=== PATIENT | female | born 1980 | race Caucasian/White ===

== ENCOUNTER → 2017-06-20 12:53 | Outpatient (CLI) | payer MEDICAID, SELFPAY ==
--- NOTE | 2017-06-20 12:59 | BI_ITS ---
MAMMOGRAPHY - BILATERAL DIAGNOSTIC REASON FOR EXAM: Female, 37 years old. Right breast lump. PERTINENT HISTORY: Non-contributory. TECHNIQUE: Digital bilateral breast prema (3D mammographic acquisition) in the CC and MLO projections. 2-D mediolateral oblique (MLO) and craniocaudad (CC) views of both breasts were obtained. CAD: Full Field Digital Mammography with Computer Added Detection was performed. COMPARISON: None. Baseline examination. FINDINGS: Breast Composition: The breasts are heterogeneously dense, which may obscure small masses. There is a 0.9 cm x 1.2 cm well-defined nodule in the upper lateral anterior portion of the left breast. No cluster microcalcification is seen. Benign appearing bilateral axillary lymph nodes. No other significant abnormalities are identified. BI/DIAG MAMM W/CAD, BILAT IMPRESSION: Well-defined nodular density in the left breast as described. Correlation with ultrasound is recommended. Correlation with ultrasound of the right breast at the palpable site is recommended as well. ASSESSMENT CATEGORY: BIRADS Category 0: Incomplete. Need additional imaging evaluation. A letter regarding these results will be sent to the patient by the facility within 30 days. Approximately 10% of breast cancers are not detected by mammography. A normal mammogram should not delay biopsy of a clinically suspicious abnormality. Electronically Signed: Brice Sifuentes MD at 15:15 EDT Tel [phone], Service support ,
--- NOTE | 2017-06-20 13:50 | US_ITS ---
STUDY: ULTRASOUND BREAST - RIGHT REASON FOR EXAM: Female, 37 years old. Palpable lump in the right breast. TECHNIQUE: Axial and longitudinal images of the RIGHT breast were performed with a high resolution ultrasound transducer. COMPARISON: Comparison is made with prior mammogram done earlier in the day. FINDINGS: RIGHT Breast: There is a 0.5 cm x 1.4 cm x 0.4 cm cyst at the 4:00 position in the breast at 3 cm from the nipple. There is also evidence of a 0.9 cm x 0.8 cm x 0.4 cm cyst at the 4:00 position in the breast at 5 cm from the nipple. IMPRESSION: 2 small cysts are seen in the mid medial portion of the right breast. ASSESSMENT CATEGORY: BIRADS Category 2: Benign. A letter regarding these results will be sent to the patient by the facility within 30 days. Electronically Signed: Brice Sifuentes MD at 15:11 EDT Tel [phone], Service support , STUDY: ULTRASOUND BREAST - LEFT REASON FOR EXAM: Female, 37 years old. Abnormal mammogram. TECHNIQUE: Axial and longitudinal images of the LEFT breast were performed with a high resolution ultrasound transducer. COMPARISON: Comparison is made with prior mammogram done earlier in the day. FINDINGS: LEFT Breast: There is a 1.8 cm x 0.7 cm x 0.8 cm well-defined hypoechoic nodule at the 2:00 position of the breast at 5 cm from the nipple. Low-level echoes are seen within it. This is not a typical cyst. A biopsy is recommended for further evaluation. US/Breast Limited Unilateral IMPRESSION: Well-defined 1.8 cm x 0.7 cm x 0.8 cm hypoechoic nodule at the 2:00 position in the breast of 5 cm from nipple. This is not a typical cyst. A biopsy is recommended for further evaluation. ASSESSMENT CATEGORY: BIRADS Category 4: Suspicious - Biopsy Should Be Considered. A letter regarding these results will be sent to the patient by the facility within 30 days. Electronically Signed: Brice Sifuentes MD at 15:13 EDT Tel [phone], Service support ,
== END ==
PROVIDERS: Family Provider Family Medicine; PCP Family Medicine; Visit Provider Obstetrics & Gynecology
DX: N63.13 Unspecified lump in the right breast, lower outer quadrant (principal)
CPT/HCPCS: 76642; 77062; 77066; G0279

== ENCOUNTER → 2017-07-04 07:10 | Outpatient (CLI) | payer MEDICAID, SELFPAY ==
--- NOTE | 2017-07-04 07:12 | MRI_ITS ---
STUDY: BILATERAL BREAST MR WITHOUT AND WITH CONTRAST REASON FOR EXAM: Female, 37 years old. Bilateral breast masses. Palpable abnormality right breast. TECHNIQUE: Multi-sequence multi-echo imaging of both breasts was performed with a dedicated breast coil. T1-weighted and T2-weighted images were performed before the administration of contrast. T1-weighted images were also performed after the administration of 10 mL of Gadavist contrast intravenously without complications. COMPARISON: Mammogram dated 06/20/2017 and breast ultrasound dated 06/20/2017 FINDINGS: RIGHT BREAST: The breast tissue is scattered fibroglandular densities with no background enhancement. There are no abnormal enhancing masses or areas of non-mass enhancement in the right breast. There are 2 benign appearing cystic masses in the lower inner aspect of the right breast measuring approximately 1 cm correlating to palpable areas. One of the masses appears to be somewhat tubular and appears to represent a cyst connected to a possible duct. LEFT BREAST: The breast tissue is scattered fibroglandular densities with no background enhancement. There is a complex heterogeneous mass identified in the upper outer quadrant of the left breast approximately 6 cm from the nipple. This mass does not demonstrate abnormal kinetics based upon MRI criteria, to be highly suggestive of malignancy, however malignancy cannot be entirely excluded. Biopsy is therefore warranted. This mass measures approximately 16 mm. It does correlate to the mass seen on the mammogram and ultrasound examinations. No other abnormal enhancing or abnormal morphologically appearing masses are seen in the left breast. There are no enlarged or abnormal lymph nodes. There is no abnormality in the visualized regions of the chest or liver. MRI/Breast w/o and/or W Cont Bilat IMPRESSION: The left breast mass should be biopsied in order to completely exclude a malignancy. CATEGORY: BIRADS Category 4: Suspicious - Biopsy Should Be Considered. A letter regarding these results will be sent to the patient by the facility within 30 days. Electronically Signed: Freda Zamudio DO at 8:14 EDT Tel , Service support ,
== END ==
PROVIDERS: Family Provider Family Medicine; PCP Family Medicine; Visit Provider Surgery
DX: R92.8 Other abnormal and inconclusive findings on diagnostic imaging of breast (principal)
CPT/HCPCS: 77059; A9585; A4216; C8908

== ENCOUNTER → 2017-07-05 15:22 | Outpatient (CLI) | payer MEDICAID, SELFPAY ==
--- NOTE | 2017-07-05 14:00 | BRBX_PTH ---
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 Joby Felix MD : 1980 BED: DIS: SPEC #: [id number] RECD: 07/05/17 15:19 STATUS: JALEN JOURDAN #: [id number] MIKEY: 07/05/17 14:[address]: Joby Felix DEPT: SURGICAL PATHOLOGY RECD BY: Larry Meza ENTERED: 07/06/17 07:47 SP TYPE: BREAST BX OTHR DR: Dr. Pretty Witt MD Tissues: Left breast, NOS Procedures: Surgery Specimen Level IV HEADER OPERATION: Ultrasound-guided needle core biopsy left breast PRE-OP DIAGNOSIS: Abnormal mammogram TISSUE SUBMITTED: Left breast biopsy ISCHEMIC TIME: 1 minute FIXATION TIME: 29.5 hours MICROSCOPIC DIAGNOSIS Left breast, ultrasound-guided needle core biopsy: Hyalinized fibroadenoma. Negative for atypia or malignancy. SHANIQUE:za 07/07/17 COMMENT Correlation with clinical, radiologic findings and appropriate follow up are necessary. MICROSCOPIC DESCRIPTION Slides are reviewed. GROSS DESCRIPTION Received in fixative is one container labeled with the patient's name and designated left breast. The specimen consists of multiple elongated fragments of damian-yellow fibroadipose tissue that in aggregate measure 2 x 1 x 0.1 cm. The entire specimen is submitted in one cassette. / SHANIQUE:za 07/06/17 TC:1 CPT: 29590
== END ==
PROVIDERS: Family Provider Family Medicine; PCP Family Medicine; Visit Provider Surgery
DX: R92.8 Other abnormal and inconclusive findings on diagnostic imaging of breast (principal)
CPT/HCPCS: 88305

== ENCOUNTER → 2017-11-27 13:43 | Outpatient (CLI) | payer MEDICAID, SELFPAY ==
--- NOTE | 2017-11-27 13:46 | RAD_ITS ---
STUDY: X-RAY - LUMBAR SPINE REASON FOR EXAM: Female, 37 years old. Low back pain TECHNIQUE: 5 view(s) of the lumbar spine were obtained. COMPARISON: 07/02/2013 FINDINGS: Normal lumbar lordosis. There is no substantial scoliosis. There is a normal alignment of the vertebrae. Normal vertebral bodies and endplates. Severe degenerative disc disease at L5-S1. Significantly progressed since 2013. The soft tissue structures are unremarkable. RAD/L/S Spine Min 4 Views IMPRESSION: Severe degenerative disc disease at L5-S1 which has progressed since 2013. Recommend nonemergent MRI lumbar spine to further evaluate Electronically Signed: Ayo Brower DO at 10:33 EDT Tel , Service support ,
== END ==
PROVIDERS: Family Provider Family Medicine; PCP Family Medicine; Visit Provider Family Medicine
DX: S39.012A Strain of muscle, fascia and tendon of lower back, initial encounter (principal)
CPT/HCPCS: 72110

== ENCOUNTER → 2020-01-02 16:43 | Outpatient (CLI) | payer BC, SELFPAY ==
[2019-05-05 11:29] VITALS: BMI 32.2
== END ==
PROVIDERS: PCP Family Medicine; Referring Provider Family Medicine; Visit Provider Family Medicine
DX: Z20.828 Contact with and (suspected) exposure to other viral communicable diseases (principal)
CPT/HCPCS: 87635; U0003

== ENCOUNTER → 2020-05-22 14:24 | Outpatient (CLI) | payer BC, SELFPAY ==
[2019-05-05 11:29] VITALS: BMI 32.2
[2020-05-22 17:34] LABS: Absolute Lymphocyte Count 2.26 X10^3/uL (0.83-4.51); Absolute Neutrophil Count 3.4 X10^3/uL (2.0-7.7); Basophil# 0.04 X10^3/uL; Basophil% 0.6 % (0-1); Eosinophils% 3.2 % (0-5); Hematocrit 44.3 % (37-47); Hemoglobin 14.5 g/dL (12.0-15.0); Lymphocyte # 2.26 X10^3/ul (4.0); Lymphocyte % 36.2 % (19-41); Mean Corp Hgb Conc 32.7 g/dL (32-36); Mean Corpuscular Hgb 30.5 pg (27.0-32.0); Mean Corpuscular Volume 93.3 fL (81-99); Mean Platelet Vol. 10.7 fl (6.2-12.0); Monocyte# 0.33 X10^3/uL; Monocyte% 5.3 % (0-10); NRBC Flagged by Analyzer 0 % (0-5); Neutrophil % 54.4 % (47-70); Platelet Count 269 K/mm3 (150-450); RBC Distribution Width CV 11.9 % (11.6-14.6); RBC Distribution Width SD 41.1 fl (35.1-43.9); Red Blood Count 4.75 M/mm3 (4.2-5.4); White Blood Count 6.3 K/mm3 (4.4-11.0)
== END ==
PROVIDERS: PCP Family Medicine; Referring Provider Family Medicine; Visit Provider Family Medicine
DX: K62.5 Hemorrhage of anus and rectum (principal)
CPT/HCPCS: 36415; 85025

== ENCOUNTER → 2020-11-18 15:44 | Outpatient (CLI) | payer BC, SELFPAY | PROVIDERS: PCP Family Medicine; Visit Provider Physician Assistant | DX: Z11.52 Encounter for screening for COVID-19 (principal) | CPT/HCPCS: 87635; U0005; U0003 ==

== ENCOUNTER → 2022-09-12 | Outpatient (CLI) | payer MEDICAID, SELFPAY ==
[2022-09-12 13:31] LABS: Absolute Lymphocyte Count 2.24 X10^3/uL (0.83-4.51); Basophil# 0.04 X10^3/uL; Basophil% 0.4 % (0-1); Eosinophils% 4.3 % (0-5); Hematocrit 40.1 % (37-47); Hemoglobin 13.2 g/dL (12.0-15.0); Lymphocyte # 2.24 X10^3/ul (0.83-4.51); Lymphocyte % 24.2 % (19-41); Mean Corp Hgb Conc 32.9 g/dL (32-36); Mean Corpuscular Hgb 30.1 pg (27.0-32.0); Mean Corpuscular Volume 91.6 fL (81-99); Mean Platelet Vol. 10.4 fl (6.2-12.0); Monocyte# 0.55 X10^3/uL; Monocyte% 5.9 % (0-10); NRBC Flagged by Analyzer 0 % (0-5); Neutrophil # 5.97 X10^3/uL (2.7-7.7); Neutrophil % 64.6 % (47-70); Platelet Count 292 K/mm3 (150-450); RBC Distribution Width SD 42.9 fl (35.1-43.9); Red Blood Count 4.38 M/mm3 (4.2-5.4); White Blood Count 9.3 K/mm3 (4.4-11.0)
[2022-09-12 14:21] LABS: HIV - WCH Non-Reactive (Nonreactive); Hepatitis B Surface Antigen Non-Reactive (Nonreactive); Hepatitis C Antibody Non-Reactive (Nonreactive); Rubella IgG Reactive (Nonreactive); Syphilis Antibodies Non-reactive
[2022-09-14 08:12] LABS: V-Zoster IgG (Immunity) 2527 index (Immune >165)
[2022-09-16 12:09] LABS: HPV APTIMA, High Risk Negative (Negative)
== END | disposition home or self-care (01) ==
LOC: WOBLAB 12:17
PROVIDERS: PCP Family Medicine; Visit Provider Nurse Practitioner Women's Health
DX: O30.001 Twin pregnancy, unspecified number of placenta and unspecified number of amniotic sacs, first trimester (principal); Z3A.00 Weeks of gestation of pregnancy not specified
CPT/HCPCS: 36415; 85025; 86703; 86762; 86780; 86787; 86803; 87086; 87340; 87624; 88175; G0145

== ENCOUNTER → 2022-09-20 | Outpatient (CLI) | payer MEDICAID, SELFPAY ==
[2022-09-20 14:05] LABS: Glucose Challenge Gest 1H 50g 172 mg/dL (70-140)
== END | disposition home or self-care (01) ==
LOC: WOBLAB 13:27
PROVIDERS: PCP Family Medicine; Visit Provider Nurse Practitioner Women's Health
DX: N91.2 Amenorrhea, unspecified (principal)
CPT/HCPCS: 36415; 82950

== ENCOUNTER → 2022-09-22 | Outpatient (CLI) | payer MEDICAID, SELFPAY ==
[2022-09-22 09:22] LABS: Glucose GTT-Gestation. Fasting 109 mg/dL (<105)
[2022-09-22 10:34] LABS: Glucose GTT-Gestational 1 Hr 183 mg/dL (<190)
[2022-09-22 11:23] LABS: Glucose GTT-Gestational 2 Hr 165 mg/dL (<165)
[2022-09-22 13:09] LABS: Glucose GTT-Gestational 3 Hr 86 L (<145)
== END | disposition home or self-care (01) ==
LOC: WOBLAB 08:36
PROVIDERS: PCP Family Medicine; Visit Provider Obstetrics & Gynecology
DX: Z34.81 Encounter for supervision of other normal pregnancy, first trimester (principal)
CPT/HCPCS: 36415; 82951; 82952

== ENCOUNTER 2023-03-23 08:14 | Inpatient (IN) | payer MEDICAID, SELFPAY ==
[2023-03-23] VITALS (29 sets, daily range): BP systolic 109–146; BP diastolic 61–93; PULSE 79–128; TEMP 35.8–36.8; O2SAT 93–98; BMI 39.7
--- OUTSIDE RECORDS SUMMARY | 2023-03-23 07:19 | XMS RPT_ITS | CCD ---
Author Name Unknown Address [address] [place] [address] Organization [facility] Care Team Providers Care Mail Deliverer Name Role Phone Unavailable Primary Care Provider UnavailBRUNO Pepe Attending Unavailable BANDAR ALVARES Referring Unavailable NO PRIMARY CAREMD Primary Care Unavailable MYRON COYLE Referring Unavailable BRUNO MILLIGAN Attending Unavailable NO PRIMARY CAREMD Primary Care Unavailable MYRON COYLE Referring Unavailable BRUNO MILLIGAN Attending Unavailable NO PRIMARY CAREMD Primary Care Unavailable SERGE AREVALO Attending Unavailable MYRON COYLE Referring Unavailable NO PRIMARY CAREMD Primary Care Unavailable MYRON COYLE Referring Unavailable TERRENCE JACKSON Attending Unavailable NO PRIMARY CAREMD Primary Care Unavailable DEEPIKA LOMAX Attending Unavailable BANDAR ALVARES Referring Unavailable ERIN RODRIGUES Attending Unavail able DANIEL SANCHES Attending Unavailable MARIE HAYS Attending Unavailable BANDAR ALVARES Attending Unavailable TERESA JACOME Attending Unavailable MARIE HAYS Referring Unavailable TERESA JACOME Attending Unavailable DEEPIKA LOMAX Attending Unavailable MARIE HAYS Attending Unavailable DANIEL SANCHES Attending Unavailable ERIN RODRIGUES Attending Unavail able ERIN RODRIGUES Referring Unavail able MARQUIS AQUINO Attending Unavailable DANIEL SANCHES Attending Unavailable ERIN ORDRIGUES Referring Unavail able ERIN RODRIGUES Attending Unavail able DEEPIKA LOMAX Attending Unavailable ERIN RODRIGUES Referring Unavail able BANDAR ALVARES Attending Unavailable MARIE HAYS Referring Unavailable ERIN RODRIGUES Attending Unavail able Allergies Allergy Classification Reported Allergen(s) Allergy Type Date of Onset Reaction(s) Facility (20 sources) Sulfonamides (Antibiotic); Translations: [SULFA (SULFONAMIDE ANTIBIOTICS)] Propensity to adverse reactions 6 Swelling [facility] Work Phone: (20 sources) buPROPion; Translations: [BUPROPION] Drug Allergy 3 Rash [facility] (20 sources) HYDROcodone; Translations: [HYDROCODONE] Drug Allergy 3 Other: See Comments [facility] (20 sources) Promethazine; Translations: [PROMETHAZINE] Drug Allergy 0 Other: See Comments [facility] (1 source) Sulfonamides (Antibiotic); Translations: [SULFA ANTIBIOTICS] Propensity to adverse reactions to drug (disorder) 0 [facility] Repository Medications Current Medications Medication Drug Class(es) Dates Sig (Normalized) Sig (Original) nitrofurantoin, macrocrystals 25 mg / nitrofurantoin, monohydrate 75 mg oral capsule (3 sources) Nitrofuran Antibacterial Start: 12-22-2022 End: 12-29-2022 take 1 capsule by mouth twice daily nitrofurantoin monohydrate and macrocrystal (MACROBID) 100 mg capsule Take 1 capsule by mouth two times a day for 7 days. 14 capsule 0 12/22/2022 12/29/2022 Active Completed/Discontinued Medications Medication Drug Class(es) Dates Sig (Normalized) Sig (Original) amphetamine aspartate 5 mg / amphetamine sulfate 5 mg / dextroamphetamine saccharate 5 mg / dextroamphetamine sulfate 5 mg oral tablet (20 sources) Central Nervous System Stimulant Start: 10-28-2022 take 1 tablet by mouth every twelve hours dextroamphetamin e-amphetamine (ADDERALL) 20 mg tablet Take 1 tablet by mouth every 12 (twelve) hours. 0 10/28/2022 Active Problems Active Problems Problem Classification Problem Date Documented Date Episodic/Chronic Benign neoplasm of uterus (2 sources) Uterine leiomyoma; Translations: [Leiomyoma of uterus, unspecified] Onset: 02-08-2023 02-08-2023 Episodic Diabetes or abnormal glucose tolerance complicating ; childbirth; or the puerperium (20 sources) Gestational diabetes mellitus; Translations: [Gestational diabetes mellitus in , insulin controlled] Onset: 11-24-2022 11-24-2022 Episodic Immunizations and screening for infectious disease (4 sources) Needs influenza immunization; Translations: [Encounter for immunization] Onset: 01-24-2023 12-20-2022 Episodic Other complications of (20 sources) Obesity; Translations: [Obesity complicating , unspecified trimester] Onset: 11-24-2022 11-24-2022 Chronic Other complications of (1 source) Obesity complicating , unspecified trimester; Translations: [Obesity in ] Onset: 11-24-2022 Chronic Other complications of (20 sources) Multigravida of advanced maternal age; Translations: [Supervision of elderly multigravida, unspecified trimester] Onset: 11-24-2022 11-24-2022 Episodic Other complications of (4 sources) High risk ; Translations: [Supervision of high risk , unspecified, second trimester] 12-20-2022 Episodic Other complications of (1 source) Supervision of elderly multigravida, third trimester; Translations: [AMA (advanced maternal age) multigravida 35+, third trimester] Onset: 02-24-2023 Episodic Other complications of (1 source) Supervision of elderly multigravida, second trimester; Translations: [AMA (advanced maternal age) multigravida 35+, second trimester] Onset: 02-15-2023 Episodic Other complications of (1 source) Supervision of high risk , unspecified, second trimester; Translations: [Supervision of high risk in second trimester] Onset: 02-07-2023 Episodic Other complications of (1 source) Supervision of high risk , unspecified, third trimester; Translations: [Supervision of high risk in third trimester] Onset: 01-24-2023 Episodic Other connective tissue disease (20 sources) H/O: rheumatoid arthritis; Translations: [Personal history of other diseases of the musculoskeletal system and connective tissue] Onset: 11-24-2022 11-24-2022 Episodic Other lower respiratory disease (20 sources) H/O: asthma; Translations: [Personal history of other diseases of the respiratory system] Onset: 11-24-2022 11-24-2022 Episodic Other screening for suspected conditions (not mental disorders or infectious disease) (1 source) Patient encounter status; Translations: [Encounter for other specified screening] 02-07-2023 Episodic Residual codes; unclassified (1 source) Gestation period, 22 weeks; Translations: [22 weeks gestation of ] 12-14-2022 Episodic Residual codes; unclassified (1 source) Gestation period, 23 weeks; Translations: [23 weeks gestation of ] 12-20-2022 Episodic Residual codes; unclassified (1 source) Gestation period, 26 weeks; Translations: [26 weeks gestation of ] 01-10-2023 Episodic Residual codes; unclassified (1 source) Gestation period, 28 weeks; Translations: [28 weeks gestation of ] 01-24-2023 Episodic Residual codes; unclassified (2 sources) Gestation period, 30 weeks; Translations: [30 weeks gestation of ] 02-07-2023 Episodic Residual codes; unclassified (1 source) 33 weeks gestation of ; Translations: [33 weeks gestation of ] Onset: 02-24-2023 Episodic Residual codes; unclassified (1 source) 32 weeks gestation of ; Translations: [32 weeks gestation of ] Onset: 2023 Episodic Residual codes; unclassified (1 source) 30 weeks gestation of ; Translations: [30 weeks gestation of ] Onset: 02-15-2023 Episodic Residual codes; unclassified (1 source) 28 weeks gestation of ; Translations: [28 weeks gestation of ] Onset: 01-24-2023 Episodic Past or Other Problems Problem Classification Problem Date Documented Date Episodic/Chronic Other complications of (20 sources) Continuing after intrauterine of one fetus or more, unspecified trimester, not applicable or unspecified; Translations: [Twin with loss and retention of one fetus, antepartum condition or complication] Onset: 11-24-2022 11-24-2022 Episodic Other complications of (1 source) Supervision of elderly multigravida, unspecified trimester; Translations: [Antepartum multigravida of advanced maternal age] Onset: 11-24-2022 Episodic Other connective tissue disease (1 source) Personal history of other diseases of the musculoskeletal system and connective tissue; Translations: [History of rheumatoid arthritis] Onset: 11-24-2022 Episodic Other lower respiratory disease (1 source) Personal history of other diseases of the respiratory system; Translations: [History of asthma] Onset: 11-24-2022 Episodic Other and delivery including normal (20 sources) Second trimester ; Translations: [Encounter for supervision of normal , unspecified, second trimester] Onset: 11-24-2022 11-24-2022 Episodic Screening and history of mental health and substance abuse codes (20 sources) H/O: depression; Translations: [Personal history of other mental and behavioral disorders] Onset: 11-24-2022 11-24-2022 Episodic Results Test Name Value Interpretation Reference Range Facil ity Vital Signs Date Time Vital Sign Value Performing Clinician Sherleyi litthomas 02-07-2023 14:08-0500 Body weight 109.23 kg Deepika Lomax MD Work Phone: [facility] 02-07-2023 14:08-0500 Diastolic blood pressure 70 mm[Hg] Deepika Lomax MD Work Phone: [facility] 02-07-2023 14:08-0500 Systolic blood pressure 98 mm[Hg] Deepika Lomax MD Work Phone: [facility] 01-24-2023 15:50-0500 Body weight 107.05 kg Erin Hauser MD Work Phone: [facility] 01-24-2023 15:50-0500 Diastolic blood pressure 84 mm[Hg] Erin Hauser MD Work Phone: [facility] 01-24-2023 15:50-0500 Systolic blood pressure 132 mm[Hg] Erin Hauser MD Work Phone: [facility] 12-20-2022 15:05-0400 Body weight 107.05 kg Erin Hauser MD Work Phone: [facility] 12-20-2022 15:05-0400 Diastolic blood pressure 70 mm[Hg] Erin Hauser MD Work Phone: [facility] 12-20-2022 15:05-0400 Systolic blood pressure 120 mm[Hg] Erin Hauser MD Work Phone: [facility] 12-13-2022 14:52-0400 Body weight 105.51 kg Deepika Lomax MD Work Phone: [facility] 12-13-2022 14:52-0400 Diastolic blood pressure 72 mm[Hg] Deepika Lomax MD Work Phone: [facility] 12-13-2022 14:52-0400 Systolic blood pressure 110 mm[Hg] Deepika Loamx MD Work Phone: [facility] Encounters Encounter Date Encounter Type Care Provider Facility Start: 03-21-2023 End: 03-21-2023 ambulatory ERIN HAUSER Facility:[facility] Start: 03-17-2023 End: 03-17-2023 ambulatory DEEPIKA LOMAX Facility:[facility] Start: 03-14-2023 End: 03-14-2023 ambulatory DANIEL SANCHES Facility:[facility] Start: 03-10-2023 End: 03-10-2023 ambulatory TERESA JACOME Facility:[facility] Start: 03-07-2023 End: 03-07-2023 ambulatory DANIEL SANCHES Facility:[facility] Start: 03-03-2023 End: 03-03-2023 ambulatory MARIE HAYS Facility:[facility] Start: 02-28-2023 End: 03-01-2023 ambulatory MARIE HAYS Facility:[facility] Start: 02-24-2023 End: 02-25-2023 ambulatory BANDAR ALVARES Facility:[facility] Start: 2023 End: 02-21-2023 ambulatory ERIN HAUSER Facility:[facility] Start: 02-17-2023 End: 02-17-2023 [facility] Start: 02-17-2023 Telephone encounter Quarter Backer RN Maternal Medicine Procedures Date Procedure Procedure Detail Performing Clinician Start: 02-07-2023 Us preg uterus after 1st trimest 1/ gestation Erin Hauser MD Work Phone: Start: 01-24-2023 URINE OB DIP B/O Erin Hauser MD Work Phone: Start: 01-10-2023 URINE OB DIP B/O Erintony Hauser MD Work Phone: Start: 12-20-2022 INFLUENZA VACCINE, A GE 6 MO - 64 YR, QUADRIVALENT (AFLURIA, FLULAVAL, FLUZONE) Erin Hauser MD Work Phone: Start: 12-20-2022 Urnls dip stick/tabl et rgnt auto w/o microscopy Erin Hauser MD Work Phone: Start: 09-12-2022 Antibody screen Nurse W str Work Phone: Start: 09-12-2022 CBC panel - Blood by Automated count [facility] Provider Start: 09-12-2022 CHLAMYDIA/N GONO BY PCR [facility] Provider Start: 09-12-2022 GEST GLUC SCREEN, 1- HR, 50 GM, NON-FASTING [facility] Provider Start: 09-12-2022 HEP B SURF AG SCRN [facility] Start: 09-12-2022 HEPATITIS C ANTIBODY IA WITH CONFIRMATION [facility] Start: 09-12-2022 HIV 1 2 COMBO(AG/AB) ,WITH REFLEX TO DIFFERENTIATION [facility] Start: 09-12-2022 RUBELLA IGG AB [facility] Prov ider Start: 09-12-2022 SYPHILIS TOTAL W/REFLEX [facility] Start: 09-12-2022 TYPE + SCREEN (EXTERNAL LAB) [facility] Provider Plan of Treatment Date Care Activity Detail Author Start: 01-24-2033 Urine microalbumin profile DTaP,Tdap,Td Vaccine (2 - Td or Tdap) [facility] Start: 09-13-2027 HPV Testing HPV Testing [facility] Start: 09-13-2027 Pap Testing Pap Testing [facility] Start: 09-13-2027 Screening for malignant neoplasm of cervix [facility] Start: 02-16-2023 RSV Vaccine (1 - Risk 1-dose series) RSV Vaccine (1 - Risk 1-dose series) [facility] Start: 01-10-2023 End: 04-11-2023 CBC W Auto Differential panel - Blood CBC + DIFF Lab Routine 26 weeks gestation of AMA (advanced maternal age) multigravida 35+, second trimester Insulin controlled gestational diabetes mellitus (GDM) in second trimester Supervision of high risk in second trimester Expected: 01/10/2023, Expires: 04/11/2023 [facility] Work Phone: Immunizations Immunization Date Immunization Notes Care Provider Fa tae 01-24-2023 tetanus toxoid, redu nona diphtheria toxoid, and acellular pertussis vaccine, adsorbed Erin Hauser MD Work Phone: [facility] 12-20-2022 influenza, injectabl e, quadrivalent, contains preservative Erin Hauser MD Work Phone: [facility] Payers Date Payer Category Payer [facility] [id number] 2022-Present [phone] [address] [place] [address] Medicaid [id number] 2022 Unknown [id number] 1980 Unknown [id number] 1981 Unknown [id number] 1981 Unknown [id number] 1981 Unknown [id number] 1980 Unknown [id number] Social History Date Type Detail Facility Start: 11-24-2022 [facility] Work Phone: End: 09-02-2021 History of tobacco use Current smoker [facility] Work Phone: End: 09-02-2021 History of tobacco use Cigarette Smoker [facility] Work Phone: Start: 11-15-2022 Alcohol intake Current drinke r of alcohol (finding) [facility] Start: 11-15-2022 End: 02-07-2023 History of Social function [facility] Start: 11-15-2022 End: 02-07-2023 Tobacco use panel [facility] Start: 1980 Sex Assigned At Not on file [facility] Start: 11-24-2022 Tobacco use and exposure Smokeless tobacco non-user [facility] Work Phone: Start: 11-24-2022 End: 02-17-2023 Alcohol intake Ex-drinker (finding) [facility] Start: 11-24-2022 Education 21 [facility] Start: 11-24-2022 [facility] Start: 07-21-2022 [facility] National Score (1-10 0), lower number is lower risk 64 [facility] Medical Equipment Procedure Code Equipment Code Equipment Origin al Text Equipment Identifier Dates Start: 09-23-2022 End: 12-15-2022 Goals Date Patient Goal Desired Activity /State Personal health goal Personal health goal Clinical Notes 11-15-2022 to 03-21-2023 Telephone Encounter - Joan Ibarra RN - 02/17/2023 1:59 PM ESTTelephone Encounter - Aga Rodriguez LPN - 02/07/2023 4:48 PM ESTPatient Deepika Huang MD - 02/07/2023 2:51 PM EST Note Date & Type Note Facility 03-21-2023 Note HNO ID: [id number] Author: ERIN RODRIGUES MD Service: ? Author Type: Physician Type: Progress Notes Filed: 03/21/2023 12:49 Note Text: NST SUMMARY PROVIDER ASSESSMENT AND INTERPRETATION Jeri Gordon is a 43 year old female, , who is at 36w5d with an MARYANA of 04/13/2023, by Last Menstrual Period dating method. Indications for NST: AMA, Diabetes - Insulin Controlled, and Obesity Baseline: 150 Variability: Moderate Accelerations: Present 15 X 15 Decelerations: Variable - one possible variable but category 1 for >20min prior to discharge Contractions: TOCO: None Interpretation: Category I and Reactive SIGNATURE: Erin Marinelli MD [facility] 03-14-2023 Note HNO ID: [id number] Author: DANIEL SANCHES MD Service: ? Author Type: Physician Type: Progress Notes Filed: 03/14/2023 12:50 Note Text: NST SUMMARY PROVIDER ASSESSMENT AND INTERPRETATION Jeri Gordon is a 43 year old female, , who is at 35w5d with an MARYANA of 04/13/2023, by Last Menstrual Period dating method. Indications for NST: AMA and Gestational Diabetes - Insulin Controlled Baseline: 140 Variability: Moderate Accelerations: Present 15 X 15 Decelerations: Variable Contractions: TOCO: None Interpretation: Reactive SIGNATURE: Daniel Sanches MD [facility] 03-10-2023 Note HNO ID: [id number] Author: TERESA JACOME APRN.CNM Service: ? Author Type: Book Retailer Type: Progress Notes Filed: 03/10/2023 16:57 Note Text: NST SUMMARY PROVIDER ASSESSMENT AND INTERPRETATION Jeri Gordon is a 43 year old female, , who is at 35w1d with an MARYANA of 04/13/2023, by Last Menstrual Period dating method. Indications for NST: Diabetes - Insulin Controlled Baseline: 150 Variability: Moderate Accelerations: Present 15 X 15 Decelerations: None Contractions: TOCO: Irregular Interpretation: Reactive SIGNATURE: Teresa Jacome APRN.CNM [facility] 03-07-2023 Note HNO ID: [id number] Author: Deepika Lomax MD Service: ? Author Type: Physician Type: Progress Notes Filed: 03/07/2023 3:14 PM Note Text: MFM Progress Note Jeri is 42yo @ 34w5d here for growth and follow up visit due to GDM on insulin. Having occasional contractions BP 116/84 Wt 246 lb 3.2 oz (111.7 kg) LMP 07/07/2022 BMI 38.56 kg/m? AANDO, NAD Abdomen soft, nontender during US exam US shows: Accelerated interval growth EFW 79%ile, AC 97%ile Normal fluid Forgot glucose log today therefore will not adjust insulin dose, will send via Mychart Reports fasting between 89-97 Currently 65 units Levemir nightly, Humalog 08/12/11 Discussed early term delivery and risks/benefits including possible need for NICU admission balancing with risk of antepartum complications including loss. Patient comfortable with proceeding with early term delivery. Problem List Items Addressed This Visit Endocrinology Insulin controlled gestational diabetes mellitus (GDM) in second trimester Overview Insulin regimen as of 03/07/22: Levemir: 65 units qHS Lispro: 08/12/11 units with meals /2: does not have BG log reports fasting mostly 90s, postprandial normal range -Serial growth ultrasounds -Twice weekly NST at 32 weeks -Given frequent insulin adjustments, LGA, other risks including AMA, suggest delivery 37-39 weeks unless indicated earlier Other Visit Diagnoses AMA (advanced maternal age) multigravida 35+, second trimester Medical Decision Making: Problems: Moderate: 2+ stable chronic illnesses Risk: Moderate: Moderate risk from testing/treatment Medical Decision Making Level: 4 - Moderate Deepika Lomax MD February 07, 2023 2:55 PM [facility] 03-03-2023 Note HNO ID: [id number] Author: Marie Hays APRN.CNM Service: ? Author Type: Book Retailer Type: Progress Notes Filed: 03/03/2023 4:17 PM Note Text: NST SUMMARY PROVIDER ASSESSMENT AND INTERPRETATION Jeri Gordon is a 43 year old female, , who is at 34w1d with an MARYANA of 04/13/2023, by Last Menstrual Period dating method. Indications for NST: Gestational Diabetes - Insulin Controlled Baseline: 145 Variability: Moderate Accelerations: Present 15 X 15 Decelerations: Variable Contractions: TOCO: None Interpretation: Reactive SIGNATURE: Marie Hays APRN.CNM [facility] 02-24-2023 Note HNO ID: [id number] Author: Bandar Alvares MD Service: ? Author Type: Physician Type: Progress Notes Filed: 02/24/2023 4:33 PM Note Text: NST SUMMARY PROVIDER ASSESSMENT AND INTERPRETATION Jeri Gordon is a 43 year old female, , who is at 33w1d with an MARYANA of 04/13/2023, by Last Menstrual Period dating method. Indications for NST: AMA and Gestational Diabetes - Insulin Controlled Baseline: 135 Variability: Moderate Accelerations: Present 15 X 15 Decelerations: None Contractions: TOCO: None Interpretation: Category I and Reactive SIGNATURE: Bandar Alvares MD [facility] 2023 Note HNO ID: [id number] Author: Erin Rodrigues MD Service: ? Author Type: Physician Type: Progress Notes Filed: 2023 5:11 PM Note Text: NST SUMMARY PROVIDER ASSESSMENT AND INTERPRETATION Jeri Gordon is a 43 year old female, , who is at 32w4d with an MARYANA of 04/13/2023, by Last Menstrual Period dating method. Indications for NST: AMA and Diabetes - Insulin Controlled Baseline: 120 Variability: Moderate Accelerations: Present 15 X 15 Decelerations: None Contractions: TOCO: Irregular Interpretation: Category I and Reactive SIGNATURE: Erin Marinelli MD [facility] 02-17-2023 Note HNO ID: [id number] Author: Teresa Jacome APRN.CN Service: ? Author Type: Book Retailer Type: Progress Notes Filed: 02/17/2023 4:21 PM Note Text: NST SUMMARY PROVIDER ASSESSMENT AND INTERPRETATION Jeri Gordon is a 42 year old female, , who is at 32w1d with an MARYANA of 04/13/2023, by Last Menstrual Period dating method. Indications for NST: AMA, Gestational Diabetes - Insulin Controlled, and Obesity Baseline: 160 Variability: Moderate Accelerations: Present 15 X 15 Decelerations: None Contractions: TOCO: None Interpretation: Reactive SIGNATURE: Teresa Jacome APRN.CNM [facility] 02-17-2023 Miscellaneous Notes 3rd risk assessment form submitted 02/17/2023. Joan Ibarra RN documented in this encounter [facility] 02-07-2023 Note HNO ID: [id number] Author: Deepika Lomax MD Service: ? Author Type: Physician Type: Progress Notes Filed: 02/07/2023 2:56 PM Note Text: [facility] Progress Note Jeri is 42yo @ 30w5d here for growth and follow up visit due to GDM on insulin. Doing well, having [place] contractions. Has OB visit today. BP 98/70 Wt 240 lb 12.8 oz (109.2 kg) LMP 07/07/2022 BMI 37.71 kg/m? AANDO, NAD Abdomen soft, nontender during US exam US shows: Adequate interval growth EFW 79%ile, AC 97%ile Normal fluid Reviewed glucose log: Fasting all elevated 100-110 1 hour postprandial almost all within goal range Reviewed increase of nightly Levemir to 60 units (patient did not get My chart or phone message but signature adjusted today and discussed dose adjustment). If glucoses remain sub optimal can consider delivery 37-39 weeks given risk factors. Plan for twice weekly NST at 32 weeks and continue serial assessment of growth. Continue glucose monitoring through My Chart however will bring glucose log to visits as well if any communication gap with My Chart. Problem List Items Addressed This Visit Endocrinology Insulin controlled gestational diabetes mellitus (GDM) in second trimester Overview Insulin regimen as of 02/07/23: Levemir: 60 units qHS Lispro: 08/12/11 units with meals -Serial growth ultrasounds -Twice weekly NST at 32 weeks -Delivery 37-39 weeks unless indicated earlier 11/24/2022 Patient states she was newly diagnosed as a gestational diabetic. She states she has seen a dietitian and had diabetic education. She is now on insulin. She is aware of the importance of taking her blood sugars every day. She states since November 15 she has not reported of her blood sugars to [place] or [facility] since November 15. See phone note dated November 24.TKRN Relevant Medications LEVEMIR FLEXPEN 100 unit/mL (3 mL) injection pen Other History of depression Overview 3Pt has a history of anxiety/depression diagnosed in 2003. She is currently taking Effexor and Abilify prescribed by Dr. Almazan. She believes she is doing well on medication. She denies ever having any depression.Discussed increased risks of depression during and and importance of reporting the development or worsening of symptoms should they occur. Pt denies ever having any suicidal thoughts or tendencies or thoughts of hurting others. TKRN History of rheumatoid arthritis - Primary Overview 11/24/2022 Patient has a history of rheumatoid arthritis diagnosed at age 26. She states I have been in remission since age 31 with very few flareups . States she was last seen by viscosity inspector 15 years ago.TKRN Other Visit Diagnoses AMA (advanced maternal age) multigravida 35+, second trimester Supervision of high risk in second trimester Medical Decision Making: Problems: Moderate: 2+ stable chronic illnesses Risk: Moderate: Drug management and Moderate risk from testing/treatment Medical Decision Making Level: 4 - Moderate Deepika Lomax MD February 07, 2023 2:55 PM [facility] 02-07-2023 Miscellaneous Notes Voicemail and [employer] message sent to pt. Aga Rodriguez LPN Can you please call patient and clarify to increase insulin dose Levemir to 60 units not 55units. Confirmed with and this is the correct dose. Sorry for confusion. Thank you, Marie Hays APRN.CNM documented in this encounter [facility] 02-07-2023 Instructions Eliseo Vincent Cma - 02/07/2023 3:01 PM EST SEQUENTIAL SCREENINGS [facility] offers sequential screenings for women who are interested in screenings for chromosomal abnormalities and certain defects during a . The sequential screen combines ultrasound and blood tests to determine the risk of chromosomal abnormalities, including Down's Syndrome (Trisomy 21) and Trisomy 18, as well as open neural tube defects including spina bifida. Ultrasound examination is performed between 11 weeks and 13 weeks gestational age. Blood tests are drawn after the ultrasound and again later in the between 15 and 21 weeks gestational age. Please let your physician know if you are interested in this testing. It will require an appointment with our telecasting technician. This is not an ultrasound performed by a physician in our office during a routine visit. SIGNS AND SYMPTOMS OF LABOR 1. Contractions every 10 minutes or more often 2. Clear, pink, or brownish fluid (water) leaking from vagina 3. Feeling that baby is pushing down, pressure 4. Low, dull backache 5. Cramps that feel like a period 6. Cramps with or without diarrhea If you notice any of the above symptoms, contact our office at [phone] and ask to speak with a nurse. After hours, you can call doctors registry at [phone] OR call [facility] at [phone] and ask to have the doctor carbonating stone cleaner paged. If you consider this an emergency, dial 9-5 or go to your nearest emergency department. NEED HELP? Are you dealing with a violent or abusive relationship? Are you a victim of rape or sexual assult? Call [facility] ([place]) 24 hour Crisis Hotline: 243.796.1474 or 431-606-8169. MANUAL Your Guide to a Healthy manual is now on-line. Visit [email or web address] to download your free copy documented in this encounter [facility] 02-07-2023 Miscellaneous Notes JORGE-S: Jeri Gordon is a 42 year old female who presents at 30w5d with MARYANA:04/13/2023, by Last Menstrual Period for a routine visit. Good FM.Denies headache, visual changes, chest pain, shortness of breath, vaginal bleeding, leakage of fluid, or dysuria. Feeling well, no complaints. O: See flow sheet Gen: No apparent distress Abd: Gravid, nontender US shows: Adequate interval growth EFW 79%ile, AC 97%ile Normal fluid Patient reviewed glucose log with Fasting all elevated 100-110 1 hour postprandial almost all within goal range A: ASSESSMENT/PLAN: 1. 30 weeks gestation of 2. Insulin controlled gestational diabetes mellitus (GDM) in second trimester 3. AMA (advanced maternal age) multigravida 35+, second trimester 4. Obesity in P: 1) PTL precautions reviewed and when to call 2) RTO in one week 3) Twice weekly surveillance starting at 32 weeks alternating BPP and NST 4) Growth US at 34 wk 5) If glucoses remain sub optimal can consider delivery 37-39 weeks given risk factors. 6) MFM today for consult 7) Reviewed increase of nightly Levemir to 60 units at HS Continue glucose monitoring through My Chart however will bring glucose log to visits as well if any communication gap with My Chart. 8) Discussed with patient physician only for visits due to high risk Marie Hays APRN.CNM documented in this encounter [facility] 02-07-2023 History of Presen t illness Narrative MFM Progress Note Jeri is 42yo @ 30w5d here for growth and follow up visit due to GDM on insulin. Doing well, having [place] contractions. Has OB visit today. BP 98/70 Wt 240 lb 12.8 oz (109.2 kg) LMP 07/07/2022 BMI 37.71 kg/m A&O, NAD Abdomen soft, nontender during US exam US shows: Adequate interval growth EFW 79%ile, AC 97%ile Normal fluid Reviewed glucose log: Fasting all elevated 100-110 1 hour postprandial almost all within goal range Reviewed increase of nightly Levemir to 60 units (patient did not get My chart or phone message but signature adjusted today and discussed dose adjustment). If glucoses remain sub optimal can consider delivery 37-39 weeks given risk factors. Plan for twice weekly NST at 32 weeks and continue serial assessment of growth. Continue glucose monitoring through My Chart however will bring glucose log to visits as well if any communication gap with My Chart. Problem List Items Addressed This Visit Endocrinology Insulin controlled gestational diabetes mellitus (GDM) in second trimester Overview Insulin regimen as of 02/07/23: Levemir: 60 units qHS Lispro: 08/12/11 units with meals -Serial growth ultrasounds -Twice weekly NST at 32 weeks -Delivery 37-39 weeks unless indicated earlier 11/24/2022 Patient states she was newly diagnosed as a gestational diabetic. She states she has seen a dietitian and had diabetic education. She is now on insulin. She is aware of the importance of taking her blood sugars every day. She states since November 15 she has not reported of her blood sugars to [place] or [facility] since November 15. See phone note dated November 24.TKRN Relevant Medications LEVEMIR FLEXPEN 100 unit/mL (3 mL) injection pen Other History of depression Overview 3Pt has a history of anxiety/depression diagnosed in 2003. She is currently taking Effexor and Abilify prescribed by Dr. Almazan. She believes she is doing well on medication. She denies ever having any depression.Discussed increased risks of depression during and and importance of reporting the development or worsening of symptoms should they occur. Pt denies ever having any suicidal thoughts or tendencies or thoughts of hurting others. TKRN History of rheumatoid arthritis - Primary Overview 11/24/2022 Patient has a history of rheumatoid arthritis diagnosed at age 26. She states I have been in remission since age 31 with very few flareups . States she was last seen by viscosity inspector 15 years ago.TKRN Other Visit Diagnoses AMA (advanced maternal age) multigravida 35+, second trimester Supervision of high risk in second trimester Medical Decision Making: Problems: Moderate: 2+ stable chronic illnesses Risk: Moderate: Drug management and Moderate risk from testing/treatment Medical Decision Making Level: 4 - Moderate Deepika Lomax MD February 07, 2023 2:55 PM documented in this encounter [facility] 02-01-2023 Note HNO ID: [id number] Author: Teresa Ruiz APRN.MICHAEL Service: ? Author Type: Nurse Practitioner Type: Progress Notes Filed: 02/01/2023 12:51 PM Note Text: Called patient and lvm with recommendations Current Management: Medication controlled Lispro 10 units at meals Levemir 60 units at bedtime Teresa Ruiz APRN.CNP [facility] 02-01-2023 Note HNO ID: [id number] Author: Teresa Ruiz APRN.MICHAEL Service: ? Author Type: Nurse Practitioner Type: Progress Notes Filed: 02/01/2023 12:50 PM Note Text: Called patient and lvm with recommendations Current Management: Medication controlled Lispro 10 units at meals Levemir 60 units at bedtime Teresa Ruiz APRN.CNP [facility] 01-30-2023 Note HNO ID: [id number] Author: Teresa Ruiz APRN.CNP Service: ? Author Type: Nurse Practitioner Type: Progress Notes Filed: 01/30/2023 10:39 AM Note Text: Diabetes in Monitoring [facility] Recommendations Jeri Gordon is a 42 year old, , [place] 29w4d with Gestational Diabetes. Last growth scan: NOEMI 19.3 AC 83% EFW 55% Management: Medication controlled Humalog (Lispro) 6 units with breakfast Humalog (Lispro) 6 units with lunch Humalog (Lispro) 10 units with dinner Levemir (Detemir) 42 units at bedtime (HS) Diabetes in Monitoring Ammonium Nitrate Neutralizer 01/22/2023 01/21/2023 01/20/2023 01/19/2023 01/18/2023 01/17/2023 01/16/2023 Fasting 118 115 110 111 120 118 122 Dose 6 6 6 6 6 6 6 After BF 136 133 143 115 135 132 130 Lunch - 141 143 139 - - - Dose 6 6 6 6 6 6 6 After Lenore 154 - - - 150 162 153 Dose 10 10 10 10 10 10 10 After Din 155 152 148 145 153 147 152 Comment - - - - - - - Dose 42 42 42 42 42 42 42 Update Day - - - - - - - Dr Lomax to review for management recommendations. Teresa Ruiz APRN.CNP January 30, 2023 10:37 AM [facility] 01-24-2023 Note HNO ID: [id number] Author: Caridad Cummins Ma Service: ? Author Type: ? Type: Progress Notes Filed: 01/24/2023 5:12 PM Note Text: Patient identified by name and date of . Jeri Gordon presents today for a vaccination of Tdap. Patient denies an allergy to latex: yes Patient denies a severe (life-threatening) allergy to a previous dose of Tdap, DTP, DTaP, DT or Td vaccine. Yes Patient denies history of epilepsy or neurological problems: Yes Patient is afebrile and denies being moderately or severely ill: Yes Patient denies history of Guillain-B[place] Syndrome (a severe paralytic illness): Yes Tdap Adacel injection was given without incident. See immunizations for details of immunizations administered today. VIS sheet provided: Yes Provider Salma was present in office at time of injection. Caridad Cummins Ma [facility] 01-24-2023 Miscellaneous Notes DM-Pt doing well. Denies vaginal Bleeding, Leaking fluid, or regular Contractions. Pt reports good movement Physical Exam: Gen: female in no apparent distress Abd: soft, Gravid. Non tender to palpation. See flow sheet A/P: @ 28.5 weeks 1) declines LARC- title 19 signed previously 2) BS log reviewed- Fastings 110s-140s, 1hr breakfast 130s-140s, lunch- 130-162, D- 140s-160s . Increase Evening Insulin to 45 (was at 42) , breakfast keep at 6, Lunch change to 8 and dinner increase to 12. (Med list updated) 3) reviewed eating protein with CHO , eliminating simple CHO. 4) CBC and syphilis 5) growth us scheduled 6) kick counts 7) RTO 2 wks 8) Tdap today Erin Marinelli MD documented in this encounter [facility] 01-24-2023 History of Presen t illness Narrative Patient identified by name and date of . Jeri Gordon presents today for a vaccination of Tdap. Patient denies an allergy to latex: yes Patient denies a severe (life-threatening) allergy to a previous dose of Tdap, DTP, DTaP, DT or Td vaccine. Yes Patient denies history of epilepsy or neurological problems: Yes Patient is afebrile and denies being moderately or severely ill: Yes Patient denies history of Guillain-B[place] Syndrome (a severe paralytic illness): Yes Tdap Adacel injection was given without incident. See immunizations for details of immunizations administered today. VIS sheet provided: Yes Provider Salma was present in office at time of injection. Caridad Cummins Ma documented in this encounter [facility] 01-24-2023 Instructions Caridad Cummins Ma - 01/24/2023 3:47 PM EST SEQUENTIAL SCREENINGS [facility] offers sequential screenings for women who are interested in screenings for chromosomal abnormalities and certain defects during a . The sequential screen combines ultrasound and blood tests to determine the risk of chromosomal abnormalities, including Down's Syndrome (Trisomy 21) and Trisomy 18, as well as open neural tube defects including spina bifida. Ultrasound examination is performed between 11 weeks and 13 weeks gestational age. Blood tests are drawn after the ultrasound and again later in the between 15 and 21 weeks gestational age. Please let your physician know if you are interested in this testing. It will require an appointment with our telecasting technician. This is not an ultrasound performed by a physician in our office during a routine visit. SIGNS AND SYMPTOMS OF LABOR 1. Contractions every 10 minutes or more often 2. Clear, pink, or brownish fluid (water) leaking from vagina 3. Feeling that baby is pushing down, pressure 4. Low, dull backache 5. Cramps that feel like a period 6. Cramps with or without diarrhea If you notice any of the above symptoms, contact our office at [phone] and ask to speak with a nurse. After hours, you can call doctors registry at [phone] OR call [facility] at [phone] and ask to have the doctor carbonating stone cleaner paged. If you consider this an emergency, dial 9-6-3 or go to your nearest emergency department. NEED HELP? Are you dealing with a violent or abusive relationship? Are you a victim of rape or sexual assult? Call [facility] ([place]) 24 hour Crisis Hotline: 473.491.6429 or 690-208-3928. MANUAL Your Guide to a Healthy manual is now on-line. Visit [email or web address] Cinda to download your free copy documented in this encounter [facility] 01-23-2023 Note HNO ID: [id number] Author: Kati Barbosa RN Service: ? Author Type: ? Type: Progress Notes Filed: 01/23/2023 10:19 AM Note Text: Patient self reports Sent to provider for review. Kati Barbosa RN [facility] 01-23-2023 History of Presen t illness Narrative Patient self reports Sent to provider for review. Kati Barbosa RN documented in this encounter [facility] 01-18-2023 Note HNO ID: [id number] Author: Teresa Ruiz APRN.MICHAEL Service: ? Author Type: Nurse Practitioner Type: Progress Notes Filed: 01/18/2023 3:40 PM Note Text: Spoke with patient via phone. Name and verified. Patient plans to upload blood sugars today. Current regimen Lispro 6 units at breakfast, lunch Lispro 10 unit at dinner Levemir 42 units at bedtime Reports she has all testing supplies and insulin. Follow up in 1-2 days after blood sugars are submitted for review. Teresa Ruiz APRN.SILO OPERATOR [facility] 01-16-2023 Note HNO ID: [id number] Author: Meg Lujan RN Service: ? Author Type: Registered Nurse Type: Progress Notes Filed: 01/16/2023 11:15 AM Note Text: Pt self reports, last readings on 01/09. Please review. Meg Lujan RN [facility] 01-16-2023 History of Presen t illness Narrative Pt self reports, last readings on 01/09. Please review. Meg Lujan RN documented in this encounter [facility] 01-12-2023 Miscellaneous Notes Called pt, LVMM that medication was renewed yesterday by Dr John Hauser MD and a MC message was sent to pt advising her of this. Office phone number provided for call back. Meg Lujan RN left a vm that she needs a refill on her lispro. documented in this encounter [facility] 01-11-2023 Note HNO ID: [id number] Author: Teresa Ruiz APRN.SILO OPERATOR Service: ? Author Type: Nurse Practitioner Type: Progress Notes Filed: 01/11/2023 1:46 PM Note Text: Lispro 6 units at breakfast, lunch Lispro 10 unit at dinner Levemir 42 units at bedtime [facility] 01-11-2023 Note HNO ID: [id number] Author: Teresa Ruiz APRN.SILO OPERATOR Service: ? Author Type: Nurse Practitioner Type: Progress Notes Filed: 01/11/2023 1:41 PM Note Text: Called patient and notified of Dr. Mancuso recommendations. Unable to leave vm. Will send [employer] message. Current Management: Medication controlled Lispro 6 units at breakfast, lunch Lispro 10 unit at dinner Levemir 42 units at bedtime Teresa Ruiz APRN.SILO OPERATOR [facility] 01-11-2023 Miscellaneous Notes Called patient and got vm. LM that OB provider ordered insulin yesterday and both were sent to [facility] in [place]. Number provided to call back with any questions. Kati Barbosa RN documented in this encounter [facility] 01-11-2023 Miscellaneous Notes 2nd risk assessment form submitted 01/11/2023. Joan Ibarra, DARNELL documented in this encounter [facility] 01-10-2023 Miscellaneous Notes DM-Pt doing well. Denies vaginal Bleeding, Leaking fluid, or regular Contractions. Does have ctx but only 4 per hour and dissipate. Pt reports good movement. Saw MFM today and increased her insulin. Physical Exam: Gen: female in no apparent distress A/P: @ 3013 @ 26.5 weeks 1) Levemir increased to 45 units at night 2) Lispro increased to 08/11/09 with meals 3) growth in 4 weeks 4) Title 19 signed today- lap salpingectomy reviewed if not done at time of delivery. 5) 32 weeks needs 2 x weekly testing 6) 28 week labs ordered 7) tdap next visit 8) larc form signed and declined Erin Marinelli MD documented in this encounter [facility] 01-10-2023 Instructions Paris Martínez MA - 01/10/2023 9:02 AM EST SEQUENTIAL SCREENINGS [facility] offers sequential screenings for women who are interested in screenings for chromosomal abnormalities and certain defects during a . The sequential screen combines ultrasound and blood tests to determine the risk of chromosomal abnormalities, including Down's Syndrome (Trisomy 21) and Trisomy 18, as well as open neural tube defects including spina bifida. Ultrasound examination is performed between 11 weeks and 13 weeks gestational age. Blood tests are drawn after the ultrasound and again later in the between 15 and 21 weeks gestational age. Please let your physician know if you are interested in this testing. It will require an appointment with our telecasting technician. This is not an ultrasound performed by a physician in our office during a routine visit. SIGNS AND SYMPTOMS OF LABOR 1. Contractions every 10 minutes or more often 2. Clear, pink, or brownish fluid (water) leaking from vagina 3. Feeling that baby is pushing down, pressure 4. Low, dull backache 5. Cramps that feel like a period 6. Cramps with or without diarrhea If you notice any of the above symptoms, contact our office at [phone] and ask to speak with a nurse. After hours, you can call doctors registry at [phone] OR call [facility] at [phone] and ask to have the doctor carbonating stone cleaner paged. If you consider this an emergency, dial 9--1 or go to your nearest emergency department. NEED HELP? Are you dealing with a violent or abusive relationship? Are you a victim of rape or sexual assult? Call [facility] ([place]) 24 hour Crisis Hotline: 633.137.6698 or 757-528-2272. MANUAL Your Guide to a Healthy manual is now on-line. Visit [email or web address] [email or web address] to download your free copy documented in this encounter [facility] 01-09-2023 Note HNO ID: [id number] Author: Meg Lujan RN Service: ? Author Type: Registered Nurse Type: Progress Notes Filed: 01/09/2023 8:48 AM Note Text: Pt reports blood sugars to Dr Lomax. Meg Lujan RN [facility] 01-09-2023 History of Presen t illness Narrative Pt reports blood sugars to Dr Lomax. Meg Lujan RN documented in this encounter [facility] 01-06-2023 Miscellaneous Notes If seeing them doesn't need to see us that day. Thanks. Bandar Alvares MD Patient has appointment with MFM on Monday .She was last seen by OB 12/20 and told to come back in 2 weeks. No openings on Monday for ob visit. GDM on Insulin. please advise documented in this encounter [facility] 01-06-2023 Miscellaneous Notes ordered See refill request documented in this encounter [facility] 01-06-2023 Miscellaneous Notes 26w1d Patient sent a [employer] message also requesting refill. Requested Prescriptions Pending Prescriptions Disp Refills LEVEMIR FLEXPEN 100 unit/mL (3 mL) injection pen Si Units daily at bedtime. Joan Garcia RN documented in this encounter [facility] 01-05-2023 Note HNO ID: [id number] Author: Teresa Ruiz APRN.SILO OPERATOR Service: ? Author Type: Nurse Practitioner Type: Progress Notes Filed: 01/05/2023 3:26 PM Note Text: Diabetes in Monitoring MFM Recommendations Jeri Gordon is a 42 year old, , [place] 26w0d with Gestational Diabetes. Management: Medication controlled Lispro 6 units at breakfast, lunch, dinner Levemir 35 units at bedtime Type Low High % of the last 7 days that were over goal !Fasting 113 123 100% !After BF 108 117 0% !2H After BF % !Before Lunch % !After Lunch 108 138 0% !2H After Lunch % !Before Dinner % !After Dinner 143 155 100% !2H After Dinner % !Bedtime % *Values are calculated from the past 7 days starting yesterday. ! Indicates data missing from at least one of the days. Diabetes in Monitoring Ammonium Nitrate Neutralizer 01/02/2023 01/01/2023 12/31/2022 12/30/2022 12/29/2022 12/28/2022 12/27/2022 Fasting 123 115 113 123 119 118 115 Dose 6 - - - - - - After BF 108 110 112 117 117 109 110 Dose 6 6 6 3 3 3 3 After Lenore 132 132 138 117 108 157 163 Dose 6 6 6 3 3 3 3 After Din 149 147 143 153 155 163 168 Dose 35 35 35 35 35 35 35 Update Day - - - - - - - Dr Lomax to review for management recommendations. Teresa Ruiz APRN.SILO OPERATOR January 05, 2023 2:55 PM [facility] 12-26-2022 Note HNO ID: [id number] Author: Meg Lujan RN Service: ? Author Type: Registered Nurse Type: Progress Notes Filed: 12/26/2022 9:03 AM Note Text: Blood sugars being managed by Dr Annie Lujan RN [facility] 12-26-2022 Note HNO ID: [id number] Author: Meg Lujan RN Service: ? Author Type: Registered Nurse Type: Progress Notes Filed: 12/26/2022 9:03 AM Note Text: LM on VM for pt to submit weekly FSBS readings, if they are one or two hour readings, and insulin regimen if applicable. Office phone number and fax given, or to email to the address on recording sheet or welcome letter. MC message sent Meg Lujan RN [facility] 12-26-2022 History of Presen t illness Narrative Blood sugars being managed by Dr Annie Lujan RN LM on VM for pt to submit weekly FSBS readings, if they are one or two hour readings, and insulin regimen if applicable. Office phone number and fax given, or to email to the address on recording sheet or welcome letter. MC message sent Meg Lujan RN documented in this encounter [facility] 12-22-2022 Miscellaneous Notes See 12/22/22 phone note. Rosalba Sebastian RN Patient 24w0d called and and states she saw her urine culture results and is asking if medication can be sent to the pharmacy for her as she is miserable. Patient having constant dysuria, urgency and frequency. Pharmacy is up to date. Rose Kim RN documented in this encounter [facility] 12-22-2022 Miscellaneous Notes Patient notified. The following approved medication requests have been transmitted electronically. Requested Prescriptions Signed Prescriptions Disp Refills nitrofurantoin monohydrate and macrocrystal (MACROBID) 100 mg capsule 14 capsule 0 Sig: Take 1 capsule by mouth two times a day for 7 days. Authorizing Provider: ERIN RODRIGUES Pharmacy Information Pharmacy Address Telephone [facility]/pharmacy #[id number] [facility] [place] [place] [address] Uti in - macrobid ordered. documented in this encounter [facility] 12-20-2022 Miscellaneous Notes DM-Pt doing well. Denies vaginal Bleeding, Leaking fluid, or regular Contractions. Pt reports good movement. Pt reports she uploaded BS log- Unable to see on [employer]. She reports fastings are all elevated 110s-120s and 1hr PP are 130s and higher but has not started the short acting as it was on back order but states she is going to pick it up today. Reports is trying to follow diet. Physical Exam: Gen: female in no apparent distress Abd: soft, Gravid. Non tender to palpation. See flow sheet A/P: @ 23.5 weeks- GMDA2 1) increase Evening Levemir to 35units 2) echo and growth us from [facility] reviewed. Pt will start getting growth at [facility]. Reviewed will need testing regularly at 32 weeks twice weekly possibly sooner if indicated 3) RTO 2 wks but will send in BS in one week. Diet reinforced. Advised evening higher protein snack to help with Fasting BS 4) flu vaccine today Erin Marinelli MD documented in this encounter [facility] 12-20-2022 Instructions Caridad Cummins Ma 12/20/2022 3:04 PM EDT SEQUENTIAL SCREENINGS The [facility] offers sequential screenings for women who are interested in screenings for chromosomal abnormalities and certain defects during a . The sequential screen combines ultrasound and blood tests to determine the risk of chromosomal abnormalities, including Down's Syndrome (Trisomy 21) and Trisomy 18, as well as open neural tube defects including spina bifida. Ultrasound examination is performed between 11 weeks and 13 weeks gestational age. Blood tests are drawn after the ultrasound and again later in the between 15 and 21 weeks gestational age. Please let your physician know if you are interested in this testing. It will require an appointment with our telecasting technician. This is not an ultrasound performed by a physician in our office during a routine visit. SIGNS AND SYMPTOMS OF LABOR 1. Contractions every 10 minutes or more often 2. Clear, pink, or brownish fluid (water) leaking from vagina 3. Feeling that baby is pushing down, pressure 4. Low, dull backache 5. Cramps that feel like a period 6. Cramps with or without diarrhea If you notice any of the above symptoms, contact our office at [phone] and ask to speak with a nurse. After hours, you can call doctors registry at [phone] OR call [facility] at [phone] and ask to have the doctor carbonating stone cleaner paged. If you consider this an emergency, dial 3-2-1 or go to your nearest emergency department. NEED HELP? Are you dealing with a violent or abusive relationship? Are you a victim of rape or sexual assult? Call [facility] 24 hour Crisis Hotline: 836.581.1002 or 305-300-0592. MANUAL Your Guide to a Healthy manual is now on-line. Visit [email or web address] to download your free copy documented in this encounter [facility] 12-19-2022 Note HNO ID: [id number] Author: Meg Lujan RN Service: ? Author Type: Registered Nurse Type: Progress Notes Filed: 12/19/2022 8:57 AM Note Text: See note from Dr Lomax on 12/05, managing this pt's insulin. Pt sending BS logs to Dr Lomax. Meg Lujan RN [facility] 12-13-2022 Note HNO ID: [id number] Author: Deepika Lomax MD Service: ? Author Type: Physician Type: Progress Notes Filed: 12/14/2022 6:19 AM Note Text: OBSTETRICS MATERNAL MEDICINE CONSULT SERVICE DATE: December 13, 2022 SERVICE TIME: 1:00pm REQUESTING PROVIDER: Dr Alvares Subjective HISTORY OF THE PRESENT ILLNESS: Jeri is a 42 year old female, , who is at 22w5d with an MARYANA of 04/13/2023, by Last Menstrual Period dating method. She presents today for consultation due to history of gestational diabetes on insulin. is also complicated by advanced maternal age, previous monochorionic/diamniotic twin w/loss one twin around 12w, history depression/anxiety, and more remote histories of asthma and RA (although these are not current issues) She is doing well today although elevated fasting glucoses (all 100-110). Taking pre-prandial and 2 hour post-prandial with some elevated. Elevated postprandial mostly dinner after eating carbs, 140-150s. She is currently taking 20 units Levemir nightly. She did not have diabetes in prior pregnancies, reports had 3 prior normal vaginal deliveries. Was diagnosed with RA in past but not active issue and no medication, had history of exercise induced asthma but hasn't required inhaler in many years, not active issue. No history of hypertension or pre-eclampsia. History anxiety/depression currently well managed on her medication. HISTORY REVIEW PAST MEDICAL HISTORY Diagnosis Date Abnormal mammogram of left breast 2017 Anemia Asthma No inhaler use sicne 2012 Depression/anxiety Fibroid, uterine Gestational diabetes Rheumatoid arthritis (HCC) PAST SURGICAL HISTORY Procedure Laterality Date BX OF BREAST; INCISIONAL Left 07/05/2017 R Cebul PAST SURGICAL HISTORY OF foot surgery FAMILY HISTORY Problem Relation Age of Onset Hyperlipidemia Mother Asthma Mother Diabetes Father No Known Problems Brother Uterine Cancer Maternal Grandmother Heart disease Maternal Grandfather Leukemia Maternal Grandfather Diabetes Paternal Grandmother Heart disease Paternal Grandfather Autism Daughter No Known Problems Daughter No Known Problems Daughter Cancer Other BONE other (Other [Other]) Other HEPATITIS C other (Other [Other]) Other DIABETES Social History Tobacco Use Smoking status: Former Years: 20 Types: Cigarettes Quit date: 09/02/2021 Years since quittin.2 Smokeless tobacco: Never Vaping Use Vaping Use: Never used Substance Use Topics Alcohol use: Not Currently Comment: rarely Drug use: Never Obstetric History T3 L3 SAB1 IAB0 Ectopic0 Multiple0 Live Births3 Name of Baby 1: Codey aguirre Date: 05/28/03 GA: 40w1d Delivery: Vaginal, Spontaneous Apgar1: Not recorded Apgar5: Not recorded Living: Living Name of Baby 2: Vivi Date: 07/23/14 GA: 39w3d Delivery: Vaginal, Spontaneous Apgar1: Not recorded Apgar5: Not recorded Living: Living Name of Baby 3: Not recorded Date: 2015 GA: 6w0d Delivery: SPONTANEOUS Apgar1: Not recorded Apgar5: Not recorded Living: Not recorded Name of Baby 4: Joleen Date: 05/12/16 GA: 39w5d Delivery: Vaginal, Spontaneous Apgar1: Not recorded Apgar5: Not recorded Living: Living Name of Baby 5: Not recorded Date: Not recorded GA: Not recorded Delivery: Not recorded Apgar1: Not recorded Apgar5: Not recorded Living: Not recorded ALLERGIES Allergen Reactions Bupropion Rash Hydrocodone Other: See Comments Heart racing Promethazine Other: See Comments Sulfa (Sulfonamide * Swelling PRIOR TO ADMISSION MEDICATIONS: Current Outpatient Medications Medication Instructions ALCOHOL PREP PADS No dose, route, or frequency recorded. ARIPiprazole (ABILIFY) 5 mg, ORAL aspirin 81 mg chewable tablet ORAL, DIRECTED blood-glucose meter (BLOOD GLUCOSE MONITOR KIT [facility]) USE TO TEST BLOOD SUGAR FASTING AND 2 HOURS AFTER EACH MEAL dextroamphetamine-amphetamine (ADDERALL) 20 mg tablet 1 tablet, ORAL, Every 12 hours dextroamphetamine-amphetamine (ADDERALL) 20 mg tablet 20 mg, ORAL Insulin [place], Disposable, (PEN NEEDLE) 29 gauge x 1/2 1 Each, Miscell. (Med.Supl.;Non-Drugs), DAILY Lancets lancets No dose, route, or frequency recorded. LEVEMIR FLEXPEN 20 Units, AT BEDTIME PNV [id number] 3.33 mg iron- 0.33 mg chew ORAL, DIRECTED TRUE METRIX GLUCOSE TEST STRIP test strip TEST BLOOD SUGAR FASTING AND 2 HRS AFTER BREAKFAST LUNCH AND DINNER venlafaxine ER (EFFEXOR XR) 150 mg 24 hr capsule 1 capsule, ORAL, DAILY REVIEW OF SYSTEMS: The remainder of the review of systems is negative. Objective LAST VITALS: BP 110/72 Wt 232 lb 9.6 oz (105.5 kg) LMP 07/07/2022 BMI 36.43 kg/m? PHYSICAL EXAM: General: WD, WN HEENT: NC/AT, sclera white, pupils equal Lungs: normal respiratory effort LABS Diagnostic tests relevant for today's visit: Glucose log reviewed as per [facility] US show (more content not included)... [facility] 12-13-2022 History of Presen t illness Narrative OBSTETRICS MATERNAL MEDICINE CONSULT SERVICE DATE: December 13, 2022 SERVICE TIME: 1:00pm REQUESTING PROVIDER: Dr Alvares Subjective HISTORY OF THE PRESENT ILLNESS: Jeri is a 42 year old female, , who is at 22w5d with an MARYANA of 04/13/2023, by Last Menstrual Period dating method. She presents today for consultation due to history of gestational diabetes on insulin. is also complicated by advanced maternal age, previous monochorionic/diamniotic twin w/loss one twin around 12w, history depression/anxiety, and more remote histories of asthma and RA (although these are not current issues) She is doing well today although elevated fasting glucoses (all 100-110). Taking pre-prandial and 2 hour post-prandial with some elevated. Elevated postprandial mostly dinner after eating carbs, 140-150s. She is currently taking 20 units Levemir nightly. She did not have diabetes in prior pregnancies, reports had 3 prior normal vaginal deliveries. Was diagnosed with RA in past but not active issue and no medication, had history of exercise induced asthma but hasn't required inhaler in many years, not active issue. No history of hypertension or pre-eclampsia. History anxiety/depression currently well managed on her medication. HISTORY REVIEW PAST MEDICAL HISTORY Diagnosis Date Abnormal mammogram of left breast 2017 Anemia Asthma No inhaler use sicne 2012 Depression/anxiety Fibroid, uterine Gestational diabetes Rheumatoid arthritis (HCC) PAST SURGICAL HISTORY Procedure Laterality Date BX OF BREAST; INCISIONAL Left 07/05/2017 Cynthia Felix PAST SURGICAL HISTORY OF foot surgery FAMILY HISTORY Problem Relation Age of Onset Hyperlipidemia Mother Asthma Mother Diabetes Father No Known Problems Brother Uterine Cancer Maternal Grandmother Heart disease Maternal Grandfather Leukemia Maternal Grandfather Diabetes Paternal Grandmother Heart disease Paternal Grandfather Autism Daughter No Known Problems Daughter No Known Problems Daughter Cancer Other BONE other (Other [Other]) Other HEPATITIS C other (Other [Other]) Other DIABETES Social History Tobacco Use Smoking status: Former Years: 20 Types: Cigarettes Quit date: 09/02/2021 Years since quittin.2 Smokeless tobacco: Never Vaping Use Vaping Use: Never used Substance Use Topics Alcohol use: Not Currently Comment: rarely Drug use: Never Obstetric History T3 L3 SAB1 IAB0 Ectopic0 Multiple0 Live Births3 Name of Baby 1: Codey aguirre Date: 05/28/03 GA: 40w1d Delivery: Vaginal, Spontaneous Apgar1: Not recorded Apgar5: Not recorded Living: Living Name of Baby 2: Vivi Date: 07/23/14 GA: 39w3d Delivery: Vaginal, Spontaneous Apgar1: Not recorded Apgar5: Not recorded Living: Living Name of Baby 3: Not recorded Date: 2015 GA: 6w0d Delivery: SPONTANEOUS Apgar1: Not recorded Apgar5: Not recorded Living: Not recorded Name of Baby 4: Joleen Date: 05/12/16 GA: 39w5d Delivery: Vaginal, Spontaneous Apgar1: Not recorded Apgar5: Not recorded Living: Living Name of Baby 5: Not recorded Date: Not recorded GA: Not recorded Delivery: Not recorded Apgar1: Not recorded Apgar5: Not recorded Living: Not recorded ALLERGIES Allergen Reactions Bupropion Rash Hydrocodone Other: See Comments Heart racing Promethazine Other: See Comments Sulfa (Sulfonamide * Swelling PRIOR TO ADMISSION MEDICATIONS: Current Outpatient Medications Medication Instructions ALCOHOL PREP PADS No dose, route, or frequency recorded. ARIPiprazole (ABILIFY) 5 mg, ORAL aspirin 81 mg chewable tablet ORAL, DIRECTED blood-glucose meter (BLOOD GLUCOSE MONITOR KIT [facility]) USE TO TEST BLOOD SUGAR FASTING AND 2 HOURS AFTER EACH MEAL dextroamphetamine-amphetamine (ADDERALL) 20 mg tablet 1 tablet, ORAL, Every 12 hours dextroamphetamine-amphetamine (ADDERALL) 20 mg tablet 20 mg, ORAL Insulin [place], Disposable, (PEN NEEDLE) 29 gauge x 1/2 1 Each, Miscell. (Med.Supl.;Non-Drugs), DAILY Lancets lancets No dose, route, or frequency recorded. LEVEMIR FLEXPEN 20 Units, AT BEDTIME PNV [id number] 3.33 mg iron- 0.33 mg chew ORAL, DIRECTED TRUE METRIX GLUCOSE TEST STRIP test strip TEST BLOOD SUGAR FASTING AND 2 HRS AFTER BREAKFAST LUNCH AND DINNER venlafaxine ER (EFFEXOR XR) 150 mg 24 hr capsule 1 capsule, ORAL, DAILY REVIEW OF SYSTEMS: The remainder of the review of systems is negative. Objective LAST VITALS: BP 110/72 Wt 232 lb 9.6 oz (105.5 kg) LMP 07/07/2022 BMI 36.43 kg/m PHYSICAL EXAM: General: WD, WN HEENT: NC/AT, sclera white, pupils equal Lungs: normal respiratory effort LABS Diagnostic tests relevant for today's visit: Glucose log reviewed as per HPI US shows single live intrauterine with no gross anomalies Impression/Recommendations 42 year old EGA:22w5d with GDM on insulin, sub-optimal control. also complicated by previous mono/di twins with early loss one twin, history of asthma and RA in the past, advanced maternal age. We discussed that diabetes in has both and maternal sequelae, which are directly related to maternal glucose control. Women with GDM have higher risk of growth abnormalities, need for delivery, defects, , complications including stillbirth, and risk for diabetes and cardiovascular disease later in life in both mother and offspring. These risks are decreased with optimal glucose control. Will increase insulin today and monitor through My Chart. There is increased risk for hypertensive disorders of . She is taking baby aspirin daily for risk reduction. GDM increases the risk of hypertensive disorders of and of developing Type 2 diabetes later in life. Her anatomy ultrasound is grossly normal today however ultrasound is limited to detect all anomalies. She has echocardiogram planned at [facility]. Given current BMI of Body mass index is 36.43 kg/m ., the [place] of [employer] recommends no more than an 11-20 pound weight gain during . We discussed sending in blood sugar logs weekly. We also discussed serial growth ultrasounds in the third trimester, as well as twice weekly testing starting at 32 weeks. If her glucoses can be well controlled and no complications develop, I would anticipate delivery around 39 weeks, although may require 37-39 weeks depending on clinical course. Currently her mental health is well managed with medications, and believe any hypothetical risk is outweighed by benefit of controlled anxiety/depression. Will plan serial assessment of growth during the , she will continue on medications that she has been taking during the and follow up with her mental health provider. PLAN: --Increase to 30 units Levemir --Lispro 3 units as needed with higher carb meals --Check glucose log in one week (OB or MFM) --Serial growth ultrasounds in third trimester --Twice weekly testing 32 weeks --Anticipate delivery 39 weeks if well controlled --T2DM screening 6 weeks with care elsewhere in second trimester Transfer of care from [place] [employer] Plans delivery [facility] unless complications arise Insulin controlled gestational diabetes mellitus (GDM) in second trimester Levemir 20u nightly -Serial growth ultrasound at 28w -NSTs at 32w -Delivery anticipated 39w unless indicated earlier Antepartum multigravida of advanced maternal age Declined serum aneuploidy screening History of depression history of anxiety/depression diagnosed in 2003. She is currently taking Effexor and Abilify prescribed by Dr. Almazan. History of asthma Not active issue currently, previously used PRN inhaler with exercise (last in 2012) Twin with single intrauterine [place]-di twin loss of one twin diagnosed at 12 weeks Consultation requested by Dr. Alvares for an opinion regarding GDM, AMA, other complications. My final recommendations will be communicated back to the requesting physician by way of shared Medical record or letter to requesting physician via US mail. I spent 55 minutes in the visit, with more than 50% of the total [id number] time of the visit in counseling / coordination of care. SIGNATURE: Deepika Lomax MD PATIENT NAME: Jeri Gordon DATE: December 13, 2022 TIME: 1:12 PM documented in this encounter [facility] 12-05-2022 Note HNO ID: [id number] Author: Bandar Alvares MD Service: ? Author Type: Physician Type: Progress Notes Filed: 12/05/2022 6:48 PM Note Text: INITIAL OB ASSESSMENT OB Provider: Bandar Alvares MD HPI: Jeri is a 42 year old White here to establish Obstetrical Care. Patient's last menstrual period was 07/07/2022. from OB Dating Form. Cycles irregular was unplanned but accepted Complaints: None OB History T3 L3 SAB1 IAB0 Ectopic0 Multiple0 Live Births3 # 1 - Date: [birth year], Sex: Female, Weight: 8 lb 1 oz (3.657 kg), GA: 40w1d, Delivery: Vaginal, Spontaneous, Apgar1: None, Apgar5: None, Living: Living, Comments: Induced due to post dates, AROM, 1st degree lac # 2 - Date: 07/23/14, Sex: Female, Weight: 7 lb 9 oz (3.43 kg), GA: 39w3d, Delivery: Vaginal, Spontaneous, Apgar1: None, Apgar5: None, Living: Living, Comments: AROM, lightly stained meconium, progressed to FD then pushed for 3 contractions to deliver, CAN x2 loose,300cc, ML vag ext/lac, 1st degree # 3 - Date: 2015, Sex: None, Weight: None, GA: 6w0d, Delivery: SPONTANEOUS , Apgar1: None, Apgar5: None, Living: None, Comments: None # 4 - Date: 05/12/16, Sex: Female, Weight: 6 lb 11 oz (3.033 kg), GA: 39w5d, Delivery: Vaginal, Spontaneous, Apgar1: None, Apgar5: None, Living: Living, Comments: AROM,Lightly stained meconium,Progressed over 5 hours to FD, pushed for 1 contraction to deliver, 200cc # 5 - Date: None, Sex: None, Weight: None, GA: None, Delivery: None, Apgar1: None, Apgar5: None, Living: None, Comments: None Previous history: Prior : never History of 4th degree laceration: No History of shoulder dystocia: No History of Hypertensive disorders including pre-eclampsia, chronic hypertension or gestational hypertension: No History of gestational diabetes: Yes recently diagnosed with this Patient's Risk Screening for delivery: Have you had a prior beltrán between 20w and 36w6d?: No MEDICAL/PSYCHOSOCIAL HISTORY: History of hemorrhage or bleeding concerns: No Thyroid Disease: No History of chronic hypertension: No History of pre-existing diabetes: No No results found for: ABORHD No weight on file for this encounter. History of abnormal pap: No Prior treatment for cervical dysplasia: none. 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 I don't have enough money to pay my bills: Never Within the past 12 months, have you worried that your food would run out before you had money to buy more: Never In the past 12 months, has lack of reliable transportation kept you from going to medical appointments or work, or from keeping things needed for daily living: Never In the past 12 months, have you had any concerns about having a place to live, or about the condition or quality of your housing: Never Are there any cultural or spiritual needs we should be aware of: No Depression/Anxiety Screening: denies symptoms of depression. OB Depression and Anxiety Screening- This Encounter (since 11/23/2022) Over the past 2 weeks have you felt down, depressed, or hopeless? Negative Over the past two weeks, have you felt little interest or pleasure in doing things?? Negative Feeling nervous, anxious or on edge 0-Not at all Not being able to stop or control worrying 0-Not al all Anxiety Pre-Screening Total (If >/= 3 additional questions will be reviewed) 0 Genetic Screening: Partner present: No Patient verbalized knowledge of partner family health history: No Do you or your partner have any personal or family history of defects not previously discussed: No Do you have history of a complicated by anomaly, genetic condition, or demise: No ACOG Recommended Screening Screening for early gestational diabetes testing: Criteria for early testing requires elevated BMI plus one other risk factor: No weight on file for this encounter. (risk factor if > than 25 or 23 in Americans) Additional risk factors: First-degree relative with diabetes and pt recently diagnosed Screening for low dose aspirin use for the prevention of pre-eclampsia: Low dose aspirin should be considered if the patient has one high or two moderate risk factors: High risk factors: None Moderate risk ractors: Obesity (body mass index (more content not included)... [facility] 11-25-2022 Miscellaneous Notes Patient returned office call. Relayed message, patient voiced understanding. Images from the original note were not included. Left message for patient to call office. I did schedule her NOB on 12/05 with RR. Please verify that appointment works for her. Bandar Montoya RN, MD Koch, Teresa RN 20 hours ago (2:43 PM) I saved Dec.05 afternoon for our office use only since I am not going to cycl[place] that day. Bandar Alvares MD Dr Alvares, she stated at the PNOB visit she will answer the phone if we call her now. She states that she is willing to come in any time for New OB. We had been trying to call her prior to New OB to get her scheduled for New OB-since ham passer did not do that at initial PNOB scheduling. Sorry for the confusion. I don't know where to get her into the schedule sooner -no openings. Would prefer to get her in sooner. Maybe [facility] can have her contact us to schedule. If she won't contact us not much else we can do to assist her and we will schedule when we can. Or she can go to another site that can see her sooner until we can get her in. Send her letter saying we are trying to get a hold of her to get her scheduled. Patient seen today for telephone Pre new OB visit. She is transferring care from [place]. She was last seen there November 15 for an ultrasound with MFM and an appointment with Dr. Coyle. She was newly diagnosed as a gestational diabetic. She is insulin controlled. Has seen dietitian. Has not reported her blood sugars since November 15. Next appointment scheduled is December 19 with MFM for echo. Also has another appointment January 19 with [facility] MFM. This was previous mono Di twin confirmed by MFM with a loss of 1 twin noted at 12 weeks. First available new OB appointment was December 30. We had multiple attempts to reach patient to schedule an appointment sooner but was unable to get a hold of her. Please advise if we need to see patient sooner where to work her into the schedule documented in this encounter [facility] 11-24-2022 Note HNO ID: [id number] Author: Polly Thakur RN Service: ? Author Type: ? Type: Progress Notes Filed: 11/24/2022 4:31 PM Note Text: INITIAL OB ASSESSMENT OB Provider: Polly Thakur RN HPI: Jeri is a 42 year old White here to establish Obstetrical Care. Patient's last menstrual period was 07/07/2022. from OB Dating Form. Cycles irregular was unplanned but accepted Complaints: None OB History T3 L3 SAB1 IAB0 Ectopic0 Multiple0 Live Births3 # 1 - Date: [birth year], Sex: Female, Weight: 8 lb 1 oz (3.657 kg), GA: 40w1d, Delivery: Vaginal, Spontaneous, Apgar1: None, Apgar5: None, Living: Living, Comments: Induced due to post dates, AROM, 1st degree lac # 2 - Date: 07/23/14, Sex: Female, Weight: 7 lb 9 oz (3.43 kg), GA: 39w3d, Delivery: Vaginal, Spontaneous, Apgar1: None, Apgar5: None, Living: Living, Comments: AROM, lightly stained meconium, progressed to FD then pushed for 3 contractions to deliver, CAN x2 loose,300cc, ML vag ext/lac, 1st degree # 3 - Date: 2015, Sex: None, Weight: None, GA: 6w0d, Delivery: SPONTANEOUS , Apgar1: None, Apgar5: None, Living: None, Comments: None # 4 - Date: 05/12/16, Sex: Female, Weight: 6 lb 11 oz (3.033 kg), GA: 39w5d, Delivery: Vaginal, Spontaneous, Apgar1: None, Apgar5: None, Living: Living, Comments: AROM,Lightly stained meconium,Progressed over 5 hours to FD, pushed for 1 contraction to deliver, 200cc # 5 - Date: None, Sex: None, Weight: None, GA: None, Delivery: None, Apgar1: None, Apgar5: None, Living: None, Comments: None Previous history: Prior : never History of 4th degree laceration: No History of shoulder dystocia: No History of Hypertensive disorders including pre-eclampsia, chronic hypertension or gestational hypertension: No History of gestational diabetes: Yes recently diagnosed with this Patient's Risk Screening for delivery: Have you had a prior beltrán between 20w and 36w6d?: No MEDICAL/PSYCHOSOCIAL HISTORY: History of hemorrhage or bleeding concerns: No Thyroid Disease: No History of chronic hypertension: No History of pre-existing diabetes: No No results found for: ABORHD No weight on file for this encounter. History of abnormal pap: No Prior treatment for cervical dysplasia: none. 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 I don't have enough money to pay my bills: Never Within the past 12 months, have you worried that your food would run out before you had money to buy more: Never In the past 12 months, has lack of reliable transportation kept you from going to medical appointments or work, or from keeping things needed for daily living: Never In the past 12 months, have you had any concerns about having a place to live, or about the condition or quality of your housing: Never Are there any cultural or spiritual needs we should be aware of: No Depression/Anxiety Screening: denies symptoms of depression. OB Depression and Anxiety Screening- This Encounter (since 11/23/2022) Over the past 2 weeks have you felt down, depressed, or hopeless? Negative Over the past two weeks, have you felt little interest or pleasure in doing things?? Negative Feeling nervous, anxious or on edge 0-Not at all Not being able to stop or control worrying 0-Not al all Anxiety Pre-Screening Total (If >/= 3 additional questions will be reviewed) 0 Genetic Screening: Partner present: No Patient verbalized knowledge of partner family health history: No Do you or your partner have any personal or family history of defects not previously discussed: No Do you have history of a complicated by anomaly, genetic condition, or demise: No ACOG Recommended Screening Screening for early gestational diabetes testing: Criteria for early testing requires elevated BMI plus one other risk factor: No weight on file for this encounter. (risk factor if > than 25 or 23 in Americans) Additional risk factors: First-degree relative with diabetes and pt recently diagnosed Screening for low dose aspirin use for the prevention of pre-eclampsia: Low dose aspirin should be considered if the patient has one high or two moderate risk factors: High risk factors: None Moderate risk ractors: Obesity (body mass index greater than 30), Age (more content not included)... [facility] 11-24-2022 Miscellaneous Notes DISTANCE HEALTH VISIT This Team Access Model visit is a phone encounter. It required patient-provider interaction for the medical decision making as documented below. I have communicated my name and active licensure. The patient's identity and physical location were verified at the time of this visit. Patient is transferring care from [place]. She was last seen in their office November 15 for an ultrasound with maternal- medicine and then an appointment with Dr. Coyle. She has a echo scheduled for December 19. This started out as a twin -[place] twins that were confirmed by maternal- medicine. Loss of 1 twin noted at 12 weeks. Patient is 42 years old. Father the baby is involved. Patient states she was newly diagnosed as a gestational diabetic. She states she has seen a dietitian and had diabetic education. She is now on insulin. She is aware of the importance of taking her blood sugars every day. She states since November 15 she has not reported of her blood sugars to [place] or [facility] since November 15. See phone note dated November 24.Pt has a history of anxiety/depression diagnosed in 2003. She is currently taking Effexor and Abilify prescribed by Dr. Almazan. She believes she is doing well on medication. She denies ever having any depression discussed increased risks of depression during and and importance of reporting the development or worsening of symptoms should they occur. Pt denies ever having any suicidal thoughts or tendencies or thoughts of hurting others. Patient is obese. Patient has a history of rheumatoid arthritis diagnosed at age 26. She states I have been in remission since age 31 with very few flareups . States she was last seen by viscosity inspector 15 years ago. Patient states she has a history of asthma with no inhaler use since 2012.Polly Thakur RN documented in this encounter [facility] 11-24-2022 History of Presen t illness Narrative INITIAL OB ASSESSMENT OB Provider: Polly Thakur RN HPI: Jeri is a 42 year old White here to establish Obstetrical Care. Patient's last menstrual period was 07/07/2022. from OB Dating Form. Cycles irregular was unplanned but accepted Complaints: None OB History T3 L3 SAB1 IAB0 Ectopic0 Multiple0 Live Births3 # 1 - Date: 05/28/03, Sex: Female, Weight: 8 lb 1 oz (3.657 kg), GA: 40w1d, Delivery: Vaginal, Spontaneous, Apgar1: None, Apgar5: None, Living: Living, Comments: Induced due to post dates, AROM, 1st degree lac # 2 - Date: 07/23/14, Sex: Female, Weight: 7 lb 9 oz (3.43 kg), GA: 39w3d, Delivery: Vaginal, Spontaneous, Apgar1: None, Apgar5: None, Living: Living, Comments: AROM, lightly stained meconium, progressed to FD then pushed for 3 contractions to deliver, CAN x2 loose,300cc, ML vag ext/lac, 1st degree # 3 - Date: 2015, Sex: None, Weight: None, GA: 6w0d, Delivery: SPONTANEOUS , Apgar1: None, Apgar5: None, Living: None, Comments: None # 4 - Date: 05/12/16, Sex: Female, Weight: 6 lb 11 oz (3.033 kg), GA: 39w5d, Delivery: Vaginal, Spontaneous, Apgar1: None, Apgar5: None, Living: Living, Comments: AROM,Lightly stained meconium,Progressed over 5 hours to FD, pushed for 1 contraction to deliver, 200cc # 5 - Date: None, Sex: None, Weight: None, GA: None, Delivery: None, Apgar1: None, Apgar5: None, Living: None, Comments: None Previous history: Prior : never History of 4th degree laceration: No History of shoulder dystocia: No History of Hypertensive disorders including pre-eclampsia, chronic hypertension or gestational hypertension: No History of gestational diabetes: Yes recently diagnosed with this Patient's Risk Screening for delivery: Have you had a prior beltrán between 20w and 36w6d?: No MEDICAL/PSYCHOSOCIAL HISTORY: History of hemorrhage or bleeding concerns: No Thyroid Disease: No History of chronic hypertension: No History of pre-existing diabetes: No No results found for: ABORHD No weight on file for this encounter. History of abnormal pap: No Prior treatment for cervical dysplasia: none. 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 I don't have enough money to pay my bills: Never Within the past 12 months, have you worried that your food would run out before you had money to buy more: Never In the past 12 months, has lack of reliable transportation kept you from going to medical appointments or work, or from keeping things needed for daily living: Never In the past 12 months, have you had any concerns about having a place to live, or about the condition or quality of your housing: Never Are there any cultural or spiritual needs we should be aware of: No Depression/Anxiety Screening: denies symptoms of depression. OB Depression and Anxiety Screening- This Encounter (since 11/23/2022) Over the past 2 weeks have you felt down, depressed, or hopeless? Negative Over the past two weeks, have you felt little interest or pleasure in doing things? Negative Feeling nervous, anxious or on edge 0-Not at all Not being able to stop or control worrying 0-Not al all Anxiety Pre-Screening Total (If >/= 3 additional questions will be reviewed) 0 Genetic Screening: Partner present: No Patient verbalized knowledge of partner family health history: No Do you or your partner have any personal or family history of defects not previously discussed: No Do you have history of a complicated by anomaly, genetic condition, or demise: No ACOG Recommended Screening Screening for early gestational diabetes testing: Criteria for early testing requires elevated BMI plus one other risk factor: No weight on file for this encounter. (risk factor if > than 25 or 23 in Americans) Additional risk factors: First-degree relative with diabetes and pt recently diagnosed Screening for low dose aspirin use for the prevention of pre-eclampsia: Low dose aspirin should be considered if the patient has one high or two moderate risk factors: High risk factors: None Moderate risk ractors: Obesity (body mass index greater than 30), Age 35 years or older, and recently diagnosed with gestational diabetess She is currently taking low dose ASA Marital Status:Single Partner: Name: Juan Manuel Davis Age: 54 Occupation: [employer] worker Gender: Male History of STDs: None PAST MEDICAL HISTORY Diagnosis Date Abnormal mammogram of left breast 2017 Anemia Asthma No inhaler use sicne 2013 Depression/anxiety Fibroid, uterine Gestational diabetes Rheumatoid arthritis (HCC) PAST SURGICAL HISTORY Procedure Laterality Date BX OF BREAST; INCISIONAL Left 07/05/2017 R Cebul PAST SURGICAL HISTORY OF foot surgery Current Outpatient Medications Medication Sig Dispense Refill blood-glucose meter (BLOOD GLUCOSE MONITOR [facility]IT [facility]) USE TO TEST BLOOD SUGAR FASTING AND 2 HOURS AFTER EACH MEAL PNV [id number] 3.33 mg iron- 0.33 mg chew Take by mouth as directed. Lancets lancets ALCOHOL PREP PADS ARIPiprazole (ABILIFY) 5 mg tablet Take 1 tablet by mouth every afternoon. aspirin 81 mg chewable tablet Take by mouth as directed. dextroamphetamine-amphetamine (ADDERALL) 20 mg tablet Take 1 tablet by mouth every 12 (twelve) hours. LEVEMIR FLEXPEN 100 unit/mL (3 mL) injection pen 30 Units. venlafaxine ER (EFFEXOR XR) 150 mg 24 hr capsule Take 1 capsule by mouth once daily. No current facility-administered medications for this visit. Allergies As of Date: 11/24/2022 Allergen Noted Reaction SULFA (SULFONAMIDE ANTIBIOTICS) 03/18/2005 Swelling Fully Assessed 11/24/2022 Does patient have penicillin allergy: No documented in this encounter [facility] 11-15-2022 Miscellaneous Notes Leave open for patient to call back to have her get records to office prior to PNOB visit. Rosalba Sebastian RN Ok to accept. what I have was reviewed, appropriate for care/delivery in [place]. Thanks. RLR I left message for patient to return phone call. Patient is scheduled for PNOB appointment on 11/24. This appointment was scheduled 11/10. Appointment notes state PNOB high risk currently has MFM at [facility] 18wk on 11/11 Due date 04/13/2023 MFM ECHO scheduled at [facility] 1016, anatomy scan 11/15 at [facility], started with twins due to single placenta lost one at 13 wks. I do not have records to review-will need to. Please triage and get records to send to [facility] to see if we can accept transfer of care. If OK'd , she will need NOB appointment documented in this encounter [facility] Diagnosis with care elsewhere in second trimester- Primary Insulin controlled gestational diabetes mellitus (GDM) in second trimester Antepartum multigravida of advanced maternal age History of rheumatoid arthritis Personal history of arthritis History of depression Personal history of other mental disorder History of asthma Personal history of other diseases of respiratory system Twin with single intrauterine , antepartum, single or unspecified fetus Obesity in Obesity complicating , childbirth, or the puerperium, unspecified as to episode of care or not applicable 22 weeks gestation of state, incidental documented [facility]* Diagnosis Insulin controlled gestational diabetes mellitus (GDM) in second trimester- Primary documented in this encounter [facility] note* Diagnosis Insulin controlled gestational diabetes mellitus (GDM) in second trimester- Primary AMA (advanced maternal age) multigravida 35+, second trimester Need for influenza vaccination Need for prophylactic vaccination and inoculation against influenza Supervision of high risk in second trimester Unspecified high-risk 23 weeks gestation of state, incidental documented in this encounter [facility] note* Diagnosis Insulin controlled gestational diabetes mellitus (GDM) in second trimester- Primary AMA (advanced maternal age) multigravida 35+, second trimester Supervision of high risk in second trimester Unspecified high-risk 26 weeks gestation of state, incidental [facility]* Diagnosis Insulin controlled gestational diabetes mellitus (GDM) in second trimester- Primary AMA (advanced maternal age) multigravida 35+, second trimester Supervision of high risk in third trimester Unspecified high-risk 28 weeks gestation of state, incidental Need for vaccination Need for prophylactic vaccination and inoculation against unspecified single disease documented in this encounter [facility] note* Diagnosis Insulin controlled gestational diabetes mellitus (GDM) in second trimester- Primary AMA (advanced maternal age) multigravida 35+, second trimester Supervision of high risk in second trimester Unspecified high-risk History of rheumatoid arthritis Personal history of arthritis History of depression Personal history of other mental disorder Encounter for ultrasound to check growth Encounter for routine screening for malformation using ultrasonics 30 weeks gestation of state, incidental [facility] Diagnosis 30 weeks gestation of - Primary state, incidental Insulin controlled gestational diabetes mellitus (GDM) in second trimester AMA (advanced maternal age) multigravida 35+, second trimester Obesity in Obesity complicating , childbirth, or the puerperium, unspecified as to episode of care or not applicable documented in this encounter [facility] for referral (narrative)* Diagnostic Procedure Only (Routine) - Authorized Specialty Diagnoses / Procedures Referred By Tito joseph Referred To Contact [facility] Diagnoses Insulin controlled gestational diabetes mellitus (GDM) in second trimester AMA (advanced maternal age) multigravida 35+, second trimester Procedures OBSTETRIC ULTRASOUND WHI US PREG UTERUS AFTER 1ST TRIMEST GESTATION Erin Rodrigues MD [address] [place] [address] [facility] [place] [place] [address] Referral ID Status Reason Start Date Expiration Date Visits Requested Visits Authorized [id number] Authorized Auto-Generat ed Referral 3 12/20/2023 1 1 [facility] for referral (narrative)* Diagnostic Procedure Only (Routine) - Authorized Specialty Diagnoses / Procedures Referred By Tito joseph Referred To Contact [facility] Diagnoses AMA (advanced maternal age) multigravida 35+, second trimester Insulin controlled gestational diabetes mellitus (GDM) in second trimester Supervision of high risk in second trimester Procedures OBSTETRIC ULTRASOUND WHI US PREG UTERUS AFTER 1ST TRIMEST GESTATION Erin Rodrigues MD [address] [place] [address] [facility] [place] [address] Referral ID Status Reason Start Date Expiration Date Visits Requested Visits Authorized [id number] Authorized Auto-Generat ed Referral 01/10/2023 01/10/2024 1 1 [facility] for referral (narrative)* Outpatient Procedure (Routine) - Pending Review Specialty Diagnoses / Procedures Referred By Contac t Referred To Contact [facility] Diagnoses 30 weeks gestation of Insulin controlled gestational diabetes mellitus (GDM) in second trimester AMA (advanced maternal age) multigravida 35+, second trimester Procedures NON-STRESS TEST NON-STRESS TEST Marie Hays APRN.CNM [address] [place] [address] [address] Referral ID Status Reason Start Date Expiration Date Visits Requested Visits Authorized [id number] Pending Review Auto-Generat ed Referral 02/07/2023 02/07/2024 10 1 * Diagnostic Procedure Only (Routine) - Pending Review Specialty Diagnoses / Procedures Referred By Tito joseph Referred To [facility] Diagnoses 30 weeks gestation of Insulin controlled gestational diabetes mellitus (GDM) in second trimester AMA (advanced maternal age) multigravida 35+, second trimester Procedures BIOPHYSICAL PROFILE US WHI BIOPHYSICAL PROFILE NON-STRESS TESTING Marie Hays APRN.CNM [address] [place] [address] [id number] [place] [address] Referral ID Status Reason Start Date Expiration Date Visits Requested Visits Authorized [id number] Pending Review Auto-Generat ed Referral 02/07/2023 02/07/2024 10 1 [facility] for visit Narrative* Diagnostic Procedure Only (Routine) - Closed Specialty Diagnoses / Procedures Referred By Contac t Referred To Contact [facility] Diagnoses AMA (advanced maternal age) multigravida 35+, second trimester Insulin controlled gestational diabetes mellitus (GDM) in second trimester Supervision of high risk in second trimester Procedures OBSTETRIC ULTRASOUND WHI US PREG UTERUS AFTER 1ST TRIMEST GESTATION Erin Rodrigues MD [address] [place] [address] [facility] [address] [place] [address] Referral ID Status Reason Start Date Expiration Date V isits Requested Visits Authorized [id number] Closed Auto-Generate d Referral 01/10/2023 01/10/2024 1 1 [facility] Reason for Referral Specialty Diagnoses / Procedures Referred By Tito joseph Referred To Contact Diagnoses Insulin controlled gestational diabetes mellitus (GDM) in second trimester Procedures CONSULT TO GESTATIONAL/ ROAD BUILDER OFFICE/OUTPATIENT NEW HIGH MDM 60-[place] [address] [place] [address] Referral ID Status Reason Start Date Expiration Date Visits Requested Visits Authorized [id number] Authorized PCP Requested Referral Auto-Generate d Referral 12/13/2023 1 1 [facility] Concerns Problem Noted Date Diagnosed Date [facility] Education - COMMON 12/05/2022 Education - [place] 12/05/2022 Gestational Diabetes Home Monitoring 12/13/2022 Problem Noted Date Diagnosed Date [facility] Education - COMMON 12/05/2022 Education - [place] 12/05/2022 Gestational Diabetes Home Monitoring 12/13/2022 Problem Noted Date Diagnosed Date [facility] Education - COMMON 12/05/2022 Education - [place] 12/05/2022 Gestational Diabetes Home Monitoring 12/13/2022 Problem Noted Date Diagnosed Date [facility] Education - COMMON 12/05/2022 Education - [place] 12/05/2022 Gestational Diabetes Home Monitoring 12/13/2022 Problem Noted Date Diagnosed Date [facility] Education - COMMON 12/05/2022 Education - [place] 12/05/2022 Gestational Diabetes Home Monitoring 12/13/2022 Problem Noted Date Diagnosed Date [facility] Education - COMMON 12/05/2022 Education - [place] 12/05/2022 Gestational Diabetes Home Monitoring 12/13/2022 Problem Noted Date Diagnosed Date [facility] Education - [place]ON 12/05/2022 Education - [place] 12/05/2022 Gestational Diabetes Home Monitoring 12/13/2022 Problem Noted Date Diagnosed Date [facility] Education - [place]ON 12/05/2022 Education - [place] 12/05/2022 Gestational Diabetes Home Monitoring 12/13/2022 Problem Noted Date Diagnosed Date [facility] Education - [place]ON 12/05/2022 Education - [place] 12/05/2022 Gestational Diabetes Home Monitoring 12/13/2022 Problem Noted Date Diagnosed Date [facility] Education - COMMON 12/05/2022 Education - [place] 12/05/2022 Gestational Diabetes Home Monitoring 12/13/2022 Summary Purpose Family History No Family History Records FoundNo Family History Records Found Advance Directives No Advanced Directives Records FoundNo Advanced Directives Records Found Additional Source Comments Source Comments (unrecognize d section and content) In the event this informatio n is protected by the Federal Confidentiality of Alcohol and Drug Abuse Patient Records regulations: The Federal rules restrict any use of the information to criminally investigate or prosecute any alcohol or drug abuse patient.[facility] event this information is protected by the Federal Confidentiality of Alcohol and Drug Abuse Patient Records regulations: The Federal rules restrict any use of the information to criminally investigate or prosecute any alcohol or drug abuse patient.[facility] the event this information is protected by the Federal Confidentiality of Alcohol and Drug Abuse Patient Records regulations: The Federal rules restrict any use of the information to criminally investigate or prosecute any alcohol or drug abuse patient.[facility] the event this information is protected by the Federal Confidentiality of Alcohol and Drug Abuse Patient Records regulations: The Federal rules restrict any use of the information to criminally investigate or prosecute any alcohol or drug abuse patient.[facility] the event this information is protected by the Federal Confidentiality of Alcohol and Drug Abuse Patient Records regulations: The Federal rules restrict any use of the information to criminally investigate or prosecute any alcohol or drug abuse patient.[facility] the event this information is protected by the Federal Confidentiality of Alcohol and Drug Abuse Patient Records regulations: The Federal rules restrict any use of the information to criminally investigate or prosecute any alcohol or drug abuse patient.[facility] the event this information is protected by the Federal Confidentiality of Alcohol and Drug Abuse Patient Records regulations: The Federal rules restrict any use of the information to criminally investigate or prosecute any alcohol or drug abuse patient.[facility] the event this information is protected by the Federal Confidentiality of Alcohol and Drug Abuse Patient Records regulations: The Federal rules restrict any use of the information to criminally investigate or prosecute any alcohol or drug abuse patient.[facility] the event this information is protected by the Federal Confidentiality of Alcohol and Drug Abuse Patient Records regulations: The Federal rules restrict any use of the information to criminally investigate or prosecute any alcohol or drug abuse patient.[facility] the event this information is protected by the Federal Confidentiality of Alcohol and Drug Abuse Patient Records regulations: The Federal rules restrict any use of the information to criminally investigate or prosecute any alcohol or drug abuse patient.[facility] the event this information is protected by the Federal Confidentiality of Alcohol and Drug Abuse Patient Records regulations: The Federal rules restrict any use of the information to criminally investigate or prosecute any alcohol or drug abuse patient.[facility] the event this information is protected by the Federal Confidentiality of Alcohol and Drug Abuse Patient Records regulations: The Federal rules restrict any use of the information to criminally investigate or prosecute any alcohol or drug abuse patient.[facility] the event this information is protected by the Federal Confidentiality of Alcohol and Drug Abuse Patient Records regulations: The Federal rules restrict any use of the information to criminally investigate or prosecute any alcohol or drug abuse patient.[facility] the event this information is protected by the Federal Confidentiality of Alcohol and Drug Abuse Patient Records regulations: The Federal rules restrict any use of the information to criminally investigate or prosecute any alcohol or drug abuse patient.[facility] the event this information is protected by the Federal Confidentiality of Alcohol and Drug Abuse Patient Records regulations: The Federal rules restrict any use of the information to criminally investigate or prosecute any alcohol or drug abuse patient.[facility] Hospital[facility] the event this information is protected by the Federal Confidentiality of Alcohol and Drug Abuse Patient Records regulations: The Federal rules restrict any use of the information to criminally investigate or prosecute any alcohol or drug abuse patient.[facility] Hospital[facility] the event this information is protected by the Federal Confidentiality of Alcohol and Drug Abuse Patient Records regulations: The Federal rules restrict any use of the information to criminally investigate or prosecute any alcohol or drug abuse patient.[facility] HospitalIn the event this information is protected by the Federal Confidentiality of Alcohol and Drug Abuse Patient Records regulations: The Federal rules restrict any use of the information to criminally investigate or prosecute any alcohol or drug abuse patient.[facility] HospitalIn the event this information is protected by the Federal Confidentiality of Alcohol and Drug Abuse Patient Records regulations: The Federal rules restrict any use of the information to criminally investigate or prosecute any alcohol or drug abuse patient.[facility] Hospital[facility] the event this information is protected by the Federal Confidentiality of Alcohol and Drug Abuse Patient Records regulations: The Federal rules restrict any use of the information to criminally investigate or prosecute any alcohol or drug abuse patient.[facility] HospitalIn the event this information is protected by the Federal Confidentiality of Alcohol and Drug Abuse Patient Records regulations: The Federal rules restrict any use of the information to criminally investigate or prosecute any alcohol or drug abuse patient.[facility] HospitalIn the event this information is protected by the Federal Confidentiality of Alcohol and Drug Abuse Patient Records regulations: The Federal rules restrict any use of the information to criminally investigate or prosecute any alcohol or drug abuse patient.[facility] HospitalIn the event this information is protected by the Federal Confidentiality of Alcohol and Drug Abuse Patient Records regulations: The Federal rules restrict any use of the information to criminally investigate or prosecute any alcohol or drug abuse patient.[facility] HospitalIn the event this information is protected by the Federal Confidentiality of Alcohol and Drug Abuse Patient Records regulations: The Federal rules restrict any use of the information to criminally investigate or prosecute any alcohol or drug abuse patient.[facility] Reason for Visit (unrecogniz ed section and content) Reason Comments Care Reason Comments transfer care Reason Comments US Consult ordered by Dr Liborio burton Specialty Diagnoses / Procedures Referred By Tito t Referred To Contact Diagnoses Antepartum multigravida of advanced maternal age Insulin controlled gestational diabetes mellitus (GDM) in second trimester Obesity in Procedures CONSULT TO MATERNAL MEDI OFFICE/OUTPATIENT NEW HIGH MDM 60-74 MINUTES Bandar Alvares MD [facility] [place] [address] Referral ID Status Reason Start Date Expiration Date V isits Requested Visits Authorized [id number] Closed PCP Requested Referral Auto-Generated Referral 12/05/2022 12/05/2023 1 1 Reason Onset Date Comments Care 12/20/2022 Immunizations 12/20/2022 Flu vaccination Reason Comments Results Reason Onset Date Comments Refill Request 01/06/2023 Reason Onset Date Comments Care 01/10/2023 Reason Comments Refill Request Reason Onset Date Comments Care 01/24/2023 Reason Onset Date Comments Care 02/07/2023 Reason Comments [facility] [employer]er - Other [facility] INFORMATION SOURCE (unrecogn ized section and content) DATE CREATED AUTHOR AUTHOR'S ORGANIZ ATION 03/22/2023 [facility] FOR RECORDS PERTAINING TO PATIENTS WHO ARE OR HAVE BEEN ENROLLED IN A CHEMICAL DEPENDENCY/SUBSTANCEABUSE PROGRAM, SOME INFORMATION MAY BE OMITTED. This clinical summary was aggregated from multiple sources. Caution should be exercised in using it in the provision of clinical care. This summary normalizes information from multiple sources, and as a consequence, information in this document may materially change the coding, format and clinical context of patient data. In addition, data may be omitted in some cases. CLINICAL DECISIONS SHOULD BE BASED ON THE PRIMARY CLINICAL RECORDS. [facility] [employer] provides no warranty or guarantee of the accuracy or completeness of information in this document.
[2023-03-23] MEDS: Lactated Ringers 1,000 ML 125 ML IV (07:40)
--- NOTE | 2023-03-23 08:03 | PCM.HP.OB ---
HPI - General General Date of Admission: 03/23/23 Date of Service: 03/23/23 HPI Rosa Elena MAYERS, is a 43 F who presents for ECV then IOL for Uncontrolled GDMA2, AMA, unstable position. Upon presentation today- ultrasound demonstrates vertex position. [facility] Medical History (Updated 03/23/23 @ 08:[address] Althea Marinelli MD) Abnormal mammogram Abnormal ultrasound of breast Abnormal ultrasound of breast Back problem Depression with anxiety Distortion of contour of breast Rheumatoid arthritis Unstable lie Home Medications venlafaxine 150 mg capsule,extended release 24 hr 150 mg PO DAILY #30 caps 05/13/16 [Rx Last Taken 03/23/23 06:00] dextroamphetamine-amphetamine 20 mg tablet (Adderall) 20 mg PO QDAY 06/29/17 [History Last Taken 03/23/23 06:00] PNV#14-iron [id number] 27 mg iron-1 mg-300 mg-50 mg capsule 1 cap PO DAILY 03/23/23 [History Last Taken 03/23/23 06:00] aspirin 81 mg tablet,delayed release 81 mg PO DAILY 03/23/23 [History Last Taken 03/23/23 06:00] insulin detemir U-100 100 unit/mL subcutaneous solution (Levemir U-100 Insulin) 65 unit subcut QHS 03/23/23 [History Last Taken 03/22/23 20:00] insulin lispro 100 unit/mL subcutaneous pen (Humalog KwikPen (U-100) Insulin) 6 unit subcut BREAKFAST 03/23/23 [History Last Taken 03/22/23 08:00] insulin lispro 100 unit/mL subcutaneous pen (Humalog KwikPen (U-100) Insulin) 8 unit subcut LUNCH 03/23/23 [History Last Taken 03/22/23 12:00] insulin lispro 100 unit/mL subcutaneous pen (Humalog KwikPen (U-100) Insulin) 12 unit subcut DINNER 03/23/23 [History Last Taken 03/22/23 20:00] omeprazole 40 mg capsule,delayed release 40 mg PO QHS heartburn 03/23/23 [History Last Taken 03/22/23 20:00] Allergy/AdvReac Type Severity Reaction Status Date / Time bupropion [From Wellbutrin] Allergy Mild Hives Verified 03/23/23 07:47 hydrocodone Allergy Mild Other Verified 03/23/23 07:47 Sulfa (Sulfonamide Allergy Other Verified 03/23/23 07:47 Antibiotics) Family History Grandfather Arthritis Diabetes Hypertension Skin cancer Grandmother Arthritis Aunt Colon cancer Surgical History (Updated 09/24/21 @ 17:43 by Rose Diaz) history ORIF right fifth metatarsal Social History Smoking Status: Former smoker alcohol intake: current alcohol intake frequency: a few times a month substance use type: does not use History Elective abortions Hx Para 2 Spontaneous abortions Hx # Term Pregnancies Ectopic pregnancies Hx # Pregnancies Multiple births # of living children Vital Signs Vital Signs Vital Signs: 03/23/23 07:34 03/23/23 07:34 Pulse Rate 114 H Blood Pressure 126/82 H BP Systolic 126 BP Diastolic 82 Weight Weight: 115.212 kg Body Mass Index (BMI) 39.7 Physical Exam Narrative Ultrasound- Vertex Cervix: 2/50/-3 Const alert and oriented x3 General Appearance: cooperative HEENT normocephalic GI GI Narrative: Gravid, non tender to palpation. OB / External & Speculum: external exam normal Extremity normal to inspection Skin no rashes or lesions noted Neuro oriented x3 and CN's II-XII intact bilaterally Psych Appearance: grossly normal Labs Labs Labs: Blood Type B POSITIVE Antibody Screen NEGATIVE Hct 40.1 % (37-47) Hgb 13.2 g/dL (12.0-15.0) Syphilis Total Ab Non-reactive VZV IgG Antibody 2527 index (Immune >165) Rubella IgG Antibody Reactive (Nonreactive) Hep Bs Antigen Non-Reactive (Nonreactive) Hepatitis C Antibody Non-Reactive (Nonreactive) HIV 1&2 Antibody Non-Reactive (Nonreactive) Glucose 1 Hr 50 gm 172 mg/dL (70-140) H Gest Glucose Tolerance MG/DL Group B Strep DNA Negative (Negative) Rhogam given: No Assessment & Plan (1) Gestational diabetes mellitus (GDM): (2) AMA (advanced maternal age) multigravida 35+: (3) Positive GBS test: (4) Unstable lie: PLAN: Plan Admit to L&D Mont[facility] FHR/TOCO Epidural if requested for pain Monitor VS Anticipate pitocin and arom GBS positive- PCN
--- OUTSIDE RECORDS SUMMARY | 2023-03-23 08:19 | XMS RPT_ITS | CCD ---
Author Name Unknown Address [address] [place] [address] Organization [facility] Care Team Providers Care Supervisor Rein[employer] Name Role Phone Unavailable Primary Care Provider [...] Unavailable DANIEL SANCHES Attending Unavailable ERIN RODRIGUES Referring Unavail able ERIN RODRIGUES Attending Unavail able DEEPIKA LOMAX Attending Unavailable ERIN RODRIGUES Referring Unavail able BANDAR ALVARES Attending Unavailable MARIE HAYS Referring Unavailable ERIN RODRIGUES Attending Unavail able Allergies Allergy Classification Reported Allergen(s) Allergy Type Date of Onset Reaction(s) Facility (20 sources) Sulfonamides (Antibiotic); Translations: [SULFA (SULFONAMIDE ANTIBIOTICS)] Propensity to adverse reactions 6 Swelling [facility] Work Phone: (20 sources) buPROPion; Translations: [BUPROPION] Drug Allergy 3 Rash [facility] (20 sources) HYDROcodone; Translations: [HYDROCODONE] Drug Allergy 3 Other: See Comments [facility] (20 sources) Promethazine; Translations: [PROMETHAZINE] Drug Allergy 0 Other: See Comments [facility] (1 source) Sulfonamides (Antibiotic); Translations: [SULFA ANTIBIOTICS] Propensity to adverse reactions to drug (disorder) 0 [facility] Repository Medications Current Medications Medication Drug [...] 109.23 kg Deepika Lomax MD Work Phone: [facility] 02-07-2023 14:08-0500 Diastolic blood pressure 70 mm[Hg] Deepika Lomax MD Work Phone: [facility] 02-07-2023 14:08-0500 Systolic blood pressure 98 mm[Hg] Deepika Lomax MD Work Phone: [facility] 01-24-2023 15:50-0500 Body weight 107.05 kg Erin Hauser MD Work Phone: [facility] 01-24-2023 15:50-0500 Diastolic blood pressure 84 mm[Hg] Erin Hauser MD Work Phone: [facility] 01-24-2023 15:50-0500 Systolic blood pressure 132 mm[Hg] Erin Hauser MD Work Phone: [facility] 12-20-2022 15:05-0400 Body weight 107.05 kg Erin Hauser MD Work Phone: [facility] 12-20-2022 15:05-0400 Diastolic blood pressure 70 mm[Hg] Erin Hauser MD Work Phone: [facility] 12-20-2022 15:05-0400 Systolic blood pressure 120 mm[Hg] Erin Hauser MD Work Phone: [facility] 12-13-2022 14:52-0400 Body weight 105.51 kg Deepika Lomax MD Work Phone: [facility] 12-13-2022 14:52-0400 Diastolic blood pressure 72 mm[Hg] Deepika Lomax MD Work Phone: [facility] 12-13-2022 14:52-0400 Systolic blood pressure 110 mm[Hg] Deepika Lomax MD Work Phone: [facility] Encounters Encounter Date Encounter Type Care Provider Facility Start: 03-21-2023 End: 03-21-2023 ambulatory ERIN HAUSER Facility:[facility] Start: 03-17-2023 End: 03-17-2023 ambulatory DEEPIKA LOMAX Facility:[facility] Start: 03-14-2023 End: 03-14-2023 ambulatory DANIEL SANCHES Facility:[facility] Start: 03-10-2023 End: 03-10-2023 ambulatory TERESA JACOME Facility:[facility] Start: 03-07-2023 End: 03-07-2023 ambulatory DANIEL SANCHES Facility:[facility] Start: 03-03-2023 End: 03-03-2023 ambulatory MARIE HAYS Facility:[facility] Start: 02-28-2023 End: 03-01-2023 ambulatory MARIE HAYS Facility:[facility] Start: 02-24-2023 End: 02-25-2023 ambulatory BANDAR ALVARES Facility:[facility] Start: 2023 End: 02-21-2023 ambulatory ERIN HAUSER Facility:[facility] Start: 02-17-2023 End: 02-17-2023 [facility] Start: 02-17-2023 Telephone encounter [place] Attacher RN Maternal Medicine Procedures Date Procedure Procedure [...] DTaP,Tdap,Td Vaccine (2 - Td or Tdap) [facility] Start: 09-13-2027 HPV Testing HPV Testing [facility] Start: 09-13-2027 Pap Testing Pap Testing [facility] Start: 09-13-2027 Screening for malignant neoplasm of cervix [facility] Start: 02-16-2023 RSV Vaccine (1 - Risk 1-dose series) RSV Vaccine (1 - Risk 1-dose series) [facility] Start: 01-10-2023 End: 04-11-2023 CBC W Auto Differential panel - Blood CBC + DIFF Lab Routine 26 weeks gestation of AMA (advanced maternal age) multigravida 35+, second trimester Insulin controlled gestational diabetes mellitus (GDM) in second trimester Supervision of high risk in second trimester Expected: 01/10/2023, Expires: 04/11/2023 [facility] Work Phone: Immunizations Immunization Date Immunization Notes Care Provider Fa tae 01-24-2023 tetanus toxoid, redu nona diphtheria toxoid, and acellular pertussis vaccine, adsorbed Erin Hauser MD Work Phone: [facility] 12-20-2022 influenza, injectabl e, quadrivalent, contains preservative Erin Hauser MD Work Phone: [facility] Payers Date Payer Category Payer Medicaid [facility] [id number] 2022-Present [phone] [address] [place] [address] Medicaid [id number] 2022 Unknown [id number] 1980 Unknown [id number] 1980 Unknown [id number] 1981 Unknown [id number] 1981 Unknown [id number] 1980 Unknown [id number] Social History Date Type Detail Facility Start: [facility]-24-2022 [facility] Work Phone: End: 09-02-2021 History of tobacco use Current smoker [facility] Work Phone: End: 09-02-2021 History of tobacco use Cigarette Smoker [facility] Work Phone: Start: 11-15-2022 Alcohol intake Current drinke r of alcohol (finding) [facility] Start: 11-15-2022 End: 02-07-2023 History of Social function [facility] Start: 11-15-2022 End: 02-07-2023 Tobacco use panel [facility] Start: 1980 Sex Assigned At Not on file [facility] Start: 11-24-2022 Tobacco use and exposure Smokeless tobacco non-user [facility] Work Phone: Start: 11-24-2022 End: 02-17-2023 Alcohol intake Ex-drinker (finding) [facility] Start: 11-24-2022 Education 21 [facility] Start: 11-24-2022 Alcohol Comment [facility] Start: 07-21-2022 [facility] National Score (1-10 0), lower number is lower risk 64 [facility] Medical Equipment Procedure Code Equipment Code [...] Type Note Facility 03-21-2023 Note HNO ID: [id number] Author: ERIN RODRIGUES MD Service: ? Author [...] I and Reactive SIGNATURE: Erin Marinelli MD [facility] 03-14-2023 Note HNO ID: [id number] Author: DANIEL SANCHES MD Service: ? Author [...] None Interpretation: Reactive SIGNATURE: Daniel Sanches MD [facility] 03-10-2023 Note HNO ID: [id number] Author: TERESA JACOME APRN.CNM Service: ? Author Type: Garment Fitter Type: Progress Notes Filed: 03/10/2023 16:57 Note [...] Irregular Interpretation: Reactive SIGNATURE: Teresa Jacome APRN.CNM [facility] 03-07-2023 Note HNO ID: [id number] Author: Deepika Lomax MD Service: ? Author [...] Medical Decision Making Level: 4 - Moderate eDepika Lomax MD February 07, 2023 2:55 PM [facility] 03-03-2023 Note HNO ID: [id number] Author: Marie Hays APRN.CNM Service: ? Author Type: Garment Fitter Type: Progress Notes Filed: 03/03/2023 4:17 PM [...] None Interpretation: Reactive SIGNATURE: Marie Hays APRN.CNM [facility] 02-24-2023 Note HNO ID: [id number] Author: Bandar Alvares MD Service: ? Author [...] I and Reactive SIGNATURE: Bandar Alvares MD [facility] 2023 Note HNO ID: [id number] Author: Erin Rodrigues MD Service: ? Author [...] I and Reactive SIGNATURE: Erin Marinelli MD [facility] 02-17-2023 Note HNO ID: [id number] Author: Teresa Jacome APRN.CN Service: ? Author Type: Garment Fitter Type: Progress Notes Filed: 02/17/2023 4:21 PM [...] None Interpretation: Reactive SIGNATURE: Teresa Jacome APRN.CNM [facility] 02-17-2023 Miscellaneous Notes 3rd risk assessment form submitted 02/17/2023. Joan Ibarra RN documented in this encounter [facility] 02-07-2023 Note HNO ID: [id number] Author: Deepika Lomax MD Service: ? Author Type: Physician Type: Progress Notes Filed: 02/07/2023 2:56 PM Note Text: [facility] Progress Note Jeri is 42yo @ 30w5d here for growth and follow up visit due to GDM on insulin. Doing well, having [place] contractions. Has OB visit today. BP 98/70 [...] not reported of her blood sugars to [facility] or [facility] since November 15. See phone note [...] . States she was last seen by metal caster 15 years ago.TKRN Other Visit Diagnoses AMA (advanced maternal age) multigravida 35+, second trimester Supervision of high risk in second trimester Medical Decision Making: Problems: Moderate: 2+ stable chronic illnesses Risk: Moderate: Drug management and Moderate risk from testing/treatment Medical Decision Making Level: 4 - Moderate Deepika Lomax MD February 07, 2023 2:55 PM [facility] 02-07-2023 Miscellaneous Notes Voicemail and [employer] message sent to pt. Aga Rodriguez LPN Can you please call patient and clarify to increase insulin dose Levemir to 60 units not 55units. Confirmed with and this is the correct dose. Sorry for confusion. Thank you, Marie Hays APRN.CNM documented in this encounter [facility] 02-07-2023 Instructions Eliseo Vincent Cma - 02/07/2023 3:01 PM EST SEQUENTIAL SCREENINGS The [facility] offers sequential screenings for women who [...] It will require an appointment with our imaging technician. This is not an ultrasound performed [...] the above symptoms, contact our office at [phone] and ask to speak with a nurse. After hours, you can call doctors registry at [phone] OR call [facility] at [phone] and ask to have the doctor marine transport professionals paged. If you consider this an emergency, dial 9-3 or go to your nearest emergency department. NEED HELP? Are you dealing with a violent or abusive relationship? Are you a victim of rape or sexual assult? Call [facility] ([place]) 24 hour Crisis Hotline: 185.787.3932 or 382-684-1272. MANUAL Your Guide to a Healthy manual is now on-line. Visit [email or web address] to download your free copy documented in this encounter [facility] 02-07-2023 Miscellaneous Notes JORGE-S: Jeri Gordon [...] Marie Hays APRN.CNM documented in this encounter [facility] 02-07-2023 History of Presen t illness Narrative MFM Progress Note Jeri is 42yo @ 30w5d here for growth and follow up visit due to GDM on insulin. Doing well, having [place] contractions. Has OB visit today. BP 98/70 [...] not reported of her blood sugars to [facility] or [facility] since November 15. See phone note [...] . States she was last seen by metal caster 15 years ago.TKRN Other Visit Diagnoses AMA (advanced maternal age) multigravida 35+, second trimester Supervision of high risk in second trimester Medical Decision Making: Problems: Moderate: 2+ stable chronic illnesses Risk: Moderate: Drug management and Moderate risk from testing/treatment Medical Decision Making Level: 4 - Moderate Deepika Lomax MD February 07, 2023 2:55 PM documented in this encounter [facility] 02-01-2023 Note HNO ID: [id number] Author: Teresa Ruiz APRN.MICHAEL Service: ? Author Type: Nurse Practitioner Type: Progress Notes Filed: 02/01/2023 12:51 PM Note Text: Called patient and lvm with recommendations Current Management: Medication controlled Lispro 10 units at meals Levemir 60 units at bedtime Teresa Ruiz APRN.CNP [facility] 02-01-2023 Note HNO ID: [id number] Author: Teresa Ruiz APRN.MICHAEL Service: ? Author Type: Nurse Practitioner Type: Progress Notes Filed: 02/01/2023 12:50 PM Note Text: Called patient and lvm with recommendations Current Management: Medication controlled Lispro 10 units at meals Levemir 60 units at bedtime Teresa Ruiz APRN.CNP [facility] 01-30-2023 Note HNO ID: [id number] Author: Teresa Ruiz APRN.CNP Service: ? Author Type: Nurse Practitioner Type: Progress Notes Filed: 01/30/2023 10:39 AM Note Text: Diabetes in Monitoring [facility] Recommendations Jeri Gordon is a 42 year old, , [place] 29w4d with Gestational Diabetes. Last growth scan: NOEMI 19.3 AC 83% EFW 55% Management: Medication controlled Humalog (Lispro) 6 units with breakfast Humalog (Lispro) 6 units with lunch Humalog (Lispro) 10 units with dinner Levemir (Detemir) 42 units at bedtime (HS) Diabetes in Monitoring [facility] Att[facility] 01/22/2023 01/21/2023 01/20/2023 01/19/2023 01/18/2023 01/17/2023 01/16/2023 [...] Ruiz APRN.CNP January 30, 2023 10:37 AM [facility] 01-24-2023 Note HNO ID: [id number] Author: Caridad Cummins Ma Service: ? Author [...] severely ill: Yes Patient denies history of Guillain-[place] Syndrome (a severe paralytic illness): Yes Tdap Adacel injection was given without incident. See immunizations for details of immunizations administered today. VIS sheet provided: Yes Provider Salma was present in office at time of injection. Caridad Cummins Ma [facility] 01-24-2023 Miscellaneous Notes DM-Pt doing well. [...] Erin Marinelli MD documented in this encounter [facility] 01-24-2023 History of Presen t illness [...] severely ill: Yes Patient denies history of Guillain-[place] Syndrome (a severe paralytic illness): Yes Tdap Adacel injection was given without incident. See immunizations for details of immunizations administered today. VIS sheet provided: Yes Provider Salma was present in office at time of injection. Caridad Cummins Ma documented in this encounter [facility] 01-24-2023 Instructions Caridad Cummins Ma - 01/24/2023 3:47 PM EST SEQUENTIAL SCREENINGS The [facility] offers sequential screenings for women who [...] It will require an appointment with our imaging technician. This is not an ultrasound performed [...] the above symptoms, contact our office at [phone] and ask to speak with a nurse. After hours, you can call doctors registry at [phone] OR call [facility] at [phone] and ask to have the doctor marine transport professionals paged. If you consider this an emergency, dial 9-6-7 or go to your nearest emergency department. NEED HELP? Are you dealing with a violent or abusive relationship? Are you a victim of rape or sexual assult? Call [facility] ([place]) 24 hour Crisis Hotline: 614.429.7336 or 358-021-2296. MANUAL Your Guide to a Healthy manual is now on-line. Visit [email or web address] Cinda to download your free copy documented in this encounter [facility] 01-23-2023 Note HNO ID: [id number] Author: Kati Barbosa RN Service: ? Author Type: ? Type: Progress Notes Filed: 01/23/2023 10:19 AM Note Text: Patient self reports Sent to provider for review. Kati Barbosa RN [facility] 01-23-2023 History of Presen t illness Narrative Patient self reports Sent to provider for review. Kati Barbosa RN documented in this encounter [facility] 01-18-2023 Note HNO ID: [id number] Author: Teresa Ruiz APRN.MICHAEL Service: ? Author [...] sugars are submitted for review. Teresa Ruiz APRN.ORACLE ERP ARCHITECT [facility] 01-16-2023 Note HNO ID: [id number] Author: Meg Lujan RN Service: ? Author Type: Registered Nurse Type: Progress Notes Filed: 01/16/2023 11:15 AM Note Text: Pt self reports, last readings on 01/09. Please review. Meg Lujan RN [facility] 01-16-2023 History of Presen t illness Narrative Pt self reports, last readings on 01/09. Please review. Meg Lujan RN documented in this encounter [facility] 01-12-2023 Miscellaneous Notes Called pt, LVMM that medication was renewed yesterday by Dr John Hauser MD and a [facility] message was sent to pt advising her of this. Office phone number provided for call back. Meg Lujan RN left a vm that she needs a refill on her lispro. documented in this encounter [facility] 01-11-2023 Note HNO ID: [id number] Author: Teresa Ruiz APRN.ORACLE ERP ARCHITECT Service: ? Author Type: Nurse Practitioner Type: Progress Notes Filed: 01/11/2023 1:46 PM Note Text: Lispro 6 units at breakfast, lunch Lispro 10 unit at dinner Levemir 42 units at bedtime [facility] 01-11-2023 Note HNO ID: [id number] Author: Teresa Ruiz APRN.ORACLE ERP ARCHITECT Service: ? Author Type: Nurse Practitioner Type: Progress Notes Filed: 01/11/2023 1:41 PM Note Text: Called patient and notified of Dr. Mancuso recommendations. Unable to leave vm. Will send [employer] message. Current Management: Medication controlled Lispro 6 units at breakfast, lunch Lispro 10 unit at dinner Levemir 42 units at bedtime Teresa Ruiz APRN.ORACLE ERP ARCHITECT [facility] 01-11-2023 Miscellaneous Notes Called patient and got vm. LM that OB provider ordered insulin yesterday and both were sent to [facility] in [place]. Number provided to call back with any questions. Kati Barbosa RN documented in this encounter [facility] 01-11-2023 Miscellaneous Notes 2nd risk assessment form submitted 01/11/2023. Joan Ibarra, DARNELL documented in this encounter [facility] 01-10-2023 Miscellaneous Notes DM-Pt doing well. [...] Erin Marinelli MD documented in this encounter [facility] 01-10-2023 Instructions Paris Martínez MA - 01/10/2023 9:02 AM EST SEQUENTIAL SCREENINGS The [facility] offers sequential screenings for women who [...] It will require an appointment with our imaging technician. This is not an ultrasound performed [...] the above symptoms, contact our office at [phone] and ask to speak with a nurse. After hours, you can call doctors registry at [phone] OR call [facility] at [phone] and ask to have the doctor marine transport professionals paged. If you consider this an emergency, dial 9--1 or go to your nearest emergency department. NEED HELP? Are you dealing with a violent or abusive relationship? Are you a victim of rape or sexual assult? Call [facility] ([place]) 24 hour Crisis Hotline: 699.390.8246 or 281-963-1915. MANUAL Your Guide to a Healthy manual is now on-line. Visit [email or web address] [email or web address] to download your free copy documented in this encounter [facility] 01-09-2023 Note HNO ID: [id number] Author: Meg Lujan RN Service: ? Author Type: Registered Nurse Type: Progress Notes Filed: 01/09/2023 8:48 AM Note Text: Pt reports blood sugars to Dr Lomax. Meg Lujan RN [facility] 01-09-2023 History of Presen t illness Narrative Pt reports blood sugars to Dr Lomax. Meg Lujan RN documented in this encounter [facility] 01-06-2023 Miscellaneous Notes If seeing them doesn't need to see us that day. Thanks. Bandar Alvares MD Patient has appointment with MFM on Monday .She was last seen by OB 12/20 and told to come back in 2 weeks. No openings on Monday for ob visit. GDM on Insulin. please advise documented in this encounter [facility] 01-06-2023 Miscellaneous Notes ordered See refill request documented in this encounter [facility] 01-06-2023 Miscellaneous Notes 26w1d Patient sent a [employer] message also requesting refill. Requested Prescriptions Pending Prescriptions Disp Refills LEVEMIR FLEXPEN 100 unit/mL (3 mL) injection pen Si Units daily at bedtime. Joan Garcia RN documented in this encounter [facility] 01-05-2023 Note HNO ID: [id number] Author: Teresa Ruiz APRN.ORACLE ERP ARCHITECT Service: ? Author Type: Nurse Practitioner Type: [...] one of the days. Diabetes in Monitoring [facility] Room Attendant 01/02/2023 01/01/2023 12/31/2022 12/30/2022 12/29/2022 12/28/2022 12/27/2022 [...] to review for management recommendations. Teresa Ruiz APRN.ORACLE ERP ARCHITECT January 05, 2023 2:55 PM [facility] 12-26-2022 Note HNO ID: [id number] Author: Meg Lujan RN Service: ? Author Type: Registered Nurse Type: Progress Notes Filed: 12/26/2022 9:03 AM Note Text: Blood sugars being managed by Dr Annie Lujan RN [facility] 12-26-2022 Note HNO ID: [id number] Author: Meg Lujan RN Service: ? Author [...] letter. MC message sent Meg Lujan RN [facility] 12-26-2022 History of Presen t illness [...] Meg Lujan RN documented in this encounter [facility] 12-22-2022 Miscellaneous Notes See 12/22/22 phone note. Rosalba Sebastian RN Patient 24w0d called and and states she saw her urine culture results and is asking if medication can be sent to the pharmacy for her as she is miserable. Patient having constant dysuria, urgency and frequency. Pharmacy is up to date. Rose Kim RN documented in this encounter [facility] 12-22-2022 Miscellaneous Notes Patient notified. The following approved medication requests have been transmitted electronically. Requested Prescriptions Signed Prescriptions Disp Refills nitrofurantoin monohydrate and macrocrystal (MACROBID) 100 mg capsule 14 capsule 0 Sig: Take 1 capsule by mouth two times a day for 7 days. Authorizing Provider: ERIN RODRIGUES Pharmacy Information Pharmacy Address Telephone [facility] #[id number] [place] [address] Uti in - macrobid ordered. documented in this encounter [facility] 12-20-2022 Miscellaneous Notes DM-Pt doing well. Denies vaginal Bleeding, Leaking fluid, or regular Contractions. Pt reports good movement. Pt reports she uploaded BS log- Unable to see on [employer]. She reports fastings are all elevated 110s-120s [...] 35units 2) echo and growth us from [facility] reviewed. Pt will start getting growth at [facility]. Reviewed will need testing regularly at 32 weeks twice weekly possibly sooner if indicated 3) RTO 2 wks but will send in BS in one week. Diet reinforced. Advised evening higher protein snack to help with Fasting BS 4) flu vaccine today Erin Marinelli MD documented in this encounter [facility] 12-20-2022 Instructions Caridad Cummins Ma 12/20/2022 3:04 PM EDT SEQUENTIAL SCREENINGS [facility] offers sequential screenings for women who [...] It will require an appointment with our imaging technician. This is not an ultrasound performed [...] the above symptoms, contact our office at [phone] and ask to speak with a nurse. After hours, you can call doctors registry at [phone] OR call [facility] at [phone] and ask to have the doctor marine transport professionals paged. If you consider this an emergency, dial 9-5-9 or go to your nearest emergency department. NEED HELP? Are you dealing with a violent or abusive relationship? Are you a victim of rape or sexual assult? Call [facility] [place] [facility] 24 hour Crisis Hotline: 916.249.3281 or 136-726-4328. MANUAL Your Guide to a Healthy manual is now on-line. Visit [email or web address] Cinda to download your free copy documented in this encounter [facility] 12-19-2022 Note HNO ID: [id number] Author: Meg Lujan RN Service: ? Author Type: Registered Nurse Type: Progress Notes Filed: 12/19/2022 8:57 AM Note Text: See note from Dr Lomax on 12/05, managing this pt's insulin. Pt sending BS logs to Dr Lomax. Meg Lujan RN [facility] 12-13-2022 Note HNO ID: [id number] Author: Deepika Lomax MD Service: ? Author [...] DIRECTED blood-glucose meter (BLOOD GLUCOSE MONITOR KIT [facility]) USE TO TEST BLOOD SUGAR FASTING AND 2 HOURS AFTER EACH MEAL dextroamphetamine-amphetamine (ADDERALL) 20 mg tablet 1 tablet, ORAL, Every 12 hours dextroamphetamine-amphetamine (ADDERALL) 20 mg tablet 20 mg, ORAL Insulin [place], Disposable, (PEN NEEDLE) 29 gauge x 1/2 1 Each, Miscell. (Med.Supl.;Non-Drugs), DAILY Lancets lancets No dose, route, or frequency recorded. LEVEMIR FLEXPEN 20 Units, AT BEDTIME PNV [id number] 3.33 mg iron- 0.33 mg chew ORAL, [...] today's visit: Glucose log reviewed as per [facility] US show (more content not included)... [facility] 12-13-2022 History of Presen t illness [...] DIRECTED blood-glucose meter (BLOOD GLUCOSE MONITOR [facility]IT [facility]) USE TO TEST BLOOD SUGAR FASTING AND 2 HOURS AFTER EACH MEAL dextroamphetamine-amphetamine (ADDERALL) 20 mg tablet 1 tablet, ORAL, Every 12 hours dextroamphetamine-amphetamine (ADDERALL) 20 mg tablet 20 mg, ORAL Insulin [place], Disposable, (PEN NEEDLE) 29 gauge x 1/2 1 Each, Miscell. (Med.Supl.;Non-Drugs), DAILY Lancets lancets No dose, route, or frequency recorded. LEVEMIR FLEXPEN 20 Units, AT BEDTIME PNV [id number] 3.33 mg iron- 0.33 mg chew ORAL, [...] all anomalies. She has echocardiogram planned at [facility]. 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 Alvares for an opinion regarding GDM, AMA, other complications. My final recommendations will be communicated back to the requesting physician by way of shared Medical record or letter to requesting physician via US mail. I spent 55 minutes in the visit, with more than 50% of the total ntft-gy-leax time of the visit in counseling / coordination of care. SIGNATURE: Deepika Lomax MD PATIENT NAME: Jeri Gordon DATE: December 13, 2022 TIME: 1:12 PM documented in this encounter [facility] 12-05-2022 Note HNO ID: [id number] Author: Bandar Alvares MD Service: ? Author [...] use: No Multivitamin with Folic acid: Yes Mormonism or heritage: No Would refuse blood transfusion [...] (body mass index (more content not included)... [facility] 11-25-2022 Miscellaneous Notes Patient returned office [...] only since I am not going to [place] that day. Bandar Alvares MD Dr Alvares, she stated at the PNOB visit she will answer the phone if we call her now. She states that she is willing to come in any time for New OB. We had been trying to call her prior to New OB to get her scheduled for New OB-since business performance specialist did not do that at initial PNOB scheduling. Sorry for the confusion. I don't know where to get her into the schedule sooner -no openings. Would prefer to get her in sooner. [facility] have her contact us to schedule. [...] OB visit. She is transferring care from [facility]. She was last seen there November 15 for an ultrasound with MFM and an appointment with Dr. Coyle. She was newly diagnosed as a gestational diabetic. She is insulin controlled. Has seen dietitian. Has not reported her blood sugars since November 15. Next appointment scheduled is December 19 with MFM for echo. Also has another appointment January 19 with [facility] MFM. This was previous mono Di twin [...] into the schedule documented in this encounter [facility] 11-24-2022 Note HNO ID: [id number] Author: Polly Thakur RN Service: ? Author [...] use: No Multivitamin with Folic acid: Yes Mormonism or heritage: No Would refuse blood transfusion [...] than 30), Age (more content not included)... [facility] 11-24-2022 Miscellaneous Notes DISTANCE HEALTH VISIT This Team Access Model visit is a phone encounter. It required patient-provider interaction for the medical decision making as documented below. I have communicated my name and active licensure. The patient's identity and physical location were verified at the time of this visit. Patient is transferring care from [facility]. She was last seen in their office November 15 for an ultrasound with maternal- medicine and then an appointment with Dr. Coyle. She has a echo scheduled for December 19. This started out as a twin -Russell Di twins that were confirmed by maternal- [...] not reported of her blood sugars to [facility] or [facility] since November 15. See phone note [...] . States she was last seen by metal caster 15 years ago. 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 Rosalba Sebastian RN Ok to accept. what I have was reviewed, appropriate for care/delivery in [place]. Thanks. RLR I left message for patient to return phone call. Patient is scheduled for PNOB appointment on 11/24. This appointment was scheduled 11/10. Appointment notes state PNOB high risk currently has MFM at [facility] 18wk on 11/11 Due date 04/13/2023 MFM ECHO scheduled at [facility] 1016, anatomy scan 11/15 at [facility], started with twins due to single placenta lost one at 13 wks. I do not have records to review-will need to. Please triage and get records to send to [facility] to see if we can accept transfer of care. If OK'd , she will need NOB appointment documented in this encounter [facility] Diagnosis with care elsewhere in second [...] of state, incidental [facility]* Diagnosis Insulin controlled gestational diabetes mellitus (GDM) in second trimester- Primary documented in this encounter [facility] note* Diagnosis Insulin controlled gestational diabetes mellitus (GDM) in second trimester- Primary AMA (advanced maternal age) multigravida 35+, second trimester Need for influenza vaccination Need for prophylactic vaccination and inoculation against influenza Supervision of high risk in second trimester Unspecified high-risk 23 weeks gestation of state, incidental documented in this encounter [facility] note* Diagnosis Insulin controlled gestational diabetes mellitus (GDM) in second trimester- Primary AMA (advanced maternal age) multigravida 35+, second trimester Supervision of high risk in second trimester Unspecified high-risk 26 weeks gestation of state, incidental [facility]* Diagnosis Insulin controlled gestational diabetes mellitus (GDM) in second trimester- Primary AMA (advanced maternal age) multigravida 35+, second trimester Supervision of high risk in third trimester Unspecified high-risk 28 weeks gestation of state, incidental Need for vaccination Need for prophylactic vaccination and inoculation against unspecified single disease documented in this encounter [facility] note* Diagnosis Insulin controlled gestational diabetes [...] of state, incidental [facility] Diagnosis 30 weeks gestation of - Primary state, incidental Insulin controlled gestational diabetes mellitus (GDM) in second trimester AMA (advanced maternal age) multigravida 35+, second trimester Obesity in Obesity complicating , childbirth, or the puerperium, unspecified as to episode of care or not applicable documented in this encounter [facility] for referral (narrative)* Diagnostic Procedure Only (Routine) - Authorized Specialty Diagnoses / Procedures Referred By Tito joseph Referred To Contact [facility] Diagnoses Insulin controlled gestational diabetes mellitus (GDM) in second trimester AMA (advanced maternal age) multigravida 35+, second trimester Procedures OBSTETRIC ULTRASOUND WHI US PREG UTERUS AFTER 1ST TRIMEST GESTATION Erin Rodrigues MD [address] [place] [address] [facility] [place] [place] [address] Referral ID Status Reason Start Date Expiration Date Visits Requested Visits Authorized [id number] Authorized Auto-Generat ed Referral 3 12/20/[address] [facility] for referral (narrative)* Diagnostic Procedure Only (Routine) - Authorized Specialty Diagnoses / Procedures Referred By Tito joseph Referred To Contact [facility] Diagnoses AMA (advanced maternal age) multigravida 35+, second trimester Insulin controlled gestational diabetes mellitus (GDM) in second trimester Supervision of high risk in second trimester Procedures OBSTETRIC ULTRASOUND WHI US PREG UTERUS AFTER 1ST TRIMEST GESTATION Erin Rodrigues MD [address] [place] [address] [facility] [place] [address] Referral ID Status Reason Start Date Expiration Date Visits Requested Visits Authorized [id number] Authorized Auto-Generat ed Referral 01/10/2023 01/10/[address] [facility] for referral (narrative)* Outpatient Procedure (Routine) - Pending Review Specialty Diagnoses / Procedures Referred By Contac t Referred To Contact [facility] Diagnoses 30 weeks gestation of Insulin controlled gestational diabetes mellitus (GDM) in second trimester AMA (advanced maternal age) multigravida 35+, second trimester Procedures NON-STRESS TEST NON-STRESS TEST Marie Hays APRN.CNM [address] [place] [address] [address] Referral ID Status Reason Start Date Expiration Date Visits Requested Visits Authorized [id number] Pending Review Auto-Generat ed Referral 02/07/2023 02/07/2024 10 1 * Diagnostic Procedure Only (Routine) - Pending Review Specialty Diagnoses / Procedures Referred By Tito joseph Referred To [facility] Diagnoses 30 weeks gestation of Insulin controlled gestational diabetes mellitus (GDM) in second trimester AMA (advanced maternal age) multigravida 35+, second trimester Procedures BIOPHYSICAL PROFILE US WHI BIOPHYSICAL PROFILE NON-STRESS TESTING Marie Hays APRN.CNM [address] [place] [address] [id number] [place] [address] Referral ID Status Reason Start Date Expiration Date Visits Requested Visits Authorized [id number] Pending Review Auto-Generat ed Referral 02/07/2023 02/07/[address] [facility] for visit Narrative* Diagnostic Procedure Only (Routine) - Closed Specialty Diagnoses / Procedures Referred By Contac t Referred To Contact [facility] Diagnoses AMA (advanced maternal age) multigravida 35+, second trimester Insulin controlled gestational diabetes mellitus (GDM) in second trimester Supervision of high risk in second trimester Procedures OBSTETRIC ULTRASOUND WHI US PREG UTERUS AFTER 1ST TRIMEST GESTATION Erin Rodrigues MD [address] [place] [address] [facility] [address] [place] [address] Referral ID Status Reason Start Date Expiration Date V isits Requested Visits Authorized [id number] Closed Auto-Generate d Referral 01/10/2023 01/10/2024 1 1 [facility] Reason for Referral Specialty Diagnoses / Procedures Referred By Tito joseph Referred To Contact Diagnoses Insulin controlled gestational diabetes mellitus (GDM) in second trimester Procedures CONSULT TO GESTATIONAL/ INSURANCE MANAGER OFFICE/OUTPATIENT NEW HIGH MDM 60-[place] [address] [place] [address] Referral ID Status Reason Start Date Expiration Date Visits Requested Visits Authorized [id number] Authorized PCP Requested Referral Auto-Generate d Referral 12/13/2023 1 1 Health Concerns Problem Noted Date Diagnosed Date [facility] Education - COMMON 12/05/2022 Education - [place] 12/05/2022 Gestational Diabetes Home Monitoring 12/13/2022 Problem Noted Date Diagnosed Date [facility] Education - COMMON 12/05/2022 Education - [place] 12/05/2022 Gestational Diabetes Home Monitoring 12/13/2022 Problem Noted Date Diagnosed Date [facility] CC Education - COMMON 12/05/2022 Education - [place] 12/05/2022 Gestational Diabetes Home Monitoring 12/13/2022 Problem Noted Date Diagnosed Date [facility] CC Education - COMMON 12/05/2022 Education - [place] 12/05/2022 Gestational Diabetes Home Monitoring 12/13/2022 Problem Noted Date Diagnosed Date [facility] CC Education - COMMON 12/05/2022 Education - [place] 12/05/2022 Gestational Diabetes Home Monitoring 12/13/2022 Problem Noted Date Diagnosed Date [facility] CC Education - COMMON 12/05/2022 Education - [place] 12/05/2022 Gestational Diabetes Home Monitoring 12/13/2022 Problem [...] or prosecute any alcohol or drug abuse patient.[facility] the event this information is protected by the Federal Confidentiality of Alcohol and Drug Abuse Patient Records regulations: The Federal rules restrict any use of the information to criminally investigate or prosecute any alcohol or drug abuse patient.[facility] the event this information is protected by the Federal Confidentiality of Alcohol and Drug Abuse Patient Records regulations: The Federal rules restrict any use of the information to criminally investigate or prosecute any alcohol or drug abuse patient.[facility] the event this information is protected by the Federal Confidentiality of Alcohol and Drug Abuse Patient Records regulations: The Federal rules restrict any use of the information to criminally investigate or prosecute any alcohol or drug abuse patient.[facility] the event this information is protected by the Federal Confidentiality of Alcohol and Drug Abuse Patient Records regulations: The Federal rules restrict any use of the information to criminally investigate or prosecute any alcohol or drug abuse patient.[facility] the event this information is protected by the Federal Confidentiality of Alcohol and Drug Abuse Patient Records regulations: The Federal rules restrict any use of the information to criminally investigate or prosecute any alcohol or drug abuse patient.[facility] Hospital[facility] the event this information is protected by the Federal Confidentiality of Alcohol and Drug Abuse Patient Records regulations: The Federal rules restrict any use of the information to criminally investigate or prosecute any alcohol or drug abuse patient.[facility] Hospital[facility] the event this information is protected by the Federal Confidentiality of Alcohol and Drug Abuse Patient Records regulations: The Federal rules restrict any use of the information to criminally investigate or prosecute any alcohol or drug abuse patient.[facility] Hospital[facility] the event this information is protected by the Federal Confidentiality of Alcohol and Drug Abuse Patient Records regulations: The Federal rules restrict any use of the information to criminally investigate or prosecute any alcohol or drug abuse patient.[facility] Hospital[facility] the event this information is protected by the Federal Confidentiality of Alcohol and Drug Abuse Patient Records regulations: The Federal rules restrict any use of the information to criminally investigate or prosecute any alcohol or drug abuse patient.[facility] Hospital[facility] the event this information is protected by the Federal Confidentiality of Alcohol and Drug Abuse Patient Records regulations: The Federal rules restrict any use of the information to criminally investigate or prosecute any alcohol or drug abuse patient.[facility] HospitalIn the event this information is protected by the Federal Confidentiality of Alcohol and Drug Abuse Patient Records regulations: The Federal rules restrict any use of the information to criminally investigate or prosecute any alcohol or drug abuse patient.[facility] HospitalIn the event this information is protected by the Federal Confidentiality of Alcohol and Drug Abuse Patient Records regulations: The Federal rules restrict any use of the information to criminally investigate or prosecute any alcohol or drug abuse patient.[facility] HospitalIn the event this information is protected by the Federal Confidentiality of Alcohol and Drug Abuse Patient Records regulations: The Federal rules restrict any use of the information to criminally investigate or prosecute any alcohol or drug abuse patient.[facility] HospitalIn the event this information is protected by the Federal Confidentiality of Alcohol and Drug Abuse Patient Records regulations: The Federal rules restrict any use of the information to criminally investigate or prosecute any alcohol or drug abuse patient.[facility] HospitalIn the event this information is protected by the Federal Confidentiality of Alcohol and Drug Abuse Patient Records regulations: The Federal rules restrict any use of the information to criminally investigate or prosecute any alcohol or drug abuse patient.[facility] HospitalIn the event this information is protected by the Federal Confidentiality of Alcohol and Drug Abuse Patient Records regulations: The Federal rules restrict any use of the information to criminally investigate or prosecute any alcohol or drug abuse patient.[facility] HospitalIn the event this information is protected by the Federal Confidentiality of Alcohol and Drug Abuse Patient Records regulations: The Federal rules restrict any use of the information to criminally investigate or prosecute any alcohol or drug abuse patient.[facility] HospitalIn the event this information is protected by the Federal Confidentiality of Alcohol and Drug Abuse Patient Records regulations: The Federal rules restrict any use of the information to criminally investigate or prosecute any alcohol or drug abuse patient.[facility] HospitalIn the event this information is protected by the Federal Confidentiality of Alcohol and Drug Abuse Patient Records regulations: The Federal rules restrict any use of the information to criminally investigate or prosecute any alcohol or drug abuse patient.[facility] HospitalIn the event this information is protected by the Federal Confidentiality of Alcohol and Drug Abuse Patient Records regulations: The Federal rules restrict any use of the information to criminally investigate or prosecute any alcohol or drug abuse patient.[facility] HospitalIn the event this information is protected by the Federal Confidentiality of Alcohol and Drug Abuse Patient Records regulations: The Federal rules restrict any use of the information to criminally investigate or prosecute any alcohol or drug abuse patient.[facility] HospitalIn the event this information is protected by the Federal Confidentiality of Alcohol and Drug Abuse Patient Records regulations: The Federal rules restrict any use of the information to criminally investigate or prosecute any alcohol or drug abuse patient.[facility] HospitalIn the event this information is protected by the Federal Confidentiality of Alcohol and Drug Abuse Patient Records regulations: The Federal rules restrict any use of the information to criminally investigate or prosecute any alcohol or drug abuse patient.[facility] Reason for Visit (unrecogniz ed section [...] HIGH MDM 60-74 MINUTES Bandar Alvares MD [facility] [place] [address] [place] [address] Referral ID Status Reason Start Date Expiration Date V isits Requested Visits Authorized [id number] Closed PCP Requested Referral Auto-Generated Referral 12/05/2022 12/05/2023 1 1 Reason Onset Date Comments Care 12/20/2022 Immunizations 12/20/2022 Flu vaccination Reason Comments Results Reason Onset Date Comments Refill Request 01/06/2023 Reason Onset Date Comments Care 01/10/2023 Reason Comments Refill Request Reason Onset Date Comments Care 01/24/2023 Reason Onset Date Comments Care 02/07/2023 Reason Comments [place] Att[facility] - Other PRAF INFORMATION SOURCE (unrecogn ized section and content) DATE CREATED AUTHOR AUTHOR'S ORGANIZ ATION 03/22/2023 [facility] FOR RECORDS PERTAINING TO PATIENTS WHO [...] BE BASED ON THE PRIMARY CLINICAL RECORDS. [facility] [employer] provides no warranty or guarantee of the accuracy or completeness of information in this document.
[2023-03-23] MEDS: Oxytocin 15 Units/NS 250ml 15 UNITS/250 ML IV.SOLN 2 UNITS IV (08:32)
[2023-03-23 08:42] LABS: Absolute Lymphocyte Count 1.68 X10^3/uL (0.83-4.51); Absolute Neutrophil Count 4.8 X10^3/uL (2.0-7.7); Basophil# 0.02 X10^3/uL; Basophil% 0.3 % (0-1); Eosinophils% 1.4 % (0-5); Hematocrit 38.2 % (37-47); Hemoglobin 12.8 g/dL (12.0-15.0); Lymphocyte # 1.68 X10^3/ul (0.83-4.51); Lymphocyte % 23.7 % (19-41); Mean Corp Hgb Conc 33.5 g/dL (32-36); Mean Corpuscular Hgb 30.5 pg (27.0-32.0); Mean Platelet Vol. 11.2 fl (6.2-12.0); Monocyte% 7.1 % (0-10); NRBC Flagged by Analyzer 0 % (0-5); Neutrophil # 4.76 X10^3/uL (2.7-7.7); Neutrophil % 67.1 % (47-70); Platelet Count 230 K/mm3 (150-450); RBC Distribution Width CV 14.1 % (11.6-14.6); RBC Distribution Width SD 46.7 fl (35.1-43.9); White Blood Count 7.1 K/mm3 (4.4-11.0)
[2023-03-23 09:05] LABS: Bedside Glucose 103 mg/dL (74-106)
[2023-03-23 09:23] LABS: Syphilis Antibodies Non-reactive
--- NOTE | 2023-03-23 09:51 | PCM.PN.BLA ---
Progress Note Pt seen at bedside, AROM performed- Large amount of clear fluid- Pressure given from top to keep head at cervix. exam after slow release of amniotic fluid /- IUPC placed.binder in place for now- pitocin started. FHR category 1. Capacity Legal Transportation Sales Consultant Reflex Medical hold order details:: IF a medical hold is selected below, a suggested order for a MEDICAL HOLD will reflex upon signing the document. Next of kin: [place] law dictates a PRIORITY LIST for identifying legal decision-maker/legal next of kin in the following order (LNOK): 1st: The patient?s legal guardian, if any 2nd: The patient's spouse (if status is questionable, consult Risk Management) 3rd: The patient?s adult child(andrey) (majority, if multiple children) 4th: The patient?s parents 5th: The patient?s adult siblings (majority, if multiple children siblings)
[2023-03-23 10:22] LABS: Bedside Glucose 96 mg/dL (74-106)
[2023-03-23] MEDS: Penicillin G Pot 5,000,000 UNITS in 0.9% Normal Saline (100mL MB+) 100 ML 150 UNITS IV (11:02)
[2023-03-23] MEDS: LACTATED RINGERS 500 ML 999 ML IV (12:15)
[2023-03-23 14:38] LABS: Bedside Glucose 86 mg/dL (74-106)
[2023-03-23] MEDS: Penicillin G 3,000,000 Units 50 ML 100 UNITS IV ×3 (15:18→23:33)
[2023-03-23 18:44] LABS: Bedside Glucose 84 mg/dL (74-106)
[2023-03-23] MEDS: Insulin Glargine-YFGN 100 UNIT/ML Pen 32 UNIT SC (23:32)
[2023-03-23] MEDS: Lactated Ringers 1,000 ML 50 ML IV (23:33)
[2023-03-23 23:54] LABS: Bedside Glucose 84 mg/dL (74-106)
[2023-03-23 23:54] LABS: Bedside Glucose 129 mg/dL (74-106)
[2023-03-24] VITALS (28 sets, daily range): BP systolic 87–144; BP diastolic 58–88; PULSE 66–109; RESP 16; TEMP 35.9–37; O2SAT 94–100
[2023-03-24 00:54] LABS: Bedside Glucose 116 mg/dL (74-106)
[2023-03-24] MEDS: Penicillin G 3,000,000 Units 50 ML 100 UNITS IV ×2 (03:14→08:03)
[2023-03-24] MEDS: Oxytocin 15 Units/NS 250ml 15 UNITS/250 ML IV.SOLN 18 UNITS IV (04:00)
[2023-03-24 04:24] LABS: Bedside Glucose 102 mg/dL (74-106)
[2023-03-24 09:21] LABS: Bedside Glucose 105 mg/dL (74-106)
[2023-03-24 13:12] LABS: Bedside Glucose 108 mg/dL (74-106)
--- NOTE | 2023-03-24 13:36 | OB.TRI.HP_ITS ---
HPI - General General Date of Admission: 03/23/23 HPI Rosa Elena MAYERS, is a 43 F who presents [facility] Medical History (Updated 03/23/23 @ 09:38 by Stephany Bishop) Abnormal mammogram Abnormal ultrasound of breast Abnormal ultrasound of breast Asthma Back problem Depression with anxiety Distortion of contour of breast Rheumatoid arthritis Unstable lie Home Medications venlafaxine 150 mg capsule,extended release 24 hr 150 mg PO DAILY #30 caps 05/13/16 [Rx Last Taken 03/23/23 06:00] dextroamphetamine-amphetamine 20 mg tablet (Adderall) 20 mg PO QDAY 06/29/17 [History Last Taken 03/23/23 06:00] PNV#14-iron fum-FA#5-[id number]-[id number] 27 mg iron-1 mg-300 mg-50 mg capsule 1 cap PO DAILY 03/23/23 [History Last Taken 03/23/23 06:00] aripiprazole 5 mg tablet 5 mg PO DAILY anxiety and depression 03/23/23 [History Last Taken 03/22/23 22:00] aspirin 81 mg tablet,delayed release 81 mg PO DAILY 03/23/23 [History Last Taken 03/23/23 06:00] insulin detemir U-100 100 unit/mL subcutaneous solution (Levemir U-100 Insulin) 65 unit subcut QHS 03/23/23 [History Last Taken 03/22/23 20:00] insulin lispro 100 unit/mL subcutaneous pen (Humalog KwikPen (U-100) Insulin) 6 unit subcut BREAKFAST 03/23/23 [History Last Taken 03/22/23 08:00] insulin lispro 100 unit/mL subcutaneous pen (Humalog KwikPen (U-100) Insulin) 8 unit subcut LUNCH 03/23/23 [History Last Taken 03/22/23 12:00] insulin lispro 100 unit/mL subcutaneous pen (Humalog KwikPen (U-100) Insulin) 12 unit subcut DINNER 03/23/23 [History Last Taken 03/22/23 20:00] omeprazole 40 mg capsule,delayed release 40 mg PO QHS heartburn 03/23/23 [History Last Taken 03/22/23 20:00] Allergy/AdvReac Type Severity Reaction Status Date / Time bupropion [From Wellbutrin] Allergy Mild Hives Verified 03/23/23 07:47 hydrocodone Allergy Mild Other Verified 03/23/23 07:47 promethazine [From Phenergan] Allergy Mild Other Verified 03/23/23 18:42 Sulfa (Sulfonamide Allergy Other Verified 03/23/23 07:47 Antibiotics) Family History Grandfather Arthritis Diabetes Hypertension Skin cancer Grandmother Arthritis Aunt Colon cancer Surgical History (Updated 09/24/21 @ 17:43 by oRse Diaz) history ORIF right fifth metatarsal Social History Smoking Status: Former smoker alcohol intake: current alcohol intake frequency: a few times a month substance use type: does not use History Elective abortions Hx Para 3 Spontaneous abortions Hx # Term Pregnancies Ectopic pregnancies Hx # Pregnancies Multiple births # of living children Assessment & Plan (1) AMA (advanced maternal age) multigravida 35+: PLAN: Blood pressures been stable. Blood sugars have been stable. However despite Pitocin washout and going up to 30 milliunits of pit twice, we have unable to get the patient in active labor. Head is not really engaged still -4 station. Discussed with the patient risk benefits and alternatives to primary section. Discussed this would be the recommendation for failed induction. Patient desires permanent sterilization. Discussed with the patient's permanent irreversible and she desires to proceed. Dr. Dorado updated who is managing the patient. Plan is for primary section and bilateral salpingectomy with Dr. Dorado. Patient's questions were answered and she is in agreement with this plan. (2) Gestational diabetes mellitus (GDM):
[2023-03-24] MEDS: LACTATED RINGERS 500 ML 999 ML IV (13:48)
--- NOTE | 2023-03-24 14:18 | EX.PCM.OBRPT ---
Maternal Data Information Final MARYANA: 04/13/23 Gestational age: 37&1 Details Operative Information Date of Procedure: 03/24/23 Pre-Operative Diagnosis: (1) Failed induction (2) Uncontrolled GDM (3) Sterilization request Post-Operative Diagnosis: Same Indications for : Desires elective sterilization and Failed Induction Indications Narrative: The patient was taken to the operating room where spinal anesthesia was placed & found to be adequate. She was prepped and draped in the dorsal supine position with a leftward tilt. A Pfannenstiel skin incision was made approximately 2 cm above the symphysis pubis and carried through to the underlying fascia with the scalpel. The fascia was incised incised in the midline and extended laterally with the Hawley scissors. The rectus muscles were in the midline and the peritoneum was entered carefully and bluntly. The peritoneal incision was stretched and the bladder blade was inserted. Vesicouterine peritoneum was tented up, incised & then bladder flap created gently. The uterine incision was made in a low transverse fashion with the scalpel and extended superiorly and inferiorly with blunt dissection. The infant's head was brought to the incision in the flexed position and delivered without difficulty. The head was gently guided to allow delivery of the anterior and posterior shoulders. The body then delivered with fundal pressure in the standard fashion. The 3VC cord was clamped and cut in delayed fashion. The was handed off to the waiting chief general pediatric clinic. The placenta was delivered with fundal massage and gentle traction in the standard fashion. The uterus was exteriorized and cleared of clots and debris. The uterine incision was closed with #1 Vicryl suture in a running locked fashion. Monocryl suture was used in an imbricating fashion. The incision was examined and was found to be hemostatic. The uterus was returned to the abdominal cavity. Attention was turned to the fallopian tubes. The right fallopian tube was grasped, cauterized and cut using the Ligasure. Excellent hemostasis was obtained. Rony placed over the tubal ligation site. Then the left fallopian tube was grasped, cauterized and cut using the Ligasure. Excellent hemostasis was obtained. Rony placed over the tubal ligation site. After irrigating Rony was placed over the uterine incision as some areas were denuded (but hemostatic). The rectus muscle was examined and any bleeding was Bovie cauterized. The fascia was closed with PDS suture in a running standard fashion. The subcutaneous tissue was examining and any bleeding was Bovie cauterized. The subcutaneous tissue was reapproximated with interrupted sutures. The skin was closed in a subcuticular fashion by the PRODUCT INFO SPECIALIST while I was present in the labor & delivery unit. The remainder of the procedure was performed by me with assistance. All sponge, lap, and needle counts were correct. The patient was taken to her room for recovery in a stable condition. Classification: ALDO Procedure Type: low transverse meeting planner #1: Raf Mcneal Type of Anesthesia: Spinal Antibiotic Given: Ancef 2 grams IV x1 Drain: Jean to straight drain Estimated Blood Loss: 900ml Fluids Replaced: 1200ml Procedure Start Time: 14:31 Procedure Stop Time: 15:21 Findings Description of Procedure: Normal maternal uterus other than 1 small serosal fibroid noted and normal adnexa Presentation: Positive for Vertex Amniotic Membrane Rupture Type: Artificial Amniotic Fluid Description: Clear Placental Delivery Description: Manual Removal Placenta Disposition: [facility] Specimen(s) Sent to Pathology: bilateral segments of fallopian tubes Cord Vessel Description: 3 Vessels Cord Entanglement: None A Gender: Male (1 minute): 9 (5 minute): 10 Delayed Cord Clamping: Yes Complications Complications: none
[2023-03-24] MEDS: Cefazolin 2 GM in 0.9% Normal Saline (100mL Bag) 100 ML IV (14:20)
[2023-03-24] MEDS: Azithromycin 500 MG in Dextrose 5%-Water (250mL Bag) 250 ML 250 MG IV (14:35)
--- NOTE | 2023-03-24 14:38 | FALS_PTH ---
PATHOLOGY RESULTS PATIENT: COSMO MAYERS LOC: [facility] U#:[id number] AGE/SX: 43/F ROOM: WP010 RE03/23/[address]: Dr. Ari Dorado MD : 1980 BED: 1 DIS: 03/26/2023 SPEC #: [id number] RECD: 03/27/23 09:38 STATUS: JALEN REOumar #: [id number] MIKEY: 03/24/23 14:[address]: Ari Dorado DEPT: SURGICAL PATHOLOGY RECD BY: Consuelo Cote ENTERED: 03/27/23 09:39 SP TYPE: FALL TUBES OTHR DR: Dr. Caden Almazan MD Tissues: Fallopian tube Procedures: Surgery Specimen Level II Surgery Specimen Level IV HEADER OPERATION: Tubal ligation PRE-OP DIAGNOSIS: Sterilization TISSUE SUBMITTED: Fallopian tubes MICROSCOPIC DIAGNOSIS Bilateral fallopian tubes, salpingectomy: One fallopian tube with adjacent adenofibroma (1.2 cm in greatest dimension). Second fallopian tube, no pathologic diagnosis. See comment. SJ:rg 03/28/2023 COMMENT Focal decidual changes are also noted adjacent to the adenofibroma. This case has been reviewed in consultation with Dr. Fairchild who concurs with the above diagnosis. MICROSCOPIC DESCRIPTION Slides are reviewed. GROSS DESCRIPTION Received in fixative is one container labeled with the patient's name and designated bilateral fallopian tubes. The specimen consists of bilateral fallopian tubes including fimbrial ends. One of the fallopian tubes show a suture; however, it is not identified as right or left. The fallopian tube without suture measures 8.0 cm in length and up to 1.0 cm in diameter. A damian, solid nodule is noted adjacent to this fallopian tube measuring 1.2 x 0.8 x 1.0 cm. The fallopian tube with suture measures 10.0 cm in length and 1.0 cm in diameter. Sections reveal unremarkable cut surfaces. Switchboard Receptionist sections are submitted in three cassettes as follows: 1 - fallopian tube without suture, 2 - solid nodule adjacent to the fallopian tube without suture, entirely submitted, 3 - fallopian tube with suture. / SHANIQUE:za 03/27/2023 TC:5 CPT: 91795, 22946
[2023-03-24] MEDS: Oxytocin 15 Units/NS 250ml 15 UNITS/250 ML IV.SOLN 83 UNITS IV (15:40)
[2023-03-24] MEDS: Ketorolac 30 MG/ML Syringe IV ×2 (16:44→22:51)
[2023-03-24 17:03] LABS: Pathology Specimen OB SEE PATHOLOGY REPORT
[2023-03-24 17:10] LABS: Bedside Glucose 100 mg/dL (74-106)
[2023-03-24] MEDS: Acetaminophen 500 MG Tablet 1000 MG PO ×2 (17:15→22:51)
[2023-03-24] MEDS: Lactated Ringers 1,000 ML 100 ML IV (18:57)
[2023-03-24] MEDS: 0.9% Saline Lock 10 ML Syringe IV (22:51)
[2023-03-25] VITALS (13 sets, daily range): BP systolic 82–115; BP diastolic 53–78; PULSE 66–97; RESP 15–16; TEMP 36.1–36.7; O2SAT 96–99
[2023-03-25] MEDS: Enoxaparin 40 MG/0.4 ML Syringe SC (03:13)
[2023-03-25] MEDS: Ketorolac 30 MG/ML Syringe IV ×2 (05:30→10:43)
[2023-03-25] MEDS: Acetaminophen 500 MG Tablet 1000 MG PO ×4 (05:30→23:10)
[2023-03-25] MEDS: 0.9% Saline Lock 10 ML Syringe IV ×2 (05:30→10:44)
[2023-03-25 05:43] LABS: Hematocrit 31.4 % (37-47); Hemoglobin 10.3 g/dL (12.0-15.0); Mean Corp Hgb Conc 32.8 g/dL (32-36); Mean Corpuscular Volume 91.5 fL (81-99); Mean Platelet Vol. 10.5 fl (6.2-12.0); Platelet Count 181 K/mm3 (150-450); RBC Distribution Width CV 13.8 % (11.6-14.6); RBC Distribution Width SD 46.3 fl (35.1-43.9); Red Blood Count 3.43 M/mm3 (4.2-5.4); White Blood Count 7.3 K/mm3 (4.4-11.0)
[2023-03-25 05:55] LABS: Bedside Glucose 84 mg/dL (74-106)
[2023-03-25] MEDS: Senna/Docusate Sodium 1 Tablet PO (10:43)
--- NOTE | 2023-03-25 11:32 | PCM.PN.OB ---
Subjective Subjective Denies complaints Objective Data Objective Data Vital Signs: Vital Signs Temp Pulse Resp BP Pulse Ox O2 Del Method 97.4 F L 86 16 111/63 99 Room Air 03/25/23 08:00 03/25/23 08:00 03/25/23 09:26 03/25/23 08:00 03/25/23 08:00 03/25/23 08:00 Oxygen Delivery Method Room Air Weight: 254 lb Body Mass Index (BMI) 39.7 Intake & Output: Intake and Output for Last 24 Hours 03/23/23 03/24/23 03/25/23 23:59 23:59 23:59 Intake Total 1768.69 / 1768.69 2206.92 / 2206.92 Output Total 1550 / 1550 2250 / 2250 500 / 500 Balance 218.69 / 218.69 -43.08 / -43.08 -500 / -500 Lab / Micro Data 03/25/23 05:30 Labs: Laboratory Results - last 24 hr 03/24/23 12:25: POC Glucose 108 H 03/24/23 16:38: POC Glucose 100 03/25/23 05:24: POC Glucose 84 03/25/23 05:30: WBC 7.3, RBC 3.43 L, Hgb 10.3 L, Hct 31.4 L, MCV 91.5, MCH 30.0, MCHC 32.8, RDW Std Deviation 46.3 H, RDW Coeff of Amy 13.8, Plt Count 181, MPV 10.5 Physical Exam Const alert, oriented x3 and no apparent distress HEENT normocephalic GI soft to palpation, non-tender and non-distended GI Narrative: fundus firm, mid & below umbilicus Incision - bandage c/d/i Extremity normal to inspection and no calf tenderness Assessment & Plan (1) Delivery by section: COMMENT: POD#1 PLAN: Plan Heme - HDS, cbc reviewed ID - AF, no signs infection GI/ - no issues GDM - FBS normal this AM [facility] care
[2023-03-25] MEDS: ARIPiprazole 5 MG Tablet PO (11:53)
[2023-03-25] MEDS: DEXTROAMPHETAMINE/AMPHETAMINE 20 MG TABLET PO (11:56)
--- NOTE | 2023-03-25 12:48 | CASEMGMT ---
Social Work Assessment Labor and Delivery Unit Date/Time of Referral:03/25/23 10:36am Referred by: Dr. Ari Dorado MD Date/Time of Intervention: 03/25/23, 11:30am Reason for referral: history of depression, anxiety, ADHD History obtained from: MOB. SASCHA's mother and sister present when SW arrived, SW asked them to step out. Household composition: MOB, SASCHA's three daughters age 19, 8 and 6, and now baby Mikael Anne. FOB Juan Manuel Davis does not live with the family. She and Juan Manuel have been together for 1.5 years. The father of the three older children is also involved. Juan Manuel also has three children and he is involved with them as well. This is MOB and Juan Manuel's first child together. SASCHA is guardian of the 8 and 6 year old and is the decision maker, but is coparenting w/their father. She states everyone gets along. Juan Manuel is not here as SASCHA states he has the flu, and had to miss everything. Guardian status: MOB is guardian of the baby Medical History: Mom--history of anxiety and depression,ADHD. rheumatoid arthritis, gestational diabetes, advanced maternal age. Baby--born 03-24-2022, 14:38, 3290 grams. Apgars 9 and 10 at one and five minutes. Education Status: MOB--some college. FOB--vocational school Financial Status: No concerns. MOB works at [employer]. FOB works in [employer]. MOB plans to return to work, MOB's mother will watch the baby, and then the baby will go to [facility]. Infant supplies: They have all needed supplies including diapers, wipes, car seat, bassinet, crib, clothing, access to bottles and formula if needed. MOB is trying to breast feed. Childcare/Caregivers: MOB's mother, sister, brother in law, Juan Manuel. MOB's older children are with MOB's brother in law at present. Transportation: They have 2 vehicles Programs/Agencies involved: None Children's Services/Legal issues: None Behavioral Health Issues: Substance abuse: MOB and FOB, none. No tox screens completed on MOB or baby. Mental Health: MOB--history of anxiety, depression, ADHD. MOB states is managing well, not struggling with this at present. MOB states went on Effexor 20 years ago after a divorce. Abilify was added about a year ago. MOB also on Adderall--was diagnosed 5 years ago. MOB states feels is managing well on the medication she is on. She states she has never been suicidal. She states she had no depression w/any of her children. MOB has never been in counseling, and does not feel the need for it. No safety concerns at this time as per MOB. Family/Social Stressors: None at this time. Support systems: MOB's mother, father, sister, brother. FOB Juan Manuel Depression/Anxiety/Shaken Baby/Mental Health Resources/[facility]/Help Me Grow/Safe Sleeping: SW gave MOB information on all of these topics and reviewed with MOB and FOB. SW pointed out in particular information and signs for PPD and anxiety. SW explained if she is having any increased symptoms, to speak w/her physician about it. SW explained that sometimes patients will change up their medications if experiencing PPD. SW also educated MOB that counseling can be helpful. MOB states understanding. Assessment: MOB open and honest w/SW, answered all questions. SW did not observe MOB interact w/the baby as baby was sleeping. Plan: Baby will go home w/MOB and family. No further social service needs at this time. BRYANNA Hopson
[2023-03-25] MEDS: Ibuprofen 600 MG Tablet PO ×2 (16:55→23:10)
[2023-03-26 01:55] VITALS: BP 97/60; PULSE 72; RESP 17; TEMP 36.9; O2SAT 98
[2023-03-26] MEDS: Enoxaparin 40 MG/0.4 ML Syringe SC (03:14)
[2023-03-26] MEDS: Acetaminophen 500 MG Tablet 1000 MG PO ×2 (05:12→11:03)
[2023-03-26] MEDS: Ibuprofen 600 MG Tablet PO (07:48)
[2023-03-26] MEDS: Senna/Docusate Sodium 1 Tablet PO (07:57)
[2023-03-26 07:58] VITALS: BP 113/60; PULSE 87; RESP 16; TEMP 36.1; O2SAT 95
--- NOTE | 2023-03-26 10:28 | PCM.PN.OB ---
Subjective Subjective Pain controlled Objective Data Objective Data Vital Signs: Vital Signs Temp Pulse Resp BP Pulse Ox O2 Del Method 97 F L 87 16 113/60 95 Room Air 03/26/23 07:58 03/26/23 07:58 03/26/23 07:58 03/26/23 07:58 03/26/23 07:58 03/26/23 07:58 Oxygen Delivery Method Room Air Weight: 254 lb Body Mass Index (BMI) 39.7 Intake & Output: Intake and Output for Last 24 Hours 03/24/23 03/25/23 03/26/23 23:59 23:59 23:59 Intake Total 2206.92 / 2206.92 905 / 905 Output Total 2250 / 2250 500 / 500 Balance -43.08 / -43.08 405 / 405 Lab / Micro Data 03/25/23 05:30 Physical Exam Const alert, oriented x3 and no apparent distress HEENT normocephalic GI soft to palpation, non-tender and non-distended GI Narrative: fundus firm, mid & below umbilicus Incision - bandage c/d/i other than small amount of stable dried blood Extremity normal to inspection and no calf tenderness Assessment & Plan (1) Delivery by section: COMMENT: POD#2 PLAN: Plan D/c home
--- NOTE | 2023-03-26 10:29 | DS.PCM_ITS ---
Providers Date of Admission: 03/23/23 Primary Care Physician: Dr. Caden Almazan MD Reason For Visit: PRIMARY Diagnosis Discharge Diagnosis (1) Delivery by section: Status: Acute Plan D/c home Medications at Discharge Home Medications venlafaxine 150 mg capsule,extended release 24 hr 150 mg PO DAILY #30 caps 05/13/16 dextroamphetamine-amphetamine 20 mg tablet (Adderall) 20 mg PO QDAY 06/29/17 PNV#14-iron fum-FA#1-[id number] 27 mg iron-1 mg-300 mg-50 mg capsule 1 cap PO DAILY 03/23/23 aripiprazole 5 mg tablet 5 mg PO DAILY anxiety and depression 03/23/23 omeprazole 40 mg capsule,delayed release 40 mg PO QHS heartburn 03/23/23 acetaminophen 500 mg tablet 1,000 mg (2 x 500 mg) PO Q6H #0 tabs 03/26/23 ibuprofen 600 mg tablet 600 mg PO Q6H #0 tabs 03/26/23 Hospital Course Operations section Summary of Care Provided Minutes Spent on Discharge: 15 Weight / BMI Weight Weight: 254 lb Body Mass Index (BMI) 39.7 ABG / Lab / Microbiology Data 03/25/23 05:30 D/C Instructions Discharge Diet: No restrictions Discharge Activity: May Shower May resume sexual activity in: 6 weeks Weight Bearing Status: Weight bearing as tolerated Call your doctor if your incision/area has: Continuous Slow Oozing, Sudden Increased Bleeding, Increased Pain/ Swelling, Increased Redness, Foul Smelling Discharge and Swelling at the incision site Call your doctor if you observe: Fever of 101 or Higher, Coldness, Increased Fernando n, Change in Color, Inability to urinate, Inability to have a bowel movement, Using more than 1 pad per hour, Shortness of breath, Dizziness, Fainting spells, Chest pain, Increased palpitations (irregular heartbeat), Calf discomfort and Uncontrolled pain Suture Line Care: Avoid Pulling/Pushing and Avoid Pinching/Bending Remove Dressing in: 1 week Cleanse incision/area with: Soap & Water Please Follow Up With: Ari Dorado MD When: Follow up in 2 and 6 weeks for visits. Meaningful Use Info Meaningful Use Diagnoses (Choose all that apply): None applicable Discharge Plan Admission Admit Date/Time: 03/23/23 08:14 Attending Provider: Ari Dorado Primary Care Provider: Caden Almazan Discharge Orders/Prescriptions Prescriptions: New acetaminophen 500 mg Tablet 1,000 mg PO Q6H Qty: 0 0RF ibuprofen 600 mg Tablet 600 mg PO Q6H Qty: 0 0RF Continued dextroamphetamine-amphetamine [Adderall] 20 mg tablet 20 mg PO QDAY venlafaxine 150 MG capsule 150 mg PO DAILY Qty: 30 3RF PNV #14-iron-FA#3-icj-ldgbqkkk 27 mg iron-1 mg -300 mg-50 mg capsule 1 cap PO DAILY omeprazole 40 mg capsule,delayed release(DR/EC) 40 mg PO QHS Patient Comments: TAKE 1 CAPSULE BY MOUTH EVERY DAY aripiprazole 5 mg tablet 5 mg PO DAILY Patient Comments: TAKE 1 TABLET BY MOUTH EVERY DAY Discontinued aspirin 81 mg tablet,delayed release (DR/EC) 81 mg PO DAILY Levemir U-100 Insulin 100 unit/mL solution 65 unit subcut QHS insulin lispro [Humalog KwikPen Insulin] 100 unit/mL insulin pen 6 unit subcut BREAKFAST insulin lispro [Humalog KwikPen Insulin] 100 unit/mL insulin pen 8 unit subcut LUNCH insulin lispro [Humalog KwikPen Insulin] 100 unit/mL insulin pen 12 unit subcut DINNER Referrals / Follow Up: Caden Almazan MD [Primary Care Provider] - Disposition Disposition (needs filled in before D/C Order can be placed): Home, Self Care
[2023-03-26] MEDS: oxyCODONE 5 MG Tablet PO (11:54)
[2023-03-26] MEDS: Venlafaxine XR 150 MG Capsule PO (11:56)
[2023-03-26 13:04] VITALS: BP 114/67; PULSE 92; RESP 16; TEMP 36.9; O2SAT 98
== END 2023-03-26 13:15 | disposition home or self-care (01) | DRG 539 ==
LOC: WPOUT 08:15 → WP 08:15
PROVIDERS: Obstetrics & Gynecology; Admitting Provider Obstetrics & Gynecology; PCP Family Medicine; Visit Provider Obstetrics & Gynecology
DX: O24.424 Gestational diabetes mellitus in childbirth, insulin controlled (principal); D28.2 Benign neoplasm of uterine tubes and ligaments; F32.A Depression, unspecified; F41.9 Anxiety disorder, unspecified; O32.8XX0 Maternal care for other malpresentation of fetus, not applicable or unspecified; O32.0XX0 Maternal care for unstable lie, not applicable or unspecified; O34.83 Maternal care for other abnormalities of pelvic organs, third trimester; O99.344 Other mental disorders complicating childbirth; O99.824 Streptococcus B carrier state complicating childbirth; O61.0 Failed medical induction of labor; Z37.0 Single live birth; Z3A.37 37 weeks gestation of pregnancy; Z79.899 Other long term (current) drug therapy; Z87.891 Personal history of nicotine dependence; Z30.2 Encounter for sterilization
CPT/HCPCS: 59025; 59050; 76815; 82962; 85025; 85027; 86780; 86850; 86900; 86901; 88302; 88305; 99221; J7120; A4216; G0378; J2405

== ENCOUNTER 2023-09-14 21:23 | Inpatient (IN) | payer MEDICAID, SELFPAY ==
[2023-09-14 21:23] VITALS: BP 158/108; PULSE 83; RESP 20; TEMP 36.6; O2SAT 97; BMI 38.2
[2023-09-14 22:24] LABS: Mucous, Urine 0 SEEN /hpf (<or=2+); Red Blood Cells-Urine 0 SEEN /hpf (0-5)
[2023-09-14 22:26] LABS: Absolute Lymphocyte Count 1.32 X10^3/uL (0.83-4.51); Absolute Neutrophil Count 7.4 X10^3/uL (2.0-7.7); Basophil# 0.03 X10^3/uL; Basophil% 0.3 % (0-1); Eosinophils% 1.1 % (0-5); Hematocrit 42.7 % (37-47); Hemoglobin 14.3 g/dL (12.0-15.0); Lymphocyte # 1.32 X10^3/ul (0.83-4.51); Lymphocyte % 14.1 % (19-41); Mean Corp Hgb Conc 33.5 g/dL (32-36); Mean Corpuscular Hgb 30.8 pg (27.0-32.0); Mean Platelet Vol. 9.7 fl (6.2-12.0); Monocyte# 0.53 X10^3/uL; Monocyte% 5.7 % (0-10); NRBC Flagged by Analyzer 0 % (0-5); Neutrophil # 7.35 X10^3/uL (2.7-7.7); Neutrophil % 78.6 % (47-70); Platelet Count 262 K/mm3 (150-450); RBC Distribution Width CV 12.3 % (11.6-14.6); RBC Distribution Width SD 41.1 fl (35.1-43.9); Red Blood Count 4.64 M/mm3 (4.2-5.4); White Blood Count 9.4 K/mm3 (4.4-11.0)
[2023-09-14 22:28] LABS: Color, Urine Yellow (Yellow); Glucose, Dipstick Normal (Normal); Ketone-Dipstick Negative (Negative); Leukocyte Esterase-Dipstick 100 /ul (Negative); Nitrite-Dipstick Negative (Negative); Occult Blood-Urine Negative /ul (Negative); Protein-Dipstick 30 mg/dl (Negative); Urine Bilirubin Dipstick Negative (Negative); Urine Clarity Clear (Clear); Urine Urobilinogen 1 mg/dl (Normal); Urine pH 6.5 (5.0 - 8.0)
[2023-09-14 22:36] LABS: Internal QC Validated? YES +Cl - CLEAR BKGD; Pregnancy, Serum, hCG Quali. NEGATIVE Negative
--- NOTE | 2023-09-14 22:36 | US_ITS ---
EXAM: US ABDOMEN LIMITED, RIGHT UPPER QUADRANT CLINICAL INDICATION: RUQ PAIN TECHNIQUE: Real-time ultrasound of the right upper quadrant with image documentation. COMPARISON: Abdominal radiograph, 07/02/2013 FINDINGS: LIVER: Diffuse increased echogenicity throughout the liver without focal hepatic abnormality identified suggesting fatty infiltration. No intrahepatic biliary ductal dilation. GALLBLADDER: Multiple stones are identified layering within the gallbladder lumen. The gallbladder wall is markedly thickened measuring 7 mm. Negative sonographic Gleason''s sign. Shadowing echogenic foci within the gallbladder wall may be indicative of adenomyomatosis. No pericholecystic fluid. COMMON BILE DUCT: The common duct measures 7 mm. No intrahepatic biliary ductal dilatation. PANCREAS: Normal as visualized. No focal abnormality is demonstrated in the pancreas. No pancreatic ductal dilatation. RIGHT KIDNEY: No significant abnormality. There is no hydronephrosis. No shadowing calculus. No focal lesion or perinephric collection is demonstrated. US/Gallbladder IMPRESSION: 1. Cholelithiasis and gallbladder wall thickening with negative sonographic Gleason''s sign. Pericholecystic fluid is nonspecific. Findings may be indicative of acute cholecystitis. There are also findings consistent with adenomyomatosis and a mildly distended common bile duct. Correlate clinically and consider a hepatobiliary scan as well as surgical consultation. 2. Fatty liver. Electronically Signed: Chandrakant Osuna DO at 23:30 EDT ,
--- NOTE | 2023-09-14 22:38 | ED.VIS.GI ---
HPI HPI - GI History of Present Illness Chief Complaint: Abd Pain Narrative Narrative: 43-year-old female presenting with epigastric pain. She states it started about 3 PM today it has been constant until just before I entered the room. She states the pain subsided for the most part now. She was nauseous and vomiting. Denies a fever but states she was diaphoretic. Patient states the pain felt sharp and she admits to a previous episode that lasted about 20 minutes. Patient denies any significant medical problems other than acid reflux PFSH PFSH Medical History Former tobacco use GERD (gastroesophageal reflux disease) Obesity Asthma Unstable lie Gestational diabetes mellitus (GDM) Distortion of contour of breast Rheumatoid arthritis Depression with anxiety Abnormal ultrasound of breast Abnormal mammogram Home Medications ?Medication ?Instructions ?Recorded ?Last Taken ?Type venlafaxine 150 mg 150 mg PO DAILY #30 caps 05/13/16 03/23/23 06:00 Rx capsule,extended release 24 hr dextroamphetamine-amphetamine 20 20 mg PO BID 06/29/17 03/23/23 06:00 History mg tablet (Adderall) aripiprazole 5 mg tablet 5 mg PO DAILY anxiety and 03/23/23 03/22/23 22:00 History depression acetaminophen 500 mg tablet 1,000 mg (2 x 500 mg) PO Q6H #0 03/26/23 Unknown Rx tabs ibuprofen 600 mg tablet 600 mg PO Q6H #0 tabs 03/26/23 Unknown Rx diphenhydramine HCl 25 mg capsule 75 mg PO QHS 09/15/23 Unknown History (Benadryl) Allergy/AdvReac Type Severity Reaction Status Date / Time bupropion (From Wellbutrin) Allergy Mild Hives Verified 09/14/23 21:25 hydrocodone Allergy Mild Other Verified 09/14/23 21:25 promethazine (From Phenergan) Allergy Mild Other Verified 09/14/23 21:25 Sulfa (Sulfonamide Allergy Other Verified 09/14/23 21:25 Antibiotics) Family History (Updated 09/15/23 @ 02:[address] Kierra Han MD) Grandfather Arthritis Diabetes Hypertension Skin cancer Grandmother Arthritis Aunt Colon cancer Mother HLD (hyperlipidemia) Cholecystitis with cholelithiasis Father Diabetes Cholecystitis with cholelithiasis Surgical History Delivery by section history ORIF right fifth metatarsal Social History (Updated 09/15/23 @ 02:[address] Kierra Han MD) household members: family and children Smoking Status: Former smoker how long ago did patient quit smoking: Quit 5 yrs prior, smoked 1 pk/week since 17 until quit. alcohol intake: current alcohol intake frequency: a few times a month substance use type: does not use EXAM Physical Exam Const Vital Signs: 09/14/23 21:23 09/14/23 23:23 09/15/23 00:13 Temperature 98 F 98.2 F Temperature Source Temporal Pulse Rate 83 70 Respiratory Rate 20 H 18 16 Blood Pressure 158/108 H 135/80 H Blood Pressure Mean 124 98 Pulse Ox 97 98 Oxygen Delivery Method Room Air 09/15/23 01:40 Temperature Temperature Source Pulse Rate Respiratory Rate 16 Blood Pressure Blood Pressure Mean Pulse Ox Oxygen Delivery Method General Appearance ED: Negative for pallor HEENT Reports TM's clear and moist mucous membranes atraumatic Tympanic Membrane ED: Yes TM's clear Eyes PERRL and EOMs intact bilaterally Neck no lymphadenopathy Resp normal respiratory effort Cardio regular rate and regular rhythm GI Palpation: tender RUQ Neuro CN's II-XII intact bilaterally and moves all extremities Sensorium / Orientation: alert Motor Exam: strength 5/5 throughout Psych mental status grossly normal Skin General Skin Exam: Negative for jaundice or pallor MDM MDM MDM Narrative Medical decision making narrative: Patient presenting with epigastric and right upper quadrant pain. Patient presenting with right flank pain. Patient presenting with right flank pain. Differential includes colitis, diverticulitis, gastritis, pancreatitis, acute cholecystitis, constipation, appendicitis, UTI, pyelonephritis, calculi, ureteral calculi, obstruction, malignancy, dehydration, electrolyte abnormalities, ovarian torsion, ovarian cyst, ectopic . She declines analgesia at this point because she states the pain is subsided. She does have tenderness to ultrasound. CBC will be obtained to assess white blood cell count, hemoglobin, platelets. CMP to assess renal function, electrolytes, liver function, glucose. Lipase to assess for pancreatitis. Urinalysis to assess for UTI. CBC shows normal white blood cell count 9.4. Hemoglobin 14.3. Platelets are normal at 262. Renal function and electrolytes within normal limits. Total bilirubin today is 1.10, AST 902, ALT 9565, alk phos 119. Lipase is negative. Urinalysis negative for infection. Gallbladder is interpreted as cholelithiasis and gallbladder wall thickening with pericholecystic fluid concerning for acute cholecystitis. Patient is given Zosyn IV. She is kept NPO. After discussing the case with Dr. Jama she requested a CT of the abdomen pelvis with IV contrast which was obtained and had similar findings of gallbladder wall thickening. After discussing the case with Dr. Jama again she recommended admitting to medicine and having a HIDA scan be performed. Patient was given a dose of Zosyn in the ED. Discussed with hospitalist for admission. Impression: 1. choledocholithiasis 2. Elevated liver enzymes Lab Data Attestation: I reviewed the patient's lab results. Labs: Laboratory Results - last 24 hr 09/14/23 22:13 WBC 9.4 RBC 4.64 Hgb 14.3 Hct 42.7 MCV 92.0 MCH 30.8 MCHC 33.5 RDW Std Deviation 41.1 RDW Coeff of Amy 12.3 Plt Count 262 MPV 9.7 Immature Gran % (Auto) 0.200 Neut % (Auto) 78.6 H Lymph % (Auto) 14.1 L [place] % (Auto) 5.7 Eos % (Auto) 1.1 Baso % (Auto) 0.3 Absolute Neuts (auto) 7.4 Absolute Lymphs (auto) 1.32 Nucleated RBC % 0 Sodium 136 Potassium 3.9 Chloride 102 Carbon Dioxide 28.0 Anion Gap 6 BUN 13 Creatinine 0.84 Estim Creat Clear Calc 111.89 Est GFR (MDRD) Af Amer 96 Est GFR (MDRD) Non-Af 79 BUN/Creatinine Ratio 15.6 Glucose 139 H Calcium 10.5 H Total Bilirubin 1.10 H AST 902 H ALT 565 H Alkaline Phosphatase 119 H Total Protein 7.3 Albumin 3.9 Globulin 3.4 Albumin/Globulin Ratio 1.1 Lipase 47 Procalcitonin 0.08 Serum , Qual NEGATIVE Urine Color Yellow Urine Clarity Clear Urine pH 6.5 Ur Specific [place] 1.020 Urine Protein 30 H Urine Glucose (UA) Normal Urine Ketones Negative Urine Occult Blood Negative Urine Nitrite Negative Urine Bilirubin Negative Urine Urobilinogen 1 H Ur Leukocyte Esterase 100 H Urine RBC 0 SEEN Urine WBC 0-5 SEEN Ur Squamous Epith Cells 0-5 SEEN Urine Bacteria 1+ Urine Mucus 0 SEEN Radiography Diagnostic Testing: Clinical Impression(s) from Imaging Studies Gallbladder Ultrasound 09/14/23 22:36 IMPRESSION: 1. Cholelithiasis and gallbladder wall thickening with negative sonographic Gleason''s sign. Pericholecystic fluid is nonspecific. Findings may be indicative of acute cholecystitis. There are also findings consistent with adenomyomatosis and a mildly distended common bile duct. Correlate clinically and consider a hepatobiliary scan as well as surgical consultation. 2. Fatty liver. Electronically Signed: Chandrakant Osuna DO at 23:30 EDT , Abdomen/Pelvis CT 09/14/23 23:57 IMPRESSION: Marked gallbladder wall thickening. Nonspecific can be seen with cholecystitis or liver disease. No secondary inflammatory changes. HIDA scan may be helpful if clinically indicated. Hepatomegaly with steatosis. Left ovarian 4.5 cm cyst. Pelvic ultrasound follow-up may be helpful as clinically indicated. Fibroid uterus. Electronically Signed: Raina Abreu MD at 1:01 EDT , Discharge Plan Disposition Disposition: Acute Care Hospital [facility] Discharge Date/Time: 09/15/23 02:42
[2023-09-14 22:39] LABS: Bacteria 1+ /hpf (None Seen); Squamous Epithelial Cells - UA 0-5 SEEN /hpf (5-10); White Blood Cells 0-5 SEEN /hpf (0-5)
[2023-09-14 22:43] LABS: ALB/GLOB Ratio 1.1 RATIO (0.9-2.4); AST(SGOT) 902 U/L (15-37); Alanine Aminotransfer ALT/SGPT 565 U/L (13-56); Albumin, Serum 3.9 g/dL (3.2-5.0); Alkaline Phosphatase 119 U/L (45-117); Anion Gap 6 (5-15); BUN 13 mg/dL (7-18); BUN/Creat Ratio 15.6 RATIO (10-20); Calcium,Total 10.5 mg/dL (8.5-10.1); Chloride 102 mmol/L (98-107); Creatinine, Serum 0.84 mg/dL (0.55-1.02); EST Glomerular Filtration Rate 79 mL/min (>60); Est Glom Filt Rate - Afr Amer 96 mL/min (>60); Estimated Creatinine Clearance 111.89 ml/min; Globulin 3.4 g/dL (2.2-4.2); Glucose 139 mg/dL (74-106); Lipase 47 U/L (13-75); Potassium 3.9 mmol/L (3.5-5.1); Protein, Total 7.3 g/dL (6.4-8.2); Sodium Level 136 mmol/L (136-145)
[2023-09-14 23:23] VITALS: RESP 18
--- NOTE | 2023-09-14 23:57 | CT_ITS ---
EXAM: CT Abdomen And Pelvis W/ Contrast Injection HISTORY: ruq pain TECHNIQUE: Routine protocol CT abdomen pelvis. IV Contrast: IV 100mL Isovue-370 . Oral Contrast: without. Sagittal and coronal images were reconstructed. RADIATION DOSAGE (If Supplied By Facility): CTDIvol = ( 18.73 ) mGy, DLP = ( 1361.00 ) mGycm Individualized dose optimization techniques were used for this CT. COMPARISON: Abdominal ultrasound 09/14/2023. LIMITATIONS: None. FINDINGS: LOWER CHEST: Lung bases are clear. LIVER: Enlarged. Fatty infiltration. GALLBLADDER/BILE DUCTS: No calcified gallstones identified. Marked gallbladder wall thickening. No adjacent stranding. PANCREAS: Unremarkable. SPLEEN: Unremarkable. ADRENAL GLANDS: Unremarkable. KIDNEYS / URETERS: Unremarkable. BOWEL / MESENTERY: Unremarkable. No bowel obstruction. APPENDIX: Identified and normal. No evidence of acute appendicitis. PERITONEUM: No free air. No free fluid. VESSELS: Abdominal aorta is normal caliber. RETROPERITONEUM: Unremarkable. REPRODUCTIVE ORGANS: The uterus is lobulated likely fibroids. 4.5 cm left ovarian cyst. BLADDER: Unremarkable. ABDOMINAL WALL: Small umbilical hernia contains only fat, no bowel. BONES: No acute abnormality. Degenerative changes lower lumbar spine OTHER: None. CT/Abdomen/Pelvis W IV Cont ONLY IMPRESSION: Marked gallbladder wall thickening. Nonspecific can be seen with cholecystitis or liver disease. No secondary inflammatory changes. HIDA scan may be helpful if clinically indicated. Hepatomegaly with steatosis. Left ovarian 4.5 cm cyst. Pelvic ultrasound follow-up may be helpful as clinically indicated. Fibroid uterus. Electronically Signed: Raina Abreu MD at 1:01 EDT ,
[2023-09-15] VITALS (21 sets, daily range): BP systolic 120–167; BP diastolic 60–127; PULSE 65–98; RESP 10–29; TEMP 35.7–36.8; O2SAT 92–100; BMI 37.8
--- NOTE | 2023-09-15 | LIVB_PTH ---
PATIENT: COSMO MAYERS LOC: MS3 U#:[id number] AGE/SX: 43/F ROOM: [facility] [place] RE09/15/[address]: Dr. Joy Castaneda MD : 1980 BED: 1 DIS: 09/19/2023 SPEC #: [id number] RECD: 09/15/23 13:10 STATUS: JALEN RE #: [id number] MIKEY: 09/15/23 00:[address]: Po Ware DEPT: SURGICAL PATHOLOGY RECD BY: Filemon Garcia ENTERED: 09/15/23 13:17 SP TYPE: LIVER BX OTHR DR: MD Dr. Brice Pena MD Dr. Paul Nielsen, MD Dr. Tamera Robotham, MD Tissues: Liver, NOS Procedures: PAS with Diastase (control) Trichrome (control) Special Stain Group I PAS Stain (control) Surgery Specimen Level V Retic (control) Iron Stain (control) HEADER OPERATION: CT guided liver biopsy PRE-OP DIAGNOSIS: Liver disease TISSUE SUBMITTED: 18 gauge x 3 cores- right lobe liver MICROSCOPIC DIAGNOSIS Liver, CT guided core biopsy: Chronic hepatitis, grade 2, stage 2. Extensive macro- and microvesicular steatosis. See microscopic description and comment. SHANIQUE/ 09/18/2023 COMMENT Correlation with clinical laboratory, radiologic findings and appropriate follow up are necessary. MICROSCOPIC DESCRIPTION Slides are reviewed. This specimen shows liver parenchymal tissue with preserved lobular architecture. Hepatocytes shows extensive macro- and microvesicular steatosis and reactive changes. Focal minimal chronic lobular inflammation is present. Portal area shows mild to moderate acute and chronic inflammatory cells infiltrate consisting of lymphocytes, neutrophil and eosinophils. Significant interface inflammation is not seen. Iron stains show absent iron. Reticulin stains show preserved lobular architecture. Trichrome stains show focal mild increased portal and periportal fibrosis and focal area of bridging fibrosis. Obvious cirrhosis is not seen. PAS stain with and without diastase do not show any abnormal accumulation of protein. All stains are performed with appropriate matched controls. GROSS DESCRIPTION Received is one container labeled with the patient's name and not further designated. The specimen consists of four elongated pieces of damian soft tissue measuring in aggregate 1.5 x 0.4 x 0.1cm. The entire specimen is submitted in one cassette. Jessica 09/15/2023 TC:3 CPT:76909,36701o6
[2023-09-15] MEDS: 0.9% Normal Saline (1000mL) 1,000 ML 999 ML IV (00:07)
[2023-09-15] MEDS: Piperacil/Tazobactam 3.375 GM in 0.9% Normal Saline (50mL MB+) 50 ML IV ×4 (00:07→22:20)
--- NOTE | 2023-09-15 01:45 | HP.PCM.HOS_ITS ---
HPI - General General Date of Admission: 09/15/23 Date of Service: 09/15/23 Chief Complaint: Abdominal pain, N/V. HPI Narrative The patient is a 43 y/o F w/ PMHx: Asthma, Rheumatoid arthritis, Anxiety and Depression/ADHD, GERD, Former tobacco use, recent delivery 03/29/23 who presents to the [facility] ED on 09/15/23 with history of onset at approximately 3 PM on day prior with last oral intake afternoon reporting a meal at [employer] with onset severe sharp, stabbing, aching, throbbing 10/10 epigastric-->RUQ discomfort which radiated toward BL upper back, noted to be constant with associated nausea and emesis bout x 2 with no fever but notable diaphoresis which eventually improved at ~ 10 pm with a similar previous episode 2 weeks prior that at that time lasted for a 20-minute timeline and resolved with significant family history of gallbladder disease especially following /childbirth prompting patient to present to the ED for evaluation. In the ED patient remains pain free. She notes normal bowel movements. She is not currently . Workup in the ED included T98, heart rate 83, BP 158/108, respiratory rate 20, 97% on room air with most recent repeat vital signs heart rate 70, BP 135/80, respiratory rate 16, 98% on room air, CBC with WBC 9.4, hemoglobin 14.3, platelet 262 without marked shift, CMP with glucose 139, calcium 10.5, T. bili 1.10, AST/ALT 902/565, alk phos 119, lipase 47, serum testing negative, urinalysis with specific remedy 1.020, protein 30, negative nitrite, leukocyte Estrace 100 with 0-5 urine WBCs, 1+ urine bacteria, gallbladder ultrasound with cholelithiasis and gallbladder wall thickening with a negative sonographic Gleason sign with findings consistent with adenomyomatosis and a mildly distended common bile duct, fatty liver, follow-up CT scan abdomen pelvis per surgery request initiated per ED physician with marked gallbladder wall thickening, no secondary inflammatory changes noted, hepatomegaly with steatosis, left ovarian 4.5 cm cyst, fibroid uterus. In the ED patient ministered 1 L normal saline as well as Zosyn 3.375 g IV x 1. ED discussed case at length with general surgery Dr. Jama who as noted requested follow-up CT scan as noted presentation possibly consistent with underlying liver disease and not gallbladder disease therefore medical service requested to assess patient and admit. [facility] Medical History (Updated 09/15/23 @ 01:[address] Kierra Han MD) Former tobacco use GERD (gastroesophageal reflux disease) Obesity Asthma Unstable lie Gestational diabetes mellitus (GDM) Distortion of contour of breast Rheumatoid arthritis Depression with anxiety Abnormal ultrasound of breast Abnormal mammogram Home Medications ?Medication ?Instructions ?Recorded ?Last Taken ?Type venlafaxine 150 mg 150 mg PO DAILY #30 caps 05/13/16 03/23/23 06:00 Rx capsule,extended release 24 hr dextroamphetamine-amphetamine 20 20 mg PO BID 06/29/17 03/23/23 06:00 History mg tablet (Adderall) aripiprazole 5 mg tablet 5 mg PO DAILY anxiety and 03/23/23 03/22/23 22:00 History depression acetaminophen 500 mg tablet 1,000 mg (2 x 500 mg) PO Q6H #0 03/26/23 Unknown Rx tabs ibuprofen 600 mg tablet 600 mg PO Q6H #0 tabs 03/26/23 Unknown Rx diphenhydramine HCl 25 mg capsule 75 mg PO QHS 09/15/23 Unknown History (Benadryl) Allergy/AdvReac Type Severity Reaction Status Date / Time bupropion (From Wellbutrin) Allergy Mild Hives Verified 09/14/23 21:25 hydrocodone Allergy Mild Other Verified 09/14/23 21:25 promethazine (From Phenergan) Allergy Mild Other Verified 09/14/23 21:25 Sulfa (Sulfonamide Allergy Other Verified 09/14/23 21:25 Antibiotics) Family History (Updated 09/15/23 @ 02:[address] Kierra Han MD) Grandfather Arthritis Diabetes Hypertension Skin cancer Grandmother Arthritis Aunt Colon cancer Mother HLD (hyperlipidemia) Cholecystitis with cholelithiasis Father Diabetes Cholecystitis with cholelithiasis Surgical History Delivery by section history ORIF right fifth metatarsal Social History (Updated 09/15/23 @ 02:[address] Kierra Han MD) household members: family and children Smoking Status: Former smoker how long ago did patient quit smoking: Quit 5 yrs prior, smoked 1 pk/week since 17 until quit. alcohol intake: current alcohol intake frequency: a few times a month substance use type: does not use ROS ROS Narrative Admission Review of Systems: CONSTITUTIONAL: No weight loss, fever, chills, + weakness or fatigue. HEENT: Eyes: No visual loss, blurred vision, double vision or yellow sclerae. Ears, Nose, Throat: No hearing loss, sneezing, congestion, runny nose or sore throat. SKIN: No rash or itching, lesions, wounds. CARDIOVASCULAR: No chest pain, chest pressure or chest discomfort, palpitations, edema, orthopnea, syncopal events. RESPIRATORY: No shortness of breath, cough or sputum, wheezing, hemoptysis. GASTROINTESTINAL: + Nausea, vomiting, abdominal pain. No diarrhea, melena, BRBPR. GENITOURINARY: No dysuria, frequency, urgency or retention. NEUROLOGICAL: No headache, dizziness, syncope, paralysis, ataxia, numbness or tingling in the extremities, focal weakness, change in bowel or bladder control, seizure. MUSCULOSKELETAL: + muscle, back pain, joint pain or stiffness. HEMATOLOGIC: No anemia, bleeding or bruising. LYMPHATICS: No enlarged nodes. No history of splenectomy. PSYCHIATRIC: + history of depression and anxiety/ADHD. ENDOCRINOLOGIC: + reports of sweating. No cold or heat intolerance. No polyuria or polydipsia. ALLERGIES: No history of asthma, hives, eczema or rhinitis. Vital Signs Vital Signs Vital Signs: 09/14/23 21:23 09/14/23 23:23 09/15/23 00:13 Temperature 98 F 98.2 F Temperature Source Temporal Pulse Rate 83 70 Respiratory Rate 20 H 18 16 Blood Pressure 158/108 H 135/80 H Blood Pressure Mean 124 98 Pulse Ox 97 98 Oxygen Delivery Method Room Air 09/15/23 01:40 Temperature Temperature Source Pulse Rate Respiratory Rate 16 Blood Pressure Blood Pressure Mean Pulse Ox Oxygen Delivery Method Weight Weight: 244 lb 0.827 oz Body Mass Index (BMI) 38.2 Physical Exam Narrative Physical Examination: General: Awake, alert, oriented x 3 and cooperative, seated upright in the ED bed, fatigued otherwise no acute distress, no recurrent abdominal pain. Skin: Normal color, normal turgor, no icterus, no cyanosis. HEENT: AT/NC, EOMI, PERRLA, MMM, no carotid bruits or JVD noted. Lungs: CTA bilaterally, moderate effort, mild decrease BL bases, no rales, ronchi or wheezing. Heart: Regular rate and rhythm; no gallop, rub audible. Abdomen: Soft, obese, NTTP, mildly hyperactive BS, no appreciated distention or HSM. Extremities: No cyanosis, clubbing, or edema. Neurological: Patient awake, alert, oriented as noted, cognitive function intact; pupils equally reactive to light and accommodation, cranial nerves grossly normal, moving all 4 extremities, no focal deficits, strength preserved. Psychiatric: Affect appears fatigued otherwise normal, no acute evidence of depressive or anxiety feelings but does have underlying history. Results Lab / Micro Data 09/14/23 22:13 09/14/23 22:13 Labs: Laboratory Results - last 24 hr 09/14/23 22:13: WBC 9.4, RBC 4.64, Hgb 14.3, Hct 42.7, MCV 92.0, MCH 30.8, MCHC 33.5, RDW Std Deviation 41.1, RDW Coeff of Amy 12.3, Plt Count 262, MPV 9.7, Immature Gran % (Auto) 0.200, Neut % (Auto) 78.6 H, Lymph % (Auto) 14.1 L, [place] % (Auto) 5.7, Eos % (Auto) 1.1, Baso % (Auto) 0.3, Absolute Neuts (auto) 7.4, Absolute Lymphs (auto) 1.32, Nucleated RBC % 0, Sodium 136, Potassium 3.9, Chloride 102, Carbon Dioxide 28.0, Anion Gap 6, BUN 13, Creatinine 0.84, Estim Creat Clear Calc 111.89, Est GFR (MDRD) Af Amer 96, Est GFR (MDRD) Non-Af 79, BUN/Creatinine Ratio 15.6, Glucose 139 H, Calcium 10.5 H, Total Bilirubin 1.10 H , AST 902 H, ALT 565 H, Alkaline Phosphatase 119 H, Total Protein 7.3, Albumin 3.9, Globulin 3.4, Albumin/Globulin Ratio 1.1, Lipase 47, Serum , Qual NEGATIVE, Urine Color Yellow, Urine Clarity Clear, Urine pH 6.5, Ur Specific [place] 1.020, Urine Protein 30 H, Urine Glucose (UA) Normal, Urine Ketones Negative, Urine Occult Blood Negative, Urine Nitrite Negative, Urine Bilirubin Negative, Urine Urobilinogen 1 H, Ur Leukocyte Esterase 100 H, Urine RBC 0 SEEN, Urine WBC 0-5 SEEN, Ur Squamous Epith Cells 0-5 SEEN, Urine Bacteria 1+, Urine Mucus 0 SEEN Imaging Radiology Impression Gallbladder Ultrasound 09/14/23 22:36 IMPRESSION: 1. Cholelithiasis and gallbladder wall thickening with negative sonographic Gleason''s sign. Pericholecystic fluid is nonspecific. Findings may be indicative of acute cholecystitis. There are also findings consistent with adenomyomatosis and a mildly distended common bile duct. Correlate clinically and consider a hepatobiliary scan as well as surgical consultation. 2. Fatty liver. Electronically Signed: Chandrakant Osuna DO at 23:30 EDT , Abdomen/Pelvis CT 09/14/23 23:57 IMPRESSION: Marked gallbladder wall thickening. Nonspecific can be seen with cholecystitis or liver disease. No secondary inflammatory changes. HIDA scan may be helpful if clinically indicated. Hepatomegaly with steatosis. Left ovarian 4.5 cm cyst. Pelvic ultrasound follow-up may be helpful as clinically indicated. Fibroid uterus. Electronically Signed: Raina Abreu MD at 1:01 EDT , Assessment & Plan Assessment/Plan (1) Choledocholithiasis: PLAN: Plan The patient is a 43 y/o F w/ PMHx: Asthma, Rheumatoid arthritis, Anxiety and Depression/ADHD, GERD, Former tobacco use, recent delivery 03/29/23 who presents to the [facility] ED on 09/15/23 with history of onset at approximately 3 PM on day prior with last oral intake afternoon reporting a meal at [employer] with onset severe sharp, stabbing, aching, throbbing 10/10 epigastric-->RUQ discomfort which radiated toward BL upper back, noted to be constant with associated nausea and emesis bout x 2 with no fever but notable diaphoresis which eventually improved at ~ 10 pm with a similar previous episode 2 weeks prior that at that time lasted for a 20-minute timeline and resolved with significant family history of gallbladder disease especially following /childbirth prompting patient to present to the ED for evaluation. #1. High suspicion for acute choledocholithiasis: Given patient's significant family history as well as as recent childbirth herself with gallbladder ultrasound with significant gallbladder wall thickening and elevated LFTs high suspicion for acute choledocholithiasis although surgery notes that they believe this may just be underlying liver disease prompting request for hospitalist to be admitting service, will admit to medical surgical floor, will maintain on IV fluids, will have antiemetic and pain regimen as needed, given concerns to be cautious will maintain on IV Zosyn therapy, procalcitonin requested, will request HIDA scan and trend CMP as well as CBC to be cautious and maintain n.p.o. status in case underlying gallbladder disease is confirmed as etiology and intervention is required, will continue general surgery Dr. Evita madsen given still high suspicion for underlying gallbladder disease etiology. #2. Hyperglycemia: Admission glucose 139, possibly stress response, will repeat CMP in a.m. and if further elevated low threshold to obtain hemoglobin A1c to be cautious #3. Incidental left ovarian cyst: CT scan with a left ovarian 4.5 cm cyst, encourage continued outpatient follow-up with [employer] as previously arranged versus early follow-up pelvic ultrasound if necessary. #4. Incidentally noted hepatomegaly: CT scan with hepatomegaly and steatosis, gallbladder ultrasound/liver ultrasound with diffuse increased echogenicity throughout the liver without any focal hepatic abnormality suggesting fatty infiltration with no intrahepatic biliary ductal dilatation, T. bili 1.10 with elevated LFTs and mildly elevated alk phos, will trend CMP. #5. Anxiety and depression/ADHD: Will continue patient home venlafaxine, aripiprazole and Adderall home regimen. #6. Former tobacco use: Encourage continued tobacco cessation. #7. Asthma: Not on any chronic regimen, will have as needed albuterol, encourage head of bed and I-S. #8. Rheumatoid arthritis: Per current list does not appear to be on any chronic regimen including steroid therapy, encourage continued outpatient follow-up with rheumatology as previously arranged. #9. GERD: Will continue home PPI. #10. DVT prophylaxis: Will defer chemoprophylaxis in case of operative intervention needs, SCDs. Charges/Coding Visit Charges Inpatient E&M: 04277 Init Hosp L2
[2023-09-15 02:25] LABS: Procalcitonin 0.08 ng/mL (0.00-0.09)
[2023-09-15] MEDS: Pantoprazole Sodium 40 MG in 0.9% Normal Saline (100mL MB+) 100 ML 330 MG IV ×2 (03:20→20:47)
[2023-09-15] MEDS: 0.9% Normal Saline (1000mL) 1,000 ML 100 ML IV ×2 (03:20→14:24)
--- NOTE | 2023-09-15 05:55 | NM_ITS ---
CLINICAL: 43-year-old female with history of right upper quadrant abdominal pain. RADIONUCLIDE HEPATOBILIARY SCINTIGRAPHY COMPARISON: Abdominal ultrasound report 09/14/2023 FINDINGS: Following the intravenous administration of 5.7 mCi of 99m Tc Mebrofenin, hepatobiliary images reveal: 1. Delayed and decreased radiopharmaceutical concentration is defined by a normal sized liver. No parenchymal defects are identified. 2. Gallbladder activity is not identified during 60 minutes of sequential imaging. 3. Small intestinal tract is not defined at 60 minutes post radiopharmaceutical administration. 4. Washout of the radiopharmaceutical by the hepatic parenchyma is significantly delayed. There is continued accumulation of the radiotracer during [dv] of sequential imaging. NM/Hepatobilliary Img w/Pharm Int IMPRESSION: 1. ABNORMAL 99m Tc Mebrofenin hepatobiliary imaging examination. A. Nonvisualization of the gallbladder, hepatobiliary ducts and small intestinal tract with relatively delayed hepatocellular uptake and delayed washout is consistent with subacute high grade biliary obstruction in the setting of normal common biliary duct dimension. (Balon et al, Society of Nuclear Medicine Procedure Guideline for Hepatobiliary Scintigraphy Version 3.0 August 26, 2000 www.SNM.org). Alternatively, findings may represent nonobstructive cholestasis. (Jessee et al, J Nucl Med 36: 74P, 1995). Electronically Signed: Larry Arvizu DO at 11:05 EDT ,
[2023-09-15 06:09] LABS: Absolute Lymphocyte Count 1.41 X10^3/uL (0.83-4.51); Absolute Neutrophil Count 3.5 X10^3/uL (2.0-7.7); Basophil# 0.02 X10^3/uL; Basophil% 0.4 % (0-1); Eosinophils% 1.8 % (0-5); Hematocrit 39.1 % (37-47); Hemoglobin 13.1 g/dL (12.0-15.0); Lymphocyte # 1.41 X10^3/ul (0.83-4.51); Lymphocyte % 25.7 % (19-41); Mean Corp Hgb Conc 33.5 g/dL (32-36); Mean Corpuscular Volume 92.4 fL (81-99); Mean Platelet Vol. 9.7 fl (6.2-12.0); Monocyte# 0.45 X10^3/uL; Monocyte% 8.2 % (0-10); NRBC Flagged by Analyzer 0 % (0-5); Neutrophil # 3.48 X10^3/uL (2.7-7.7); Neutrophil % 63.5 % (47-70); Platelet Count 223 K/mm3 (150-450); RBC Distribution Width CV 12.2 % (11.6-14.6); RBC Distribution Width SD 41.3 fl (35.1-43.9); Red Blood Count 4.23 M/mm3 (4.2-5.4); White Blood Count 5.5 K/mm3 (4.4-11.0)
[2023-09-15 07:06] LABS: ALB/GLOB Ratio 1.3 RATIO (0.9-2.4); AST(SGOT) 1308 U/L (15-37); Alanine Aminotransfer ALT/SGPT 1072 U/L (13-56); Albumin, Serum 3.4 g/dL (3.2-5.0); Alkaline Phosphatase 135 U/L (45-117); Anion Gap 7 (5-15); BUN 8 mg/dL (7-18); BUN/Creat Ratio 11.9 RATIO (10-20); Calcium,Total 9.2 mg/dL (8.5-10.1); Chloride 107 mmol/L (98-107); Creatinine, Serum 0.68 mg/dL (0.55-1.02); EST Glomerular Filtration Rate 101 mL/min (>60); Est Glom Filt Rate - Afr Amer 123 mL/min (>60); Estimated Creatinine Clearance 135.06 ml/min; Globulin 2.7 g/dL (2.2-4.2); Glucose 110 mg/dL (74-106); Potassium 3.7 mmol/L (3.5-5.1); Protein, Total 6.1 g/dL (6.4-8.2); Sodium Level 137 mmol/L (136-145)
--- NOTE | 2023-09-15 07:17 | CON.PCM.SX_ITS ---
Assessment & Plan Assessment/Plan (1) Elevated LFTs: PLAN: Plan increased LFT this AM with AST/ALT 1000s d/w Dr. Narvaez will plan for liver workup. did personally review CT as well as ultrasound there is some thickening of the gallbladder wall however question of the etiology as I would expect higher white blood cell count if it just due to the gallbladder/acute cholecystitis along with pain however patient's pain has resolved since she arrived to the ER and her AST and ALT has continued to increase. Would favor liver etiology with secondary changes to the gallbladder? would not plan to remove the gallbladder at this time. Dr. Oliva will be covering over the weekend. Addendum: Patient also had HIDA scan which did not show any contrast leaving the liver likely due to liver dysfunction. MRCP was officially read as thickened gallbladder wall suspect cholecystitis, liver biopsy completed in IR?results pending did review results with patient's mom and dad as patient was at procedures. CT-guided liver biopsy by IR was completed. Patient's gallbladder appears collapsed due to the edema and the more recent CT for the liver biopsy. Okay for clears. Did review imaging and labs with patient and her family. Jacqueline Jama M.D. Pager: [phone] [facility] [address] [place] [address], Outpatient Pavilion, [address] [place] [address] Office: [phone] HPI Consult Data Date of Consult: 09/15/23 HPI Narrative HPI Narrative: COSMO MAYERS, is a 43 F who presentsto the ER due to right upper quadrant pain radiating to upper back along with nausea and vomiting however this did improve when she arrived at the ER at about 10 PM. Patient states per previous notes that she had a similar episode 2 weeks prior but will last for 20 minutes?mother described as cramping. Patient has not needed any pain meds while in the hospital currently. Currently patient is currently down getting her HIDA scan. Patient's labs on admit had AST and ALT in 900/500 this morning they increased to 1300/1,000 with bilirubin being 2.1 from 1.1. Patient's White blood cell count on admit was within normal limits with only a slight shift she did get Zosyn thus this morning normal blood count no shift.Patient had ultrasound showed mildly thickened gallbladder wall, negative Gleason sign, cholelithiasis as well as a CAT scan that showed hepatomegaly and again thickening of the gallbladder wall possibly due to gallbladder or liver disease with no secondary signs of inflammation. Update 1400: Patient is back from imaging/procedures. Patient denies any right upper quadrant pain prior to the liver biopsy currently has discomfort right at the biopsy site. Patient states that yesterday she ate chicken [employer] sandwich at 1230 and started having burning epigastric discomfort at 3 PM that did wrap around to her back and did not relieve until 10 PM but no pain after 10 PM per patient. Patient did have nausea and vomiting with this. Patient states she did have epigastric pain that was sharp/burning for about 20 minutes about 2 weeks ago as well. [facility] Medical History (Updated 09/15/23 @ 07:[address] Jacqueline Jama MD) Former tobacco use GERD (gastroesophageal reflux disease) Obesity Asthma Unstable lie Gestational diabetes mellitus (GDM) Distortion of contour of breast Rheumatoid arthritis Depression with anxiety Abnormal ultrasound of breast Abnormal mammogram Home Medications ?Medication ?Instructions ?Recorded ?Last Taken ?Type venlafaxine 150 mg 150 mg PO DAILY #30 caps 05/13/16 03/23/23 06:00 Rx capsule,extended release 24 hr dextroamphetamine-amphetamine 20 20 mg PO BID 06/29/17 03/23/23 06:00 History mg tablet (Adderall) aripiprazole 5 mg tablet 5 mg PO DAILY anxiety and 03/23/23 03/22/23 22:00 History depression acetaminophen 500 mg tablet 1,000 mg (2 x 500 mg) PO Q6H #0 03/26/23 Unknown Rx tabs ibuprofen 600 mg tablet 600 mg PO Q6H #0 tabs 03/26/23 Unknown Rx diphenhydramine HCl 25 mg capsule 75 mg PO QHS 09/15/23 Unknown History (Benadryl) Allergy/AdvReac Type Severity Reaction Status Date / Time bupropion (From Wellbutrin) Allergy Mild Hives Verified 09/14/23 21:25 hydrocodone Allergy Mild Other Verified 09/14/23 21:25 promethazine (From Phenergan) Allergy Mild Other Verified 09/14/23 21:25 Sulfa (Sulfonamide Allergy Other Verified 09/14/23 21:25 Antibiotics) Family History (Updated 09/15/23 @ 02:[address] Kierra Han MD) Grandfather Arthritis Diabetes Hypertension Skin cancer Grandmother Arthritis Aunt Colon cancer Mother HLD (hyperlipidemia) Cholecystitis with cholelithiasis Father Diabetes Cholecystitis with cholelithiasis Surgical History Delivery by section history ORIF right fifth metatarsal Social History (Updated 09/15/23 @ 02:[address] Kierra aHn MD) household members: family and children Smoking Status: Former smoker how long ago did patient quit smoking: Quit 5 yrs prior, smoked 1 pk/week since 17 until quit. alcohol intake: current alcohol intake frequency: a few times a month substance use type: does not use ROS Constitutional Constitutional: Denies fever(s) Eyes Eyes: Denies loss of central vision ENT HEENT: Denies dysphagia Cardiovascular Cardiovascular: Denies chest pain Respiratory/Chest Respiratory/Chest: Denies cough Gastrointestinal Gastrointestinal: Reports abdominal pain, nausea and vomiting Genitourinary Genitourinary: Denies dysuria Musculoskeletal Musculoskeletal: Denies joint swelling Integumentary Integumentary: Denies jaundice Neurologic Neurologic: Denies focal weakness Psychiatric Psychiatric: Denies anxiety or depression Endocrine Endocrinology: Denies palpitations Hematologic/Lymphatic Hematologic/Lymphatic: Denies easy bleeding Physical Exam Const alert, oriented x3 and no apparent distress HEENT normocephalic and head/scalp atraumatic Resp normal respiratory effort Cardio regular rate GI soft to palpation; Negative for non-distended GI Narrative: Tender right at the liver biopsy site right upper abdomen otherwise nontender, no peritoneal signs Palpation: Negative for guarding Extremity no clubbing, cyanosis or edema Skin no rashes or lesions noted Neuro CN's II-XII intact bilaterally Psych mental status grossly normal Lab / Micro Data 09/15/23 05:37 09/15/23 05:37 Labs: Laboratory Results - last 24 hr 09/14/23 22:13: WBC 9.4, RBC 4.64, Hgb 14.3, Hct 42.7, MCV 92.0, MCH 30.8, MCHC 33.5, RDW Std Deviation 41.1, RDW Coeff of Amy 12.3, Plt Count 262, MPV 9.7, Immature Gran % (Auto) 0.200, Neut % (Auto) 78.6 H, Lymph % (Auto) 14.1 L, [place] % (Auto) 5.7, Eos % (Auto) 1.1, Baso % (Auto) 0.3, Absolute Neuts (auto) 7.4, Absolute Lymphs (auto) 1.32, Nucleated RBC % 0, Sodium 136, Potassium 3.9, Chloride 102, Carbon Dioxide 28.0, Anion Gap 6, BUN 13, Creatinine 0.84, Estim Creat Clear Calc 111.89, Est GFR (MDRD) Af Amer 96, Est GFR (MDRD) Non-Af 79, BUN/Creatinine Ratio 15.6, Glucose 139 H, Calcium 10.5 H, Total Bilirubin 1.10 H , AST 902 H, ALT 565 H, Alkaline Phosphatase 119 H, Total Protein 7.3, Albumin 3.9, Globulin 3.4, Albumin/Globulin Ratio 1.1, Lipase 47, Procalcitonin 0.08, Serum , Qual NEGATIVE, Urine Color Yellow, Urine Clarity Clear, Urine pH 6.5, Ur Specific Verbena 1.020, Urine Protein 30 H, Urine Glucose (UA) Normal, Urine Ketones Negative, Urine Occult Blood Negative, Urine Nitrite Negative, Urine Bilirubin Negative, Urine Urobilinogen 1 H, Ur Leukocyte Esterase 100 H, Urine RBC 0 SEEN, Urine WBC 0-5 SEEN, Ur Squamous Epith Cells 0- 5 SEEN, Urine Bacteria 1+, Urine Mucus 0 SEEN 09/15/23 05:37: WBC 5.5, RBC 4.23, Hgb 13.1, Hct 39.1, MCV 92.4, MCH 31.0, MCHC 33.5, RDW Std Deviation 41.3, RDW Coeff of Amy 12.2, Plt Count 223, MPV 9.7, Immature Gran % (Auto) 0.400, Neut % (Auto) 63.5, Lymph % (Auto) 25.7, [place] % (Auto) 8.2, Eos % (Auto) 1.8, Baso % (Auto) 0.4, Absolute Neuts (auto) 3.5, Absolute Lymphs (auto) 1.41, Nucleated RBC % 0, Sodium 137, Potassium 3.7, Chloride 107, Carbon Dioxide 23.0, Anion Gap 7, BUN 8, Creatinine 0.68, Estim Creat Clear Calc 135.06, Est GFR (MDRD) Af Amer 123, Est GFR (MDRD) Non-Af 101, BUN/Creatinine Ratio 11.9, Glucose 110 H, Calcium 9.2, Total Bilirubin 2.10 H, A ST 1308 H, ALT 1072 H, Alkaline Phosphatase 135 H, Total Protein 6.1 L, Albumin 3.4, Globulin 2.7, Albumin/Globulin Ratio 1.3 Imaging Radiology Impression Gallbladder Ultrasound 09/14/23 22:36 IMPRESSION: 1. Cholelithiasis and gallbladder wall thickening with negative sonographic Gleason''s sign. Pericholecystic fluid is nonspecific. Findings may be indicative of acute cholecystitis. There are also findings consistent with adenomyomatosis and a mildly distended common bile duct. Correlate clinically and consider a hepatobiliary scan as well as surgical consultation. 2. Fatty liver. Electronically Signed: Chandrakant Osuna DO at 23:30 EDT , Abdomen/Pelvis CT 09/14/23 23:57 IMPRESSION: Marked gallbladder wall thickening. Nonspecific can be seen with cholecystitis or liver disease. No secondary inflammatory changes. HIDA scan may be helpful if clinically indicated. Hepatomegaly with steatosis. Left ovarian 4.5 cm cyst. Pelvic ultrasound follow-up may be helpful as clinically indicated. Fibroid uterus. Electronically Signed: Raina Abreu MD at 1:01 EDT , Charges/Coding Visit Charges Inpatient E&M: 77530 Init Hosp L3
--- NOTE | 2023-09-15 07:20 | MRI_ITS ---
We are attempting to reach an attending provider to discuss findings. An addendum with communication details will be sent when the communication is complete. STUDY: MR CHOLANGIOPANCREATOGRAPHY (MRCP) REASON FOR EXAM: Female, 43 years old. cholestatic jaundice TECHNIQUE: Standard MRCP technique was utilized. 3-D reconstructions were performed. COMPARISON: CT 09/15/2023, ultrasound 09/14/2023, scintigraphy 09/15/2023 FINDINGS: Gall Bladder: Multiple gallstones with severe gallbladder wall thickening worrisome for acute cholecystitis. Cystic duct: Normal with no demonstrated fixed filling defect. Intrahepatic ducts: Normal visualized intrahepatic ducts with no demonstrated fixed filling defect, dilation or stricture. Common hepatic duct: Normal with no demonstrated fixed filling defect, dilation or stricture. Common bile duct: Normal with no demonstrated fixed filling defect, dilation or stricture. Pancreatic duct: Normal with no demonstrated fixed filling defect, dilation or stricture. MRI/MRCP Abdomen without Contrast IMPRESSION: Suspect acute cholecystitis. No choledocholithiasis. Electronically Signed: Larry Dubon MD at 11:28 EDT ,
[2023-09-15 07:48] LABS: Erythrocyte Sedimentation Rate 4 mm/hr (0-30)
[2023-09-15 08:44] LABS: Ferritin 1083 ng/mL (8-252); LDH 944 U/L (84-246)
[2023-09-15 11:12] LABS: Prothrombin Time (Protime)PT. 13.1 SECONDS (11.7-14.9)
[2023-09-15] MEDS: oxyCODONE 5 MG Tablet PO ×3 (11:20→20:47)
[2023-09-15] MEDS: Venlafaxine XR 150 MG Capsule PO (11:21)
[2023-09-15] MEDS: ARIPiprazole 5 MG Tablet PO (11:21)
--- NOTE | 2023-09-15 11:31 | CASEMGMT ---
DARNELL CM Assessment Face to Face with patient for initial transition planning/care coordination assessment. RN CM introduced self and role at [facility], pt voices understanding. Pt is A&Ox4 and is resting comfortably in bed and is calm. Pt Mother and Brother at bedside. Care providers, pharmacy, and demographics verified. Admitting dx: ABD pain, Choledocholithiasis LACE Strata: 1 PCP: Caden Almazan Specialists: Denies Preferred Pharmacy:[facility] Insurance: [facility]/ [employer] Prescription Benefit: yes LNOK: Lindsey Cedillo (Mother), Graham Cedillo (Brother) Living Arrangements: Pt lives with her 4 children (ages 20, 9, 7, and a 5 month old) in a 2 story home with 3 steps to enter ADLs/IADLs: Ind Transportation: Self, Family DME: BP Monitor. Pt denies further DME uses or needs HHC/SNF: Denies history or needs Pt?s goal: Home Plan: Home no needs. 6-Click is 24. Pt denies the need for HHC or OP Therapy. Pt states that she feels safe discharging home once she is medically ready. Per the MD, the pt will be here through the weekend for further testing. CM to follow to ensure a safe DC home from [facility]. Flower Motley RN, CM
--- NOTE | 2023-09-15 11:52 | NURSING ---
PRN Oxy fell on floor from Pt hand. DARNELL Camargo witnessed destruction.
[2023-09-15 11:58] LABS: Acetaminophen (Tylenol) Level < 2.0 ug/mL (10.0-30.0)
[2023-09-15] MEDS: 0.9% Normal Saline (250mL Bag) 250 ML 15 ML IV (12:27)
[2023-09-15] MEDS: Midazolam 2 MG/2 ML Syringe IV (12:27)
[2023-09-15] MEDS: fentaNYL 100 MCG/2 ML Ampul IV ×2 (12:30→13:14)
[2023-09-15] MEDS: Lidocaine 2% (20 ml mdv) 20 ML Vial INFILT (12:42)
[2023-09-15] MEDS: Ketorolac 30 MG/ML Syringe IV (13:05)
--- NOTE | 2023-09-15 13:18 | PRO.PCM_ITS ---
Procedure Report Date of Procedure: 09/15/23 Assessment & Plan Assessment/Plan (1) Elevated LFTs: PLAN: PROCEDURE: CT DIRECTED CORE LIVER BIOPSY ORDERING PROVIDER: Dr. Ware INDICATION: Female, 43 years old. Elevated LFTs. PROVIDER: OSCAR Coronel CONSENT: Written informed consent was obtained having explained the risks, benefits and alternatives in detail with the patient who accepted the risks and agreed to proceed. Laboratory review and clinical assessment was performed. PRE-PROCEDURE SEDATION ASSESSMENT: Current history and physical dictated by referring provider and reviewed. No clinical changes since date of exam. Patient has a Mallampati Score of Class 1 and ASA Class of 2. PROCEDURAL SEDATION PROTOCOL: The Drugs used were: [ ] mg Versed, IV, and [ ] mcg Fentanyl, IV. The sedation time was: [ ] minutes, starting at [ ] and terminated at [ ]. The procedural sedation protocol was independently monitored by the department nurse. RADIATION DOSAGE (If Supplied By Facility): CTDIvol = [ ] mGy, DLP = [ ] mGycm Individualized dose optimization techniques were used for this CT. TECHNIQUE: The patient was placed in a [ ] position. Using CT image guidance with image documentation, a suitable location in the [ ] lobe of the liver was identified. The skin surface was prepped with betadine and draped in a sterile fashion. [ ]% lidocaine was used for local anesthesia. Using a [ ] approach, puncture of th e liver was uneventful with an 18-gauge core needle system. [ ], 18-gauge core samples were obtained, and submitted in formalin to the pathologist for further assessment. The needle was removed. An occlusive sterile dressing was applied. Patient tolerated the procedure well, and returned to the [facility] bay for nursing monitoring. IMPRESSION: 1. CT directed core needle biopsy of the liver, using CT image guidance with image documentation as described. 2. Procedural Sedation protocol utilized with independent monitoring.
--- NOTE | 2023-09-15 13:18 | PCM.OP.PRO ---
Procedure Report Date of Procedure: 09/15/23 Assessment & Plan Assessment/Plan (1) Elevated LFTs: PLAN: PROCEDURE: CT DIRECTED CORE LIVER BIOPSY ORDERING PROVIDER: Dr. Ware INDICATION: Female, 43 years old. Elevated LFTs. PROVIDER: OSCAR Coronel CONSENT: Written informed consent was obtained having explained the risks, benefits and alternatives in detail with the patient who accepted the risks and agreed to proceed. Laboratory review and clinical assessment was performed. PRE-PROCEDURE SEDATION ASSESSMENT: Current history and physical dictated by referring provider and reviewed. No clinical changes since date of exam. Patient has a Mallampati Score of Class 1 and ASA Class of 2. PROCEDURAL SEDATION PROTOCOL: The Drugs used were: 2 mg Versed, IV, and 50 mcg Fentanyl, IV. The sedation time was: 21 minutes, starting at 1227 and terminated at 1248. The procedural sedation protocol was independently monitored by the department nurse. RADIATION DOSAGE (If Supplied By Facility): CTDIvol = 24.68 mGy, DLP = 1394.30 mGycm Individualized dose optimization techniques were used for this CT. TECHNIQUE: The patient was placed in a supine position. Using CT image guidance with image documentation, a suitable location in the right anterior lobe lobe of the liver was identified. The skin surface was prepped with betadine and draped in a sterile fashion. 2% lidocaine was used for local anesthesia. Using an anterior approach, puncture of the liver was uneventful with an 18-gauge core needle system. 3, 18-gauge core samples were obtained, and submitted in formalin to the pathologist for further assessment. The needle was removed. An occlusive sterile dressing was applied. Patient tolerated the procedure well, and returned to the holding bay for nursing monitoring. Patient complained of pain at biopsy site, despite being comfortable during the procedure. Patient was ordered 30 mg of Toradol IV. The patient continued to remain in a high level of pain, so an additional 50 mcg of fentanyl was ordered. This did provide improved pain control. IMPRESSION: 1. CT directed core needle biopsy of the liver, using CT image guidance with image documentation as described. 2. Procedural Sedation protocol utilized with independent monitoring. Procedures Radiology Radiology CT Procedures: 24394 Biopsy Liver Multi Select Codes Radiology Radiology CT Procedures: 58441-36 CT guidance parenchymal tissue
--- NOTE | 2023-09-15 13:40 | EX.PCM.CON.G ---
HPI Consult Data Date of Consult: 09/15/23 HPI Narrative Reason for Consultation: Increased liver enzymes HPI Narrative: COSMO MAYERS, is a 43-year-old female presenting with epigastric pain. She states it started about 3 PM today it has been constant until just before I entered the room. She states the pain subsided for the most part now. She was nauseous and vomiting. Denies a fever but states she was diaphoretic. Patient states the pain felt sharp and she admits to a previous episode that lasted about 20 minutes. Patient denies any significant medical problems other than acid reflux. She has a past medical history of rheumatoid arthritis not on current therapy, ADHD on Adderall, anxiety depression on venlafaxine. She describes her abdominal pain as severe sharp, stabbing, aching, throbbing 10/10 epigastric-->RUQ discomfort which radiated toward BL upper back, noted to be constant with associated nausea and emesis bout x 2 with no fever but notable diaphoresis which eventually improved at ~ 10 pm with a similar previous episode 2 weeks prior that at that time lasted for a 20-minute timeline and resolved. She also has a family history of gallbladder disease in her mother. In the ED patient remains pain free. She notes normal bowel movements. She is not currently . Workup in the ED included T98, heart rate 83, BP 158/108, respiratory rate 20, 97% on room air with most recent repeat vital signs heart rate 70, BP 135/80, respiratory rate 16, 98% on room air, CBC with WBC 9.4, hemoglobin 14.3, platelet 262 without marked shift CMP with glucose 139, calcium 10.5, T. bili 1.10, AST/ALT 902/565, alk phos 119, lipase 47, serum testing negativ, urinalysis with specific remedy 1.020, protein 30, negative nitrite, leukocyte Estrace 100 with 0-5 urine WBCs, 1+ urine bacteria gallbladder ultrasound with cholelithiasis and gallbladder wall thickening with a negative sonographic Gleason sign with findings consistent with adenomyomatosis and a mildly distended common bile duct, fatty liver CT scan abdomen pelvis displayed marked gallbladder wall thickening, no secondary inflammatory changes noted, hepatomegaly with steatosis, left ovarian 4.5 cm cyst, fibroid uterus. I was called because her liver enzymes keep elevating. She is no past history of hepatitis. She denies any recent fever, myalgias, muscle aches or fatigue. She does take Tylenol but she cannot quantify how much. Her ferritin was 944, ammonia is 29, copper is pending, ESR 29, CRP 11. She had a ultrasound that showed normal common bile duct diameter with stones in the gallbladder and mild gallbladder wall thickening. She had a HIDA scan that showed increased uptake into the liver without excretion over 90 minutes. I ordered MRCP and it did not show any signs obstruction but it did show possible gallbladder wall thickening. ON LICENSE OF [facility] Medical History (Updated 09/15/23 @ 07:[address] Jacqueline Jama MD) Former tobacco use GERD (gastroesophageal reflux disease) Obesity Asthma Unstable lie Gestational diabetes mellitus (GDM) Distortion of contour of breast Rheumatoid arthritis Depression with anxiety Abnormal ultrasound of breast Abnormal mammogram Home Medications ?Medication ?Instructions ?Recorded ?Last Taken ?Type venlafaxine 150 mg 150 mg PO DAILY #30 caps 05/13/16 03/23/23 06:00 Rx capsule,extended release 24 hr dextroamphetamine-amphetamine 20 20 mg PO BID 06/29/17 03/23/23 06:00 History mg tablet (Adderall) aripiprazole 5 mg tablet 5 mg PO DAILY anxiety and 03/23/23 03/22/23 22:00 History depression acetaminophen 500 mg tablet 1,000 mg (2 x 500 mg) PO Q6H #0 03/26/23 Unknown Rx tabs ibuprofen 600 mg tablet 600 mg PO Q6H #0 tabs 03/26/23 Unknown Rx diphenhydramine HCl 25 mg capsule 75 mg PO QHS 09/15/23 Unknown History (Benadryl) Allergy/AdvReac Type Severity Reaction Status Date / Time bupropion (From Wellbutrin) Allergy Mild Hives Verified 09/14/23 21:25 hydrocodone Allergy Mild Other Verified 09/14/23 21:25 promethazine (From Phenergan) Allergy Mild Other Verified 09/14/23 21:25 Sulfa (Sulfonamide Allergy Other Verified 09/14/23 21:25 Antibiotics) Family History (Updated 09/15/23 @ 02:[address] Kierra Han MD) Grandfather Arthritis Diabetes Hypertension Skin cancer Grandmother Arthritis Aunt Colon cancer Mother HLD (hyperlipidemia) Cholecystitis with cholelithiasis Father Diabetes Cholecystitis with cholelithiasis Surgical History Delivery by section history ORIF right fifth metatarsal Social History (Updated 09/15/23 @ 02:[address] Kierra Han MD) household members: family and children Smoking Status: Former smoker how long ago did patient quit smoking: Quit 5 yrs prior, smoked 1 pk/week since 17 until quit. alcohol intake: current alcohol intake frequency: a few times a month substance use type: does not use ROS ROS Narrative Admission Review of Systems: CONSTITUTIONAL: No weight loss, fever, chills, + weakness or fatigue. HEENT: Eyes: No visual loss, blurred vision, double vision or yellow sclerae. Ears, Nose, Throat: No hearing loss, sneezing, congestion, runny nose or sore throat. SKIN: No rash or itching, lesions, wounds. CARDIOVASCULAR: No chest pain, chest pressure or chest discomfort, palpitations, edema, orthopnea, syncopal events. RESPIRATORY: No shortness of breath, cough or sputum, wheezing, hemoptysis. GASTROINTESTINAL: + Nausea, vomiting, abdominal pain. No diarrhea, melena, BRBPR. GENITOURINARY: No dysuria, frequency, urgency or retention. NEUROLOGICAL: No headache, dizziness, syncope, paralysis, ataxia, numbness or tingling in the extremities, focal weakness, change in bowel or bladder control, seizure. MUSCULOSKELETAL: + muscle, back pain, joint pain or stiffness. HEMATOLOGIC: No anemia, bleeding or bruising. LYMPHATICS: No enlarged nodes. No history of splenectomy. PSYCHIATRIC: + history of depression and anxiety/ADHD. ENDOCRINOLOGIC: + reports of sweating. No cold or heat intolerance. No polyuria or polydipsia. ALLERGIES: No history of asthma, hives, eczema or rhinitis. Physical Exam Narrative Physical Examination: General: Awake, alert, oriented x 3 and cooperative, seated upright in the ED bed, fatigued otherwise no acute distress, no recurrent abdominal pain. Skin: Normal color, normal turgor, no icterus, no cyanosis. HEENT: AT/NC, EOMI, PERRLA, MMM, no carotid bruits or JVD noted. Lungs: CTA bilaterally, moderate effort, mild decrease BL bases, no rales, ronchi or wheezing. Heart: Regular rate and rhythm; no gallop, rub audible. Abdomen: Soft, obese, NTTP, mildly hyperactive BS, no appreciated distention or HSM. Extremities: No cyanosis, clubbing, or edema. Neurological: Patient awake, alert, oriented as noted, cognitive function intact; pupils equally reactive to light and accommodation, cranial nerves grossly normal, moving all 4 extremities, no focal deficits, strength preserved. Psychiatric: Affect appears fatigued otherwise normal, no acute evidence of depressive or anxiety feelings but does have underlying history. Lab / Micro Data 09/15/23 05:37 09/15/23 05:37 Labs: Laboratory Results - last 24 hr 09/14/23 22:13: WBC 9.4, RBC 4.64, Hgb 14.3, Hct 42.7, MCV 92.0, MCH 30.8, MCHC 33.5, RDW Std Deviation 41.1, RDW Coeff of Amy 12.3, Plt Count 262, MPV 9.7, Immature Gran % (Auto) 0.200, Neut % (Auto) 78.6 H, Lymph % (Auto) 14.1 L, Esmeralda % (Auto) 5.7, Eos % (Auto) 1.1, Baso % (Auto) 0.3, Absolute Neuts (auto) 7.4, Absolute Lymphs (auto) 1.32, Nucleated RBC % 0, Sodium 136, Potassium 3.9, Chloride 102, Carbon Dioxide 28.0, Anion Gap 6, BUN 13, Creatinine 0.84, Estim Creat Clear Calc 111.89, Est GFR (MDRD) Af Amer 96, Est GFR (MDRD) Non-Af 79, BUN/Creatinine Ratio 15.6, Glucose 139 H, Calcium 10.5 H, Total Bilirubin 1.10 H, AST 902 H, ALT 565 H, Alkaline Phosphatase 119 H, Total Protein 7.3, Albumin 3.9, Globulin 3.4, Albumin/Globulin Ratio 1.1, Lipase 47, Procalcitonin 0.08, Serum , Qual NEGATIVE, Urine Color Yellow, Urine Clarity Clear, Urine pH 6.5, Ur Specific [place] 1.020, Urine Protein 30 H, Urine Glucose (UA) Normal, Urine Ketones Negative, Urine Occult Blood Negative, Urine Nitrite Negative, Urine Bilirubin Negative, Urine Urobilinogen 1 H, Ur Leukocyte Esterase 100 H, Urine RBC 0 SEEN, Urine WBC 0-5 SEEN, Ur Squamous Epith Cells 0-5 SEEN, Urine Bacteria 1+, Urine Mucus 0 SEEN 09/15/23 05:37: WBC 5.5, RBC 4.23, Hgb 13.1, Hct 39.1, MCV 92.4, MCH 31.0, MCHC 33.5, RDW Std Deviation 41.3, RDW Coeff of Amy 12.2, Plt Count 223, MPV 9.7, Immature Gran % (Auto) 0.400, Neut % (Auto) 63.5, Lymph % (Auto) 25.7, Esmeralda % (Auto) 8.2, Eos % (Auto) 1.8, Baso % (Auto) 0.4, Absolute Neuts (auto) 3.5, Absolute Lymphs (auto) 1.41, Nucleated RBC % 0, ESR 4, Sodium 137, Potassium 3.7, Chloride 107, Carbon Dioxide 23.0, Anion Gap 7, BUN 8, Creatinine 0.68, Estim Creat Clear Calc 135.06, Est GFR (MDRD) Af Amer 123, Est GFR (MDRD) Non-Af 101, BUN/Creatinine Ratio 11.9, Glucose 110 H, Calcium 9.2, Ferritin 1083 H, Total Bilirubin 2.10 H, AST 1308 H, ALT 1072 H, Alkaline Phosphatase 135 H, Lactate Dehydrogenase 944 H, C-React Prot Ext Range 11.80 H, Total Protein 6.1 L, Albumin 3.4, Globulin 2.7, Albumin/Globulin Ratio 1.3 09/15/23 10:51: PT 13.1, INR 1.0, Ammonia 29.0, Acetaminophen < 2.0 L Imaging Radiology Impression Gallbladder Ultrasound 09/14/23 22:36 IMPRESSION: 1. Cholelithiasis and gallbladder wall thickening with negative sonographic Gleason''s sign. Pericholecystic fluid is nonspecific. Findings may be indicative of acute cholecystitis. There are also findings consistent with adenomyomatosis and a mildly distended common bile duct. Correlate clinically and consider a hepatobiliary scan as well as surgical consultation. 2. Fatty liver. Electronically Signed: Chandrakant Osuna DO at 23:30 EDT , Abdomen/Pelvis CT 09/14/23 23:57 IMPRESSION: Marked gallbladder wall thickening. Nonspecific can be seen with cholecystitis or liver disease. No secondary inflammatory changes. HIDA scan may be helpful if clinically indicated. Hepatomegaly with steatosis. Left ovarian 4.5 cm cyst. Pelvic ultrasound follow-up may be helpful as clinically indicated. Fibroid uterus. Electronically Signed: Raina Abreu MD at 1:01 EDT , Hepatobiliary Scan Nuclear Medicine 09/15/23 05:55 IMPRESSION: 1. ABNORMAL 99m Tc Mebrofenin hepatobiliary imaging examination. A. Nonvisualization of the gallbladder, hepatobiliary ducts and small intestinal tract with relatively delayed hepatocellular uptake and delayed washout is consistent with subacute high grade biliary obstruction in the setting of normal common biliary duct dimension. (Balon et al, Society of Nuclear Medicine Procedure Guideline for Hepatobiliary Scintigraphy Version 3.0 August 26, 2000 www.SNM.org). Alternatively, findings may represent nonobstructive cholestasis. (Guerchacara et al, J Nucl Med 36: 74P, 1994). Electronically Signed: Larry Arvizu DO at 11:05 EDT , MRCP 09/15/23 07:20 IMPRESSION: Suspect acute cholecystitis. No choledocholithiasis. Electronically Signed: Larry Dubon MD at 11:28 EDT , ADDENDUM: 09/15/23 1143 IMPRESSION: Suspect acute cholecystitis. No choledocholithiasis. N.B. : The above Results were Read Back by Larry Dubon MD to Paige Forte RN, and understanding confirmed on 09/15/2023 11:37:02 (ET). Electronically Signed: Larry Dubon MD at 11:28 EDT , Assessment & Plan Assessment/Plan (1) Elevated LFTs: PLAN: The differential diagnosis for hepatocellular injury into the thousands with mild hyperbilirubinemia can be seen in ischemic hepatitis, Tylenol induced liver injury, acute autoimmune hepatitis, viral hepatitis, choledocholithiasis and acute cholangitis. The imaging did not show any signs of obstructive disease. Ischemic hepatitis, commonly presents with transaminases that are greater than thousand and precipitating events such as transient hypotension is usually evident in history. While talking to her mother it was possibly the case where she had transient abdominal pain. The course of ischemic hepatitis is usually transient and you get rapid resolution with just supportive care. Autoimmune hepatitis is usually a chronic condition but can present with acute hepatitis. Overlap syndromes encompassing all autoimmune hepatitis can be either primary biliary cirrhosis or primary sclerosing cholangitis can lead to concomitant hyperbilirubinemia. She did not seem to fit the picture of a mononucleosis type syndrome without any fevers, muscle aches or fatigue. She does not drink any alcohol and alcohol use he never causes a AST or ALT elevation greater than 350. Acute viral hepatitis can also cause liver enzymes greater than the thousand. Her acute viral hepatitis profile is pending including CMV, EBV along with hepatitis viruses A, B, and C. Recommendation: -Await biochemical workup. I am leaning towards ischemic hepatitis either from locally induced inflammation from the gallbladder or from transient hypotension. -There is a possibility that it is an autoimmune component or viral etiology but that does not present with pain -I would not give her N-acetylcysteine at this time. And she is not presenting like a thrombosis leading to acute Budd-Chiari. -Continue supportive care and await liver biopsy -No need for empiric steroids at this time. Charges/Coding Visit Charges Inpatient E&M: 36607 Init Hosp L3
[2023-09-15] MEDS: Acetaminophen 325 MG Tablet 650 MG PO ×2 (16:55→20:47)
--- NOTE | 2023-09-15 17:01 | PCM.HOSP.N ---
Hospitalist Note Saw patient at bedside later this afternoon. Had extensive discussions today with Drs. Jama and Brice regarding plan of care for the patient. Patient had MRCP, HIDA scan and CT-guided liver biopsy done earlier today. Initially concern on admission was for acute cholecystitis and this cannot fully be ruled out yet, but labs and imaging seem more consistent with an intrinsic liver disease at this point. Large lab workup sent off by Dr. Narvaez, will follow-up on results. I talked with pathology earlier today regarding biopsy results and unfortunately because biopsy samples will need to be stained, results would not be available until Monday at the earliest. Until then, plan is to follow-up lab workup and monitor daily LFTs. When I saw the patient, she was laying comfortably in bed. Noted that she had pain with the liver biopsy but after being given IV pain medication she was feeling much better. Her main concern was that she felt very tired and wanted to continue to catch up on sleep. No other acute concerns at this time. Full progress note to follow tomorrow.
[2023-09-15 19:00] LABS: Amphetamine Urine VISTA POSITIVE (<1000 ng/mL); Barbiturate Urine VISTA NEGATIVE (< 200 ng/mL); Benzodiazepine Urine VISTA NEGATIVE (< 200 ng/mL); Cocaine Urine VISTA NEGATIVE (< 300 ng/mL); Ecstacy Urine VISTA NEGATIVE (< 500 ng/mL); Methadone Urine VISTA NEGATIVE (< 300 ng/mL); PCP Urine VISTA NEGATIVE (< 25 ng/mL); THC Urine VISTA NEGATIVE (< 50 ng/mL); Vista UDS pH Range 6
[2023-09-15] MEDS: DiphenhydrAMINE 25 MG Capsule 75 MG PO (20:47)
[2023-09-16] MEDS: Acetaminophen 325 MG Tablet 650 MG PO ×2 (01:18→05:25)
[2023-09-16] MEDS: oxyCODONE 5 MG Tablet PO ×5 (01:19→21:48)
[2023-09-16 05:04] VITALS: BMI 38.2
[2023-09-16] MEDS: Piperacil/Tazobactam 3.375 GM in 0.9% Normal Saline (50mL MB+) 50 ML IV ×3 (05:25→21:49)
[2023-09-16 06:13] LABS: HEPATITIS B SURFACE AG Negative (Negative); Hep C Antibodies Non Reactive (Non Reactive); Hepatitis A IgM Antibody Negative (Negative); Hepatitis B Core AB IgM Negative (Negative)
[2023-09-16 06:21] VITALS: BP 130/78; PULSE 80; RESP 16; TEMP 36.9; O2SAT 96
[2023-09-16 08:34] LABS: ALB/GLOB Ratio 1.1 RATIO (0.9-2.4); AST(SGOT) 456 U/L (15-37); Alanine Aminotransfer ALT/SGPT 856 U/L (13-56); Albumin, Serum 3.2 g/dL (3.2-5.0); Alkaline Phosphatase 165 U/L (45-117); Anion Gap 4 (5-15); BUN 6 mg/dL (7-18); BUN/Creat Ratio 9.9 RATIO (10-20); Calcium,Total 8.2 mg/dL (8.5-10.1); Chloride 107 mmol/L (98-107); EST Glomerular Filtration Rate 115 mL/min (>60); Est Glom Filt Rate - Afr Amer 140 mL/min (>60); Estimated Creatinine Clearance 153.99 ml/min; Globulin 2.9 g/dL (2.2-4.2); Glucose 115 mg/dL (74-106); Potassium 3.6 mmol/L (3.5-5.1); Protein, Total 6.1 g/dL (6.4-8.2); Sodium Level 138 mmol/L (136-145)
[2023-09-16] MEDS: Pantoprazole Sodium 40 MG Tablet PO (08:52)
[2023-09-16] MEDS: Venlafaxine XR 150 MG Capsule PO (08:52)
[2023-09-16] MEDS: ARIPiprazole 5 MG Tablet PO (08:52)
[2023-09-16] MEDS: Senna/Docusate Sodium 1 Tablet 2 TABLET PO (08:52)
--- NOTE | 2023-09-16 08:53 | PN.SURG_ITS ---
Subjective Subjective The patient reports her pain is improving from yesterday. She tolerated clear liquids no nausea or vomiting. She complains of pain up in her chest that radiates to her back under her rib cage. She denies any abdominal pain. Objective Data Objective Data Vital Signs: Vital Signs Temp Pulse Resp BP Pulse Ox O2 Del Method O2 Flow Rate 98.5 F 80 16 130/78 H 96 Room Air 2 09/16/23 06:21 09/16/23 06:21 09/16/23 06:21 09/16/23 06:21 09/16/23 06:21 09/16/23 08:20 09/15/23 13:31 Oxygen Flow Rate (L/min) 2 Oxygen Delivery Method Room Air Weight: 244 lb 0.827 oz Body Mass Index (BMI) 38.2 Intake & Output: Intake and Output for Last 24 Hours 09/14/23 09/15/23 09/16/23 23:59 23:59 23:59 Intake Total 2793.33 / 2793.33 1290 / 1290 Balance 2793.33 / 2793.33 1290 / 1290 Lab / Micro Data 09/15/23 05:37 09/16/23 07:10 Labs: Laboratory Results - last 24 hr 09/14/23 22:13: Urine Opiates Screen NEGATIVE, Urine Methadone Screen NEGATIVE, Ur Barbiturates Screen NEGATIVE, Ur Phencyclidine Scrn NEGATIVE, Ur Amphetamines Screen POSITIVE H, MDMA (Ecstasy) Screen NEGATIVE, U Benzodiazepines Scrn NEGATIVE, Urine Cocaine Screen NEGATIVE, U Cannabinoids Screen NEGATIVE, Ur Drug Screen Comment 09/15/23 10:51: PT 13.1, INR 1.0, Ammonia 29.0, Acetaminophen < 2.0 L, Hepatitis A IgM Ab Negative, Hep Bs Antigen Negative, Hep B Core IgM Ab Negative, Hepatitis C Ab (EIA) Non Reactive, Hep C Ab Comment Comment 09/16/23 07:10: Sodium 138, Potassium 3.6, Chloride 107, Carbon Dioxide 27.0, A nion Gap 4 L, BUN 6 L, Creatinine 0.60, Estim Creat Clear Calc 153.99, Est GFR (MDRD) Af Amer 140, Est GFR (MDRD) Non-Af 115, BUN/Creatinine Ratio 9.9 L, G lucose 115 H, Calcium 8.2 L, Total Bilirubin 3.20 H, AST 456 H, ALT 856 H, A lkaline Phosphatase 165 H, Total Protein 6.1 L, Albumin 3.2, Globulin 2.9, Albumin/Globulin Ratio 1.1 Radiography Diagnostic Testing: Radiology Impression Hepatobiliary Scan Nuclear Medicine 09/15/23 05:55 IMPRESSION: 1. ABNORMAL 99m Tc Mebrofenin hepatobiliary imaging examination. A. Nonvisualization of the gallbladder, hepatobiliary ducts and small intestinal tract with relatively delayed hepatocellular uptake and delayed washout is consistent with subacute high grade biliary obstruction in the setting of normal common biliary duct dimension. (Ryan et al, Society of Nuclear Medicine Procedure Guideline for Hepatobiliary Scintigraphy Version 3.0 August 26, 2000 www.SNM.org). Alternatively, findings may represent nonobstructive cholestasis. (Jessee et al, J Nucl Med 36: 74P, 1994). Electronically Signed: Larry Arvizu DO at 11:05 EDT , MRCP 09/15/23 07:20 IMPRESSION: Suspect acute cholecystitis. No choledocholithiasis. Electronically Signed: Larry Dubon MD at 11:28 EDT , ADDENDUM: 09/15/23 1143 IMPRESSION: Suspect acute cholecystitis. No choledocholithiasis. N.B. : The above Results were Read Back by Larry Dubon MD to Paige Forte RN, and understanding confirmed on 09/15/2023 11:37:02 (ET). Electronically Signed: Larry Dubon MD at 11:28 EDT , Physical Exam Const oriented x3 and no apparent distress Resp normal respiratory effort GI soft to palpation and non-tender Assessment & Plan Assessment/Plan (1) Elevated LFTs: PLAN: The patient's AST and ALT are coming down today. She says she is more comfortable and she tolerated clears. I do not believe this is acute cholecystitis as the patient's gallbladder lumen is very collapsed and her pain is mostly coming from her liver up in her chest not in her abdomen where the gallbladder would hurt. Continue conservative treatment and okay to advance diet from my standpoint if okay with GI. Sheldon Oliva MD Pager: [facility] [address] [place] [address] [address] [place] [address] Office:
[2023-09-16 09:06] VITALS: BP 113/76; PULSE 74; RESP 18; TEMP 36.6; O2SAT 96
--- NOTE | 2023-09-16 11:55 | PCM.PN.HOSP ---
Reason for Visit Reason for Visit: Diagnoses Calculus of bile duct without cholangitis or cholecystitis without obstruction (09/15/23) Other specified abnormal findings of blood chemistry (09/15/23) Subjective Subjective Saw patient at bedside this morning. Patient was laying comfortably in bed, in no acute distress. Stated that she continued to feel tired this morning but that her pain was improving from previous days. She denied any fevers or chills. No other new concerns today. Objective Data Objective Data Vital Signs: Vital Signs Temp Pulse Resp BP Pulse Ox O2 Del Method O2 Flow Rate 98 F 74 18 113/76 96 Room Air 2 09/16/23 09:06 09/16/23 09:06 09/16/23 09:06 09/16/23 09:06 09/16/23 09:06 09/16/23 09:06 09/15/23 13:31 Oxygen Flow Rate (L/min) 2 Oxygen Delivery Method Room Air Weight: 110.7 kg Body Mass Index (BMI) 38.2 Intake & Output: Intake and Output for Last 24 Hours 09/14/23 09/15/23 09/16/23 23:59 23:59 23:59 Intake Total 2793.33 / 2793.33 1340 / 1340 Balance 2793.33 / 2793.33 1340 / 1340 Lab / Micro Data 09/15/23 05:37 09/16/23 07:10 Labs: Laboratory Results - last 24 hr 09/14/23 22:13: Urine Opiates Screen NEGATIVE, Urine Methadone Screen NEGATIVE, Ur Barbiturates Screen NEGATIVE, Ur Phencyclidine Scrn NEGATIVE, Ur Amphetamines Screen POSITIVE H, MDMA (Ecstasy) Screen NEGATIVE, U Benzodiazepines Scrn NEGATIVE, Urine Cocaine Screen NEGATIVE, U Cannabinoids Screen NEGATIVE, Ur Drug Screen Comment 09/15/23 10:51: Acetaminophen < 2.0 L, Hepatitis A IgM Ab Negative, Hep Bs Antigen Negative, Hep B Core IgM Ab Negative, Hepatitis C Ab (EIA) Non Reactive, Hep C Ab Comment Comment 09/16/23 07:10: Sodium 138, Potassium 3.6, Chloride 107, Carbon Dioxide 27.0, Anion Gap 4 L, BUN 6 L, Creatinine 0.60, Estim Creat Clear Calc 153.99, Est GFR (MDRD) Af Amer 140, Est GFR (MDRD) Non-Af 115, BUN/Creatinine Ratio 9.9 L, Glucose 115 H, Calcium 8.2 L, Total Bilirubin 3.20 H, AST 456 H, ALT 856 H, Alkaline Phosphatase 165 H, Total Protein 6.1 L, Albumin 3.2, Globulin 2.9, Albumin/Globulin Ratio 1.1 Physical Exam Const alert, oriented x3 and no apparent distress Constitutional Narrative: Pleasant middle-age female, obese, laying comfortably in bed, conversing normally, no acute distress. General Appearance: cooperative and comfortable HEENT normocephalic, head/scalp atraumatic, hearing grossly normal bilaterally, nasal mucous membranes and turbinates normal and moist oral mucous membranes Eyes PERRL, EOMs intact bilaterally and conjunctivae normal Neck full ROM Chest inspection of chest normal Resp normal respiratory effort, normal air movement, no use of accessory muscles and clear to auscultation bilaterally Cardio regular rate, regular rhythm, no murmurs and peripheral pulses 2+ throughout GI GI Narrative: Mild tenderness to palpation in right upper quadrant. Otherwise abdomen soft and nondistended. Back/Spine normal ROM Extremity normal to inspection, full ROM and no pedal edema Skin no rashes or lesions noted Neuro moves all extremities and no focal motor deficits Speech: speech normal Psych mental status grossly normal Assessment & Plan Assessment/Plan (1) Elevated LFTs: PLAN: Plan Patient is a 43-year-old female who presented [facility] ED on 09/15/2023 with acute onset upper abdominal pain. 1. Elevated LFTs ? GI and general surgery following. Presentation initially concerning for acute cholecystitis but on further workup appears more likely to be intrinsic liver disease of unclear etiology. Has had CT abdomen pelvis, gallbladder ultrasound, MRCP and HIDA scan done to this point. These imaging studies showed gallbladder wall thickening with gallstones, but no bile duct dilation and per surgery gallbladder is decompressed, so low likelihood for acute cholecystitis. Because of very elevated LFTs, CT-guided liver biopsy done on 09/14, biopsy results pending. Large lab workup sent per GI. Hepatitis panel negative. Patient clinically improving from pain standpoint and LFTs slowly downtrending on 09/15. Biopsy results will likely be available on Sunday 09/17. Will continue to monitor LFTs and follow-up pending GI labs for now. Treating pain with low-dose oxycodone and IV morphine as needed. 2. Incidental left ovarian cyst ? CT abdomen pelvis on admit showed left ovarian 4.5 cm cyst with fibroid uterus. No inpatient needs, recommend outpatient follow-up with gynecology. Chronic medical conditions: ? Obesity: BMI 38 on admit. Encouraged lifestyle modifications. Complicates hospital course, care and prognosis. ? Anxiety/depression/ADHD: Stable. Continue home venlafaxine, aripiprazole and Benadryl at night. Patient not taking Adderall regularly per her report, no need for Adderall while inpatient. ? GERD: Continue home PPI. ? Former tobacco use: Encouraged continued cessation. DVT prophylaxis: Lovenox CODE STATUS: Full code, verified Expected disposition: Home, TBD Total clinical time spent by myself addressing the patient's medical issues, reviewing all the data, and collaborating with patient's care team: 35 minutes. Charges/Coding Visit Charges Inpatient E&M: 74527 Subs Hosp L2
[2023-09-16 15:00] VITALS: BP 118/76; PULSE 77; RESP 16; TEMP 36.8; O2SAT 96
[2023-09-16] MEDS: Ondansetron 4 MG/2 ML Vial IV (15:10)
[2023-09-16] MEDS: 0.9% Saline Lock 10 ML Syringe IV (15:10)
[2023-09-16 21:43] VITALS: BP 134/85; PULSE 77; RESP 16; TEMP 37.3; O2SAT 97
[2023-09-16] MEDS: DiphenhydrAMINE 25 MG Capsule 50 MG PO (21:48)
[2023-09-17 04:34] VITALS: BP 141/66; PULSE 69; RESP 16; TEMP 36.8; O2SAT 99
[2023-09-17] MEDS: Piperacil/Tazobactam 3.375 GM in 0.9% Normal Saline (50mL MB+) 50 ML IV ×3 (06:15→22:36)
--- NOTE | 2023-09-17 06:53 | PN.SURG_ITS ---
Subjective Subjective Patient reports no abdominal pain this morning. She did have some pain last night. Denies nausea or vomiting. Objective Data Objective Data Vital Signs: Vital Signs Temp Pulse Resp BP Pulse Ox O2 Del Method O2 Flow Rate 98.3 F 69 16 141/66 H 99 Room Air 2 09/17/23 04:34 09/17/23 04:34 09/17/23 04:34 09/17/23 04:34 09/17/23 04:34 09/17/23 04:34 09/15/23 13:31 Oxygen Flow Rate (L/min) 2 Oxygen Delivery Method Room Air Weight: 244 lb 0.827 oz Body Mass Index (BMI) 38.2 Intake & Output: Intake and Output for Last 24 Hours 09/15/23 09/16/23 09/17/23 23:59 23:59 23:59 Intake Total 2793.33 / 2793.33 2390 / 2390 850 / 850 Balance 2793.33 / 2793.33 2390 / 2390 850 / 850 Lab / Micro Data 09/15/23 05:37 09/16/23 07:10 Labs: Laboratory Results - last 24 hr 09/16/23 07:10: Sodium 138, Potassium 3.6, Chloride 107, Carbon Dioxide 27.0, A nion Gap 4 L, BUN 6 L, Creatinine 0.60, Estim Creat Clear Calc 153.99, Est GFR (MDRD) Af Amer 140, Est GFR (MDRD) Non-Af 115, BUN/Creatinine Ratio 9.9 L, G lucose 115 H, Calcium 8.2 L, Total Bilirubin 3.20 H, AST 456 H, ALT 856 H, A lkaline Phosphatase 165 H, Total Protein 6.1 L, Albumin 3.2, Globulin 2.9, Albumin/Globulin Ratio 1.1 Physical Exam Const oriented x3 and no apparent distress Resp normal respiratory effort GI soft to palpation and non-tender Assessment & Plan Assessment/Plan (1) Elevated LFTs: PLAN: Patient denies abdominal pain this morning. She tolerated clear liquids. I will try to advance her to regular diet to see how she tolerates this. Awaiting morning labs. Sheldon Oliva MD Pager: [facility] [address] [place] [address], [address] [place] [address] Office:
[2023-09-17 07:28] LABS: Hematocrit 38.5 % (37-47); Hemoglobin 12.9 g/dL (12.0-15.0); Mean Corp Hgb Conc 33.5 g/dL (32-36); Mean Corpuscular Hgb 31.5 pg (27.0-32.0); Mean Corpuscular Volume 93.9 fL (81-99); Mean Platelet Vol. 9.6 fl (6.2-12.0); Platelet Count 207 K/mm3 (150-450); RBC Distribution Width CV 12.3 % (11.6-14.6); RBC Distribution Width SD 42.5 fl (35.1-43.9); White Blood Count 5.6 K/mm3 (4.4-11.0)
[2023-09-17 08:00] VITALS: BMI 38.2
[2023-09-17 08:04] LABS: ALB/GLOB Ratio 1.1 RATIO (0.9-2.4); AST(SGOT) 159 U/L (15-37); Alanine Aminotransfer ALT/SGPT 551 U/L (13-56); Albumin, Serum 3.2 g/dL (3.2-5.0); Alkaline Phosphatase 147 U/L (45-117); Anion Gap 6 (5-15); BUN 5 mg/dL (7-18); BUN/Creat Ratio 8.8 RATIO (10-20); Calcium,Total 8.7 mg/dL (8.5-10.1); Chloride 106 mmol/L (98-107); Creatinine, Serum 0.57 mg/dL (0.55-1.02); EST Glomerular Filtration Rate 124 mL/min (>60); Est Glom Filt Rate - Afr Amer 150 mL/min (>60); Estimated Creatinine Clearance 162.09 ml/min; Glucose 105 mg/dL (74-106); Potassium 3.6 mmol/L (3.5-5.1); Protein, Total 6.2 g/dL (6.4-8.2); Sodium Level 139 mmol/L (136-145)
[2023-09-17 09:30] VITALS: BP 105/79; PULSE 85; RESP 18; TEMP 36.6; O2SAT 97
[2023-09-17] MEDS: ARIPiprazole 5 MG Tablet PO (09:33)
[2023-09-17] MEDS: Venlafaxine XR 150 MG Capsule PO (09:33)
[2023-09-17] MEDS: Senna/Docusate Sodium 1 Tablet 2 TABLET PO ×2 (09:43→22:35)
[2023-09-17] MEDS: Enoxaparin 40 MG/0.4 ML Syringe SC (09:43)
[2023-09-17] MEDS: Pantoprazole Sodium 40 MG Tablet PO (09:43)
[2023-09-17 09:48] VITALS: PULSE 85; RESP 18
[2023-09-17] MEDS: Acetaminophen 325 MG Tablet 650 MG PO (09:56)
--- NOTE | 2023-09-17 12:15 | PCM.PN.HOSP ---
Reason for Visit Reason for Visit: Diagnoses Calculus of bile duct without cholangitis or cholecystitis without obstruction (09/15/23) Other specified abnormal findings of blood chemistry (09/15/23) Subjective Subjective Saw patient at bedside this morning, mother present. Patient appeared much improved today from previous days. She was sitting up comfortably in bed, conversing normally, in no acute distress. She was asking if there was a possibility she could go home today. Her labs are improving but unfortunately we are still waiting for biopsy results and further lab results to determine the etiology of her liver injury and thus it is important for her to stay in the hospital till tomorrow at least. Patient notably had a baby about 5 months ago and is anxious to get home to be with her baby. No other new concerns today. Objective Data Objective Data Vital Signs: Vital Signs Temp Pulse Resp BP Pulse Ox O2 Del Method O2 Flow Rate 98 F 85 18 105/79 97 Room Air 97 09/17/23 09:30 09/17/23 09:48 09/17/23 09:48 09/17/23 09:30 09/17/23 09:30 09/17/23 09:48 09/17/23 09:48 Oxygen Flow Rate (L/min) 97 Oxygen Delivery Method Room Air Weight: 110.7 kg Body Mass Index (BMI) 38.2 Intake & Output: Intake and Output for Last 24 Hours 09/15/23 09/16/23 09/17/23 23:59 23:59 23:59 Intake Total 2793.33 / 2793.33 2390 / 2390 1200 / 1200 Balance 2793.33 / 2793.33 2390 / 2390 1200 / 1200 Lab / Micro Data 09/17/23 06:50 09/17/23 06:50 Labs: Laboratory Results - last 24 hr 09/17/23 06:50: WBC 5.6, RBC 4.10 L, Hgb 12.9, Hct 38.5, MCV 93.9, MCH 31.5, MCHC 33.5, RDW Std Deviation 42.5, RDW Coeff of Amy 12.3, Plt Count 207, MPV 9.6, Sodium 139, Potassium 3.6, Chloride 106, Carbon Dioxide 27.0, Anion Gap 6, BUN 5 L, Creatinine 0.57, Estim Creat Clear Calc 162.09, Est GFR (MDRD) Af Amer 150, Est GFR (MDRD) Non-Af 124, BUN/Creatinine Ratio 8.8 L, Glucose 105, Calcium 8.7, Total Bilirubin 1.40 H, AST 159 H, ALT 551 H, Alkaline Phosphatase 147 H, Total Protein 6.2 L, Albumin 3.2, Globulin 3.0, Albumin/Globulin Ratio 1.1 Physical Exam Const alert, oriented x3 and no apparent distress Constitutional Narrative: Pleasant middle-age female, obese, sitting up comfortably in bed, conversing normally, no acute distress. Improved from admission. General Appearance: cooperative and comfortable HEENT normocephalic, head/scalp atraumatic, hearing grossly normal bilaterally, nasal mucous membranes and turbinates normal and moist oral mucous membranes Eyes PERRL, EOMs intact bilaterally and conjunctivae normal Neck full ROM Chest inspection of chest normal Resp normal respiratory effort, normal air movement, no use of accessory muscles and clear to auscultation bilaterally Cardio regular rate, regular rhythm, no murmurs and peripheral pulses 2+ throughout GI GI Narrative: Abdomen soft, nondistended and now nontender to palpation. Improved from admission. Back/Spine normal ROM Extremity normal to inspection, full ROM and no pedal edema Skin no rashes or lesions noted Neuro moves all extremities and no focal motor deficits Speech: speech normal Psych mental status grossly normal Assessment & Plan Assessment/Plan (1) Elevated LFTs: PLAN: Plan Patient is a 43-year-old female who presented [facility] ED on 09/15/2023 with acute onset upper abdominal pain. 1. Elevated LFTs, improving ? GI and general surgery following. Presentation initially concerning for acute cholecystitis but on further workup appears more likely to be intrinsic liver disease of unclear etiology. No new medications indicated for possible DILI. Did deliver baby about 5 months ago but would seem odd for this presentation to be related to her recent . Has had CT abdomen pelvis, gallbladder ultrasound, MRCP and HIDA scan done to this point. These imaging studies showed gallbladder wall thickening with gallstones, but no bile duct dilation and per surgery gallbladder is decompressed, so low likelihood for acute cholecystitis. Because of very elevated LFTs, CT-guided liver biopsy done on 09/14, biopsy results pending. Large lab workup sent per GI. Hepatitis panel negative. Patient clinically improving from pain standpoint and LFTs downtrending. Biopsy results will likely be available on Sunday 09/17. Will continue to monitor LFTs and follow-up pending GI labs for now. Treating pain with low-dose oxycodone as needed. If biopsy results and further lab results available on Monday and diagnosis with treatment plan in place, patient should be stable for discharge home tomorrow. 2. Incidental left ovarian cyst ? CT abdomen pelvis on admit showed left ovarian 4.5 cm cyst with fibroid uterus. No inpatient needs, recommend outpatient follow-up with gynecology. Chronic medical conditions: ? Obesity: BMI 38 on admit. Encouraged lifestyle modifications. Complicates hospital course, care and prognosis. ? Anxiety/depression/ADHD: Stable. Continue home venlafaxine, aripiprazole and Benadryl at night. Patient not taking Adderall regularly per her report, no need for Adderall while inpatient. ? GERD: Continue home PPI. ? Former tobacco use: Encouraged continued cessation. DVT prophylaxis: Lovenox CODE STATUS: Full code, verified Expected disposition: Home, 1 to 2 days Total clinical time spent by myself addressing the patient's medical issues, reviewing all the data, and collaborating with patient's care team: 35 minutes. Charges/Coding Visit Charges Inpatient E&M: 10103 Subs Hosp L2
[2023-09-17 15:30] VITALS: BP 137/70; PULSE 65; RESP 18; TEMP 36.6; O2SAT 98
[2023-09-17] MEDS: Ondansetron 4 MG/2 ML Vial IV (15:44)
[2023-09-17] MEDS: 0.9% Saline Lock 10 ML Syringe IV (15:44)
[2023-09-17 16:00] VITALS: PULSE 65; RESP 18; O2SAT 98
[2023-09-17] MEDS: oxyCODONE 5 MG Tablet PO ×2 (17:59→22:35)
[2023-09-17 20:09] VITALS: BP 136/76; PULSE 77; RESP 18; TEMP 36.8; O2SAT 98
[2023-09-17] MEDS: DiphenhydrAMINE 25 MG Capsule 50 MG PO (22:36)
[2023-09-18] MEDS: Ondansetron 4 MG/2 ML Vial IV (00:06)
[2023-09-18 02:50] VITALS: BP 122/71; PULSE 87; RESP 16; TEMP 36.8; O2SAT 96
[2023-09-18] MEDS: Piperacil/Tazobactam 3.375 GM in 0.9% Normal Saline (50mL MB+) 50 ML IV ×2 (05:26→13:29)
[2023-09-18 05:49] VITALS: BMI 38.2
--- NOTE | 2023-09-18 08:37 | NURSING ---
LAB CALLED IE:CMP ordered for this am not drawn
[2023-09-18 08:45] VITALS: BP 125/89; PULSE 74; RESP 18; TEMP 36.6; O2SAT 97
[2023-09-18 10:14] LABS: ALB/GLOB Ratio 0.9 RATIO (0.9-2.4); AST(SGOT) 115 U/L (15-37); Alanine Aminotransfer ALT/SGPT 411 U/L (13-56); Albumin, Serum 3.2 g/dL (3.2-5.0); Alkaline Phosphatase 167 U/L (45-117); Anion Gap 9 (5-15); BUN 7 mg/dL (7-18); BUN/Creat Ratio 9.9 RATIO (10-20); Calcium,Total 8.8 mg/dL (8.5-10.1); Chloride 106 mmol/L (98-107); Creatinine, Serum 0.71 mg/dL (0.55-1.02); EST Glomerular Filtration Rate 96 mL/min (>60); Est Glom Filt Rate - Afr Amer 116 mL/min (>60); Globulin 3.6 g/dL (2.2-4.2); Glucose 161 mg/dL (74-106); Protein, Total 6.8 g/dL (6.4-8.2); Sodium Level 139 mmol/L (136-145)
[2023-09-18] MEDS: Enoxaparin 40 MG/0.4 ML Syringe SC (10:32)
[2023-09-18] MEDS: Venlafaxine XR 150 MG Capsule PO (10:33)
[2023-09-18] MEDS: Pantoprazole Sodium 40 MG Tablet PO (10:33)
[2023-09-18] MEDS: Senna/Docusate Sodium 1 Tablet 2 TABLET PO ×2 (10:33→22:22)
--- NOTE | 2023-09-18 11:00 | PN.HOSP_ITS ---
Reason for Visit Reason for Visit: Diagnoses Calculus of bile duct without cholangitis or cholecystitis without obstruction (09/15/23) Other specified abnormal findings of blood chemistry (09/15/23) Subjective Subjective Had repeat episode of severe pain overnight with food and went back tolerating clear liquids due to concern for repeat of the pain, was epigastric and radiated to the right was 10 out of 10 for about an hour associated with nausea Objective Data Objective Data Vital Signs: Vital Signs Temp Pulse Resp BP Pulse Ox O2 Del Method O2 Flow Rate 98.9 F 77 18 131/88 H 96 Room Air 97 09/18/23 14:43 09/18/23 14:43 09/18/23 14:43 09/18/23 14:43 09/18/23 14:43 09/18/23 14:43 09/17/23 09:48 Oxygen Flow Rate (L/min) 97 Oxygen Delivery Method Room Air Weight: 110.5 kg Body Mass Index (BMI) 38.2 Intake & Output: Intake and Output for Last 24 Hours 09/16/23 09/17/23 09/18/23 23:59 23:59 23:59 Intake Total 2390 / 2390 1550 / 1550 1750 / 1750 Balance 2390 / 2390 1550 / 1550 1750 / 1750 Lab / Micro Data 09/17/23 06:50 09/18/23 09:13 Labs: Laboratory Results - last 24 hr 09/15/23 10:51: YOJANA-1 Antibody <0.2, SS-A/Ro IgG Antibody < 0.2, SS-B/La IgG Antibody < 0.2, Sm (Victoria) Antibody <0.2, ENERGY RISK MANAGEMENT ANALYST Antibody 0.2, Scl-70 Scleroderma Ab <0.2, Double Strand DNA Ab <1, Centromere B Antibody <0.2, Anti-Mitochondrial Ab <20.0 09/18/23 09:13: Sodium 139, Potassium 4.0, Chloride 106, Carbon Dioxide 24.0, Anion Gap 9, BUN 7, Creatinine 0.71, Estim Creat Clear Calc 130.00, Est GFR (MDRD) Af Amer 116, Est GFR (MDRD) Non-Af 96, BUN/Creatinine Ratio 9.9 L, G lucose 161 H, Calcium 8.8, Total Bilirubin 1.50 H, AST 115 H, ALT 411 H, A lkaline Phosphatase 167 H, Total Protein 6.8, Albumin 3.2, Globulin 3.6, Albumin/Globulin Ratio 0.9 Physical Exam Narrative General: Alert, oriented, no apparent distress HEENT: Atraumatic, normocephalic Eyes: Anicteric, normal conjunctiva, extraocular movements grossly intact Neck: Supple Respiratory: Clear to auscultation bilaterally, normal respiratory effort Cardiovascular: Regular rate and rhythm GI: Soft, nontender, nondistended Extremities: No edema Musculoskeletal: Moving all extremities Neuro: No overt focal neurological deficits Skin: No rashes appreciated Psych: Cooperative Assessment & Plan Assessment/Plan (1) Elevated LFTs: PLAN: Plan #Elevated LFTs- 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 # Incidental left ovarian cyst -CT abdomen/pelvis showed left ovarian 4.5 cm cyst with fibroid uterus -Follow-up outpatient # History of anxiety/depression -Continue medications #GERD -Continue PPI #DVT ppx: Lovenox subcu Joy Castaneda MD Charges/Coding Visit Charges Inpatient E&M: 25084 [facility] L1
--- NOTE | 2023-09-18 11:40 | PCM.PN.SRG ---
Subjective Subjective Patient is a evaluated resting comfortably in bed. Her mother is present in the room as well. Patient noted having epigastric pain with associated nausea around 5:30 pm last night. Patient notes the pain did not last very long. She notes having a regular diet for breakfast and lunch. She notes not eating dinner due to the pain. She has not had any pain this morning. She does note intermittent nausea. Objective Data Objective Data Vital Signs: Vital Signs Temp Pulse Resp BP Pulse Ox O2 Del Method O2 Flow Rate 97.8 F 74 18 125/89 H 97 Room Air 97 09/18/23 08:45 09/18/23 08:45 09/18/23 08:45 09/18/23 08:45 09/18/23 08:45 09/18/23 08:45 09/17/23 09:48 Oxygen Flow Rate (L/min) 97 Oxygen Delivery Method Room Air Weight: 243 lb 9.773 oz Body Mass Index (BMI) 38.2 Intake & Output: Intake and Output for Last 24 Hours 09/16/23 09/17/23 09/18/23 23:59 23:59 23:59 Intake Total 2390 / 2390 1550 / 1550 1000 / 1000 Balance 2390 / 2390 1550 / 1550 1000 / 1000 Lab / Micro Data 09/17/23 06:50 09/18/23 09:13 Labs: Laboratory Results - last 24 hr 09/18/23 09:13: Sodium 139, Potassium 4.0, Chloride 106, Carbon Dioxide 24.0, Anion Gap 9, BUN 7, Creatinine 0.71, Estim Creat Clear Calc 130.00, Est GFR (MDRD) Af Amer 116, Est GFR (MDRD) Non-Af 96, BUN/Creatinine Ratio 9.9 L, Glucose 161 H, Calcium 8.8, Total Bilirubin 1.50 H, AST 115 H, ALT 411 H, Alkaline Phosphatase 167 H, Total Protein 6.8, Albumin 3.2, Globulin 3.6, Albumin/Globulin Ratio 0.9 Physical Exam GI GI Narrative: Abdomen- slight tenderness in the RUQ, otherwise no pain to palpation Assessment & Plan Assessment/Plan (1) Elevated LFTs: PLAN: I am following this patient in conjunction with Dr. Oliva. He will independently evaluate this patient. Patient's lab work reviewed with liver enzymes trending down. Awaiting liver biopsy results Working diagnosis at this time is possible ischemic hepatitis causing inflammation of the gallbladder No surgical intervention planned at this time Continue regular diet From a surgical standpoint at this time, patient may be discharged today We will continue to monitor this patient for ongoing changes in her symptoms Charges/Coding Visit Charges Inpatient E&M: 66767 [facility] Hosp L1
[2023-09-18 14:43] VITALS: BP 131/88; PULSE 77; RESP 18; TEMP 37.2; O2SAT 96
[2023-09-18 15:08] LABS: Anti-Centromere B Ab <0.2 AI (0.0-0.9); Anti-Chromatin <0.2 AI (0.0-0.9); Anti-Jo <0.2 AI (0.0-0.9); Anti-Mitochondrial AB <20.0 Units (0.0-20.0); Anti-Scleroderma-70 AB <0.2 AI (0.0-0.9); Anti-dsDNA Ab <1 IU/mL (0-9); RNP Ab 0.2 AI (0.0-0.9); SJOGREN'S Anti-SS-A test < 0.2 AI (0.0-0.9); SJOGREN'S Anti-SS-B test < 0.2 AI (0.0-0.9); Smith Ab <0.2 AI (0.0-0.9)
--- NOTE | 2023-09-18 18:05 | EX.PCM.PN.GI ---
Subjective Subjective Patient still has been having intermittent abdominal pain. She is able to eat some clear liquids. Her nausea is a lot better. She has been on PPI therapy and antibiotic therapy. She did have 1 small bowel movement today. She rates her pain at a 4 out of 10 but can be as severe as 10 out of 10. Objective Data Objective Data Vital Signs: Vital Signs Temp Pulse Resp BP Pulse Ox O2 Del Method O2 Flow Rate 98.9 F 77 18 131/88 H 96 Room Air 97 09/18/23 14:43 09/18/23 14:43 09/18/23 14:43 09/18/23 14:43 09/18/23 14:43 09/18/23 14:43 09/17/23 09:48 Oxygen Flow Rate (L/min) 97 Oxygen Delivery Method Room Air Weight: 243 lb 9.773 oz Body Mass Index (BMI) 38.2 Intake & Output: Intake and Output for Last 24 Hours 09/16/23 09/17/23 09/18/23 23:59 23:59 23:59 Intake Total 2390 / 2390 1550 / 1550 1750 / 1750 Balance 2390 / 2390 1550 / 1550 1750 / 1750 Lab / Micro Data 09/17/23 06:50 09/18/23 09:13 Labs: Laboratory Results - last 24 hr 09/15/23 10:51: YOJANA-1 Antibody <0.2, SS-A/Ro IgG Antibody < 0.2, SS-B/La IgG Antibody < 0.2, Sm (Victoria) Antibody <0.2, MARKETING AND OUTREACH COORDINATOR Antibody 0.2, Scl-70 Scleroderma Ab <0.2, Double Strand DNA Ab <1, Centromere B Antibody <0.2, Anti-Mitochondrial Ab <20.0 09/18/23 09:13: Sodium 139, Potassium 4.0, Chloride 106, Carbon Dioxide 24.0, Anion Gap 9, BUN 7, Creatinine 0.71, Estim Creat Clear Calc 130.00, Est GFR (MDRD) Af Amer 116, Est GFR (MDRD) Non-Af 96, BUN/Creatinine Ratio 9.9 L, Glucose 161 H, Calcium 8.8, Total Bilirubin 1.50 H, AST 115 H, ALT 411 H, Alkaline Phosphatase 167 H, Total Protein 6.8, Albumin 3.2, Globulin 3.6, Albumin/Globulin Ratio 0.9 Physical Exam Const alert, oriented x3 and no apparent distress Constitutional Narrative: Pleasant middle-age female, obese, sitting up comfortably in bed, conversing normally, no acute distress. Improved from admission. General Appearance: cooperative and comfortable HEENT normocephalic, head/scalp atraumatic, hearing grossly normal bilaterally, nasal mucous membranes and turbinates normal and moist oral mucous membranes Eyes PERRL, EOMs intact bilaterally and conjunctivae normal Neck full ROM Chest inspection of chest normal Resp normal respiratory effort, normal air movement, no use of accessory muscles and clear to auscultation bilaterally Cardio regular rate, regular rhythm, no murmurs and peripheral pulses 2+ throughout GI GI Narrative: Abdomen soft, nondistended and now nontender to palpation. Improved from admission. Back/Spine normal ROM Extremity normal to inspection, full ROM and no pedal edema Skin no rashes or lesions noted Neuro moves all extremities and no focal motor deficits Speech: speech normal Psych mental status grossly normal Assessment & Plan Assessment/Plan (1) Elevated LFTs: PLAN: The differential diagnosis for hepatocellular injury into the thousands with mild hyperbilirubinemia can be seen in ischemic hepatitis, Tylenol induced liver injury, acute autoimmune hepatitis, viral hepatitis, choledocholithiasis and acute cholangitis. The imaging did not show any signs of obstructive disease. Ischemic hepatitis, commonly presents with transaminases that are greater than thousand and precipitating events such as transient hypotension is usually evident in history. While talking to her mother it was possibly the case where she had transient abdominal pain. The course of ischemic hepatitis is usually transient and you get rapid resolution with just supportive care. Autoimmune hepatitis is usually a chronic condition but can present with acute hepatitis. Overlap syndromes encompassing all autoimmune hepatitis can be either primary biliary cirrhosis or primary sclerosing cholangitis can lead to concomitant hyperbilirubinemia. She did not seem to fit the picture of a mononucleosis type syndrome without any fevers, muscle aches or fatigue. She does not drink any alcohol and alcohol use he never causes a AST or ALT elevation greater than 350. Acute viral hepatitis can also cause liver enzymes greater than the thousand. Her acute viral hepatitis profile is pending including CMV, EBV along with hepatitis viruses A, B, and C. Recommendation: -Await biochemical workup. I am leaning towards ischemic hepatitis either from locally induced inflammation from the gallbladder or from transient hypotension. -There is a possibility that it is an autoimmune component or viral etiology but that does not present with pain -I would not give her N-acetylcysteine at this time. And she is not presenting like a thrombosis leading to acute Budd-Chiari. -Continue supportive care and await liver biopsy -No need for empiric steroids at this time. 09/18/2023-patient LFTs have greatly improved. Her liver biopsy came back today and it shows micro and macrovesicular steatosis with chronic hepatitis likely secondary to DE LA PAZ. There was no interface hepatitis that would be viewed in autoimmune hepatitis. We are waiting her anti-smooth muscle antibody and antimitochondrial antibodies. Her viral hepatitis studies are normal. Her CMV, EBV are also pending. I believe this is just acute hepatitis secondary to ischemic hepatitis. She is getting better. Await recommendations from surgery. Charges/Coding Visit Charges Inpatient E&M: 97213 Subs Hosp L3
[2023-09-18] MEDS: ARIPiprazole 5 MG Tablet PO (22:21)
[2023-09-18] MEDS: 0.9% Saline Lock 10 ML Syringe IV (22:22)
[2023-09-18] MEDS: DiphenhydrAMINE 25 MG Capsule 50 MG PO (22:22)
[2023-09-18 22:47] VITALS: BP 142/85; PULSE 68; RESP 16; TEMP 36.8; O2SAT 96
[2023-09-18] MEDS: Ondansetron ODT 4 MG Tablet PO (23:38)
[2023-09-19 06:00] VITALS: BMI 37.9
[2023-09-19 06:09] VITALS: BP 147/72; PULSE 69; RESP 16; TEMP 36.7; O2SAT 98
[2023-09-19 08:32] LABS: Absolute Lymphocyte Count 1.51 X10^3/uL (0.83-4.51); Absolute Neutrophil Count 3.2 X10^3/uL (2.0-7.7); Basophil# 0.03 X10^3/uL; Basophil% 0.5 % (0-1); Eosinophil# 0.27 X10^3/uL; Eosinophils% 4.9 % (0-5); Hemoglobin 13.4 g/dL (12.0-15.0); Lymphocyte # 1.51 X10^3/ul (0.83-4.51); Lymphocyte % 27.5 % (19-41); Mean Corp Hgb Conc 32.7 g/dL (32-36); Mean Corpuscular Hgb 30.3 pg (27.0-32.0); Mean Corpuscular Volume 92.8 fL (81-99); Mean Platelet Vol. 9.9 fl (6.2-12.0); Monocyte# 0.43 X10^3/uL; Monocyte% 7.8 % (0-10); NRBC Flagged by Analyzer 0 % (0-5); Neutrophil # 3.24 X10^3/uL (2.7-7.7); Neutrophil % 58.9 % (47-70); Platelet Count 245 K/mm3 (150-450); RBC Distribution Width CV 12.2 % (11.6-14.6); RBC Distribution Width SD 41.8 fl (35.1-43.9); Red Blood Count 4.42 M/mm3 (4.2-5.4); White Blood Count 5.5 K/mm3 (4.4-11.0)
[2023-09-19 08:46] LABS: Anion Gap 6 (5-15); BUN 9 mg/dL (7-18); BUN/Creat Ratio 16.7 RATIO (10-20); Calcium,Total 9.2 mg/dL (8.5-10.1); Chloride 107 mmol/L (98-107); Creatinine, Serum 0.54 mg/dL (0.55-1.02); EST Glomerular Filtration Rate 131 mL/min (>60); Est Glom Filt Rate - Afr Amer 159 mL/min (>60); Estimated Creatinine Clearance 170.16 ml/min; Glucose 118 mg/dL (74-106); Sodium Level 138 mmol/L (136-145)
[2023-09-19 09:15] LABS: AST(SGOT) 112 U/L (15-37); Alanine Aminotransfer ALT/SGPT 350 U/L (13-56); Albumin, Serum 3.4 g/dL (3.2-5.0); Alkaline Phosphatase 170 U/L (45-117); Bilirubin, Direct 0.78 mg/dL (0.00-0.30); Globulin 3.6 g/dL (2.2-4.2)
[2023-09-19 09:37] VITALS: O2SAT 95
[2023-09-19] MEDS: Pantoprazole Sodium 40 MG Tablet PO (10:13)
[2023-09-19] MEDS: Venlafaxine XR 150 MG Capsule PO (10:13)
[2023-09-19] MEDS: Senna/Docusate Sodium 1 Tablet 2 TABLET PO (10:14)
[2023-09-19 10:23] VITALS: BP 119/83; PULSE 65; RESP 18; TEMP 36.6; O2SAT 99
--- NOTE | 2023-09-19 11:09 | PCM.PN.SRG ---
Subjective Subjective Patient evaluated resting comfortably in bed this morning. Patient notes intermittent nausea and very minimal amount of pain. She denies any pain last night after dinner. Objective Data Objective Data Vital Signs: Vital Signs Temp Pulse Resp BP Pulse Ox O2 Del Method O2 Flow Rate 97.9 F 65 18 119/83 H 99 Room Air 97 09/19/23 10:23 09/19/23 10:09/19/23 10:09/19/23 10:09/19/23 10:09/19/23 10:09/17/23 09:48 Oxygen Flow Rate (L/min) 97 Oxygen Delivery Method Room Air Weight: 241 lb 10.026 oz Body Mass Index (BMI) 37.9 Intake & Output: Intake and Output for Last 24 Hours 09/17/23 09/18/23 09/19/23 23:59 23:59 23:59 Intake Total 1550 / 1550 1800 / 1800 Balance 1550 / 1550 1800 / 1800 Lab / Micro Data 09/19/23 07:59 09/19/23 07:59 Labs: Laboratory Results - last 24 hr 09/15/23 10:51: YOJANA-1 Antibody <0.2, SS-A/Ro IgG Antibody < 0.2, SS-B/La IgG Antibody < 0.2, Sm (Victoria) Antibody <0.2, LABOR RELATIONS REPRESENTATIVE Antibody 0.2, Scl-70 Scleroderma Ab <0.2, Double Strand DNA Ab <1, Centromere B Antibody <0.2, Anti-Mitochondrial Ab <20.0 09/19/23 07:59: WBC 5.5, RBC 4.42, Hgb 13.4, Hct 41.0, MCV 92.8, MCH 30.3, MCHC 32.7, RDW Std Deviation 41.8, RDW Coeff of Amy 12.2, Plt Count 245, MPV 9.9, Immature Gran % (Auto) 0.400, Neut % (Auto) 58.9, Lymph % (Auto) 27.5, Mcdonough % (Auto) 7.8, Eos % (Auto) 4.9, Baso % (Auto) 0.5, Absolute Neuts (auto) 3.2, Absolute Lymphs (auto) 1.51, Nucleated RBC % 0, Sodium 138, Potassium 4.0, Chloride 107, Carbon Dioxide 25.0, Anion Gap 6, BUN 9, Creatinine 0.54 L, Estim Creat Clear Calc 170.16, Est GFR (MDRD) Af Amer 159, Est GFR (MDRD) Non-Af 131, BUN/Creatinine Ratio 16.7, Glucose 118 H, Calcium 9.2, Total Bilirubin 1.00, Direct Bilirubin 0.78 H, AST 112 H, ALT 350 H, Alkaline Phosphatase 170 H, Total Protein 7.0, Albumin 3.4, Globulin 3.6 Physical Exam GI GI Narrative: Abdomen- soft, slight tenderness in the epigastric and RUQ Assessment & Plan Assessment/Plan (1) Elevated LFTs: PLAN: I am following this patient in conjunction with Dr. Jama. She has independently evaluated this patient. Patient's mother stressed her frustration this morning as the multiple specialties involved have not been communicating and they have been getting conflicting plans and outcomes. Liver biopsy returned consistent with chronic hepatitis stage 2. DE LA PAZ was discussed with the patient by Dr. Narvaez, whom had recommended diet change at this time. Labs have returned demonstrating liver enzymes have decreased. Total Bilirubin has returned to normal. I have extensively discussed with Dr. Jama in regards to a laparoscopic cholecystectomy with the final decision being not to proceed with surgical intervention at this time as it is primarily the inflammation of the liver. We have discussed with the patient and her mother that we are not recommending a laparoscopic cholecystectomy at this time. We have recommended placing the patient on a PPI going home. We have discussed staying away from fatty/oily/greasy foods at this time. She will follow-up in [address] Jama. At that time, Dr. Jama will determine whether the patient will need to pursue a cholecystectomy or continue with a PPI. If the patient tolerates a regular diet, she may be discharged from a surgical standpoint. Dr. Jama has discussed the plan with Dr. Castaneda. She will need a 2 week follow-up with Dr. Jama. Charges/Coding Visit Charges Inpatient E&M: 84937 [facility] Hosp L1
[2023-09-19] MEDS: Famotidine 20 MG Tablet 40 MG PO (12:40)
[2023-09-19] MEDS: Ondansetron ODT 4 MG Tablet PO (13:17)
[2023-09-19 14:10] LABS: Anti-Smooth Muscle ABS 5 Units (0-19); CMV Acute Antibody IgM < 30.0 AU/mL (0.0-29.9); Ceruloplasmin 30.5 mg/dL (19.0-39.0); Copper, Serum or Plasma 122 ug/dL (80-158); Cytoplasmic Ab (C-ANCA) <1:20 titer (Neg:<1:20); Deamidated Gliadin IgA 4 units (0-19); Deamidated Gliadin IgG 4 units (0-19); EBV Acute VCA IgM < 36.0 U/mL (0.0-35.9); Endomysial Antibody IgA Negative (Negative); Immunoglobulin A 92 mg/dL (87-352); Perinuclear Ab (P-ANCA) <1:20 titer (Neg:<1:20); t-Transglutaminase IgA <2 U/mL (0-3)
--- NOTE | 2023-09-19 14:41 | PCM.DC ---
Discharge Instructions Diet Discharge Diet: Light diet - advance as tolerated Activity Discharge Activity: Return to Normal Activity Follow Up Care Test Results: Test results from this visit will be discussed in further detail at your follow-up appointment, if applicable. Discharge Plan Admission Admit Date/Time: 09/15/23 14:19 Primary Reason for Your Visit: Abdominal pain Attending Provider: Joy Castaneda Primary Care Provider: Caden Almazan Consulting Providers: Jacqueline Jama; Kierra Han; Brice Sifuentes; Po Ware Instructions Patient Instructions: RAD RN Biopsy Liver Dc, ED [place] [place] (Adult) Additional Instructions / Restrictions: DISCHARGE INSTRUCTIONS PLEASE READ *Please take this with you to your next doctors appointment* -Please follow-up with Dr. Jama in 2 weeks. Please call their office to schedule hospital follow-up appointment upon discharge. -You will need to follow-up with Dr. Narvaez with GI in his office upon discharge. Please call his office to schedule your hospital follow-up appointment (ph. [phone]) - Recommend against taking ibuprofen or NSAIDs in the short-term until cleared to do so by your physician -You will be discharged on Protonix and as needed Zofran -Please call your primary care provider's office upon discharge to schedule a hospital follow up within 1 week. -For any concerning signs or symptoms please call 911 or proceed to the nearest emergency department Discharge Orders/Prescriptions Prescriptions: New pantoprazole 40 mg Tablet,Delayed Release (Dr/Ec) 40 mg PO DAILY 30 Days Qty: 30 0RF ondansetron 4 mg tablet,disintegrating 4 mg PO Q6H PRN (Reason: nausea and vomiting) Qty: 30 0RF Continued dextroamphetamine-amphetamine [Adderall] 20 mg tablet 20 mg PO BID venlafaxine 150 MG capsule 150 mg PO DAILY Qty: 30 3RF aripiprazole 5 mg tablet 5 mg PO DAILY Patient Comments: TAKE 1 TABLET BY MOUTH EVERY DAY diphenhydramine HCl [Benadryl] 25 mg capsule 75 mg PO QHS Discontinued acetaminophen 500 mg Tablet 1,000 mg PO Q6H Qty: 0 0RF ibuprofen 600 mg Tablet 600 mg PO Q6H Qty: 0 0RF Referrals / Follow Up: Caden Almazan MD [Primary Care Provider] - Within 1 Week Friend,Cheng, DO [Med Staff - Active Staff] - ( -You will need to follow-up with Dr. Narvaez with GI in his office upon discharge. Please call his office to schedule your hospital follow-up appointment (ph. [phone])) Jacqueline Jama MD [Med Staff - Active Staff] - Within 2 Weeks Disposition Disposition (needs filled in before D/C Order can be placed): Home, Self Care
--- NOTE | 2023-09-19 14:46 | PCM.DC.SUM ---
Providers Date of Admission: 09/15/23 Date of Discharge: 09/19/23 Primary Care Physician: Dr. Caden Almazan MD Consultations 09/15/23 02:44 Consult: General Surgery Routine Consulting Provider: Jacqueline Jama Reason for Consult: ? Choledocholithiasis EMERGENT Consult: No Notified: Yes Date Notified: 09/15/23 Time Notified: 01:49 Method of Notification: ED Physician Initiated 09/15/23 07:16 Consult: Gastroenterology Routine Consulting Provider: [facility] Reason for Consult: ? 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 Reason For Visit: ABDOMINAL PAIN CHOLEDOCHOLITHIASIS Diagnosis Discharge Diagnosis (1) Elevated LFTs: Status: Acute Code(s): R79.89 - Other specified abnormal findings of blood chemistry (2) Chronic hepatitis: Status: Chronic Code(s): K73.9 - Chronic hepatitis, unspecified (3) Ovarian cyst: Status: Acute Code(s): N83.209 - Unspecified ovarian cyst, unspecified side Plan #Elevated LFTs- chronic micro and macro vesicular steatosis with chronic hepatitis likely secondary to Barker #Gallbladder thickening and gallstones # Incidental left ovarian cyst # History of anxiety/depression #GERD Medications at Discharge Home Medications venlafaxine 150 mg capsule,extended release 24 hr 150 mg PO DAILY #30 caps 05/13/16 dextroamphetamine-amphetamine 20 mg tablet (Adderall) 20 mg PO BID 06/29/17 aripiprazole 5 mg tablet 5 mg PO DAILY anxiety and depression 03/23/23 diphenhydramine HCl 25 mg capsule (Benadryl) 75 mg PO QHS 09/15/23 ondansetron 4 mg disintegrating tablet 4 mg PO Q6H PRN nausea and vomiting #30 tabs 09/19/23 pantoprazole 40 mg tablet,delayed release 40 mg PO DAILY 30 days #30 tabs 09/19/23 Hospital Course Procedures - (MRCP, liver bx) Summary of Care Provided Minutes Spent on Discharge: 36 Hospital Course: 43-year-old female with history of asthma, anxiety and depression, GERD and recent delivery 03/29/2023 who presented to [facility] ED 09/15/2023 with severe epigastric pain radiating to right upper quadrant. Patient had AST of 902 and ALT of 565 with total bili of 1.1 and alk phos of 119. AST and ALT increased to the thousands and both surgery and GI were consulted, she had imaging that demonstrated gallbladder wall thickening but given significantly elevated LFTs it was felt that this was primarily inflammation of the liver, given patient's significant hepatitis her gallbladder was managed conservatively and she was initially given antibiotics and supportive care and had a liver biopsy ultimately which showed micro and macrovesicular steatosis with chronic hepatitis likely secondary to Barker. Per GI the acute hepatitis was likely ischemic hepatitis. Surgery followed and ultimately felt given patient's significant improvement that it was reasonable to discharge on a PPI, light diet, as needed Zofran and follow-up in 2 weeks as she may need gallbladder in the future however given improvement in his felt that this could be evaluated at a follow-up. Discussed with patient and her mother and they were agreeable, patient with no new or acute complaints. Discharge instructions as follows: -Please follow-up with Dr. Jama in 2 weeks. Please call their office to schedule hospital follow-up appointment upon discharge. -You will need to follow-up with Dr. Narvaez with GI in his office upon discharge. Please call his office to schedule your hospital follow-up appointment (ph. [phone]) - Recommend against taking ibuprofen or NSAIDs in the short-term until cleared to do so by your physician -You will be discharged on Protonix and as needed Zofran -Please call your primary care provider's office upon discharge to schedule a hospital follow up within 1 week. -For any concerning signs or symptoms please call 911 or proceed to the nearest emergency department Physical Exam Narrative General: Alert, oriented, no apparent distress HEENT: Atraumatic, normocephalic Eyes: extraocular movements grossly intact Neck: Supple Respiratory: normal respiratory effort Cardiovascular: no edema appreciated GI: nondistended Extremities: Moving all extremities Neuro: No overt focal neurological deficits Psych: Cooperative Weight / BMI Weight Weight: 109.6 kg Body Mass Index (BMI) 37.9 ABG / Lab / Microbiology Data 09/19/23 07:59 09/19/23 07:59 Laboratory: Laboratory Results - last 24 hr 09/15/23 10:51: Ceruloplasmin 30.5, Serum Copper 122, IgA 92, c-ANCA Antibody <1:20, Atypical p-ANCA <1:20, p-ANCA Antibody <1:20, YOJANA-1 Antibody <0.2, SS-A/Ro IgG Antibody < 0.2, SS-B/La IgG Antibody < 0.2, Sm ([place]) Antibody <0.2, NURSING INFORMATICS ANALYST Antibody 0.2, Scl-70 Scleroderma Ab <0.2, Double Strand DNA Ab <1, Centromere B Antibody <0.2, Anti-Mitochondrial Ab <20.0, Anti-Smooth Muscle Ab 5, Endomysial IgA Ab Negative, Tiss Transglutamin IgG 4, Tiss Transglutamin IgA <2, Anti-Gliadin IgG Ab 4, Anti-Gliadin IgA Ab 4, CMV IgG Ab 5.10 H, CMV IgM Ab < 30.0, EBV Capsid Ag IgG Ab 300.0 H, EBV Capsid Ag IgM Ab < 36.0, EBV Nuclear Ag IgG Ab 414.0 H, EBV Antibody Interp Comment 09/19/23 07:59: WBC 5.5, RBC 4.42, Hgb 13.4, Hct 41.0, MCV 92.8, MCH 30.3, MCHC 32.7, RDW Std Deviation 41.8, RDW Coeff of Amy 12.2, Plt Count 245, MPV 9.9, Immature Gran % (Auto) 0.400, Neut % (Auto) 58.9, Lymph % (Auto) 27.5, [place] % (Auto) 7.8, Eos % (Auto) 4.9, Baso % (Auto) 0.5, Absolute Neuts (auto) 3.2, Absolute Lymphs (auto) 1.51, Nucleated RBC % 0, Sodium 138, Potassium 4.0, Chloride 107, Carbon Dioxide 25.0, Anion Gap 6, BUN 9, Creatinine 0.54 L, Estim Creat Clear Calc 170.16, Est GFR (MDRD) Af Amer 159, Est GFR (MDRD) Non-Af 131, BUN/Creatinine Ratio 16.7, Glucose 118 H, Calcium 9.2, Total Bilirubin 1.00, Direct Bilirubin 0.78 H, AST 112 H, ALT 350 H, Alkaline Phosphatase 170 H, Total Protein 7.0, Albumin 3.4, Globulin 3.6 D/C Instructions Discharge Diet: Light diet - advance as tolerated Meaningful Use Info Meaningful Use Meaningful Use Diagnoses (Choose all that apply): None applicable Ischemic Stroke Statin Dosing Therapy Reference: STATIN DOSE THERAPY REFERENCE: * Patients > 75 years receive moderate or high dose statin therapy. * Patients 75 years or YOUNGER should receive HIGH intensity statin dose unless contraindicated. You will be required to document reason for non-treatment if statin daily dose does not meet guidelines. HIGH DOSE STATIN THERAPY DAILY Atorvastatin > than or = to 40 mg Rosuvastatin > than or = to 20 mg Amlodipine + Atorvastatin > than or = to 2.5/40 mg Ezetimibe + Simvastatin 10/80 mg Simvastatin 80mg Discharge Plan Admission Admit Date/Time: 09/15/23 14:19 Primary Reason for Your Visit: Abdominal pain Attending Provider: Joy Castaneda Primary Care Provider: Caden Almazan Consulting Providers: Jacqueline Jama; Kierra Han; Brice Sifuentes; Po Ware Instructions Forms: Work / School Excuse Patient Instructions: RAD RN Biopsy Liver Dc, ED [place] (Adult) Additional Instructions / Restrictions: DISCHARGE INSTRUCTIONS PLEASE READ *Please take this with you to your next doctors appointment* -Please follow-up with Dr. Jama in 2 weeks. Please call their office to schedule hospital follow-up appointment upon discharge. -You will need to follow-up with Dr. Narvaez with GI in his office upon discharge. Please call his office to schedule your hospital follow-up appointment (ph. [phone]) - Recommend against taking ibuprofen or NSAIDs in the short-term until cleared to do so by your physician -You will be discharged on Protonix and as needed Zofran -Please call your primary care provider's office upon discharge to schedule a hospital follow up within 1 week. -For any concerning signs or symptoms please call 911 or proceed to the nearest emergency department Discharge Orders/Prescriptions Prescriptions: New pantoprazole 40 mg Tablet,Delayed Release (Dr/Ec) 40 mg PO DAILY 30 Days Qty: 30 0RF ondansetron 4 mg tablet,disintegrating 4 mg PO Q6H PRN (Reason: nausea and vomiting) Qty: 30 0RF Continued dextroamphetamine-amphetamine [Adderall] 20 mg tablet 20 mg PO BID venlafaxine 150 MG capsule 150 mg PO DAILY Qty: 30 3RF aripiprazole 5 mg tablet 5 mg PO DAILY Patient Comments: TAKE 1 TABLET BY MOUTH EVERY DAY diphenhydramine HCl [Benadryl] 25 mg capsule 75 mg PO QHS Discontinued acetaminophen 500 mg Tablet 1,000 mg PO Q6H Qty: 0 0RF ibuprofen 600 mg Tablet 600 mg PO Q6H Qty: 0 0RF Referrals / Follow Up: Caden Almazan MD [Primary Care Provider] - Within 1 Week Cheng Narvaez DO [Med Staff - Active Staff] - ( -You will need to follow-up with Dr. Narvaez with GI in his office upon discharge. Please call his office to schedule your hospital follow-up appointment (ph. [phone])) Jacqueline Jama MD [Med Staff - Active Staff] - Within 2 Weeks Disposition Disposition (needs filled in before D/C Order can be placed): Home, Self Care Charges/Coding Visit Charges Inpatient E&M: 40369 Disch Hosp >30min
--- NOTE | 2023-09-19 15:16 | PHA.DC_ITS ---
Pharmacy [facility] Pharmacy Service has performed discharge medication reconciliation and counseling for this patient. The patient's discharge medication list was reviewed for discrepancies and discrepancies were resolved. The patient was counseled on the following discharge medications and changes in medications for homegoing were reviewed. The Reason for Use, instructions for use, and potential side effects were reviewed for all new medications. The patient's questions regarding all of their medications were answered. 1. Pantoprazole 40 mg PO daily 2. Ondansetron 4 mg PO Q6H PRN nausea and vomiting The patient was able to verbally demonstrate an understanding of their discharge medications. The patient was counselled on new medications by instructor adjunct pharmacy technician Neptali. Medications at Discharge Home Medications venlafaxine 150 mg capsule,extended release 24 hr 150 mg PO DAILY #30 caps 05/13/16 dextroamphetamine-amphetamine 20 mg tablet (Adderall) 20 mg PO BID 06/29/17 aripiprazole 5 mg tablet 5 mg PO DAILY anxiety and depression 03/23/23 diphenhydramine HCl 25 mg capsule (Benadryl) 75 mg PO QHS 09/15/23 ondansetron 4 mg disintegrating tablet 4 mg PO Q6H PRN nausea and vomiting #30 tabs 09/19/23 pantoprazole 40 mg tablet,delayed release 40 mg PO DAILY 30 days #30 tabs 09/19/23
[2023-09-19 15:35] VITALS: BP 135/84; PULSE 73; RESP 16; TEMP 36.9; O2SAT 96
== END 2023-09-19 15:50 | disposition home or self-care (01) ==
LOC: ED 23:28 → MS3 09-15 04:38
PROVIDERS: Hospitalist; Internal Medicine Gastroenterology; Physician Assistant; Admitting Provider Family Medicine; Emergency Provider Student in an Organized Health Care Education/Training Program; PCP Family Medicine; Visit Provider Internal Medicine
DX: K73.8 Other chronic hepatitis, not elsewhere classified (principal); E66.9 Obesity, unspecified; K75.81 Nonalcoholic steatohepatitis (NASH); F32.A Depression, unspecified; K80.20 Calculus of gallbladder without cholecystitis without obstruction; F41.9 Anxiety disorder, unspecified; K21.9 Gastro-esophageal reflux disease without esophagitis; Z68.38 Body mass index [BMI] 38.0-38.9, adult; F90.9 Attention-deficit hyperactivity disorder, unspecified type; N83.202 Unspecified ovarian cyst, left side; Z79.899 Other long term (current) drug therapy; Z87.891 Personal history of nicotine dependence; Z80.0 Family history of malignant neoplasm of digestive organs
CPT/HCPCS: 36415; 74177; 74181; 76705; 77012; 78227; 80048; 80053; 80074; 80076; 80307; 80329; 81001; 82140; 82390; 82525; 82728; 82784; 83516; 83615; 83690; 84145; 84703; 85025; 85027; 85610; 85652; 86140; 86225; 86235; 86255; 86256; 86644; 86645; 86664; 86665; 88307; 88312; 94668; 97802; 99156; 99283; A9537; J7030; J7050; Q9967; A4216; G0480; J2405

== ENCOUNTER → 2023-10-12 | Outpatient (CLI) | payer MEDICAID, SELFPAY ==
[2023-10-12 10:29] LABS: Absolute Lymphocyte Count 2.25 X10^3/uL (0.83-4.51); Absolute Neutrophil Count 5.4 X10^3/uL (2.0-7.7); Basophil# 0.05 X10^3/uL; Basophil% 0.6 % (0-1); Eosinophil# 0.28 X10^3/uL; Eosinophils% 3.2 % (0-5); Hematocrit 43.8 % (37-47); Hemoglobin 14.1 g/dL (12.0-15.0); Lymphocyte # 2.25 X10^3/ul (0.83-4.51); Lymphocyte % 26.1 % (19-41); Mean Corp Hgb Conc 32.2 g/dL (32-36); Mean Corpuscular Hgb 30.5 pg (27.0-32.0); Mean Corpuscular Volume 94.6 fL (81-99); Mean Platelet Vol. 10.3 fl (6.2-12.0); NRBC Flagged by Analyzer 0 % (0-5); Neutrophil % 62.6 % (47-70); Platelet Count 307 K/mm3 (150-450); RBC Distribution Width CV 11.9 % (11.6-14.6); RBC Distribution Width SD 41.3 fl (35.1-43.9); Red Blood Count 4.63 M/mm3 (4.2-5.4); White Blood Count 8.6 K/mm3 (4.4-11.0)
[2023-10-12 10:46] LABS: Erythrocyte Sedimentation Rate 4 mm/hr (0-30)
[2023-10-12 10:59] LABS: AST(SGOT) 59 U/L (15-37); Alanine Aminotransfer ALT/SGPT 139 U/L (13-56); Albumin, Serum 3.9 g/dL (3.2-5.0); Alkaline Phosphatase 144 U/L (45-117); Anion Gap 6 (5-15); BUN 14 mg/dL (7-18); BUN/Creat Ratio 20.2 RATIO (10-20); CRP 4.55 mg/L (0.0-3.0); Calcium,Total 9.9 mg/dL (8.5-10.1); Chloride 108 mmol/L (98-107); Creatinine, Serum 0.69 mg/dL (0.55-1.02); EST Glomerular Filtration Rate 98 mL/min (>60); Est Glom Filt Rate - Afr Amer 119 mL/min (>60); Globulin 3.8 g/dL (2.2-4.2); Glucose 103 mg/dL (74-106); Potassium 4.4 mmol/L (3.5-5.1); Protein, Total 7.7 g/dL (6.4-8.2); Sodium Level 140 mmol/L (136-145)
== END | disposition home or self-care (01) ==
LOC: LAB 08:32
PROVIDERS: PCP Family Medicine; Referring Provider Internal Medicine Gastroenterology; Visit Provider Internal Medicine Gastroenterology
DX: K73.9 Chronic hepatitis, unspecified (principal)
CPT/HCPCS: 36415; 80053; 85025; 85652; 86140

== ENCOUNTER → 2023-10-28 | Outpatient (CLI) | payer MEDICAID, SELFPAY ==
--- NOTE | 2023-10-30 07:30 | US_ITS ---
STUDY: ABDOMINAL ULTRASOUND - RIGHT UPPER QUADRANT REASON FOR VISIT: Female, 43 years old follow up from ER on gallbladder TECHNIQUE: Ultrasound evaluation of the right upper quadrant was performed with real-time and static preciado-scale imaging. TECHNICAL QUALITY: Limited. Examination limited by bowel gas. COMPARISON: Comparison is made with prior sonogram dated September 14, 2023. FINDINGS: Liver: The liver is enlarged and measures 19 cm. There is increased echogenicity consistent with fatty infiltration. The bile ducts are within normal limits. There is hepatic color flow. The direction of portal flow is hepatopetal. There is no demonstrated mass lesion. Gallbladder: Normal distended gallbladder. The gallbladder wall is thickened and measures 5.1 mm. There is a negative sonographic Gleason''s sign. There is no pericholecystic fluid. Contracted stone filled gallbladder. Common Bile Duct (C.B.D.): The common bile duct measures 6. mm. Pancreas: Normal size of the head, body and tail of the pancreas. There is normal echogenicity of the pancreas. There is no demonstrated pancreatic mass or cyst. Right Kidney: Normal size of the right kidney. The right kidney measures 13 cm x 6.1 cm x 4.4 cm. Normal renal cortex. The right cortex measures 1.6 cm. There is no demonstrated renal mass or cyst. There is no right hydronephrosis. US/Gallbladder IMPRESSION: Contracted stone filled gallbladder. Gallbladder wall thickening. Hepatomegaly and fatty infiltration of the liver. Electronically Signed: Brice Sifuentes MD at 12:07 EDT ,
== END | disposition home or self-care (01) ==
LOC: US 10:25
PROVIDERS: PCP Family Medicine; Referring Provider Surgery; Visit Provider Surgery
DX: R79.89 Other specified abnormal findings of blood chemistry (principal)
CPT/HCPCS: 76705

== ENCOUNTER 2023-10-31 11:23 | Day surgery (SDC) | payer MEDICAID, SELFPAY ==
[2023-10-31] VITALS (7 sets, daily range): BP systolic 121–128; BP diastolic 85–98; PULSE 90–109; RESP 16–20; TEMP 36.2–36.5; O2SAT 96–98; BMI 36.3
[2023-10-31] MEDS: Lactated Ringers 1,000 ML 15 ML IV (11:48)
--- NOTE | 2023-10-31 12:16 | PRE.ANES_ITS ---
ASA Classification* ASA Classification ASA Classification: 2 Assessment & Plan Anesthesia* Anesthesia Assessment Anesthesia Assessment: Discussed sedation and/or anesthesia options, risks, benefits, and alternatives with patient/parents/legal guardian/POA. Questions invited. The patient/parents/legal guardian/POA seems to understand and agrees to proceed with anesthesia plan. Reviewed the physical assessment, medical history, allergy history and patient home medications list prior to surgery/procedure/anesthetic and documented any changes. Performed airway and anesthesia risk assessments. Anesthesia Type Anesthesia Type: MAC History Source History Obtained from:: Patient and Chart Anesthesia Focused Assessment* Temperature: 97.4 F Pulse Rate: 95 Blood Pressure: 121/85 Respiratory Rate: 18 Pulse Ox: 96 Oxygen Delivery Method: Room Air Airway Assessment Mouth opens: >3 cm Mallampati Score: I Teeth Condition: Intact Neck Range of motion (ROM): Full ROM Focused Labs Anesthesia Preop lab: CBC WBC 8.6 K/mm3 (4.4-11.0) 10/12/23 08:36 RBC 4.63 M/mm3 (4.2-5.4) 10/12/23 08:36 Hgb 14.1 g/dL (12.0-15.0) 10/12/23 08:36 Hct 43.8 % (37-47) 10/12/23 08:36 Plt Count 307 K/mm3 (150-450) 10/12/23 08:36 CHEMISTRY Potassium 4.4 mmol/L (3.5-5.1) 10/12/23 08:36 Sodium 140 mmol/L (136-145) 10/12/23 08:36 BUN 14 mg/dL (7-18) 10/12/23 08:36 Creatinine 0.69 mg/dL (0.55-1.02) 10/12/23 08:36 Glucose 103 mg/dL (74-106) 10/12/23 08:36 POC Glucose 84 mg/dL (74-106) 03/25/23 05:24 TSH 1.55 uIU/mL (0.358-3.74) 10/01/15 11:29 COAG PT 13.1 SECONDS (11.7-14.9) 09/15/23 10:51 HCG, Quant 1263 mIU/mL (<9 non-preg) H 09/11/15 11:38 Pre-Assessment Diagnosis/Proposed Procedure Planned Operative Procedure(s): EGD Anesthesia History Anesthesia History - cloth bleaching supervisor: Anesthesia History - cloth bleaching supervisor Hx Hospitalization Yes: 09/2023 GALLBLADDER 10/25/23 09:42 ATTACK Any Problems With Anesthesia No 10/25/23 09:42 Cholinesterase deficiency No 10/25/23 09:42 You/Your Family Experience No 10/25/23 09:42 fever (hyperthermia) with Relationship Recent Exposure to Contagious No 10/31/23 11:49 Disease Does patient have nerve No 10/25/23 09:42 stimulator Patient instructed to have device shut off --Does patient have Pacemaker No 10/31/23 11:49 or ICD? When Was Last Pacemaker Check QUESTION #4 FULL TEXT: You/Your Family Experience fever (hyperthermia) with Anesthesia Last Oral Intake Last Oral intake: Last Oral Intake NPO since 00:00 10/31/23 11:49 Meds taken in AM with sips of Yes 10/31/23 11:49 water? Meds patient instructed to take am of surgery PONV PONV - cloth bleaching supervisor: PONV - cloth bleaching supervisor Female Yes 10/25/23 09:42 HX of Motion Sickness No 10/25/23 09:42 HX of N/V After Surgery No 10/25/23 09:42 Non-Smoker Yes 10/25/23 09:42 Duration of Surgery greater No 10/25/23 09:42 than 60 minutes Number of Risk Factors 2 10/25/23 09:42 PONV Score Moderate Risk 10/25/23 09:42 Height & Weight Height & Weight: Anesthesia: Height & Weight Height 5 ft 7 in 10/31/23 11:49 Weight: 105.233 kg 10/31/23 11:49 Body Mass Index (BMI) 36.3 10/31/23 11:49 Respiratory Assessment Respiratory Assessment - cloth bleaching supervisor: Respiratory Tract Infection Hx - cloth bleaching supervisor Hx Respiratory Tract Infection No 10/25/23 09:42 STOP Sleep Apnea STOP Sleep Apnea - cloth bleaching supervisor: STOP Sleep Apnea - cloth bleaching supervisor Hx Hypertension No 10/25/23 09:42 Hx Sleep Apnea No 10/25/23 09:42 CPAP BIPAP Do you snore loudly (louder No 10/25/23 09:42 than talking or can be heard Do you often feel tired/ No 10/25/23 09:42 fatigued/ sleepy during daytime? Has anyone observed you stop No 10/25/23 09:42 breathing during sleep? STOP Results Negative 10/25/23 09:42 QUESTION #5 FULL TEXT : Do you snore loudly (louder than talking or can be heard through closed doors)? Tobacco Use History Tobacco Use History - cloth bleaching supervisor: Tobacco Use History - cloth bleaching supervisor Tobacco Use Smoking Status Former smoker 10/25/23 09:42 Hx Tobacco Use No 10/25/23 09:42 Years Smoking Packs Smoked per Day Smoking Cessation Date was Yes - quit smoking within 15 10/25/23 09:42 within the last 15 years years Hx Smoking Cessation Date 03/06/21 10/25/23 09:42 Hx Smoking Cessation Counseling Hematologic Medial History Hematologic Hx - cloth bleaching supervisor: Hematologic Medical Hx - datawarehouse developer Hx of Blood Transfusion No 10/25/23 09:42 Hx of Transfusion in last 3 No 10/25/23 09:42 Months Date of Last Transfusion (if within last 3 months) Ever experience any problems No 10/25/23 09:42 with transfusion(s)? Specify any problems Hx of Preganancy in last 3 No 10/25/23 09:42 Months Nurse Filling Out Transfusion DSCHRIBER 10/25/23 09:42 & Questions: Date: 10/25/23 10/25/23 09:42 Time: 09:43 10/25/23 09:42 Patient unable to answer at this time (ie. confused, unrespo /Reproduction History /Reproductive History - cloth bleaching supervisor: /Reproductive Hx- cloth bleaching supervisor Hx Now Gestational Age (in weeks): EDC: Hx Hx Para Hx Section SAB No 10/25/23 09:42 Active Medications Active Medications: Current Medications Generic Name Dose Route Start Last Admin Trade Name Freq PRN Reason Stop Dose Admin Lactated Ringer's 1,000 mls @ 15 mls/hr 10/31/23 11:45 10/31/23 11:48 IV 15 mls/hr .Q48H NURIS Administration PFSH Medical History Gastric reflux Wears glasses Diabetes Rheumatoid arthritis Fatty liver Back pain Difficulty swallowing Former smoker Shortness of breath on exertion Obesity Unstable lie Gestational diabetes mellitus (GDM) Distortion of contour of breast Depression with anxiety Abnormal ultrasound of breast Abnormal mammogram Home Medications ?Medication ?Instructions ?Recorded ?Last Taken ?Type venlafaxine 150 mg 150 mg PO DAILY #30 caps 05/13/16 10/31/23 Rx capsule,extended release 24 hr dextroamphetamine-amphetamine 20 20 mg PO BID 06/29/17 10/30/23 History mg tablet (Adderall) aripiprazole 5 mg tablet 5 mg PO QHS anxiety and depression 03/23/23 10/30/23 History diphenhydramine HCl 25 mg capsule 75 mg PO QHS 09/15/23 10/30/23 History (Benadryl) ondansetron 4 mg disintegrating 4 mg PO Q6H PRN nausea and 09/19/23 Unknown Rx tablet vomiting #30 tabs pantoprazole 40 mg tablet,delayed 40 mg PO DAILY 30 days #30 tabs 09/19/23 10/30/23 Rx release multivitamin 1 tab PO DAILY 10/12/23 10/30/23 History vitamin E (dl, acetate) 450 mg 450 mg PO DAILY 10/12/23 10/30/23 History (1,000 unit) capsule Allergy/AdvReac Type Severity Reaction Status Date / Time bupropion (From Wellbutrin) Allergy Mild Hives Verified 10/31/23 11:45 hydrocodone Allergy Mild Other Verified 10/31/23 11:45 promethazine (From Phenergan) Allergy Mild Other Verified 10/31/23 11:45 Sulfa (Sulfonamide Allergy Other Verified 10/31/23 11:45 Antibiotics) Family History Grandfather Arthritis Diabetes Hypertension Skin cancer Grandmother Arthritis Aunt Colon cancer Mother HLD (hyperlipidemia) Cholecystitis with cholelithiasis Father Diabetes Cholecystitis with cholelithiasis Surgical History Delivery by section history ORIF right fifth metatarsal Social History household members: family and children Smoking Status: Former smoker how long ago did patient quit smoking: Quit 5 yrs prior, smoked 1 pk/week since 17 until quit. alcohol intake: current alcohol intake frequency: a few times a month substance use type: does not use Review of Systems (Anesthesia) ROS Narrative System reviewed and no additional complaints, except as documented.
--- NOTE | 2023-10-31 12:30 | EGD_PTH ---
PATIENT: COSMO MAYERS LOC: [facility] U#:[id number] AGE/SX: 43/F ROOM: RE10/31/[address]: Dr. Cheng Narvaez DO : 1980 BED: DIS: 10/31/2023 SPEC #: [id number] RECD: 10/31/23 18:11 STATUS: JALEN JOURDAN #: [id number] MIKEY: 10/31/23 12:[address]: Cheng Narvaez DEPT: SURGICAL PATHOLOGY RECD BY: Consuelo Cote ENTERED: 11/01/23 11:50 SP TYPE: EGD BIOPSY OT DR: Dr. Caden Almazan MD Tissues: A - Duodenum, NOS B - Esophagus, NOS C - Esophagus, NOS Procedures: Special Stain Group I Surgery Specimen Level IV Alcian Blue/PAS (control) HEADER OPERATION: EGD with biopsy PRE-OP DIAGNOSIS: Chronic hepatitis, abdominal pain TISSUE SUBMITTED: A- Duodenum biopsy, B- Distal esophagus biopsy, C- Random esophagus biopsy MICROSCOPIC DIAGNOSIS A. Duodenum, biopsy: No pathologic change. B. Distal esophagus, biopsy: Gastroesophageal junctional mucosa with mild chronic inflammation. Focal changes of reflux. No evidence of goblet cell metaplasia. See comment. C. Esophagus, random biopsy: Eosinophilic esophagitis. See comment. MANJIT/ 11/02/2023 COMMENT B. Alcian blue/PAS stain with matched control supports the above diagnosis. C. Eosinophils number greater than 20 per selected high power garcia. Clinical correlation is suggested. MICROSCOPIC DESCRIPTION Slides are reviewed. GROSS DESCRIPTION A. Received in fixative is one container labeled with the patient's name and designated Duodenum biopsy. The specimen consists of two irregular fragments of light damian soft tissue that in aggregate measure 0.8 x 0.3 x 0.1 cm. The specimen is totally submitted in one cassette. B. Received in fixative is one container labeled with the patient's name and designated Distal esophagus biopsy. The specimen consists of multiple irregular fragments of light damian soft tissue that in aggregate measure 1.0 x 0.3 x 0.1 cm. The specimen is totally submitted in one cassette. C. Received in fixative is one container labeled with the patient's name and designated Random esophagus biopsy. The specimen consists of multiple irregular fragments of light damian soft tissue that in aggregate measure 1.0 x 0.4 x 0.1 cm. The specimen is totally submitted in one cassette. SJ 11/01/2023 TC:3 CPT:05386q9,41160
--- NOTE | 2023-10-31 12:44 | HP.PCM_ITS ---
History and Physical Date of Admission: 10/31/23 COSMO MAYERS, is a 43 F who presents to the office today for hospital follow up. [facility] hospitalization 09.14.23 - 09.19.23 abd pain gallbladder US 09.14.23 1. Cholelithiasis and gallbladder wall thickening with negative sonographic Gleason''s sign. Pericholecystic fluid is nonspecific. Findings may be indicative of acute cholecystitis. There are also findings consistent with adenomyomatosis and a mildly distended common bile duct. Correlate clinically and consider a hepatobiliary scan as well as surgical consultation. 2. Fatty liver. abd/pelvis CT 09.14.23 Marked gallbladder wall thickening. Nonspecific can be seen with cholecystitis or liver disease. No secondary inflammatory changes. HIDA scan may be helpful if clinically indicated. Hepatomegaly with steatosis. Left ovarian 4.5 cm cyst. Pelvic ultrasound follow-up may be helpful as clinically indicated. Fibroid uterus. MRCP 09.15.23 Suspect acute cholecystitis. No choledocholithiasis. Liver biopsy 09.15.23 Chronic hepatitis, grade 2, stage 2. Extensive macro- and microvesicular steatosis. *BGI established 10.12.23 pt reports that she has had intermittent nausea and epigastric pain since hospitalization. Pt reports ongoing / worsening difficulty swallowing sticky and dry foods. Pt reports she has never had an EGD. Pt reports regular bm; denies blood in the stool. ROS Const Constitutional: Positive for fatigue and weight change (weight gain ); No fever(s) ENT ENT: Positive for difficulty swallowing Gastro GI: Positive for abdominal pain, difficulty swallowing, nausea/dyspepsia and vomiting; No belching, bloating, change in bowel habits, change in stool character, coffee ground emesis, constipation, cramping, diarrhea, heartburn, feeling full early, excessive flatus, incontinent of stools, Vomiting blood/hematemesis, Blood in stool, loose stools, Black,tarry stools, pain with swallowing or other Musc Musculoskeletal: Positive for Arthritis; No joint pain Skin Skin: No yellowing of the eye or itchy eyes Psych Psychiatric: No anxiety and No depression Endo Endocrine: Positive for fatigue and weight change (weight gain ) Aller/Imm Allergy/Immunologic: No itchy eyes Haroldo/Lymp Hematologic/Lymphatic: No easy bleeding or easy bruising Exam Const General: cooperative, healthy appearing and no acute distress Orientation: alert, awake and oriented x3 [facility] Head: normal to inspection Ears: hearing grossly normal bilaterally, external ears normal, TM's normal bilaterally and EAC's normal Nose: external nose normal, nares normal, septum normal and no nasal discharge Face and sinus: normal facial exam, sinuses nontender and face symmetric Mouth: oral mucosae normal, lip normal, tongue normal and oropharynx normal Throat: posterior oropharynx normal, tonsils normal, uvula midline and postnasal drainage (clear) Eyes General: appearance normal, both eyes and all related structures Neck Neck: normal visual inspection, full ROM, no lymphadenopathy, no meningeal signs and supple Neck mass: No Thyroid: thyroid normal Lymphatic: no lymphadenopathy noted Chest Chest palpation & inspection: normal inspection of the chest Resp Effort & Inspection: normal respiratory effort and able to speak in complete sentences Cardio Rate: regular rate Pulses: radial pulses present Skin General: no rashes or lesions noted Neuro General: patient alert, patient awake and patient oriented x3 Cognition: normal cognition Speech: speech normal Extrem General: normal to inspection Psych Appearance: grossly normal Mental Status: mental status grossly normal Mood: congruent mood Affect: normal affect Speech and Movement: speech and movement normal Attitude: cooperative Assessment and Plan Assessment and Plan (1) Chronic hepatitis: Status: Chronic (2) abdominal pain: Plan: 43-year-old female with history of asthma, anxiety and depression, GERD and recent delivery 03/29/2023 who presented to [facility] ED 09/15/2023 with severe epigastric pain radiating to right upper quadrant. Patient had AST of 902 and ALT of 565 with total bili of 1.1 and alk phos of 119. AST and ALT increased to the thousands and both surgery and GI were consulted, she had imaging that demonstrated gallbladder wall thickening but given significantly elevated LFTs it was felt that this was primarily inflammation of the liver. Given patient's significant hepatitis her gallbladder was managed conservatively and she was initially given antibiotics and supportive care and had a liver biopsy ultimately which showed micro and macrovesicular steatosis with chronic hepatitis likely secondary to Barker. Acute hepatitis was likely ischemic hepatitis. Surgery followed and ultimately felt given patient's significant improvement that it was reasonable to discharge on a PPI. She will undergo an upper endoscopy to evaluate upper GI tract. She was explained alternatives, risk, benefits including outstanding bleeding, infection, sepsis, perforation, need for more surgery . She will have an ASA of 3. Her biochemical work up did not show any signs autoimmune disease. I will recheck her labs to make sure they are coming down. Orders: Orders CBC W/Diff, Automated Today K73.9 - Chronic hepatitis, unspecified Comprehensive Metabolic Profil Today K73.9 - Chronic hepatitis, unspecified CRP Today K73.9 - Chronic hepatitis, unspecified Erythrocyte Sed Rate Today K73.9 - Chronic hepatitis, unspecified I have examined the patient and the H&P has been reviewed. There are no clinical changes since date of exam.
--- NOTE | 2023-10-31 13:55 | PCM.POST.ANE ---
Anesthesia: Postop Eval I Current Vital Signs Temperature: 97.1 F Pulse Rate: 102 Blood Pressure: 121/94 Respiratory Rate: 20 Pulse Ox: 97 Oxygen Delivery Method: Room Air Assessment Airway patent: Yes Spontaneous unlabored respirations: Yes Mental status: Awake nausea: No Vomiting: No Anesthesia Complication: No Fluid Hydration Crystalloid volume administer (ml): 500 Total IV fluid infused: 500 Progress Note Anesthesia document: Postop Eval 1 completed: Yes
--- NOTE | 2023-10-31 13:57 | OP.EGD_ITS ---
Patient Name: Jeri Gordon Procedure Date: 10/31/2023 1:26 PM Date of : 1980 Age: 43 Procedure: Upper GI endoscopy Indications: Epigastric abdominal pain, Dysphagia Providers: Cheng Narvaez DO Medicines: Propofol per Anesthesia Patient Profile: This is a 43 year old female. Refer to note in patient chart for documentation of history and physical. Patient has symptoms of chronic abdominal distention, chronic epigastric abdominal pain and chronic nausea. Complications: No immediate complications. Procedure: Pre-Anesthesia Assessment: - Prior to the procedure, a History and Physical was performed, and patient medications and allergies were reviewed. The patient is competent. The risks and benefits of the procedure and the sedation options and risks were discussed with the patient. All questions were answered and informed consent was obtained. Patient identification and proposed procedure were verified by the physician. Mental Status Examination: alert and oriented. Airway Examination: normal oropharyngeal airway and neck mobility. Respiratory Examination: clear to auscultation. CV Examination: normal. Prophylactic Antibiotics: The patient does not require prophylactic antibiotics. Prior Anticoagulants: The patient has taken no anticoagulant or antiplatelet agents. ASA Grade Assessment: II - A patient with mild systemic disease. After reviewing the risks and benefits, the patient was deemed in satisfactory condition to undergo the procedure. The anesthesia plan was to use monitored anesthesia care (MAC). Immediately prior to administration of medications, the patient was re-assessed for adequacy to receive sedatives. The heart rate, respiratory rate, oxygen saturations, blood pressure, adequacy of pulmonary ventilation, and response to care were monitored throughout the procedure. The physical status of the patient was re-assessed after the procedure. After obtaining informed consent, the endoscope was passed under direct vision. Throughout the procedure, the patient's blood pressure, pulse, and oxygen saturations were monitored continuously. The gastroscope was introduced through the mouth, and advanced to the second part of duodenum. The upper GI endoscopy was accomplished without difficulty. The patient tolerated the procedure well. Scope In: 1:42:13 PM Scope Out: 1:48:59 PM Total Procedure Duration Time 0 hours 6 minutes 46 seconds Findings: Mucosal changes including ringed esophagus, longitudinal furrows and small-caliber esophagus were found in the middle third of the esophagus and in the lower third of the esophagus. Biopsies were obtained from the proximal and distal esophagus with cold forceps for histology of suspected eosinophilic esophagitis. Verification of patient identification for the specimen was done. Estimated blood loss was minimal. The Z-line was irregular and was found 40 cm from the incisors. Biopsies were taken with a cold forceps for histology. Verification of patient identification for the specimen was done. Estimated blood loss was minimal. No gross lesions were noted in the entire examined stomach. However there was very little contraction of the stomach with insufflation of CO2. Patchy mildly erythematous mucosa without active bleeding and with no stigmata of bleeding was found in the duodenal bulb. Biopsies were taken with a cold forceps for histology. Verification of patient identification for the specimen was done. Estimated blood loss was minimal. Impression: - Esophageal mucosal changes consistent with eosinophilic esophagitis. - Z-line irregular, 40 cm from the incisors. Biopsied. - No gross lesions in the entire stomach. - Erythematous duodenopathy. Biopsied. - Biopsies were taken with a cold forceps for evaluation of eosinophilic esophagitis. - Poorly dasha stomach Recommendation: - Discharge patient to home. - Resume previous diet. - Continue present medications. - Await pathology results. - Gastric emptying study Procedure Code(s): --- Professional --- 22255, Esophagogastroduodenoscopy, flexible, transoral; with biopsy, single or multiple CPT copyright 2021 [employer]. All rights reserved. The codes documented in this report are preliminary and upon ve teacher review may be revised to meet current compliance requirements. Cheng Narvaez DO 10/31/2023 1:56:55 PM This report has been signed electronically. Number of Addenda: 0 Note Initiated On: 10/31/2023 1:26 PM
--- NOTE | 2023-10-31 13:57 | OP.CCLET_ITS ---
10/31/2023 Caden Almazan MD [address] [id number] Re : Upper GI endoscopy procedure for [facility] Dear Dr. Almazan This procedure was performed on Tuesday, October 31, 2023. My impressions and recommendations are as follows: Impressions : - Esophageal mucosal changes consistent with eosinophilic esophagitis. - Z-line irregular, 40 cm from the incisors. Biopsied. - No gross lesions in the entire stomach. - Erythematous duodenopathy. Biopsied. - Biopsies were taken with a cold forceps for evaluation of eosinophilic esophagitis. - Poorly dasha stomach Recommendations : - Discharge patient to home. - Resume previous diet. - Continue present medications. - Await pathology results. - Gastric emptying study My findings are described in the full procedure note, which is enclosed. If I can be of further assistance, please feel free to contact me at . Sincerely, Cheng Narvaez, 10/31/2023 1:56:55 PM This report has been signed electronically.
--- NOTE | 2023-10-31 14:24 | POSTOPAN2_ITS ---
Anesthesia Postop Eval I Sum Postop Eval Completion status Anesthesia document: Postop Eval 1 completed: Yes Anesthesia Postop Eval I Summary Anesthesia Postop Eval I Summary: Anesthesia Postop Eval I: Assessment Summary Airway patent Yes 10/31/23 13:56 [email or web address] Spontaneous unlabored Yes 10/31/23 13:56 [email or web address] respirations Mental status Awake 10/31/23 13:56 [email or web address] nausea No 10/31/23 13:56 [email or web address] Vomiting No 10/31/23 13:56 [email or web address] Anesthesia Postop Eval I: Fluid Summary Crystalloid volume administer 500 10/31/23 13:56 [email or web address] (ml) Colloids volume administered ( ml) Blood Product volume administered (ml) Total IV fluid infused 500 10/31/23 13:56 [email or web address] Anesthesia Postop Eval I: Summary Notes Anesthesia Complication No 10/31/23 13:56 [email or web address] Anesthesia Complication Comment: Post-operative progress note Anesthesia: Postop Eval II Evaluation Mental status: Awake and Calm Pain Level: 0 nausea: No Vomiting: No Complications Anesthesia Complication: No
--- NOTE | 2023-10-31 14:24 | PCM.POSTANE2 ---
Anesthesia Postop Eval I Sum Postop Eval Completion status Anesthesia document: Postop Eval 1 completed: Yes Anesthesia Postop Eval I Summary Anesthesia Postop Eval I Summary: Anesthesia Postop Eval I: Assessment Summary Airway patent Yes 10/31/23 13:56 [email or web address] Spontaneous unlabored Yes 10/31/23 13:56 [email or web address] respirations Mental status Awake 10/31/23 13:56 [email or web address] nausea No 10/31/23 13:56 [email or web address] Vomiting No 10/31/23 13:56 [email or web address] Anesthesia Postop Eval I: Fluid Summary Crystalloid volume administer 500 10/31/23 13:56 [email or web address] (ml) Colloids volume administered ( ml) Blood Product volume administered (ml) Total IV fluid infused 500 10/31/23 13:56 [email or web address] Anesthesia Postop Eval I: Summary Notes Anesthesia Complication No 10/31/23 13:56 [email or web address] Anesthesia Complication Comment: Post-operative progress note Anesthesia: Postop Eval II Evaluation Mental status: Awake and Calm Pain Level: 0 nausea: No Vomiting: No Complications Anesthesia Complication: No
== END 2023-10-31 14:32 | disposition home or self-care (01) ==
LOC: EN 11:24 → AC 11:25
PROVIDERS: PCP Family Medicine; Referring Provider Family Medicine; Visit Provider Internal Medicine Gastroenterology
PROC: 0DJ08ZZ Inspection of Upper Intestinal Tract, Via Natural or Artificial Opening Endoscopic (ICD-10-PCS; CPT 43235; principal; 2023-10-31 12:25)
DX: K20.0 Eosinophilic esophagitis (principal); B18.9 Chronic viral hepatitis, unspecified; R13.10 Dysphagia, unspecified; F41.9 Anxiety disorder, unspecified; F32.A Depression, unspecified; K21.9 Gastro-esophageal reflux disease without esophagitis; K63.89 Other specified diseases of intestine; Z79.899 Other long term (current) drug therapy; Z87.891 Personal history of nicotine dependence
CPT/HCPCS: 43239; 88305; 88312; J2405; J7120

== ENCOUNTER 2023-11-01 02:16 | Emergency (ER) | payer MEDICAID, SELFPAY ==
[2023-11-01 02:17] VITALS: BP 140/96; PULSE 77; RESP 18; TEMP 36.5; O2SAT 97; BMI 37.4
--- NOTE | 2023-11-01 02:30 | EDS_ITS ---
HPI HPI - GI History of Present Illness Chief Complaint: Abd Pain Informant: patient Abdominal Pain/Flank Pain Onset: Today and Hours Context: Gradual Onset Timing: Continuous Quality: Sharp and Stabbing Location: Epigastric Current Severity: Mild Maximum Severity: Moderate Worsened by: Nothing Relieved by: Nothing Nausea/Vomiting/Emesis GI Symptom: Positive for Nausea Onset: Today Severity: Mild Diarrhea/Melena/Hematochezia GI Symptom: Negative for Diarrhea, Melena or Hematochezia Associated Symptoms Associated Symptoms: Negative for Dysuria, Frequency, Hematuria or Urgency Narrative Narrative: 15-year-old female unknown gallbladder disease or gallstones pending upcoming surgery with Dr. Erika Jama on November. Tonight around midnight started having increased pain. Nausea. No vomiting or diarrhea. No fever. She took Zofran ibuprofen at home without relief. Prior similar symptoms: Yes Recent Illness/Hospitalization: No PFSH PFSH Medical History Gastric reflux Wears glasses Diabetes Rheumatoid arthritis Fatty liver Back pain Difficulty swallowing Former smoker Shortness of breath on exertion Obesity Unstable lie Gestational diabetes mellitus (GDM) Distortion of contour of breast Depression with anxiety Abnormal ultrasound of breast Abnormal mammogram Home Medications ?Medication ?Instructions ?Recorded ?Last Taken ?Type venlafaxine 150 mg 150 mg PO DAILY #30 caps 05/13/16 10/31/23 Rx capsule,extended release 24 hr dextroamphetamine-amphetamine 20 20 mg PO BID 06/29/17 10/30/23 History mg tablet (Adderall) aripiprazole 5 mg tablet 5 mg PO QHS anxiety and depression 03/23/23 10/30/23 History diphenhydramine HCl 25 mg capsule 75 mg PO QHS 09/15/23 10/30/23 History (Benadryl) ondansetron 4 mg disintegrating 4 mg PO Q6H PRN nausea and 09/19/23 Unknown Rx tablet vomiting #30 tabs pantoprazole 40 mg tablet,delayed 40 mg PO DAILY 30 days #30 tabs 09/19/23 10/30/23 Rx release multivitamin 1 tab PO DAILY 10/12/23 10/30/23 History vitamin E (dl, acetate) 450 mg 450 mg PO DAILY 10/12/23 10/30/23 History (1,000 unit) capsule Allergy/AdvReac Type Severity Reaction Status Date / Time bupropion (From Wellbutrin) Allergy Mild Hives Verified 11/01/23 02:21 hydrocodone Allergy Mild Other Verified 11/01/23 02:21 promethazine (From Phenergan) Allergy Mild Other Verified 11/01/23 02:21 Sulfa (Sulfonamide Allergy Other Verified 11/01/23 02:21 Antibiotics) Family History Grandfather Arthritis Diabetes Hypertension Skin cancer Grandmother Arthritis Aunt Colon cancer Mother HLD (hyperlipidemia) Cholecystitis with cholelithiasis Father Diabetes Cholecystitis with cholelithiasis Surgical History Delivery by section history ORIF right fifth metatarsal Social History household members: family and children Smoking Status: Former smoker how long ago did patient quit smoking: Quit 5 yrs prior, smoked 1 pk/week since 17 until quit. alcohol intake: current alcohol intake frequency: a few times a month substance use type: does not use ROS ROS ED ROS Narrative Abdominal pain. Nausea. Constitutional Constitutional ED: Denies chills or fever(s) ENT ENT ED: Denies ear pain Cardiovascular Cardiovascular: Denies chest pain Respiratory/Chest Respiratory/Chest: Denies cough or dyspnea Gastrointestinal Gastrointestinal: Reports abdominal pain and nausea; Denies constipation, diarrhea, melena or vomiting Genitourinary Genitourinary ED: Denies dysuria or hematuria Musculoskeletal Musculoskeletal: Denies arthralgias Integumentary Denies abscess Psychiatric Psychiatric: Denies anxiety Endocrine Endocrinology: Denies polydipsia Hematologic/Lymphatic Hematologic/Lymphatic: Denies easy bleeding, easy bruising or lymphadenopathy EXAM Physical Exam Narrative Exam Narrative: 43-year-old female vital signs stable afebrile. H EENT exam unremarkable. Lungs clear to auscultation. Heart regular rhythm rate about 75 no murmur. Abdomen soft nondistended normal bowel sounds without peritoneal signs. No Gleason sign. Mild epigastric reproducible pain. No McBurney's point tenderness. No hernia no obstruction. Moving all 4 extremities. Nontender no edema. Back nontender. Neurologically she is awake alert no focal motor de ficits. Const Vital Signs: 11/01/23 02:17 11/01/23 03:46 Temperature 97.7 F L Temperature Source Oral Pulse Rate 77 69 Respiratory Rate 18 18 Blood Pressure 140/96 H 151/93 H Blood Pressure Mean 110 112 Pulse Ox 97 94 Oxygen Delivery Method Room Air Room Air Positive well nourished and well developed; Negative for cachectic, contractures or unkempt General Appearance ED: well developed and NAD; Negative for unkempt, cachectic, contractures or pallor Nutritional Appearance: Negative for cachectic HEENT Reports moist mucous membranes normocephalic and atraumatic; Negative for trauma or tenderness Eyes PERRL and EOMs intact bilaterally General Eye ED: Negative for pale conjunctiva or scleral icterus Neck no lymphadenopathy, supple and no JVD General: Negative for tenderness Carotids: Negative for other Lymph Lymphatic: Negative for other Resp normal respiratory effort and clear to auscultation bilaterally Effort and Inspection: Negative for respiratory distress Auscultation: Negative for rales, rhonchi or wheezes Cardio regular rate, regular rhythm, S1 normal heart sound, S2 normal heart sound and no murmurs Rate: Negative for bradycardia or tachycardic Rhythm: Negative for abnormal rhythm GI non-distended and no masses; Negative for non-tender Inspection: Negative for abdominal distention Auscultation: normoactive bowel sounds Palpation: soft and tender; Negative for guarding or rebound tenderness present Back/Spine no CVA tenderness General Back: Negative for CVA tenderness Cervical Spine: Negative for cervical spine tenderness Thoracic Spine / Upper Back: Negative for thoracic spinal tenderness Lumbar Spine / Lower Back: Negative for lumbar spinal tenderness Extremity full ROM General Extremety ED: Negative for edema, tenderness or other findings General Extremity: Negative for edema or other findings Neuro CN's II-XII intact bilaterally, moves all extremities and no sensory deficits noted Sensorium / Orientation: alert, oriented to person, oriented to place and oriented to time; Negative for orientation impaired, confused, lethargic or stuporous Motor Exam: strength 5/5 throughout Psych mental status grossly normal and thought process normal Appearance: Negative for unkempt Attitude: No agitated Mood & Affect: Negative for depressed, anxious or tearful Skin no wounds General Skin Exam: Negative for jaundice or pallor Lesions: no lesions Rashes: no rashes Trauma: Negative for abrasion Nails: Negative for discolored MDM MDM MDM Narrative Medical decision making narrative: 43-year-old female known gallstones and gallbladder disease planing of pain. Will be treated with IV morphine and Zofran. Labs to be obtained. Repeat exam at 4:31 AM patient doing well. She is receiving IV Protonix. I spoke to her general surgeon Dr. Jama. As long as the patient is comfortable with the plan she is found the patient being discharged to home and follow-up with her outpatient scheduled cholecystectomy. Patient states she is felt well and is okay with being discharged home. Patient I went over all of her test results. She has slightly elevated ALT and AST but they are actually coming down improved from prior. History & Record Review Discussion w/independent historian: Patient Additional record(s) reviewed:: Prior inpatient record, Prior outpatient record, Prior ED visit and Prior labs Lab Data Attestation: I reviewed the patient's lab results. Lab results narrative: Electrolytes show gap 9. Normal BUN and creatinine. Glucose 175. Liver enzymes show an AST of 73 and ALT of 100. Lipase is normal at 54. CBC normal. White count 7. H&H 13 and 41. Platelets 367. Serum test negative. Tests are consistent with prior and the liver enzymes are actually improving. Labs: Laboratory Results - last 24 hr 11/01/23 02:25 WBC 7.6 RBC 4.46 Hgb 13.6 Hct 41.7 MCV 93.5 MCH 30.5 MCHC 32.6 RDW Std Deviation 42.7 RDW Coeff of Amy 12.4 Plt Count 367 MPV 9.5 Immature Gran % (Auto) 0.300 Neut % (Auto) 55.9 Lymph % (Auto) 33.6 [place] % (Auto) 7.9 Eos % (Auto) 1.6 Baso % (Auto) 0.7 Absolute Neuts (auto) 4.2 Absolute Lymphs (auto) 2.54 Nucleated RBC % 0 Sodium 141 Potassium 3.5 Chloride 106 Carbon Dioxide 26.0 Anion Gap 9 BUN 11 Creatinine 0.93 Estim Creat Clear Calc 99.92 Est GFR (MDRD) Af Amer 85 Est GFR (MDRD) Non-Af 70 BUN/Creatinine Ratio 11.8 Glucose 175 H Calcium 9.1 Total Bilirubin 0.30 AST 73 H ALT 100 H Alkaline Phosphatase 109 Total Protein 7.2 Albumin 4.0 Globulin 3.2 Albumin/Globulin Ratio 1.2 Lipase 54 Serum , Qual NEGATIVE Discharge Plan Triage Chief Complaint: Abd Pain ED Provider: Rohit Banks Dx/Rx/DC Orders Prescriptions: No Action dextroamphetamine-amphetamine [Adderall] 20 mg tablet 20 mg PO BID vitamin E (dl, acetate) 450 mg (1,000 unit) capsule 450 mg PO DAILY multivitamin Tablet 1 tab PO DAILY venlafaxine 150 MG capsule 150 mg PO DAILY Qty: 30 3RF aripiprazole 5 mg tablet 5 mg PO QHS Patient Comments: TAKE 1 TABLET BY MOUTH EVERY DAY diphenhydramine HCl [Benadryl] 25 mg capsule 75 mg PO QHS pantoprazole 40 mg Tablet,Delayed Release (Dr/Ec) 40 mg PO DAILY 30 Days Qty: 30 0RF ondansetron 4 mg tablet,disintegrating 4 mg PO Q6H PRN (Reason: nausea and vomiting) Qty: 30 0RF Primary Care Provider: Caden Almazan Referrals: Caden Almazan MD [Primary Care Provider] - Print Language: Maltese
[2023-11-01 02:35] LABS: Absolute Lymphocyte Count 2.54 X10^3/uL (0.83-4.51); Absolute Neutrophil Count 4.2 X10^3/uL (2.0-7.7); Basophil# 0.05 X10^3/uL; Basophil% 0.7 % (0-1); Eosinophil# 0.12 X10^3/uL; Eosinophils% 1.6 % (0-5); Hematocrit 41.7 % (37-47); Hemoglobin 13.6 g/dL (12.0-15.0); Lymphocyte # 2.54 X10^3/ul (0.83-4.51); Lymphocyte % 33.6 % (19-41); Mean Corp Hgb Conc 32.6 g/dL (32-36); Mean Corpuscular Hgb 30.5 pg (27.0-32.0); Mean Corpuscular Volume 93.5 fL (81-99); Mean Platelet Vol. 9.5 fl (6.2-12.0); Monocyte% 7.9 % (0-10); NRBC Flagged by Analyzer 0 % (0-5); Neutrophil # 4.22 X10^3/uL (2.7-7.7); Neutrophil % 55.9 % (47-70); Platelet Count 367 K/mm3 (150-450); RBC Distribution Width CV 12.4 % (11.6-14.6); RBC Distribution Width SD 42.7 fl (35.1-43.9); Red Blood Count 4.46 M/mm3 (4.2-5.4); White Blood Count 7.6 K/mm3 (4.4-11.0)
[2023-11-01] MEDS: morphine 8 MG/ML Syringe IV (02:38)
[2023-11-01] MEDS: Ondansetron 4 MG/2 ML Vial IV (02:38)
[2023-11-01 02:43] LABS: Internal QC Validated? YES +Cl - CLEAR BKGD; Pregnancy, Serum, hCG Quali. NEGATIVE Negative
[2023-11-01 02:52] LABS: ALB/GLOB Ratio 1.2 RATIO (0.9-2.4); AST(SGOT) 73 U/L (15-37); Alanine Aminotransfer ALT/SGPT 100 U/L (13-56); Alkaline Phosphatase 109 U/L (45-117); Anion Gap 9 (5-15); BUN 11 mg/dL (7-18); BUN/Creat Ratio 11.8 RATIO (10-20); Calcium,Total 9.1 mg/dL (8.5-10.1); Chloride 106 mmol/L (98-107); Creatinine, Serum 0.93 mg/dL (0.55-1.02); EST Glomerular Filtration Rate 70 mL/min (>60); Est Glom Filt Rate - Afr Amer 85 mL/min (>60); Estimated Creatinine Clearance 99.92 ml/min; Globulin 3.2 g/dL (2.2-4.2); Glucose 175 mg/dL (74-106); Lipase 54 U/L (13-75); Potassium 3.5 mmol/L (3.5-5.1); Protein, Total 7.2 g/dL (6.4-8.2); Sodium Level 141 mmol/L (136-145)
[2023-11-01] MEDS: Pantoprazole Sodium 40 MG in 0.9% Normal Saline (100mL MB+) 100 ML 330 MG IV (03:45)
[2023-11-01 03:46] VITALS: BP 151/93; PULSE 69; RESP 18; O2SAT 94
[2023-11-01 05:00] VITALS: BP 108/74; PULSE 81; RESP 18; O2SAT 98
[2023-11-01 05:19] VITALS: BP 108/74; PULSE 78; RESP 18; TEMP 36.6; O2SAT 98
== END 2023-11-01 05:39 | disposition home or self-care (01) ==
PROVIDERS: Emergency Provider Emergency Medicine; PCP Family Medicine; Visit Provider Emergency Medicine
DX: R10.9 Unspecified abdominal pain (principal); E11.9 Type 2 diabetes mellitus without complications; E66.9 Obesity, unspecified; Z79.899 Other long term (current) drug therapy; Z87.891 Personal history of nicotine dependence
CPT/HCPCS: 80053; 83690; 84703; 85025; A4216; J2405; J7050; 99283

== ENCOUNTER 2023-11-01 12:32 | Inpatient (IN) | payer MEDICAID, SELFPAY ==
[2023-11-01 12:33] VITALS: BP 127/94; PULSE 95; RESP 18; TEMP 36.3; O2SAT 95; BMI 37.0
--- NOTE | 2023-11-01 12:58 | CT_ITS ---
STUDY: CT ABDOMEN AND PELVIS WITH CONTRAST REASON FOR EXAM: Female, 43 years old. Abodminal pain. Elevated LFTs. History of hepatitis. RADIATION DOSAGE (If Supplied By Facility): CTDIvol = ( 18.87 ) mGy, DLP = ( 1499.93 ) mGycm TECHNIQUE: Transaxial images were obtained from the dome of the diaphragm to the symphysis pubis without oral contrast. IV 100mL Isovue-370 was administered. Sagittal and coronal images were reconstructed. Individualized dose optimization techniques were used for this CT. COMPARISON: Comparison is made with prior study September 15, 2023. FINDINGS: The visualized lung bases are unremarkable. The visualized portions of the heart are within normal limits. There is decreased attenuation of the liver consistent with steatosis. Hepatomegaly. There is a distended gallbladder. Small amount of pericholecystic fluid. The bladder wall appears to be measuring upper limits of normal. Normal spleen. Normal pancreas. Normal bilateral adrenal glands. Normal right kidney. Normal left kidney. Normal visualized stomach. Normal small intestine. Normal colon. The appendix is visualized and appears normal. Normal abdominal aorta. Normal inferior vena cava. Normal retroperitoneum. Normal urinary bladder. The previously seen left ovarian cyst measures 2 cm at this time. Normal abdominal wall. Normal osseous structures. CT/Abdomen/Pelvis W IV Cont ONLY IMPRESSION: Diffuse fatty infiltration of the liver. Hepatomegaly. Distention of the gallbladder with evidence of pericholecystic fluid. Mildly thickened gallbladder wall. Cholecystitis should be ruled out. Recent ultrasound of the gallbladder demonstrated multiple gallstones. Electronically Signed: Brice Sifuentes MD at 14:50 EDT ,
[2023-11-01] MEDS: Ondansetron 4 MG/2 ML Vial IV (12:59)
--- NOTE | 2023-11-01 12:59 | EX.ED.DYSGE1 ---
HPI History of Present Illness Chief Complaint: Abd Pain Informant: patient and family Narrative Narrative: 43-year-old female presenting to the emergency room with abdominal pain. Patient states she has been diagnosed with gallbladder disease and was recently in the hospital. She states that she came to the emergency room last night and left early this morning. She states she is scheduled for gallbladder surgery next week with Dr. Jama. Patient describes the pain to me as burning epigastric rating to the right upper quadrant into the upper back. Patient had an EGD that showed eosinophilic esophagitis as well as possible [place] PA[place]. No reported fevers. No diarrhea. No vomiting but does endorse nausea. [facility] Medical History Gastric reflux Wears glasses Diabetes Rheumatoid arthritis Fatty liver Back pain Difficulty swallowing Former smoker Shortness of breath on exertion Obesity Unstable lie Gestational diabetes mellitus (GDM) Distortion of contour of breast Depression with anxiety Abnormal ultrasound of breast Abnormal mammogram Home Medications ?Medication ?Instructions ?Recorded ?Last Taken ?Type venlafaxine 150 mg 150 mg PO DAILY #30 caps 05/13/16 10/31/23 Rx capsule,extended release 24 hr dextroamphetamine-amphetamine 20 20 mg PO BID 06/29/17 10/30/23 History mg tablet (Adderall) aripiprazole 5 mg tablet 5 mg PO QHS anxiety and depression 03/23/23 10/30/23 History diphenhydramine HCl 25 mg capsule 75 mg PO QHS 09/15/23 10/30/23 History (Benadryl) ondansetron 4 mg disintegrating 4 mg PO Q6H PRN nausea and 09/19/23 Unknown Rx tablet vomiting #30 tabs pantoprazole 40 mg tablet,delayed 40 mg PO DAILY 30 days #30 tabs 09/19/23 10/30/23 Rx release multivitamin 1 tab PO DAILY 10/12/23 10/30/23 History vitamin E (dl, acetate) 450 mg 450 mg PO DAILY 10/12/23 10/30/23 History (1,000 unit) capsule Allergy/AdvReac Type Severity Reaction Status Date / Time bupropion (From Wellbutrin) Allergy Mild Hives Verified 11/01/23 12:35 hydrocodone Allergy Mild Other Verified 11/01/23 12:35 promethazine (From Phenergan) Allergy Mild Other Verified 11/01/23 12:35 Sulfa (Sulfonamide Allergy Other Verified 11/01/23 12:35 Antibiotics) Family History Grandfather Arthritis Diabetes Hypertension Skin cancer Grandmother Arthritis Aunt Colon cancer Mother HLD (hyperlipidemia) Cholecystitis with cholelithiasis Father Diabetes Cholecystitis with cholelithiasis Surgical History Delivery by section history ORIF right fifth metatarsal Social History household members: family and children Smoking Status: Former smoker how long ago did patient quit smoking: Quit 5 yrs prior, smoked 1 pk/week since 17 until quit. alcohol intake: current alcohol intake frequency: a few times a month substance use type: does not use ROS ROS ED Constitutional Constitutional ED: Denies chills, fever(s) or weight loss Eyes Eyes: Denies change in vision or diplopia ENT ENT ED: Denies ear pain, rhinorrhea or sore throat Cardiovascular Cardiovascular: Denies chest pain, orthopnea, palpitations or racing heartbeat Respiratory/Chest Respiratory/Chest: Denies cough, dyspnea or orthopnea Gastrointestinal Gastrointestinal: Reports abdominal pain; Denies diarrhea or vomiting Genitourinary Genitourinary ED: Denies dysuria, hematuria or urinary frequency Musculoskeletal Musculoskeletal: Reports back pain; Denies arthralgias, myalgias or neck pain Integumentary Denies abscess or rash Neurologic Neurologic: Denies headache(s) or weakness Psychiatric Psychiatric: Denies anxiety, depression, suicidal ideation or suicidal thoughts Endocrine Endocrinology: Denies polydipsia, polyphagia or polyuria Allergic/Immunologic Allergic/Immunologic ED: Denies mouth swelling, tongue swelling or urticaria EXAM Physical Exam Const Vital Signs: 11/01/23 12:33 11/01/23 14:32 Temperature 97.4 F L Temperature Source Temporal Pulse Rate 95 71 Respiratory Rate 18 18 Blood Pressure 127/94 H 122/72 H Blood Pressure Mean 105 88 Pulse Ox 95 99 Oxygen Delivery Method Room Air Room Air Positive well nourished, well developed and obese General Appearance ED: well developed Nutritional Appearance: obese HEENT Reports normocephalic, head/scalp atraumatic and moist mucous membranes Eyes PERRL and EOMs intact bilaterally Neck no lymphadenopathy, supple and no JVD Resp normal respiratory effort and clear to auscultation bilaterally Cardio regular rate, regular rhythm and no murmurs GI Inspection: Negative for abdominal distention Auscultation: normoactive bowel sounds Palpation: soft, tender epigastric and RUQ and guarding; Negative for rebound tenderness present Back/Spine no CVA tenderness and normal ROM Extremity normal to inspection General Extremety ED: Negative for edema General Extremity: Negative for edema Neuro oriented x3 and CN's II-XII intact bilaterally Sensorium / Orientation: alert Motor Exam: strength 5/5 throughout Psych mental status grossly normal Mood & Affect: Negative for depressed or tearful Skin no rashes or lesions noted and no wounds MDM MDM MDM Narrative Medical decision making narrative: Differential diagnosis includes but not limited to cute cholecystitis biliary colic choledocholithiasis pancreatitis esophagitis gastritis Case was discussed with the patient's surgeon as this is her second visit today. Plan is to check labs and a CT scan and to try a GI cocktail. White count 6.8 with a hemoglobin 12.6 76.1 neutrophils platelet count is 251. Lipase is 26 total bilirubin 0.9 with a direct bilirubin 0.59 AST of 243 ALT 195 alkaline phosphatase 92. test is negative. Potassium 3.4 BUN is [address] of the abdomen pelvis with IV contrast was obtained. Please see the radiologist read below and the full interpretation for all the details. Patient received IV fluids and Zofran. GI cocktail did not change her symptoms. Dilaudid was given and she had improvement of her symptoms. Patient was discussed with surgical PA for Dr. Jama and the plan is to admit the patient into the hospital. A dose of Zosyn will be given here in the emergency department. History & Record Review Discussion w/independent historian: Patient and Family Additional record(s) reviewed:: Prior inpatient record, Prior outpatient record, Prior ED visit and Prior labs Lab Data Attestation: I reviewed the patient's lab results. Labs: Laboratory Results - last 24 hr 11/01/23 13:10 WBC 6.8 RBC 4.06 L Hgb 12.6 Hct 38.1 MCV 93.8 MCH 31.0 MCHC 33.1 RDW Std Deviation 43.2 RDW Coeff of Amy 12.6 Plt Count 251 MPV 9.6 Immature Gran % (Auto) 0.100 Neut % (Auto) 76.1 H Lymph % (Auto) 16.4 L Hand % (Auto) 5.6 Eos % (Auto) 1.5 Baso % (Auto) 0.3 Absolute Neuts (auto) 5.2 Absolute Lymphs (auto) 1.12 Nucleated RBC % 0 Sodium 144 Potassium 3.4 L Chloride 116 H Carbon Dioxide 22.0 Anion Gap 6 BUN 8 Creatinine 0.73 Estim Creat Clear Calc 126.64 Est GFR (MDRD) Af Amer 112 Est GFR (MDRD) Non-Af 93 BUN/Creatinine Ratio 11.0 Glucose 107 H Calcium 7.9 L Total Bilirubin 0.90 Direct Bilirubin 0.59 H AST 243 H ALT 195 H Alkaline Phosphatase 92 Total Protein 6.0 L Albumin 3.2 Globulin 2.8 Lipase 26 Serum , Qual NEGATIVE Radiography Diagnostic Testing: Clinical Impression(s) from Imaging Studies Abdomen/Pelvis CT 11/01/23 12:58 IMPRESSION: Diffuse fatty infiltration of the liver. Hepatomegaly. Distention of the gallbladder with evidence of pericholecystic fluid. Mildly thickened gallbladder wall. Cholecystitis should be ruled out. Recent ultrasound of the gallbladder demonstrated multiple gallstones. Electronically Signed: Brice Sifuentes MD at 14:50 EDT , Discharge Plan Dx/Rx/DC Orders Clinical Impression: Elevated LFTs, Cholelithiases, Abdominal pain Disposition Disposition: Acute Care Hospital [facility]
[2023-11-01] MEDS: HYDROmorphone 1 MG/ML Syringe IV (13:00)
[2023-11-01] MEDS: Lidocaine 2% Viscous15 ML UDC 15 ML PO (13:09)
[2023-11-01] MEDS: Mag /Aluminum/Simeth WCH UDC 30 ML ORAL.SUSP PO (13:09)
[2023-11-01 13:21] LABS: Absolute Lymphocyte Count 1.12 X10^3/uL (0.83-4.51); Absolute Neutrophil Count 5.2 X10^3/uL (2.0-7.7); Basophil# 0.02 X10^3/uL; Basophil% 0.3 % (0-1); Eosinophils% 1.5 % (0-5); Hematocrit 38.1 % (37-47); Hemoglobin 12.6 g/dL (12.0-15.0); Lymphocyte # 1.12 X10^3/ul (0.83-4.51); Lymphocyte % 16.4 % (19-41); Mean Corp Hgb Conc 33.1 g/dL (32-36); Mean Corpuscular Volume 93.8 fL (81-99); Mean Platelet Vol. 9.6 fl (6.2-12.0); Monocyte# 0.38 X10^3/uL; Monocyte% 5.6 % (0-10); NRBC Flagged by Analyzer 0 % (0-5); Neutrophil # 5.18 X10^3/uL (2.7-7.7); Neutrophil % 76.1 % (47-70); Platelet Count 251 K/mm3 (150-450); RBC Distribution Width CV 12.6 % (11.6-14.6); RBC Distribution Width SD 43.2 fl (35.1-43.9); Red Blood Count 4.06 M/mm3 (4.2-5.4); White Blood Count 6.8 K/mm3 (4.4-11.0)
[2023-11-01] MEDS: 0.9% Normal Saline (1000mL) 1,000 ML 150 ML IV ×2 (13:30→16:16)
[2023-11-01 13:41] LABS: Internal QC Validated? YES +Cl - CLEAR BKGD; Pregnancy, Serum, hCG Quali. NEGATIVE Negative
[2023-11-01 13:48] LABS: AST(SGOT) 243 U/L (15-37); Alanine Aminotransfer ALT/SGPT 195 U/L (13-56); Albumin, Serum 3.2 g/dL (3.2-5.0); Alkaline Phosphatase 92 U/L (45-117); Anion Gap 6 (5-15); BUN 8 mg/dL (7-18); Bilirubin, Direct 0.59 mg/dL (0.00-0.30); Calcium,Total 7.9 mg/dL (8.5-10.1); Chloride 116 mmol/L (98-107); Creatinine, Serum 0.73 mg/dL (0.55-1.02); EST Glomerular Filtration Rate 93 mL/min (>60); Est Glom Filt Rate - Afr Amer 112 mL/min (>60); Estimated Creatinine Clearance 126.64 ml/min; Globulin 2.8 g/dL (2.2-4.2); Glucose 107 mg/dL (74-106); Lipase 26 U/L (13-75); Potassium 3.4 mmol/L (3.5-5.1); Sodium Level 144 mmol/L (136-145)
[2023-11-01 14:32] VITALS: BP 122/72; PULSE 71; RESP 18; O2SAT 99
--- NOTE | 2023-11-01 15:46 | PCM.HP.STD ---
HPI - General General Date of Admission: 11/01/23 Date of Service: 11/01/23 Chief Complaint: Right upper quadrant pain HPI Narrative COSMO MAYERS, is a 43 F who presents to the ED for the second time today with epigastric and right upper quadrant pain with associated nausea. Patient notes approximately 11 pm last night she started with RUQ pain and nausea. She presented to the ED around 0130 AM. She was given narcotic pain medication and IV Protonix. Her pain improved with pain medication. She was discharged to home with nausea and pain meds. She notes at approximately 11 am she woke up out of sleep with RUQ pain and nausea. She presented to the ED. Patient was scheduled for an elective lap keturah next Monday with Dr. Jama. She had a n upper scope with Dr. Narvaez yesterday which demonstrated eosinophilic esophagitis, erythematous duodenopathy, and poorly dasha stomach. Pathology pending. Patient notes previous history of otherwise no other abdominal surgeries. Lab work noted increase of her liver enzymes. CT scan of the ab/pel demonstrated distention of the gallbladder with evidence of pericholecystic fluid, mildly thickened gallbladder wall. Cholelithiasis. Patient's previous history per Dr. Jama: 43-year-old female presents for follow-up from hospitalization due to elevated liver functions likely due to hepatitis, gallstones. During hospitalization patient did have a lot of edema around the gallbladder likely due to the liver inflammation. Patient's repeat liver enzymes are still elevated but improved. Patient states she is still having some epigastric discomfort states she had it Monday after mowing states she also had some nausea and the pain can go to her back it does wake her up out of sleep as well. Patient is seeing Dr. Narvaez is scheduled for an EGD on 10/31/2023 and is currently on omeprazole. Patient states she did have some increased pain after eating a [employer] sandwich previously. [facility] Medical History Gastric reflux Wears glasses Diabetes Rheumatoid arthritis Fatty liver Back pain Difficulty swallowing Former smoker Shortness of breath on exertion Obesity Unstable lie Gestational diabetes mellitus (GDM) Distortion of contour of breast Depression with anxiety Abnormal ultrasound of breast Abnormal mammogram Home Medications ?Medication ?Instructions ?Recorded ?Last Taken ?Type venlafaxine 150 mg 150 mg PO DAILY #30 caps 03/10/17 08/27/24 Rx capsule,extended release 24 hr dextroamphetamine-amphetamine 20 20 mg PO BID 06/29/17 10/30/23 History mg tablet (Adderall) aripiprazole 5 mg tablet 5 mg PO QHS anxiety and depression 03/23/23 10/30/23 History diphenhydramine HCl 25 mg capsule 75 mg PO QHS 09/15/23 10/30/23 History (Benadryl) ondansetron 4 mg disintegrating 4 mg PO Q6H PRN nausea and 09/19/23 Unknown Rx tablet vomiting #30 tabs pantoprazole 40 mg tablet,delayed 40 mg PO DAILY 30 days #30 tabs 09/19/23 10/30/23 Rx release multivitamin 1 tab PO DAILY 10/12/23 10/30/23 History vitamin E (dl, acetate) 450 mg 450 mg PO DAILY 10/12/23 10/30/23 History (1,000 unit) capsule Allergy/AdvReac Type Severity Reaction Status Date / Time bupropion (From Wellbutrin) Allergy Mild Hives Verified 11/01/23 12:35 hydrocodone Allergy Mild Other Verified 11/01/23 12:35 promethazine (From Phenergan) Allergy Mild Other Verified 11/01/23 12:35 Sulfa (Sulfonamide Allergy Other Verified 11/01/23 12:35 Antibiotics) Family History Grandfather Arthritis Diabetes Hypertension Skin cancer Grandmother Arthritis Aunt Colon cancer Mother HLD (hyperlipidemia) Cholecystitis with cholelithiasis Father Diabetes Cholecystitis with cholelithiasis Surgical History Delivery by section history ORIF right fifth metatarsal Social History household members: family and children Smoking Status: Former smoker how long ago did patient quit smoking: Quit 5 yrs prior, smoked 1 pk/week since 17 until quit. alcohol intake: current alcohol intake frequency: a few times a month substance use type: does not use ROS Constitutional Constitutional: Reports systems reviewed and no addt'l complaints, except as documented Eyes Eyes: Reports systems reviewed and no addt'l complaints, except as documented ENT HEENT: Reports systems reviewed and no addt'l complaints, except as documented Cardiovascular Cardiovascular: Reports systems reviewed and no addt'l complaints, except as documented Respiratory/Chest Respiratory/Chest: Reports systems reviewed and no addt'l complaints, except as documented Gastrointestinal Gastrointestinal: Reports systems reviewed and no addt'l complaints, except as documented Genitourinary Genitourinary: Reports systems reviewed and no addt'l complaints, except as documented Musculoskeletal Musculoskeletal: Reports systems reviewed and no addt'l complaints, except as documented Integumentary Integumentary: Reports systems reviewed and no addt'l complaints, except as documented Neurologic Neurologic: Reports systems reviewed and no addt'l complaints, except as documented Psychiatric Psychiatric: Reports systems reviewed and no addt'l complaints, except as documented Endocrine Endocrinology: Reports systems reviewed and no addt'l complaints, except as documented Hematologic/Lymphatic Hematologic/Lymphatic: Reports systems reviewed and no addt'l complaints, except as documented Allergic/Immunologic Allergic/Immunologic: Reports systems reviewed and no addt'l complaints, except as documented Vital Signs Vital Signs Vital Signs: 11/01/23 12:33 11/01/23 14:32 Temperature 97.4 F L Temperature Source Temporal Pulse Rate 95 71 Respiratory Rate 18 18 Blood Pressure 127/94 H 122/72 H Blood Pressure Mean 105 88 Pulse Ox 95 99 Oxygen Delivery Method Room Air Room Air Weight Weight: 236 lb 11.2 oz Body Mass Index (BMI) 37.0 Physical Exam Const alert, oriented x3 and no apparent distress HEENT normocephalic and head/scalp atraumatic Eyes PERRL Neck full ROM Lymph Lymphatic: no lymphadenopathy noted Resp normal respiratory effort and clear to auscultation bilaterally Cardio regular rate and regular rhythm GI GI Narrative: Abdomen- obese, soft, tenderness in the epigastric and RUQ region. Hypoactive bowel sounds no CVA tenderness Back/Spine no CVA tenderness Extremity normal to inspection Skin no rashes or lesions noted Neuro no focal motor deficits and no sensory deficits noted Psych mental status grossly normal, thought process normal and cooperative Results Lab / Micro Data 11/01/23 13:10 11/01/23 13:10 Labs: Laboratory Results - last 24 hr 11/01/23 13:10: WBC 6.8, RBC 4.06 L, Hgb 12.6, Hct 38.1, MCV 93.8, MCH 31.0, MCHC 33.1, RDW Std Deviation 43.2, RDW Coeff of Amy 12.6, Plt Count 251, MPV 9.6, Immature Gran % (Auto) 0.100, Neut % (Auto) 76.1 H, Lymph % (Auto) 16.4 L, [place] % (Auto) 5.6, Eos % (Auto) 1.5, Baso % (Auto) 0.3, Absolute Neuts (auto) 5.2, Absolute Lymphs (auto) 1.12, Nucleated RBC % 0, Sodium 144, Potassium 3.4 L, Chloride 116 H, Carbon Dioxide 22.0, Anion Gap 6, BUN 8, Creatinine 0.73, Estim Creat Clear Calc 126.64, Est GFR (MDRD) Af Amer 112, Est GFR (MDRD) Non-Af 93, BUN/Creatinine Ratio 11.0, Glucose 107 H, Calcium 7.9 L, Total Bilirubin 0.90, Direct Bilirubin 0.59 H, AST 243 H, ALT 195 H, Alkaline Phosphatase 92, Total Protein 6.0 L, Albumin 3.2, Globulin 2.8, Lipase 26, Serum , Qual NEGATIVE Imaging Radiology Impression Abdomen/Pelvis CT 11/01/23 12:58 IMPRESSION: Diffuse fatty infiltration of the liver. Hepatomegaly. Distention of the gallbladder with evidence of pericholecystic fluid. Mildly thickened gallbladder wall. Cholecystitis should be ruled out. Recent ultrasound of the gallbladder demonstrated multiple gallstones. Electronically Signed: Brice Sifuentes MD at 14:50 EDT , Assessment & Plan Assessment/Plan (1) Cholelithiasis and acute cholecystitis without obstruction: PLAN: I am seeing this patient in conjunction with Dr. Jama. She will independently evaluate this patient. Patient has presented to the ED multiple times with RUQ pain. CT scan is demonstrating acute cholecystitis with associated pericholecystic fluid, mildly thickened. Patient's liver enzymes are also elevated. We will plan to admit the patient to med/surg floor. She will be started on IV antibiotics, IV fluids and full liquids for tonight. Dr. Jama will plan to perform a laparoscopic cholecystectomy with intraoperative cholangiograms tomorrow. Procedure details, risks and benefits have been reviewed. Patient will be NPO after midnight. Patient has had the opportunity to ask and have questions answered. Patient verbally understands and agrees with the plan. Thank you for allowing us to participate in this patient's care. Charges/Coding Visit Charges OBSV E&M: 98327 Observ/hosp same date L2
[2023-11-01 16:00] VITALS: BP 148/99; PULSE 88; RESP 18; O2SAT 98
[2023-11-01] MEDS: Piperacil/Tazobactam 4.5 GM in 0.9% Normal Saline (100mL MB+) 100 ML IV (16:16)
[2023-11-01 17:17] VITALS: BP 141/106; PULSE 88; RESP 16; TEMP 36.6; O2SAT 98
[2023-11-01] MEDS: 0.9% Normal Saline (1000mL) 1,000 ML 100 ML IV (19:51)
[2023-11-01 21:57] VITALS: BMI 29.4
[2023-11-01 21:58] VITALS: BP 112/64; PULSE 87; RESP 16; TEMP 36.4; O2SAT 99
[2023-11-01] MEDS: ARIPiprazole 5 MG Tablet PO (22:03)
[2023-11-01] MEDS: Piperacil/Tazobactam 3.375 GM in 0.9% Normal Saline (50mL MB+) 50 ML IV (22:03)
[2023-11-01] MEDS: Pantoprazole Sodium 40 MG in 0.9% Normal Saline (100mL MB+) 100 ML 330 MG IV (23:29)
[2023-11-02] VITALS (16 sets, daily range): BP systolic 124–148; BP diastolic 65–98; PULSE 71–90; RESP 14–18; TEMP 35.9–36.6; O2SAT 84–99; BMI 34.2
[2023-11-02] MEDS: 0.9% Normal Saline (1000mL) 1,000 ML 100 ML IV (04:47)
[2023-11-02] MEDS: Piperacil/Tazobactam 3.375 GM in 0.9% Normal Saline (50mL MB+) 50 ML IV ×3 (04:47→20:46)
--- NOTE | 2023-11-02 06:00 | EKG12_ITS ---
Test Reason : AM EKG Blood Pressure : / mmHG Vent. Rate : 065 BPM Atrial Rate : 065 BPM P-R Int : 136 ms QRS Dur : 076 ms QT Int : 424 ms P-R-T Axes : 031 037 058 degrees QTc Int : 440 ms Normal sinus rhythm with sinus arrhythmia Low voltage QRS Borderline ECG No previous ECGs available Confirmed by Connor Grimes ([id number]), society editor SHAWNA FIGUEREDO ([id number]) on 11/03/2023 6:37:14 AM Referred By: Teddy Shultz Confirmed By:Connor Grimes
[2023-11-02 06:51] LABS: Absolute Lymphocyte Count 1.06 X10^3/uL (0.83-4.51); Absolute Neutrophil Count 1.9 X10^3/uL (2.0-7.7); Basophil# 0.02 X10^3/uL; Basophil% 0.6 % (0-1); Eosinophil# 0.18 X10^3/uL; Eosinophils% 5.3 % (0-5); Hematocrit 35.9 % (37-47); Hemoglobin 11.7 g/dL (12.0-15.0); Lymphocyte # 1.06 X10^3/ul (0.83-4.51); Lymphocyte % 31.2 % (19-41); Mean Corp Hgb Conc 32.6 g/dL (32-36); Mean Corpuscular Hgb 30.7 pg (27.0-32.0); Mean Corpuscular Volume 94.2 fL (81-99); Mean Platelet Vol. 9.8 fl (6.2-12.0); Monocyte# 0.23 X10^3/uL; Monocyte% 6.8 % (0-10); NRBC Flagged by Analyzer 0 % (0-5); Neutrophil % 55.8 % (47-70); Platelet Count 251 K/mm3 (150-450); RBC Distribution Width CV 12.4 % (11.6-14.6); RBC Distribution Width SD 42.9 fl (35.1-43.9); Red Blood Count 3.81 M/mm3 (4.2-5.4); White Blood Count 3.4 K/mm3 (4.4-11.0)
[2023-11-02 07:29] LABS: ALB/GLOB Ratio 1.1 RATIO (0.9-2.4); AST(SGOT) 363 U/L (15-37); Alanine Aminotransfer ALT/SGPT 470 U/L (13-56); Albumin, Serum 3.2 g/dL (3.2-5.0); Alkaline Phosphatase 111 U/L (45-117); Anion Gap 5 (5-15); BUN 4 mg/dL (7-18); BUN/Creat Ratio 5.5 RATIO (10-20); Calcium,Total 8.3 mg/dL (8.5-10.1); Chloride 110 mmol/L (98-107); Creatinine, Serum 0.73 mg/dL (0.55-1.02); EST Glomerular Filtration Rate 92 mL/min (>60); Est Glom Filt Rate - Afr Amer 112 mL/min (>60); Estimated Creatinine Clearance 112.59 ml/min; Globulin 2.9 g/dL (2.2-4.2); Glucose 120 mg/dL (74-106); Protein, Total 6.1 g/dL (6.4-8.2); Sodium Level 142 mmol/L (136-145)
--- NOTE | 2023-11-02 07:54 | PCM.PN.SRG ---
Subjective Subjective Patient did not need pain meds overnight and currently denies abdominal pain. Objective Data Objective Data Vital Signs: Vital Signs Temp Pulse Resp BP Pulse Ox O2 Del Method 97.6 F L 80 16 146/98 H 98 Room Air 11/02/23 04:42 11/02/23 04:42 11/02/23 04:42 11/02/23 04:42 11/02/23 04:42 11/02/23 04:42 Oxygen Delivery Method Room Air Weight: 187 lb 13.341 oz Body Mass Index (BMI) 29.4 Intake & Output: Intake and Output for Last 24 Hours 10/31/23 11/01/23 11/02/23 23:59 23:59 23:59 Intake Total 1167.5 / 1467.5 1243.33 / 1243.33 Balance 1167.5 / 1467.5 1243.33 / 1243.33 Lab / Micro Data 11/02/23 06:19 11/02/23 06:19 Labs: Laboratory Results - last 24 hr 11/01/23 13:10: WBC 6.8, RBC 4.06 L, Hgb 12.6, Hct 38.1, MCV 93.8, MCH 31.0, MCHC 33.1, RDW Std Deviation 43.2, RDW Coeff of Amy 12.6, Plt Count 251, MPV 9.6, Immature Gran % (Auto) 0.100, Neut % (Auto) 76.1 H, Lymph % (Auto) 16.4 L, Terry % (Auto) 5.6, Eos % (Auto) 1.5, Baso % (Auto) 0.3, Absolute Neuts (auto) 5.2, Absolute Lymphs (auto) 1.12, Nucleated RBC % 0, Sodium 144, Potassium 3.4 L, Chloride 116 H, Carbon Dioxide 22.0, Anion Gap 6, BUN 8, Creatinine 0.73, Estim Creat Clear Calc 126.64, Est GFR (MDRD) Af Amer 112, Est GFR (MDRD) Non-Af 93, BUN/Creatinine Ratio 11.0, Glucose 107 H, Calcium 7.9 L, Total Bilirubin 0.90, Direct Bilirubin 0.59 H, AST 243 H, ALT 195 H, Alkaline Phosphatase 92, Total Protein 6.0 L, Albumin 3.2, Globulin 2.8, Lipase 26, Serum , Qual NEGATIVE 11/02/23 06:19: WBC 3.4 L, RBC 3.81 L, Hgb 11.7 L, Hct 35.9 L, MCV 94.2, MCH 30.7, MCHC 32.6, RDW Std Deviation 42.9, RDW Coeff of Amy 12.4, Plt Count 251, MPV 9.8, Immature Gran % (Auto) 0.300, Neut % (Auto) 55.8, Lymph % (Auto) 31.2, Terry % (Auto) 6.8, Eos % (Auto) 5.3 H, Baso % (Auto) 0.6, Absolute Neuts (auto) 1.9 L, Absolute Lymphs (auto) 1.06, Nucleated RBC % 0, Sodium 142, Potassium 4.0, Chloride 110 H, Carbon Dioxide 27.0, Anion Gap 5, BUN 4 L, Creatinine 0.73, Estim Creat Clear Calc 112.59, Est GFR (MDRD) Af Amer 112, Est GFR (MDRD) Non-Af 92, BUN/Creatinine Ratio 5.5 L, Glucose 120 H, Calcium 8.3 L, Total Bilirubin 0.90, AST 363 H, ALT 470 H, Alkaline Phosphatase 111, Total Protein 6.1 L, Albumin 3.2, Globulin 2.9, Albumin/Globulin Ratio 1.1 Radiography Diagnostic Testing: Radiology Impression Abdomen/Pelvis CT 11/01/23 12:58 IMPRESSION: Diffuse fatty infiltration of the liver. Hepatomegaly. Distention of the gallbladder with evidence of pericholecystic fluid. Mildly thickened gallbladder wall. Cholecystitis should be ruled out. Recent ultrasound of the gallbladder demonstrated multiple gallstones. Electronically Signed: Brice Sifuentes MD at 14:50 EDT , Physical Exam Const oriented x3 and no apparent distress Resp normal respiratory effort Cardio regular rate GI soft to palpation Inspection: Negative for abdominal distention Palpation: tender epigastric (Mild, no peritoneal signs) Assessment & Plan Assessment/Plan (1) Cholelithiasis and acute cholecystitis without obstruction: (2) Elevated LFTs: (3) DE LA PAZ (nonalcoholic steatohepatitis): PLAN: Plan To discussed with patient that her pain is little atypical for gallbladder disease. I cannot guarantee that removing the gallbladder will take care of all of her symptoms. Patient expressed understanding. Reviewed the anatomy with the patient and discussed the procedure: laparoscopic cholecystectomy with possible cholangiograms, possible open. Review risks including but not limited to subtotal cholecystectomy, bleeding, infection, hernia, bile leak, retained gallstones requiring another procedure ERCP- Endoscopic Retrograde Cholangiopancreatography, injury to another organ (bile ducts, common bile duct, small bowel, etc.) may require transfer to tertiary care facility and conversion to an open procedure. All questions were answered. Jacqueline Jama M.D. Pager: [phone] [facility] [address] [place] [address] [address] [place] [address] Office: [phone]
[2023-11-02] MEDS: Pantoprazole Sodium 40 MG in 0.9% Normal Saline (100mL MB+) 100 ML 330 MG IV (10:04)
[2023-11-02] MEDS: HYDROmorphone 1 MG/ML Syringe IV (10:10)
[2023-11-02] MEDS: Ondansetron 4 MG/2 ML Vial IV ×2 (10:10→20:47)
[2023-11-02] MEDS: 0.9% Normal Saline (1000mL) 1,000 ML 15 ML IV (12:04)
--- NOTE | 2023-11-02 12:37 | PCM.PRE.AN2 ---
ASA Classification* ASA Classification ASA Classification: 2 Assessment & Plan Anesthesia* Anesthesia Assessment Anesthesia Assessment: Discussed sedation and/or anesthesia options, risks, benefits, and alternatives with patient/parents/legal guardian/POA. Questions invited. The patient/parents/legal guardian/POA seems to understand and agrees to proceed with anesthesia plan. Reviewed the physical assessment, medical history, allergy history and patient home medications list prior to surgery/procedure/anesthetic and documented any changes. Performed airway and anesthesia risk assessments. Anesthesia Type Anesthesia Type: General (Consider GlideScope) History Source History Obtained from:: Patient and Chart Anesthesia Focused Assessment* Temperature: 97.6 F Pulse Rate: 72 Blood Pressure: 135/93 Respiratory Rate: 18 Pulse Ox: 97 Oxygen Delivery Method: Room Air Airway Assessment Mouth opens: 2 cm Mallampati Score: III Teeth Condition: Intact Neck Range of motion (ROM): Full ROM Pertinent Findings EKG Pertinent Findings:: November 02, 2023. Normal sinus rhythm with sinus arrhythmia. Focused Labs Anesthesia Preop lab: CBC WBC 3.4 K/mm3 (4.4-11.0) L 11/02/23 06:19 RBC 3.81 M/mm3 (4.2-5.4) L 11/02/23 06:19 Hgb 11.7 g/dL (12.0-15.0) L 11/02/23 06:19 Hct 35.9 % (37-47) L 11/02/23 06:19 Plt Count 251 K/mm3 (150-450) 11/02/23 06:19 CHEMISTRY Potassium 4.0 mmol/L (3.5-5.1) 11/02/23 06:19 Sodium 142 mmol/L (136-145) 11/02/23 06:19 BUN 4 mg/dL (7-18) L 11/02/23 06:19 Creatinine 0.73 mg/dL (0.55-1.02) 11/02/23 06:19 Glucose 120 mg/dL (74-106) H 11/02/23 06:19 POC Glucose 84 mg/dL (74-106) 03/25/23 05:24 TSH 1.55 uIU/mL (0.358-3.74) 10/01/15 11:29 COAG PT 13.1 SECONDS (11.7-14.9) 09/15/23 10:51 HCG, Quant 1263 mIU/mL (<9 non-preg) H 09/11/15 11:38 Pre-Assessment Diagnosis/Proposed Procedure Planned Operative Procedure(s): Laparoscopic cholecystectomy with intraoperative cholangiograms. 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 When Was Last Pacemaker Check QUESTION #4 FULL TEXT: You/Your Family Experience fever (hyperthermia) with Anesthesia Last Oral Intake Last Oral intake: Last Oral Intake NPO since 00:00 11/02/23 10:23 Meds taken in AM with sips of water? Meds patient instructed to take am of surgery PONV PONV - clay products machine operator: PONV - clay products machine operator Female HX of Motion Sickness HX of N/V After Surgery Non-Smoker Duration of Surgery greater than 60 minutes Number of Risk Factors PONV Score Height & Weight Height & Weight: Anesthesia: Height & Weight Height 5 ft 7 in 11/02/23 10:23 Weight: 99.261 kg 11/02/23 10:23 Body Mass Index (BMI) 34.2 11/02/23 10:23 Respiratory Assessment Respiratory Assessment - clay products machine operator: Respiratory Tract Infection Hx - clay products machine operator Hx Respiratory Tract Infection No 11/01/23 22:06 STOP Sleep Apnea STOP Sleep Apnea - clay products machine operator: STOP Sleep Apnea - clay products machine operator Hx Hypertension No 11/01/23 18:20 Hx Sleep Apnea No 11/01/23 18:20 CPAP BIPAP Do you snore loudly (louder No 11/01/23 18:20 than talking or can be heard Do you often feel tired/ No 11/01/23 18:20 fatigued/ sleepy during daytime? Has anyone observed you stop No 11/01/23 18:20 breathing during sleep? STOP Results Negative 11/01/23 18:20 QUESTION #5 FULL TEXT : Do you snore loudly (louder than talking or can be heard through closed doors)? Tobacco Use History Tobacco Use History - clay products machine operator: Tobacco Use History - clay products machine operator Tobacco Use Smoking Status Former smoker 11/01/23 18:20 Hx Tobacco Use No 11/01/23 18:20 Years Smoking Packs Smoked per Day Smoking Cessation Date was Yes - quit smoking within 15 11/01/23 18:20 within the last 15 years years Hx Smoking Cessation Date 03/06/21 11/01/23 18:20 Hx Smoking Cessation Counseling Hematologic Medial History Hematologic Hx - clay products machine operator: Hematologic Medical Hx - ladle cleaner Hx of Blood Transfusion No 11/01/23 18:20 Hx of Transfusion in last 3 No 11/01/23 18:20 Months Date of Last Transfusion (if within last 3 months) Ever experience any problems No 11/01/23 18:20 with transfusion(s)? Specify any problems Hx of Preganancy in last 3 No 11/01/23 18:20 Months Nurse Filling Out Transfusion SBEUN 11/01/23 18:20 & Questions: Date: 11/01/23 11/01/23 18:20 Time: 18:22 11/01/23 18:20 Patient unable to answer at this time (ie. confused, unrespo /Reproduction History /Reproductive History - clay products machine operator: /Reproductive Hx- clay products machine operator Hx Now No 11/01/23 22:06 Gestational Age (in weeks): EDC: Hx Hx Para Hx Section SAB No 11/01/23 22:06 Active Medications Active Medications: Current Medications Generic Name Dose Route Start Last Admin Trade Name Freq PRN Reason Stop Dose Admin Acetaminophen 650 mg 11/01/23 17:56 Acetaminophen 325 Mg Tablet PO Q6H PRN PRN Pain 1-10 Or Fever >100.7 Aripiprazole 5 mg 11/01/23 22:00 11/01/23 22:03 Aripiprazole 5 Mg Tablet PO 5 mg QHS NURIS Administration Protocol Hydromorphone HCl 0.5 - 1 mg 11/01/23 17:56 11/02/23 10:10 Hydromorphone 1 Mg/Ml Syringe IV 1 mg Q3H PRN PRN Administration Pain Score 6-10 Hydromorphone HCl 0.5 - 1 mg 11/01/23 18:20 Hydromorphone 0.5 Mg/0.5 Ml Syringe IV Q3H PRN PRN Pain Score 6-10 Piperacillin Sod/Tazobactam 50 mls @ 12.5 mls/hr 11/01/23 22:00 11/02/23 08:47 Sod 3.375 gm/ Sodium Chloride IV Infused Q8 NURIS Infusion Pantoprazole Sodium 40 mg/ 110 mls @ 330 mls/hr 11/01/23 21:40 11/02/23 10:04 Sodium Chloride IV 330 mls/hr Q24 NURIS Administration Sodium Chloride 1,000 mls @ 15 mls/hr 11/02/23 12:05 IV .Q48H NURIS Ondansetron HCl 4 mg 11/01/23 17:56 11/02/23 10:10 Ondansetron 4 Mg/2 Ml Vial IV 4 mg Q8H PRN PRN Administration NAUSEA/VOMITING Oxycodone HCl 5 mg 11/01/23 17:56 Oxycodone 5 Mg Tablet PO Q4H PRN PRN Pain Score 4-10 Sodium Chloride 10 - 40 ml 11/01/23 18:27 0.9% Saline Lock 10 Ml Syringe IV UD PRN SALINE FLUSH PFSH Medical History Gastric reflux Wears glasses Diabetes Rheumatoid arthritis Fatty liver Back pain Difficulty swallowing Former smoker Shortness of breath on exertion Obesity Unstable lie Gestational diabetes mellitus (GDM) Distortion of contour of breast Depression with anxiety Abnormal ultrasound of breast Abnormal mammogram Home Medications ?Medication ?Instructions ?Recorded ?Last Taken ?Type venlafaxine 150 mg 150 mg PO DAILY #30 caps 05/13/16 11/01/23 Rx capsule,extended release 24 hr dextroamphetamine-amphetamine 20 20 mg PO BID 06/29/17 10/30/23 History mg tablet (Adderall) aripiprazole 5 mg tablet 5 mg PO QHS anxiety and depression 03/23/23 10/31/23 History diphenhydramine HCl 25 mg capsule 75 mg PO QHS 09/15/23 10/31/23 History (Benadryl) ondansetron 4 mg disintegrating 4 mg PO Q6H PRN nausea and 09/19/23 11/01/23 11:30 Rx tablet vomiting #30 tabs pantoprazole 40 mg tablet,delayed 40 mg PO DAILY 30 days #30 tabs 09/19/23 10/31/23 Rx release multivitamin 1 tab PO DAILY 10/12/23 10/31/23 History vitamin E (dl, acetate) 450 mg 450 mg PO DAILY 10/12/23 10/31/23 History (1,000 unit) capsule Allergy/AdvReac Type Severity Reaction Status Date / Time bupropion (From Wellbutrin) Allergy Mild Hives Verified 11/01/23 12:35 hydrocodone Allergy Mild Other Verified 11/01/23 12:35 promethazine (From Phenergan) Allergy Mild Other Verified 11/01/23 12:35 Sulfa (Sulfonamide Allergy Other Verified 11/01/23 12:35 Antibiotics) Family History Grandfather Arthritis Diabetes Hypertension Skin cancer Grandmother Arthritis Aunt Colon cancer Mother HLD (hyperlipidemia) Cholecystitis with cholelithiasis Father Diabetes Cholecystitis with cholelithiasis Surgical History Delivery by section history ORIF right fifth metatarsal Social History household members: family and children Smoking Status: Former smoker how long ago did patient quit smoking: Quit 5 yrs prior, smoked 1 pk/week since 17 until quit. alcohol intake: current alcohol intake frequency: a few times a month substance use type: does not use Review of Systems (Anesthesia) ROS Narrative System reviewed and no additional complaints, except as documented.
--- NOTE | 2023-11-02 13:00 | GALL_PTH ---
PATIENT: COSMO MAEYRS LOC: [facility] U#:[id number] AGE/SX: 43/F ROOM: NH311 RE11/02/[address]: Dr. Jacqueline Jama MD : 1980 BED: 1 DIS: 11/04/2023 SPEC #: [id number] RECD: 11/02/23 18:23 STATUS: JALEN REQ #: [id number] MIKEY: 11/02/23 13:[address]: Jacqueline Jama DEPT: SURGICAL PATHOLOGY RECD BY: Consuelo Cote ENTERED: 11/03/23 07:19 SP TYPE: JERROD WHITE DR: DO Dr. Caden Shipley MD Amanda Griffith, PA-C Tissues: Gallbladder, NOS Procedures: Surgery Specimen Level III HEADER OPERATION: Laparoscopic, cholecystectomy with IOC PRE-OP DIAGNOSIS: Cholelithiasis and acute cholecystitis without obstruction TISSUE SUBMITTED: Gallbladder MICROSCOPIC DIAGNOSIS Gallbladder, cholecystectomy: Chronic cholecystitis and cholelithiasis. AM/ 11/07/2023 MICROSCOPIC DESCRIPTION Slides are reviewed. GROSS DESCRIPTION Received is one container labeled with the patient's name and designated gallbladder. The specimen consists of a gallbladder measuring 9.5 cm in length and up to 4.5 cm in diameter. The external surface is pink-damian, smooth and glistening for the most part. Focally it is granular, hemorrhagic and contains cautery artifact. The gallbladder contains green-yellow mucoid bile and multiple mulberry yellow stones measuring in aggregate 3.5 x 3.5 x 0.7 cm and 0.1 to 0.8 cm in greatest dimension. The mucosa is bile-stained and without any mass lesions. The gallbladder wall measures up to 0.2 cm in thickness. Housekeeper Manager sections from the gallbladder and the cystic duct are submitted in one cassette. / SHANIQUE: 11/03/2023 TC:3 CPT: 13334
--- NOTE | 2023-11-02 13:45 | RAD_ITS ---
CLINICAL HISTORY: Female, 43 years old. Cholecystectomy PROCEDURE: CHOLANGIOGRAM - intraoperative CONSENT: Informed consent obtained SEDATION: General FLUOROSCOPY TIME (if supplied): (30.7) seconds, radiation dose of 27.01 mGy, two cine loops obtained, one with 139 images, the other with 75 Placement of the catheter and the procedure were performed by: Jacqueline Jama MD Fluoroscopy was provided by Ambreen Mata, who was present in the room time of the procedure. TECHNIQUE: (All elements of maximal sterile barrier technique followed, including US elements as applicable) After the gallbladder was removed, the cystic duct was cannulized and contrast injected. There is dilatation of the biliary tree and multiple rounded filling defects are noted within the distal common bile duct likely representing retained stones. There is no flow of contrast into the duodenum on either of the cine loops. There is no evidence of contrast extravasation. RAD/Cholangiogram/ O R,Initial IMPRESSION: Dilated biliary tree with multiple circular lucencies in the distal common bile duct suspicious for retained common bile duct stones and there is no flow of contrast into the duodenum. No extravasation of contrast to to suspect a bile leak Electronically Signed: Noel Nath MD at 15:28 EDT ,
[2023-11-02] MEDS: Bupivacaine Mpf 0.5% 30 ML VIAL (14:38)
--- NOTE | 2023-11-02 14:52 | OP.PCM_ITS ---
Report of Operation Date of Procedure: 11/02/23 Pre-Operative Diagnosis: Cholelithiasis, acute cholecystitis Post-Operative Diagnosis: Cholelithiasis, acute cholecystitis, choledocholithiasis Surgery/Procedure Performed:: Laparoscopic cholecystectomy with cholangiograms Surgeon: Jacqueline Jama Type of Anesthesia: General/Supplemental Anesthesiologist: Ehsan Hughes Special Medications: Zosyn 3.375 g IV Q8 for acute cholecystitis on the floor Specimen's removed: Gallbladder Estimated Blood Loss (mL): 10 cc Description of Procedure: Indications: this is a 43 year-old female who developed abdominal pain/nausea/vomiting and on workup was found to have DE LA PAZ, previous hospitalization for elevated liver functions and cholelithiasis, with a normal common bile duct. Laparoscopic cholecystectomy was elected. Description procedure: The patient was placed on operating table in supine position. A timeout was completed verifying correct patient, procedure, site, position and special equipment prior to beginning procedure. General Anesthe kyra was induced. The abdomen was prepped and draped in usual sterile fashion. An incision was made in the natural skin line above the umbilicus. The fascia was elevated and incised. The peritoneum was elevated and incised. Entry into the peritoneum was confirmed visually and no bowel was noted in the vicinity of the incision. Wright trocar was placed. The abdomen was insufflated with carbon dioxide to a pressure of 12-15 mmHg. Patient tolerated insufflation well. The laparoscope was then inserted and abdomen inspected. No injuries from initial trocar placement were noted. Additional trochars were then inserted in the following locations 5 mm trocar in the epigastrium and 2 more 5 mm trochars along the right costal margin. The abdomen was inspected no abnormalities were found. The table is placed in reverse Trendelenburg position with the right side up. The dome of the gallbladder was grasped with atraumatic grasper passed through the lateral port and retracted over the dome of the liver. Infundibulum was then grasped with atraumatic grasper through the midclavicular port and retracted to the right lower quadrant. This maneuver exposed Calot's triangle. The peritoneum overlying the gallbladder infundibulum was then incised and cystic duct and artery identified and circumferentially dissected. Lewis catheter was used for cholangiograms. The cholangiogram showed filling of the common bile duct however did not empty into the duodenum with choledocholithiasis present, but good filling of the right and left bile ducts. The epigastric trocar site was enlarged to 12 mm accommodate the 10 mm Hem-o-paulo clips for the cystic duct. The cystic duct and artery were then doubly clipped and divided close to the gallbladder. The gallbladder then dissected from its peritoneal attachments by electrocautery. Hemostasis was checked and the gallbladder and contained stones were removed using the endoscopic retrieval bag through the umbilical port. The gallbladder is passed off table as specimen. The gallbladder fossa was irrigated with saline and hemostasis obtained. There is no evidence of bleeding from the gallbladder fossa or cystic artery leakage of bile from the cystic duct stump. Secondary trochars removed under direct vision. No bleeding was noted the trocar sites. The laparoscope was withdrawn and umbilical trocar removed. The abdomen was allowed to collapse. The fascia of the 12 mm trocars were closed with a [id number] 0 Vicryl suture. The skin was closed with sutures of 4-0 Monocryl and Steri-Strips. The patient was extubated. The patient tolerated procedure well and was taken to the postanesthesia care unit in stable condition. Complications none
--- NOTE | 2023-11-02 15:36 | DCINST_ITS ---
Discharge Instructions Diet Discharge Diet: Light diet - advance as tolerated Activity Discharge Activity: May Not Drive (while taking narcotic pain medications.) May shower in (days): 1 Lifting Restrictions: no lifting >20 lbs x 2 wks, no strenuous exercise for 4 wks Dressing / Incision Call your doctor if your incision/area has: Continuous Slow Oozing, Sudden Increased Bleeding, Increased Pain/ Swelling, Increased Redness, Foul Smelling Discharge and Swelling at the incision site Call your doctor if you observe: Fever of 101 or Higher Remove Dressing in: 2 days Cleanse incision/area with: Soap & Water Additional Dressing/Incision Instructions:: Steri-Strips will fall off in 7 to 10 days, if they do not fall off okay to remove after 10 days. Follow Up Care Please Follow Up With: Jacqueline Jama MD When: Call the office for a follow-up appointment 2 weeks; after 5 PM and on the weekends call [phone] with any concerns. Test Results: Test results from this visit will be discussed in further detail at your follow- up appointment, if applicable. Discharge Plan Admission Admit Date/Time: 11/01/23 15:34 Attending Provider: Jacqueline Jama Primary Care Provider: Caden Almazan Discharge Orders/Prescriptions Prescriptions: New oxycodone 5 mg capsule 5 mg PO Q6H PRN (Reason: pain) 3 Days Qty: 14 0RF Continued dextroamphetamine-amphetamine [Adderall] 20 mg tablet 20 mg PO BID vitamin E (dl, acetate) 450 mg (1,000 unit) capsule 450 mg PO DAILY multivitamin Tablet 1 tab PO DAILY venlafaxine 150 MG capsule 150 mg PO DAILY Qty: 30 3RF aripiprazole 5 mg tablet 5 mg PO QHS Patient Comments: TAKE 1 TABLET BY MOUTH EVERY DAY diphenhydramine HCl [Benadryl] 25 mg capsule 75 mg PO QHS pantoprazole 40 mg Tablet,Delayed Release (Dr/Ec) 40 mg PO DAILY 30 Days Qty: 30 0RF ondansetron 4 mg tablet,disintegrating 4 mg PO Q6H PRN (Reason: nausea and vomiting) Qty: 30 0RF Referrals / Follow Up: Caden Almazan MD [Primary Care Provider] - Disposition Disposition (needs filled in before D/C Order can be placed): Home, Self Care
--- NOTE | 2023-11-02 16:04 | PCM.POST.ANE ---
Anesthesia: Postop Eval I Current Vital Signs Temperature: 97.5 F Pulse Rate: 72 Blood Pressure: 148/97 Respiratory Rate: 14 Pulse Ox: 97 Oxygen Delivery Method: Room Air Assessment Airway patent: Yes Spontaneous unlabored respirations: Yes Mental status: Awake and Calm nausea: No Vomiting: No Anesthesia Complication: No Fluid Hydration Crystalloid volume administer (ml): 1,000 Total IV fluid infused: 1,000 Progress Note Anesthesia document: Postop Eval 1 completed: Yes
[2023-11-02] MEDS: Lactated Ringers 1,000 ML 15 ML IV (16:17)
[2023-11-02] MEDS: Venlafaxine XR 150 MG Capsule PO (18:42)
[2023-11-02] MEDS: ARIPiprazole 5 MG Tablet PO (20:46)
[2023-11-02] MEDS: DiphenhydrAMINE 25 MG Capsule 75 MG PO (20:46)
[2023-11-02] MEDS: Acetaminophen 325 MG Tablet 650 MG PO (20:47)
[2023-11-02] MEDS: oxyCODONE 5 MG Tablet PO (20:47)
[2023-11-03] VITALS (16 sets, daily range): BP systolic 114–151; BP diastolic 66–100; PULSE 70–96; RESP 14–18; TEMP 36.4–37.3; O2SAT 89–98; BMI 34.2
[2023-11-03] MEDS: oxyCODONE 5 MG Tablet PO (01:53)
[2023-11-03 05:06] LABS: Absolute Lymphocyte Count 0.89 X10^3/uL (0.83-4.51); Absolute Neutrophil Count 5.7 X10^3/uL (2.0-7.7); Basophil# 0.01 X10^3/uL; Basophil% 0.1 % (0-1); Hematocrit 37.8 % (37-47); Hemoglobin 12.4 g/dL (12.0-15.0); Lymphocyte # 0.89 X10^3/ul (0.83-4.51); Lymphocyte % 12.8 % (19-41); Mean Corp Hgb Conc 32.8 g/dL (32-36); Mean Corpuscular Hgb 30.5 pg (27.0-32.0); Mean Corpuscular Volume 92.9 fL (81-99); Mean Platelet Vol. 9.6 fl (6.2-12.0); Monocyte# 0.28 X10^3/uL; NRBC Flagged by Analyzer 0 % (0-5); Neutrophil # 5.74 X10^3/uL (2.7-7.7); Neutrophil % 82.8 % (47-70); Platelet Count 298 K/mm3 (150-450); RBC Distribution Width CV 12.4 % (11.6-14.6); RBC Distribution Width SD 42.1 fl (35.1-43.9); Red Blood Count 4.07 M/mm3 (4.2-5.4); White Blood Count 6.9 K/mm3 (4.4-11.0)
[2023-11-03 05:32] LABS: AST(SGOT) 390 U/L (15-37); Alanine Aminotransfer ALT/SGPT 578 U/L (13-56); Albumin, Serum 3.6 g/dL (3.2-5.0); Alkaline Phosphatase 133 U/L (45-117); Anion Gap 4 (5-15); BUN 4 mg/dL (7-18); BUN/Creat Ratio 5.9 RATIO (10-20); Calcium,Total 8.8 mg/dL (8.5-10.1); Chloride 107 mmol/L (98-107); Creatinine, Serum 0.68 mg/dL (0.55-1.02); EST Glomerular Filtration Rate 101 mL/min (>60); Est Glom Filt Rate - Afr Amer 122 mL/min (>60); Estimated Creatinine Clearance 130.44 ml/min; Globulin 2.9 g/dL (2.2-4.2); Glucose 109 mg/dL (74-106); Potassium 3.8 mmol/L (3.5-5.1); Protein, Total 6.5 g/dL (6.4-8.2); Sodium Level 139 mmol/L (136-145)
[2023-11-03] MEDS: Piperacil/Tazobactam 3.375 GM in 0.9% Normal Saline (50mL MB+) 50 ML IV ×3 (05:47→22:39)
--- NOTE | 2023-11-03 07:16 | POSTOPAN2_ITS ---
Anesthesia Postop Eval I Sum Postop Eval Completion status Anesthesia document: Postop Eval 1 completed: Yes Anesthesia Postop Eval I Summary Anesthesia Postop Eval I Summary: Anesthesia Postop Eval I: Assessment Summary Airway patent Yes 11/02/23 16:04 [email or web address] Spontaneous unlabored Yes 11/02/23 16:04 [email or web address] respirations Mental status Awake,Calm 11/02/23 16:04 [email or web address] nausea No 11/02/23 16:04 [email or web address] Vomiting No 11/02/23 16:04 [email or web address] Anesthesia Postop Eval I: Fluid Summary Crystalloid volume administer 1,000 11/02/23 16:04 [email or web address] (ml) Colloids volume administered ( ml) Blood Product volume administered (ml) Total IV fluid infused 1,000 11/02/23 16:04 [email or web address] Anesthesia Postop Eval I: Summary Notes Anesthesia Complication No 11/02/23 16:04 [email or web address] Anesthesia Complication Comment: Post-operative progress note Anesthesia: Postop Eval II Evaluation Mental status: Awake Pain Level: 0 nausea: No Vomiting: No
--- NOTE | 2023-11-03 07:16 | PCM.POSTANE2 ---
Anesthesia Postop Eval I Sum Postop Eval Completion status Anesthesia document: Postop Eval 1 completed: Yes Anesthesia Postop Eval I Summary Anesthesia Postop Eval I Summary: Anesthesia Postop Eval I: Assessment Summary Airway patent Yes 11/02/23 16:04 FILTERING MACHINE [email or web address] Spontaneous unlabored Yes 11/02/23 16:04 FILTERING MACHINE [email or web address] respirations Mental status Awake,Calm 11/02/23 16:04 FILTERING MACHINE [email or web address] nausea No 11/02/23 16:04 FILTERING MACHINE [email or web address] Vomiting No 11/02/23 16:04 FILTERING MACHINE [email or web address] Anesthesia Postop Eval I: Fluid Summary Crystalloid volume administer 1,000 11/02/23 16:04 FILTERING MACHINE [email or web address] (ml) Colloids volume administered ( ml) Blood Product volume administered (ml) Total IV fluid infused 1,000 11/02/23 16:04 FILTERING MACHINE [email or web address] Anesthesia Postop Eval I: Summary Notes Anesthesia Complication No 11/02/23 16:04 FILTERING MACHINE [email or web address] Anesthesia Complication Comment: Post-operative progress note Anesthesia: Postop Eval II Evaluation Mental status: Awake Pain Level: 0 nausea: No Vomiting: No
--- NOTE | 2023-11-03 07:18 | PCM.PN.SRG ---
Subjective Subjective Patient reports that she is comfortable with no pain this morning Objective Data Objective Data Vital Signs: Vital Signs Temp Pulse Resp BP Pulse Ox O2 Del Method O2 Flow Rate 97.9 F 70 14 114/66 95 Room Air 3 11/03/23 05:19 11/03/23 05:19 11/03/23 05:19 11/03/23 05:19 11/03/23 07:09 11/03/23 07:09 11/02/23 16:15 Oxygen Flow Rate (L/min) 3 Oxygen Delivery Method Room Air Weight: 218 lb 13.341 oz Body Mass Index (BMI) 34.2 Intake & Output: Intake and Output for Last 24 Hours 11/01/23 11/02/23 11/03/23 23:59 23:59 23:59 Intake Total 1167.5 / 1467.5 3603.33 / 3878.33 325 / 325 Balance 1167.5 / 1467.5 3603.33 / 3878.33 325 / 325 Lab / Micro Data 11/03/23 04:50 11/03/23 04:50 Labs: Laboratory Results - last 24 hr 11/02/23 06:19: Sodium 142, Potassium 4.0, Chloride 110 H, Carbon Dioxide 27.0, Anion Gap 5, BUN 4 L, Creatinine 0.73, Estim Creat Clear Calc 112.59, Est GFR (MDRD) Af Amer 112, Est GFR (MDRD) Non-Af 92, BUN/Creatinine Ratio 5.5 L, Glucose 120 H, Calcium 8.3 L, Total Bilirubin 0.90, AST 363 H, ALT 470 H, Alkaline Phosphatase 111, Total Protein 6.1 L, Albumin 3.2, Globulin 2.9, Albumin/Globulin Ratio 1.1 11/03/23 04:50: WBC 6.9, RBC 4.07 L, Hgb 12.4, Hct 37.8, MCV 92.9, MCH 30.5, MCHC 32.8, RDW Std Deviation 42.1, RDW Coeff of Amy 12.4, Plt Count 298, MPV 9.6, Immature Gran % (Auto) 0.300, Neut % (Auto) 82.8 H, Lymph % (Auto) 12.8 L, [place] % (Auto) 4.0, Eos % (Auto) 0.0, Baso % (Auto) 0.1, Absolute Neuts (auto) 5.7, Absolute Lymphs (auto) 0.89, Nucleated RBC % 0, Sodium 139, Potassium 3.8, Chloride 107, Carbon Dioxide 28.0, Anion Gap 4 L, BUN 4 L, Creatinine 0.68, Estim Creat Clear Calc 130.44, Est GFR (MDRD) Af Amer 122, Est GFR (MDRD) Non-Af 101, BUN/Creatinine Ratio 5.9 L, Glucose 109 H, Calcium 8.8, Total Bilirubin 1.10 H, Direct Bilirubin 0.80 H, AST 390 H, ALT 578 H, Alkaline Phosphatase 133 H, Total Protein 6.5, Albumin 3.6, Globulin 2.9 Radiography Diagnostic Testing: Radiology Impression Cholangiogram 11/02/23 13:45 IMPRESSION: Dilated biliary tree with multiple circular lucencies in the distal common bile duct suspicious for retained common bile duct stones and there is no flow of contrast into the duodenum. No extravasation of contrast to to suspect a bile leak Electronically Signed: Noel Nath MD at 15:28 EDT , Physical Exam Const oriented x3 and no apparent distress Resp normal respiratory effort GI soft to palpation and non-tender Assessment & Plan Assessment/Plan (1) Cholelithiasis and acute cholecystitis without obstruction: PLAN: The patient had laparoscopic cholecystectomy yesterday and cholangiograms revealed several small stones in the common bile duct. She is having ERCP today. As long as that goes well I will discharge her home either later today or tomorrow morning. Sheldon Oliva MD Pager: [facility] [address] [place] [address], [address] [place] [address] Office:
--- NOTE | 2023-11-03 09:55 | CASEMGMT ---
RN CM Face to Face with patient for initial transition planning/care coordination assessment. RN CM introduced self and role at [facility]. Patient lying in bed, alert and oriented. Patient willing to participate in assessment and is able to answer all questions appropriately. Care providers, pharmacy, and demographics verified. Strata: 2 PCP: Norah Specialists: Friend, GI; Evita, surgeon Preferred Pharmacy: [facility] Insurance: [employer] Prescription Benefit: yes Living Will/HPOA: none LNOK: daughter, mother Living Arrangements: Patient lives with 4 children (20yo, 9yo, 7yo, 7mos) in a 2 story home. Patient's mother is caring for children while patient in hospital. Patient is independent and able to ambulate stairs. Transportation: self, mother DME/HHC: Patient denies DME in the home. No previous HHC or SNF. Patient wishes to discharge home, denies need for home health at this time. Patient states he has no further needs or concerns at this time. CM to follow for discharge planning needs that may arise. Disposition Plan: Patient to discharge home with family support and follow-up plans in place. Vale NEW, RN, CM
[2023-11-03] MEDS: Pantoprazole Sodium 40 MG in 0.9% Normal Saline (100mL MB+) 100 ML 330 MG IV (11:03)
[2023-11-03] MEDS: HYDROmorphone 0.5 MG/0.5 ML SYRINGE IV (11:23)
--- NOTE | 2023-11-03 12:26 | PRE.ANES_ITS ---
ASA Classification* ASA Classification ASA Classification: 2 Assessment & Plan Anesthesia* Anesthesia Assessment Anesthesia Assessment: Discussed sedation and/or anesthesia options, risks, benefits, and alternatives with patient/parents/legal guardian/POA. Questions invited. The patient/parents/legal guardian/POA seems to understand and agrees to proceed with anesthesia plan. Reviewed the physical assessment, medical history, allergy history and patient home medications list prior to surgery/procedure/anesthetic and documented any changes. Performed airway and anesthesia risk assessments. Anesthesia Type Anesthesia Type: General History Source History Obtained from:: Patient and Chart Anesthesia Focused Assessment* Temperature: 98.1 F Pulse Rate: 77 Blood Pressure: 120/77 Respiratory Rate: 16 Pulse Ox: 94 Oxygen Delivery Method: Room Air Airway Assessment Mouth opens: >3 cm Mallampati Score: II Teeth Condition: Intact Neck Range of motion (ROM): Full ROM Pertinent Findings EKG Pertinent Findings:: November 02, 2023. Normal sinus rhythm with sinus arrhythmia. Focused Labs Anesthesia Preop lab: CBC WBC 6.9 K/mm3 (4.4-11.0) 11/03/23 04:50 RBC 4.07 M/mm3 (4.2-5.4) L 11/03/23 04:50 Hgb 12.4 g/dL (12.0-15.0) 11/03/23 04:50 Hct 37.8 % (37-47) 11/03/23 04:50 Plt Count 298 K/mm3 (150-450) 11/03/23 04:50 CHEMISTRY Potassium 3.8 mmol/L (3.5-5.1) 11/03/23 04:50 Sodium 139 mmol/L (136-145) 11/03/23 04:50 BUN 4 mg/dL (7-18) L 11/03/23 04:50 Creatinine 0.68 mg/dL (0.55-1.02) 11/03/23 04:50 Glucose 109 mg/dL (74-106) H 11/03/23 04:50 POC Glucose 84 mg/dL (74-106) 03/25/23 05:24 TSH 1.55 uIU/mL (0.358-3.74) 10/01/15 11:29 COAG PT 13.1 SECONDS (11.7-14.9) 09/15/23 10:51 HCG, Quant 1263 mIU/mL (<9 non-preg) H 09/11/15 11:38 Pre-Assessment Diagnosis/Proposed Procedure Planned Operative Procedure(s): ERCP Anesthesia History Anesthesia History - quality control inspector heading: Anesthesia History - quality control inspector heading Hx Hospitalization Yes: 09/2023 GALLBLADDER 10/25/23 09:42 ATTACK Any Problems With Anesthesia No 11/01/23 22:06 Cholinesterase deficiency No 11/01/23 22:06 You/Your Family Experience No 11/01/23 22:06 fever (hyperthermia) with Relationship Recent Exposure to Contagious No 11/01/23 22:06 Disease Does patient have nerve No 11/01/23 22:06 stimulator Patient instructed to have No 11/01/23 22:06 device shut off --Does patient have Pacemaker No 11/03/23 09:12 or ICD? When Was Last Pacemaker Check QUESTION #4 FULL TEXT: You/Your Family Experience fever (hyperthermia) with Anesthesia Last Oral Intake Last Oral intake: Last Oral Intake NPO since 00:00 11/03/23 09:12 Meds taken in AM with sips of water? Meds patient instructed to take am of surgery PONV PONV - quality control inspector heading: PONV - quality control inspector heading Female HX of Motion Sickness HX of N/V After Surgery Non-Smoker Duration of Surgery greater than 60 minutes Number of Risk Factors PONV Score Height & Weight Height & Weight: Anesthesia: Height & Weight Height 5 ft 7 in 11/03/23 09:12 Weight: 99.261 kg 11/03/23 09:12 Body Mass Index (BMI) 34.2 11/03/23 09:12 Respiratory Assessment Respiratory Assessment - quality control inspector heading: Respiratory Tract Infection Hx - quality control inspector heading Hx Respiratory Tract Infection No 11/01/23 22:06 STOP Sleep Apnea STOP Sleep Apnea - quality control inspector heading: STOP Sleep Apnea - quality control inspector heading Hx Hypertension No 11/01/23 18:20 Hx Sleep Apnea No 11/01/23 18:20 CPAP BIPAP Do you snore loudly (louder No 11/01/23 18:20 than talking or can be heard Do you often feel tired/ No 11/01/23 18:20 fatigued/ sleepy during daytime? Has anyone observed you stop No 11/01/23 18:20 breathing during sleep? STOP Results Negative 11/02/23 15:17 QUESTION #5 FULL TEXT : Do you snore loudly (louder than talking or can be heard through closed doors)? 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 Specify any problems Hx of Preganancy in last 3 No 11/01/23 18:20 Months Nurse Filling Out Transfusion SBEUN 11/01/23 18:20 & Questions: Date: 11/01/23 11/01/23 18:20 Time: 18:22 11/01/23 18:20 Patient unable to answer at this time (ie. confused, unrespo /Reproduction History /Reproductive History - quality control inspector heading: /Reproductive Hx- quality control inspector heading Hx Now No 11/01/23 22:06 Gestational Age (in weeks): EDC: Hx Hx Para Hx Section SAB No 11/01/23 22:06 Active Medications Active Medications: Current Medications Generic Name Dose Route Start Last Admin Trade Name Freq PRN Reason Stop Dose Admin Acetaminophen 650 mg 11/01/23 17:56 11/02/23 20:47 Acetaminophen 325 Mg Tablet PO 650 mg Q6H PRN PRN Administration Pain 1-10 Or Fever >100.7 Aripiprazole 5 mg 11/01/23 22:00 11/02/23 20:46 Aripiprazole 5 Mg Tablet PO 5 mg QHS NURIS Administration Protocol Diphenhydramine HCl 75 mg 11/02/23 22:00 11/02/23 20:46 Diphenhydramine 25 Mg Capsule PO 75 mg QHS NURIS Administration Hydromorphone HCl 0.5 - 1 mg 11/01/23 17:56 11/02/23 10:10 Hydromorphone 1 Mg/Ml Syringe IV 1 mg Q3H PRN PRN Administration Pain Score 6-10 Hydromorphone HCl 0.5 - 1 mg 11/01/23 18:20 11/03/23 11:23 Hydromorphone 0.5 Mg/0.5 Ml Syringe IV 0.5 mg Q3H PRN PRN Administration Pain Score 6-10 Piperacillin Sod/Tazobactam 50 mls @ 12.5 mls/hr 11/01/23 22:00 11/03/23 11:03 Sod 3.375 gm/ Sodium Chloride IV Infused Q8 NURIS Infusion Pantoprazole Sodium 40 mg/ 110 mls @ 330 mls/hr 11/01/23 21:40 11/03/23 11:24 Sodium Chloride IV Infused Q24 NURIS Infusion Sodium Chloride 1,000 mls @ 15 mls/hr 11/02/23 12:05 11/02/23 16:15 IV Infused .Q48H NURIS Infusion Lactated Ringer's 1,000 mls @ 15 mls/hr 11/02/23 16:30 11/02/23 16:17 IV 15 mls/hr .Q48H NURIS Administration Ondansetron HCl 4 mg 11/01/23 17:56 11/02/23 20:47 Ondansetron 4 Mg/2 Ml Vial IV 4 mg Q8H PRN PRN Administration NAUSEA/VOMITING Oxycodone HCl 5 mg 11/01/23 17:56 11/03/23 01:53 Oxycodone 5 Mg Tablet PO 5 mg Q4H PRN PRN Administration Pain Score 4-10 Sodium Chloride 10 - 40 ml 11/01/23 18:27 0.9% Saline Lock 10 Ml Syringe IV UD PRN SALINE FLUSH Venlafaxine HCl 150 mg 11/03/23 10:00 11/03/23 11:03 Venlafaxine Xr 150 Mg Capsule PO Not Given DAILY NURIS PFSH Medical History Gastric reflux Wears glasses Diabetes Rheumatoid arthritis Fatty liver Back pain Difficulty swallowing Former smoker Shortness of breath on exertion Obesity Unstable lie Gestational diabetes mellitus (GDM) Distortion of contour of breast Depression with anxiety Abnormal ultrasound of breast Abnormal mammogram Home Medications ?Medication ?Instructions ?Recorded ?Last Taken ?Type venlafaxine 150 mg 150 mg PO DAILY #30 caps 05/13/16 11/01/23 Rx capsule,extended release 24 hr dextroamphetamine-amphetamine 20 20 mg PO BID 06/29/17 10/30/23 History mg tablet (Adderall) aripiprazole 5 mg tablet 5 mg PO QHS anxiety and depression 03/23/23 10/31/23 History diphenhydramine HCl 25 mg capsule 75 mg PO QHS 09/15/23 10/31/23 History (Benadryl) ondansetron 4 mg disintegrating 4 mg PO Q6H PRN nausea and 09/19/23 11/01/23 11:30 Rx tablet vomiting #30 tabs pantoprazole 40 mg tablet,delayed 40 mg PO DAILY 30 days #30 tabs 09/19/23 10/31/23 Rx release multivitamin 1 tab PO DAILY 10/12/23 10/31/23 History vitamin E (dl, acetate) 450 mg 450 mg PO DAILY 10/12/23 10/31/23 History (1,000 unit) capsule oxycodone 5 mg capsule 5 mg PO Q6H PRN pain 3 days #14 11/02/23 Unknown Rx caps Allergy/AdvReac Type Severity Reaction Status Date / Time bupropion (From Wellbutrin) Allergy Mild Hives Verified 11/01/23 12:35 hydrocodone Allergy Mild Other Verified 11/01/23 12:35 promethazine (From Phenergan) Allergy Mild Other Verified 11/01/23 12:35 Sulfa (Sulfonamide Allergy Other Verified 11/01/23 12:35 Antibiotics) Family History Grandfather Arthritis Diabetes Hypertension Skin cancer Grandmother Arthritis Aunt Colon cancer Mother HLD (hyperlipidemia) Cholecystitis with cholelithiasis Father Diabetes Cholecystitis with cholelithiasis Surgical History Delivery by section history ORIF right fifth metatarsal Social History household members: family and children Smoking Status: Former smoker how long ago did patient quit smoking: Quit 5 yrs prior, smoked 1 pk/week since 17 until quit. alcohol intake: current alcohol intake frequency: a few times a month substance use type: does not use Addt'l Information Additional Findings: Some history of postoperative nausea vomiting. Review of Systems (Anesthesia) ROS Narrative System reviewed and no additional complaints, except as documented.
--- NOTE | 2023-11-03 12:26 | CON.PCM.GI_ITS ---
HPI Consult Data Date of Consult: 11/03/23 HPI Narrative Reason for Consultation: Choledocholithiasis HPI Narrative: COSMO MAYERS, is a 43 F who presented to the ED with worsening abdominal pain. She is scheduled for upcoming surgery with Dr. Erika Jama on November. Unfortunately around midnight started having increased pain. Nausea. No vomiting or diarrhea. No fever. She took Zofran ibuprofen at home without relief. I got to know her doing a [facility] hospitalization 09.14.23 - 09.19.23 for abdominal pain gallbladder US 09.14.23 1. Cholelithiasis and gallbladder wall thickening with negative sonographic Gleason''s sign. Pericholecystic fluid is nonspecific. Findings may be indicative of acute cholecystitis. There are also findings consistent with adenomyomatosis and a mildly distended common bile duct. Correlate clinically and consider a hepatobiliary scan as well as surgical consultation. 2. Fatty liver. abd/pelvis CT 09.14.23 Marked gallbladder wall thickening. Nonspecific can be seen with cholecystitis or liver disease. No secondary inflammatory changes. HIDA scan may be helpful if clinically indicated. Hepatomegaly with steatosis. Left ovarian 4.5 cm cyst. Pelvic ultrasound follow-up may be helpful as clinically indicated. Fibroid uterus. MRCP 09.15.23 Suspect acute cholecystitis. No choledocholithiasis. Liver biopsy 09.15.23 Chronic hepatitis, grade 2, stage 2. Extensive macro- and microvesicular steatosis. *BGI established 8.8.24 pt reports that she has had intermittent nausea and epigastric pain since hospitalization. Pt reports ongoing / worsening difficulty swallowing sticky and dry foods. Pt reports she has never had an EGD. Pt reports regular bm; denies blood in the stool. She underwent EGD by myself recently: Findings: Mucosal changes including ringed esophagus, longitudinal furrows and small-caliber esophagus were found in the middle third of the esophagus and in the lower third of the esophagus. Biopsies were obtained from the proximal and distal esophagus with cold forceps for histology of suspected eosinophilic esophagitis. Verification of patient identification for the specimen was done. Estimated blood loss was minimal. The Z-line was irregular and was found 40 cm from the incisors. Biopsies were taken with a cold forceps for histology. Verification of patient identification for the specimen was done. Estimated blood loss was minimal. No gross lesions were noted in the entire examined stomach. However there was very little contraction of the stomach with insufflation of CO2. Patchy mildly erythematous mucosa without active bleeding and with no stigmata of bleeding was found in the duodenal bulb. Biopsies were taken with a cold forceps for histology. Verification of patient identification for the specimen was done. Estimated blood loss was minimal. Impression: - Esophageal mucosal changes consistent with eosinophilic esophagitis. - Z-line irregular, 40 cm from the incisors. Biopsied. - No gross lesions in the entire stomach. - Erythematous duodenopathy. Biopsied. - Biopsies were taken with a cold forceps for evaluation of eosinophilic esophagitis. - Poorly dasha stomach She underwent cholecystectomy and was discovered to have multiple filling defects in her common bile duct on intraoperative cholangiogram. I was consulted for therapeutic ERCP. [facility] Medical History Gastric reflux Wears glasses Diabetes Rheumatoid arthritis Fatty liver Back pain Difficulty swallowing Former smoker Shortness of breath on exertion Obesity Unstable lie Gestational diabetes mellitus (GDM) Distortion of contour of breast Depression with anxiety Abnormal ultrasound of breast Abnormal mammogram Home Medications ?Medication ?Instructions ?Recorded ?Last Taken ?Type venlafaxine 150 mg 150 mg PO DAILY #30 caps 05/13/16 11/01/23 Rx capsule,extended release 24 hr dextroamphetamine-amphetamine 20 20 mg PO BID 06/29/17 10/30/23 History mg tablet (Adderall) aripiprazole 5 mg tablet 5 mg PO QHS anxiety and depression 03/23/23 10/31/23 History diphenhydramine HCl 25 mg capsule 75 mg PO QHS 09/15/23 10/31/23 History (Benadryl) ondansetron 4 mg disintegrating 4 mg PO Q6H PRN nausea and 09/19/23 11/01/23 11:30 Rx tablet vomiting #30 tabs pantoprazole 40 mg tablet,delayed 40 mg PO DAILY 30 days #30 tabs 09/19/23 10/31/23 Rx release multivitamin 1 tab PO DAILY 10/12/23 10/31/23 History vitamin E (dl, acetate) 450 mg 450 mg PO DAILY 10/12/23 10/31/23 History (1,000 unit) capsule oxycodone 5 mg capsule 5 mg PO Q6H PRN pain 3 days #14 11/02/23 Unknown Rx caps Allergy/AdvReac Type Severity Reaction Status Date / Time bupropion (From Wellbutrin) Allergy Mild Hives Verified 11/01/23 12:35 hydrocodone Allergy Mild Other Verified 11/01/23 12:35 promethazine (From Phenergan) Allergy Mild Other Verified 11/01/23 12:35 Sulfa (Sulfonamide Allergy Other Verified 11/01/23 12:35 Antibiotics) Family History Grandfather Arthritis Diabetes Hypertension Skin cancer Grandmother Arthritis Aunt Colon cancer Mother HLD (hyperlipidemia) Cholecystitis with cholelithiasis Father Diabetes Cholecystitis with cholelithiasis Surgical History Delivery by section history ORIF right fifth metatarsal Social History household members: family and children Smoking Status: Former smoker how long ago did patient quit smoking: Quit 5 yrs prior, smoked 1 pk/week since 17 until quit. alcohol intake: current alcohol intake frequency: a few times a month substance use type: does not use ROS ROS Narrative Admission Review of Systems: CONSTITUTIONAL: No weight loss, fever, chills, + weakness or fatigue. HEENT: Eyes: No visual loss, blurred vision, double vision or yellow sclerae. Ears, Nose, Throat: No hearing loss, sneezing, congestion, runny nose or sore throat. SKIN: No rash or itching, lesions, wounds. CARDIOVASCULAR: No chest pain, chest pressure or chest discomfort, palpitations, edema, orthopnea, syncopal events. RESPIRATORY: No shortness of breath, cough or sputum, wheezing, hemoptysis. GASTROINTESTINAL: + Nausea, vomiting, abdominal pain. No diarrhea, melena, BRBPR. GENITOURINARY: No dysuria, frequency, urgency or retention. NEUROLOGICAL: No headache, dizziness, syncope, paralysis, ataxia, numbness or tingling in the extremities, focal weakness, change in bowel or bladder control, seizure. MUSCULOSKELETAL: + muscle, back pain, joint pain or stiffness. HEMATOLOGIC: No anemia, bleeding or bruising. LYMPHATICS: No enlarged nodes. No history of splenectomy. PSYCHIATRIC: + history of depression and anxiety/ADHD. ENDOCRINOLOGIC: + reports of sweating. No cold or heat intolerance. No polyuria or polydipsia. ALLERGIES: No history of asthma, hives, eczema or rhinitis. Physical Exam Const oriented x3 and no apparent distress Resp normal respiratory effort GI soft to palpation and non-tender Lab / Micro Data 11/03/23 04:50 11/03/23 04:50 Labs: Laboratory Results - last 24 hr 11/03/23 04:50: WBC 6.9, RBC 4.07 L, Hgb 12.4, Hct 37.8, MCV 92.9, MCH 30.5, MCHC 32.8, RDW Std Deviation 42.1, RDW Coeff of Amy 12.4, Plt Count 298, MPV 9.6, Immature Gran % (Auto) 0.300, Neut % (Auto) 82.8 H, Lymph % (Auto) 12.8 L, Ada % (Auto) 4.0, Eos % (Auto) 0.0, Baso % (Auto) 0.1, Absolute Neuts (auto) 5.7, Absolute Lymphs (auto) 0.89, Nucleated RBC % 0, Sodium 139, Potassium 3.8, Chloride 107, Carbon Dioxide 28.0, Anion Gap 4 L, BUN 4 L, Creatinine 0.68, Estim Creat Clear Calc 130.44, Est GFR (MDRD) Af Amer 122, Est GFR (MDRD) Non-Af 101, BUN/Creatinine Ratio 5.9 L, Glucose 109 H, Calcium 8.8, Total Bilirubin 1.10 H, Direct Bilirubin 0.80 H, AST 390 H, ALT 578 H, Alkaline Phosphatase 133 H, Total Protein 6.5, Albumin 3.6, Globulin 2.9 Imaging Radiology Impression Cholangiogram 11/02/23 13:45 IMPRESSION: Dilated biliary tree with multiple circular lucencies in the distal common bile duct suspicious for retained common bile duct stones and there is no flow of contrast into the duodenum. No extravasation of contrast to to suspect a bile leak Electronically Signed: Noel Nath MD at 15:28 EDT Reading Location ID and State: [address] [place] [address] , Service support , Assessment & Plan Assessment/Plan (1) Cholelithiasis and acute cholecystitis without obstruction: (2) History of gallstones: (3) Abdominal pain: (4) DE LA PAZ (nonalcoholic steatohepatitis): PLAN: Plan 43-year-old who recently with worsening abdominal pain and known gallbladder disease presented to the ED with worsening abdominal pain and discovered to have acute cholecystitis. She underwent laparoscopic cholecystectomy and during IntraOp cholangiogram was discovered to have multiple filling defects. She will undergo ERCP with removal of stones and possible stent placement. She was explained alternatives, risk, benefits including not withstanding bleeding comments infection, sepsis, perforation, need for emergent surgery . She will have an ASA of 3. Charges/Coding Visit Charges Inpatient E&M: 03119 Init Hosp L3
--- NOTE | 2023-11-03 13:00 | EGD_PTH ---
PATIENT: COSMO MAYERS LOC: MS3 U#:[id number] AGE/SX: 43/F ROOM: [facility] RE11/02/[address]: Dr. Jacqueline Jama MD : 1980 BED: 1 DIS: 11/04/2023 SPEC #: [id number] RECD: 11/03/23 13:51 STATUS: JALEN REOumar #: [id number] MIKEY: 11/03/23 13:[address]: Cheng Narvaez DEPT: SURGICAL PATHOLOGY RECD BY: Filemon Garcia ENTERED: 11/03/23 14:12 SP TYPE: EGD BIOPSY CHRISTOPHER DR: DO Dr. Caden Shipley MD Dr. Tamera Robotham, MD Amanda Griffith, PA-C Tissues: Esophagus, NOS Procedures: Surgery Specimen Level IV HEADER OPERATION: Cautery, EGD biopsy PRE-OP DIAGNOSIS: History of gallstones, abdominal pain, status post laparoscopic cholecystectomy, esophageal tear TISSUE SUBMITTED: Proximal esophagus biopsy MICROSCOPIC DIAGNOSIS Proximal esophagus, biopsy: Fragments of benign squamous mucosa with mild chronic inflammation. See comment. 11/07/2023 COMMENT Rare eosinophils are noted. Significant increased number of eosinophils consistent with eosinophilic esophagitis are not seen. Correlation with clinical, endoscopic findings and appropriate follow up are necessary. MICROSCOPIC DESCRIPTION Slides are reviewed. GROSS DESCRIPTION Received in fixative is one container labeled with the patient's name and designated Proximal esophagus biopsy. The specimen consists of multiple irregular fragments of light damian soft tissue that in aggregate measure 0.5 x 0.3 x 0.1 cm. The specimen is totally submitted in one cassette. 11/03/2023 TC:3 CPT:72404
--- NOTE | 2023-11-03 13:44 | OP.CCLET_ITS ---
11/03/2023 Caden Almazan MD [address] [place] [address] Re : ERCP procedure for Jeri Lincoln Dear Dr. Almazan This procedure was performed on Friday, November 03, 2023. My impressions and recommendations are as follows: Impressions : - Clinically significant deep mucosal tear in the upper third of the esophagus. - Three hemostatic clips were successfully placed in the proximal esophagus. Clip lab support technician: [employer]. - Biopsies were taken with a cold forceps for histology in the proximal esophagus. - Hemostasis in the proximal esophagus with argon plasma coagulation (APC) was performed. Recommendations : My findings are described in the full procedure note, which is enclosed. If I can be of further assistance, please feel free to contact me at . Sincerely, Cheng Narvaez, 11/03/2023 1:43:58 PM This report has been signed electronically.
--- NOTE | 2023-11-03 13:44 | OP.ERCP_ITS ---
Patient Name: Jeri Gordon Procedure Date: 11/03/2023 12:35 PM Date of : 1980 Age: 43 Procedure: ERCP Indications: Bile duct stone(s) Providers: Cheng Narvaez DO Referring MD: Teddy Shultz Medicines: General Anesthesia Patient Profile: This is a 43 year old female. Refer to note in patient chart for documentation of history and physical. Patient has symptoms of acute right upper quadrant abdominal pain. She is status post laparoscopic cholecystectomy recently. Complications: No immediate complications. Procedure: Pre-Anesthesia Assessment: - Prior to the procedure, a History and Physical was performed, and patient medications and allergies were reviewed. The patient is competent. The risks and benefits of the procedure and the sedation options and risks were discussed with the patient. All questions were answered and informed consent was obtained. Patient identification and proposed procedure were verified by the physician in the pre-procedure area. Mental Status Examination: alert and oriented. Airway Examination: normal oropharyngeal airway and neck mobility. Respiratory Examination: clear to auscultation. CV Examination: normal. Prophylactic Antibiotics: The patient does not require prophylactic antibiotics. Prior Anticoagulants: The patient has taken no anticoagulant or antiplatelet agents. ASA Grade Assessment: II - A patient with mild systemic disease. After reviewing the risks and benefits, the patient was deemed in satisfactory condition to undergo the procedure. The anesthesia plan was to use general anesthesia. Immediately prior to administration of medications, the patient was re-assessed for adequacy to receive sedatives. The heart rate, respiratory rate, oxygen saturations, blood pressure, adequacy of pulmonary ventilation, and response to care were monitored throughout the procedure. The physical status of the patient was re-assessed after the procedure. After obtaining informed consent, the scope was passed under direct vision. Throughout the procedure, the patient's blood pressure, pulse, and oxygen saturations were monitored continuously. The Duodenoscope was introduced through the mouth, with the intention of advancing to the bile ducts. The scope was advanced to the esophagus before the procedure was aborted. Medications were given. The gastroscope was introduced through the and advanced to the duodenum. The ERCP was accomplished without difficulty. The patient tolerated the procedure well. Scope In: 12:55:51 PM Scope Out: 1:33:56 PM Total Procedure Duration Time 0 hours 38 minutes 5 seconds Findings: The rolled oats mill operator film was normal. A standard esophagogastroduodenoscopy scope was used for the examination of the upper gastrointestinal tract. The scope was passed under direct vision through the upper GI tract. A non-bleeding deep mucosal tear as a result of passing the scope through a stenosis was found in the upper third of the esophagus. This measured 5 mm in length. To prevent bleeding post-maneuver in the proximal esophagus, three hemostatic clips were successfully placed. Clip flash welding machine operator: Ackerly [employer]. There was no bleeding at the end of the procedure. Biopsies were taken in the proximal esophagus through the esophagogastroduodenoscope with the cold forceps for histology. Coagulation for hemostasis in the proximal esophagus using argon plasma at 0.9 liters/minute and 20 judd through the esophagogastroduodenoscope was successful. Impression: - Clinically significant deep mucosal tear in the upper third of the esophagus. - Three hemostatic clips were successfully placed in the proximal esophagus. Clip flash welding machine operator: Ackerly [employer]. - Biopsies were taken with a cold forceps for histology in the proximal esophagus. - Hemostasis in the proximal esophagus with argon plasma coagulation (APC) was performed. Procedure Code(s): --- Professional --- 02529, Esophagogastroduodenoscopy, flexible, transoral; with control of bleeding, any method 73717, Esophagogastroduodenoscopy, flexible, transoral; with biopsy, single or multiple CPT copyright 2021 [employer]. All rights reserved. The codes documented in this report are preliminary and upon risk management analyst review may be revised to meet current compliance requirements. Cheng Narvaez DO 11/03/2023 1:43:58 PM This report has been signed electronically. Number of Addenda: 0 Note Initiated On: 11/03/2023 12:35 PM
--- NOTE | 2023-11-03 13:49 | PCM.POST.ANE ---
Anesthesia: Postop Eval I Current Vital Signs Temperature: 99.2 F Pulse Rate: 86 Blood Pressure: 122/80 Respiratory Rate: 18 Pulse Ox: 95 Oxygen Delivery Method: Nasal Cannula Oxygen Flow Rate (L/min): 2 Assessment Airway patent: Yes Spontaneous unlabored respirations: Yes Mental status: Awake and Calm nausea: No Vomiting: No Anesthesia Complication: No Fluid Hydration Crystalloid volume administer (ml): 1,400 Total IV fluid infused: 1,400 Progress Note Anesthesia document: Postop Eval 1 completed: Yes
--- NOTE | 2023-11-03 14:18 | ANES.CONFIRM ---
Anesthesia: Confirm Documents Multiple Procedures on Account (2) Confirmed Documents: Yes
--- NOTE | 2023-11-03 14:20 | POSTOPAN2_ITS ---
Anesthesia Postop Eval I Sum Postop Eval Completion status Anesthesia document: Postop Eval 1 completed: Yes Anesthesia Postop Eval I Summary Anesthesia Postop Eval I Summary: Anesthesia Postop Eval I: Assessment Summary Airway patent Yes 11/03/23 13:49 FERRY [email or web address].[email or web address] Spontaneous unlabored Yes 11/03/23 13:49 FERRY OPERATOR.BRYANOBLana respirations Mental status Awake,Calm 11/03/23 13:49 FERRY OPERATOR.SKOBY nausea No 11/03/23 13:49 FERRY OPERATOR.SKOBY Vomiting No 11/03/23 13:49 FERRY OPERATOR.SKOBY Anesthesia Postop Eval I: Fluid Summary Crystalloid volume administer 1,400 11/03/23 13:49 FERRY OPERATOR.[email or web address] (ml) Colloids volume administered ( ml) Blood Product volume administered (ml) Total IV fluid infused 1,400 11/03/23 13:49 FERRY OPERATOR.BRYANOBLana Anesthesia Postop Eval I: Summary Notes Anesthesia Complication No 11/03/23 13:49 FERRY OPERATOR.JENNIE Anesthesia Complication Comment: Post-operative progress note Anesthesia: Postop Eval II Evaluation Mental status: Awake and Calm Pain Level: 2 nausea: No Vomiting: No Complications Anesthesia Complication: No
--- NOTE | 2023-11-03 14:20 | PCM.POSTANE2 ---
Anesthesia Postop Eval I Sum Postop Eval Completion status Anesthesia document: Postop Eval 1 completed: Yes Anesthesia Postop Eval I Summary Anesthesia Postop Eval I Summary: Anesthesia Postop Eval I: Assessment Summary Airway patent Yes 11/03/23 13:49 BACTERIOLOGY PROFESSOR.[email or web address] Spontaneous unlabored Yes 11/03/23 13:49 BACTERIOLOGY PROFESSOR.BRYANOBLana respirations Mental status Awake,Calm 11/03/23 13:49 BACTERIOLOGY PROFESSOR.SKOBY nausea No 11/03/23 13:49 BACTERIOLOGY PROFESSOR.SKOBY Vomiting No 11/03/23 13:49 BACTERIOLOGY PROFESSOR.SKOBY Anesthesia Postop Eval I: Fluid Summary Crystalloid volume administer 1,400 11/03/23 13:49 BACTERIOLOGY PROFESSOR.SKOBY (ml) Colloids volume administered ( ml) Blood Product volume administered (ml) Total IV fluid infused 1,400 11/03/23 13:49 BACTERIOLOGY PROFESSOR.BRYANOBLana Anesthesia Postop Eval I: Summary Notes Anesthesia Complication No 11/03/23 13:49 BACTERIOLOGY PROFESSOR.JENNIE Anesthesia Complication Comment: Post-operative progress note Anesthesia: Postop Eval II Evaluation Mental status: Awake and Calm Pain Level: 2 nausea: No Vomiting: No Complications Anesthesia Complication: No
--- NOTE | 2023-11-03 14:22 | ANES.CONFIRM ---
Anesthesia: Confirm Documents Multiple Procedures on Account (2) Confirmed Documents: Yes
[2023-11-03] MEDS: HYDROmorphone 1 MG/ML Syringe IV ×3 (15:11→23:52)
[2023-11-03] MEDS: Venlafaxine XR 150 MG Capsule PO (16:42)
[2023-11-03] MEDS: Pantoprazole Sodium 80 MG in 0.9% Normal Saline (100mL Bag) 80 ML 10 MG CONT INF (18:58)
[2023-11-03] MEDS: Ondansetron 4 MG/2 ML Vial IV (20:25)
[2023-11-03] MEDS: ARIPiprazole 5 MG Tablet PO (22:38)
[2023-11-03] MEDS: DiphenhydrAMINE 25 MG Capsule 75 MG PO (22:39)
[2023-11-04] VITALS (13 sets, daily range): BP systolic 101–150; BP diastolic 74–102; PULSE 68–92; RESP 16–18; TEMP 36.1–37.2; O2SAT 93–97
[2023-11-04] MEDS: Pantoprazole Sodium 80 MG in 0.9% Normal Saline (100mL Bag) 80 ML 10 MG CONT INF ×2 (03:25→13:01)
[2023-11-04] MEDS: Piperacil/Tazobactam 3.375 GM in 0.9% Normal Saline (50mL MB+) 50 ML IV (05:47)
[2023-11-04] MEDS: HYDROmorphone 1 MG/ML Syringe IV (06:06)
--- NOTE | 2023-11-04 07:00 | RAD_ITS ---
EXAM: FL FLUOROSCOPY < 1 HOUR CLINICAL INDICATION: ERCP TECHNIQUE: Fluoroscopic images performed in multiple projections. Fluoroscopic guidance was provided by a physician. 8 fluoroscopic images, 55.66 mGy. Fluoroscopic time: 1 minute:53 seconds COMPARISON: No relevant prior studies available. FINDINGS AND RAD/ERCP Biliary/Pancreas IMPRESSION: 8 fluoroscopic images for ERCP. Refer to the procedure note for complete details. Electronically Signed: Chandrakant Osuna DO at 12:26 EDT ,
--- NOTE | 2023-11-04 07:22 | PRE.ANES_ITS ---
ASA Classification* ASA Classification ASA Classification: 2 Assessment & Plan Anesthesia* Anesthesia Assessment Anesthesia Assessment: Discussed sedation and/or anesthesia options, risks, benefits, and alternatives with patient/parents/legal guardian/POA. Questions invited. The patient/parents/legal guardian/POA seems to understand and agrees to proceed with anesthesia plan. Reviewed the physical assessment, medical history, allergy history and patient home medications list prior to surgery/procedure/anesthetic and documented any changes. Performed airway and anesthesia risk assessments. Anesthesia Type Anesthesia Type: General History Source History Obtained from:: Patient and Chart Anesthesia Focused Assessment* Temperature: 98.3 F Pulse Rate: 92 Blood Pressure: 122/74 Respiratory Rate: 18 Pulse Ox: 95 Airway Assessment Mouth opens: >3 cm Mallampati Score: II Teeth Condition: Intact Neck Range of motion (ROM): Full ROM Focused Labs Anesthesia Preop lab: CBC WBC 6.9 K/mm3 (4.4-11.0) 11/03/23 04:50 RBC 4.07 M/mm3 (4.2-5.4) L 11/03/23 04:50 Hgb 12.4 g/dL (12.0-15.0) 11/03/23 04:50 Hct 37.8 % (37-47) 11/03/23 04:50 Plt Count 298 K/mm3 (150-450) 11/03/23 04:50 CHEMISTRY Potassium 3.8 mmol/L (3.5-5.1) 11/03/23 04:50 Sodium 139 mmol/L (136-145) 11/03/23 04:50 BUN 4 mg/dL (7-18) L 11/03/23 04:50 Creatinine 0.68 mg/dL (0.55-1.02) 11/03/23 04:50 Glucose 109 mg/dL (74-106) H 11/03/23 04:50 POC Glucose 84 mg/dL (74-106) 03/25/23 05:24 TSH 1.55 uIU/mL (0.358-3.74) 10/01/15 11:29 COAG PT 13.1 SECONDS (11.7-14.9) 09/15/23 10:51 HCG, Quant 1263 mIU/mL (<9 non-preg) H 09/11/15 11:38 Pre-Assessment Diagnosis/Proposed Procedure Planned Operative Procedure(s): ERCP Anesthesia History Anesthesia History - residential substance abuse counselor: Anesthesia History - residential substance abuse counselor Hx Hospitalization Yes: 09/2023 GALLBLADDER 10/25/23 09:42 ATTACK Any Problems With Anesthesia No 11/01/23 22:06 Cholinesterase deficiency No 11/01/23 22:06 You/Your Family Experience No 11/01/23 22:06 fever (hyperthermia) with Relationship Recent Exposure to Contagious No 11/01/23 22:06 Disease Does patient have nerve No 11/01/23 22:06 stimulator Patient instructed to have No 11/01/23 22:06 device shut off --Does patient have Pacemaker No 11/03/23 09:12 or ICD? When Was Last Pacemaker Check QUESTION #4 FULL TEXT: You/Your Family Experience fever (hyperthermia) with Anesthesia Any additional information?: No Last Oral Intake Last Oral intake: Last Oral Intake NPO since 00:00 11/03/23 09:12 Meds taken in AM with sips of water? Meds patient instructed to take am of surgery Any additional information?: No PONV PONV - residential substance abuse counselor: PONV - residential substance abuse counselor Female HX of Motion Sickness HX of N/V After Surgery Non-Smoker Duration of Surgery greater than 60 minutes Number of Risk Factors PONV Score Any additional information?: No Height & Weight Height & Weight: Anesthesia: Height & Weight Height 5 ft 7 in 11/03/23 09:12 Weight: 99.261 kg 11/03/23 09:12 Body Mass Index (BMI) 34.2 11/03/23 09:12 Respiratory Assessment Respiratory Assessment - residential substance abuse counselor: Respiratory Tract Infection Hx - residential substance abuse counselor Hx Respiratory Tract Infection No 11/01/23 22:06 Any additional information?: No STOP Sleep Apnea STOP Sleep Apnea - residential substance abuse counselor: STOP Sleep Apnea - residential substance abuse counselor Hx Hypertension No 11/01/23 18:20 Hx Sleep Apnea No 11/03/23 14:27 CPAP BIPAP Do you snore loudly (louder No 11/01/23 18:20 than talking or can be heard Do you often feel tired/ No 11/01/23 18:20 fatigued/ sleepy during daytime? Has anyone observed you stop No 11/01/23 18:20 breathing during sleep? STOP Results Negative 11/03/23 13:47 QUESTION #5 FULL TEXT : Do you snore loudly (louder than talking or can be heard through closed doors)? Any additional information?: No Tobacco Use History Tobacco Use History - residential substance abuse counselor: Tobacco Use History - residential substance abuse counselor Tobacco Use Smoking Status Former smoker 11/01/23 18:20 Hx Tobacco Use No 11/01/23 18:20 Years Smoking Packs Smoked per Day Smoking Cessation Date was Yes - quit smoking within 15 11/01/23 18:20 within the last 15 years years Hx Smoking Cessation Date 03/06/21 11/01/23 18:20 Hx Smoking Cessation Counseling Any additional information?: No Hematologic Medial History Hematologic Hx - residential substance abuse counselor: Hematologic 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 Specify any problems Hx of Preganancy in last 3 No 11/01/23 18:20 Months Nurse Filling Out Transfusion SBEUN 11/01/23 18:20 & Questions: Date: 11/01/23 11/01/23 18:20 Time: 18:22 11/01/23 18:20 Patient unable to answer at this time (ie. confused, unrespo Any additional information?: No /Reproduction History /Reproductive History - residential substance abuse counselor: /Reproductive Hx- residential substance abuse counselor Hx Now No 11/01/23 22:06 Gestational Age (in weeks): EDC: Hx Hx Para Hx Section SAB No 11/01/23 22:06 Any additional information?: No Active Medications Active Medications: Current Medications Generic Name Dose Route Start Last Admin Trade Name Freq PRN Reason Stop Dose Admin Acetaminophen 650 mg 11/01/23 17:56 11/02/23 20:47 Acetaminophen 325 Mg Tablet PO 650 mg Q6H PRN PRN Administration Pain 1-10 Or Fever >100.7 Aripiprazole 5 mg 11/01/23 22:00 11/03/23 22:38 Aripiprazole 5 Mg Tablet PO 5 mg QHS NURIS Administration Protocol Diphenhydramine HCl 75 mg 11/02/23 22:00 11/03/23 22:39 Diphenhydramine 25 Mg Capsule PO 75 mg QHS NURIS Administration Hydromorphone HCl 0.5 - 1 mg 11/01/23 17:56 11/04/23 06:06 Hydromorphone 1 Mg/Ml Syringe IV 1 mg Q3H PRN PRN Administration Pain Score 6-10 Hydromorphone HCl 0.5 - 1 mg 11/01/23 18:20 11/03/23 11:23 Hydromorphone 0.5 Mg/0.5 Ml Syringe IV 0.5 mg Q3H PRN PRN Administration Pain Score 6-10 Piperacillin Sod/Tazobactam 50 mls @ 12.5 mls/hr 11/01/23 22:00 11/04/23 05:47 Sod 3.375 gm/ Sodium Chloride IV 12.5 mls/hr Q8 NURIS Administration Sodium Chloride 1,000 mls @ 15 mls/hr 11/02/23 12:05 11/02/23 16:15 IV Infused .Q48H NURIS Infusion Lactated Ringer's 1,000 mls @ 15 mls/hr 11/02/23 16:30 11/02/23 16:17 IV 15 mls/hr .Q48H NURIS Administration Pantoprazole Sodium 80 mg/ 100 mls @ 10 mls/hr 11/03/23 18:00 11/04/23 03:25 Sodium Chloride CONT INF 10 mls/hr Q10H NURIS Administration Ondansetron HCl 4 mg 11/01/23 17:56 11/03/23 20:25 Ondansetron 4 Mg/2 Ml Vial IV 4 mg Q8H PRN PRN Administration NAUSEA/VOMITING Oxycodone HCl 5 mg 11/01/23 17:56 11/03/23 01:53 Oxycodone 5 Mg Tablet PO 5 mg Q4H PRN PRN Administration Pain Score 4-10 Sodium Chloride 10 - 40 ml 11/01/23 18:27 0.9% Saline Lock 10 Ml Syringe IV UD PRN SALINE FLUSH Venlafaxine HCl 150 mg 11/03/23 10:00 11/03/23 16:42 Venlafaxine Xr 150 Mg Capsule PO 150 mg DAILY NURIS Administration PFSH Medical History Gastric reflux Wears glasses Diabetes Rheumatoid arthritis Fatty liver Back pain Difficulty swallowing Former smoker Shortness of breath on exertion Obesity Unstable lie Gestational diabetes mellitus (GDM) Distortion of contour of breast Depression with anxiety Abnormal ultrasound of breast Abnormal mammogram Home Medications ?Medication ?Instructions ?Recorded ?Last Taken ?Type venlafaxine 150 mg 150 mg PO DAILY #30 caps 05/13/16 11/01/23 Rx capsule,extended release 24 hr dextroamphetamine-amphetamine 20 20 mg PO BID 06/29/17 10/30/23 History mg tablet (Adderall) aripiprazole 5 mg tablet 5 mg PO QHS anxiety and depression 03/23/23 10/31/23 History diphenhydramine HCl 25 mg capsule 75 mg PO QHS 09/15/23 10/31/23 History (Benadryl) ondansetron 4 mg disintegrating 4 mg PO Q6H PRN nausea and 09/19/23 11/01/23 11:30 Rx tablet vomiting #30 tabs pantoprazole 40 mg tablet,delayed 40 mg PO DAILY 30 days #30 tabs 09/19/23 10/31/23 Rx release multivitamin 1 tab PO DAILY 10/12/23 10/31/23 History vitamin E (dl, acetate) 450 mg 450 mg PO DAILY 10/12/23 10/31/23 History (1,000 unit) capsule oxycodone 5 mg capsule 5 mg PO Q6H PRN pain 3 days #14 11/02/23 Unknown Rx caps Allergy/AdvReac Type Severity Reaction Status Date / Time bupropion (From Wellbutrin) Allergy Mild Hives Verified 11/01/23 12:35 hydrocodone Allergy Mild Other Verified 11/01/23 12:35 promethazine (From Phenergan) Allergy Mild Other Verified 11/01/23 12:35 Sulfa (Sulfonamide Allergy Other Verified 11/01/23 12:35 Antibiotics) Opioids - Morphine Analogues AdvReac Unknown I don't Verified 11/03/23 14:[address] it makes me feel, I'd rather have Dilau Family History Grandfather Arthritis Diabetes Hypertension Skin cancer Grandmother Arthritis Aunt Colon cancer Mother HLD (hyperlipidemia) Cholecystitis with cholelithiasis Father Diabetes Cholecystitis with cholelithiasis Surgical History Delivery by section history ORIF right fifth metatarsal Social History household members: family and children Smoking Status: Former smoker how long ago did patient quit smoking: Quit 5 yrs prior, smoked 1 pk/week since 17 until quit. alcohol intake: current alcohol intake frequency: a few times a month substance use type: does not use Review of Systems (Anesthesia) ROS Narrative System reviewed and no additional complaints, except as documented. Constitutional Constitutional: Reports systems reviewed and no addt'l complaints, except as documented; Denies chills, fever(s) or weight loss Eyes Eyes: Reports systems reviewed and no addt'l complaints, except as documented; Denies change in vision or diplopia ENT HEENT: Reports systems reviewed and no addt'l complaints, except as documented; Denies ear pain, rhinorrhea or sore throat Cardiovascular Cardiovascular: Reports systems reviewed and no addt'l complaints, except as documented; Denies chest pain, orthopnea, palpitations or racing heartbeat Respiratory/Chest Respiratory/Chest: Reports systems reviewed and no addt'l complaints, except as documented; Denies cough or dyspnea Gastrointestinal Gastrointestinal: Reports systems reviewed and no addt'l complaints, except as documented and abdominal pain; Denies diarrhea or vomiting Genitourinary Genitourinary: Reports systems reviewed and no addt'l complaints, except as documented; Denies dysuria, hematuria or urinary frequency Musculoskeletal Musculoskeletal: Reports systems reviewed and no addt'l complaints, except as documented and back pain; Denies arthralgias, myalgias or neck pain Integumentary Integumentary: Reports systems reviewed and no addt'l complaints, except as documented; Denies rash Neurologic Neurologic: Reports systems reviewed and no addt'l complaints, except as documented; Denies headache(s) or weakness Psychiatric Psychiatric: Reports systems reviewed and no addt'l complaints, except as documented; Denies anxiety, depression, suicidal ideation or suicidal thoughts Endocrine Endocrinology: Reports systems reviewed and no addt'l complaints, except as documented; Denies polydipsia, polyphagia or polyuria Hematologic/Lymphatic Hematologic/Lymphatic: Reports systems reviewed and no addt'l complaints, except as documented Allergic/Immunologic Allergic/Immunologic: Reports systems reviewed and no addt'l complaints, except as documented; Denies tongue swelling or urticaria Physical Exam Const alert and oriented x3 Orientation / Consciousness: awake HEENT dentition normal Eyes Cornea: cornea normal Neck full ROM General: normal visual inspection Resp normal respiratory effort and normal air movement Cardio regular rate and regular rhythm Back/Spine normal ROM Extremity full ROM Neuro oriented x3 and moves all extremities
--- NOTE | 2023-11-04 09:21 | PN_ITS ---
Progress Note Attempted to see patient in her room, however, it is apparent she is already gone down for procedure with gastroenterology. Will look to follow-up a fterwards.
--- NOTE | 2023-11-04 09:50 | OP.ERCP_ITS ---
Patient Name: Jeri Gordon Procedure Date: 11/04/2023 7:35 AM Date of : 1980 Age: 43 Procedure: ERCP Indications: Common bile duct stone(s), Jaundice, Elevated liver enzymes Providers: Cheng Narvaez DO Referring MD: Teddy Shultz Medicines: Monitored Anesthesia Care Patient Profile: This is a 43 year old female. Refer to note in patient chart for documentation of history and physical. Patient has symptoms of acute right upper quadrant abdominal pain. She is status post laparoscopic cholecystectomy recently. Complications: No immediate complications. Procedure: Pre-Anesthesia Assessment: - Prior to the procedure, a History and Physical was performed, and patient medications and allergies were reviewed. The patient is competent. The risks and benefits of the procedure and the sedation options and risks were discussed with the patient. All questions were answered and informed consent was obtained. Patient identification and proposed procedure were verified by the physician in the pre-procedure area. Mental Status Examination: alert and oriented. Airway Examination: normal oropharyngeal airway and neck mobility. Respiratory Examination: clear to auscultation. CV Examination: normal. Prophylactic Antibiotics: The patient does not require prophylactic antibiotics. Prior Anticoagulants: The patient has taken no anticoagulant or antiplatelet agents except for NSAID medication. ASA Grade Assessment: II - A patient with mild systemic disease. After reviewing the risks and benefits, the patient was deemed in satisfactory condition to undergo the procedure. The anesthesia plan was to use monitored anesthesia care (MAC). Immediately prior to administration of medications, the patient was re-assessed for adequacy to receive sedatives. The heart rate, respiratory rate, oxygen saturations, blood pressure, adequacy of pulmonary ventilation, and response to care were monitored throughout the procedure. The physical status of the patient was re-assessed after the procedure. After obtaining informed consent, the scope was passed under direct vision. Throughout the procedure, the patient's blood pressure, pulse, and oxygen saturations were monitored continuously. The Duodenoscope was introduced through the mouth, and advanced to the duodenum and used to inject contrast into the bile duct and ventral pancreatic duct. The ERCP was accomplished without difficulty. The patient tolerated the procedure well. Scope In: 8:30:21 AM Scope Out: 9:35:47 AM Total Procedure Duration Time 1 hour 5 minutes 26 seconds Findings: The armored car messenger film was normal. The esophagus was successfully intubated under direct vision. The scope was advanced to a normal major papilla in the descending duodenum without detailed examination of the pharynx, larynx and associated structures, and upper GI tract. The upper GI tract was grossly normal. The ventral pancreatic duct was deeply cannulated with the short-nosed traction sphincterotome. Contrast was injected. I personally interpreted the bile duct and pancreatic duct images. There was brisk flow of contrast through the ducts. Image quality was adequate. Contrast extended to the entire biliary tree. Opacification of the entire pancreatic ductal system was successful. The maximum diameter of the ducts was 3 mm. The entire opacified area was normal. A long 0.025 inch Jagwire was passed into the ventral pancreatic duct. A 5 mm ventral pancreatic sphincterotomy was made with a monofilament traction (standard) sphincterotome using ERBE electrocautery. There was no post-sphincterotomy bleeding. To find object(s) the ventral pancreatic duct was swept with a 6 mm balloon starting at the pancreatic duct in the body of the pancreas. Debris was swept from the duct. A long 0.025 inch Jagwire was passed into the biliary tree. The bile duct was then deeply cannulated over the guidewire. Contrast was injected. Opacification of the main bile duct was successful. The maximum diameter of the ducts was 10 mm. The lower third of the main bile duct contained one stone, which was 6 mm in diameter. The main bile duct was diffusely dilated, with a stone causing an obstruction. The largest diameter was 10 mm. The lower third of the main bile duct contained a single segmental stenosis 6 mm in length. The main bile duct was moderately dilated. The largest diameter was 10 mm. A cholecystectomy had been performed. A 5 mm biliary sphincterotomy was made with a monofilament traction (standard) sphincterotome using ERBE electrocautery. Moderate bleeding from the sphincterotomy stopped within 5 minutes. The biliary tree was swept with a 12 mm balloon starting at the bifurcation. Sludge was swept from the duct. All stones were removed. One 4 Fr by 5 cm temporary stent with a single internal pigtail was placed 5 cm into the ventral pancreatic duct. Clear fluid flowed through the stent. The stent was in good position. One 10 Fr by 7 cm transpapillary temporary stent was placed 5 cm into the common bile duct. Bile flowed through the stent. The stent was in good position. A standard esophagogastroduodenoscopy scope was used for the examination of the upper gastrointestinal tract. The scope was passed under direct vision through the upper GI tract. Mucosal changes including ringed esophagus, longitudinal furrows and small-caliber esophagus were found in the entire esophagus. Esophageal findings were graded using the Eosinophilic Esophagitis Endoscopic Reference Score (EoE-EREFS) as: Edema Grade 0 Normal (distinct vascular markings) and Rings Grade 3 Severe (distinct rings that do not permit passage of diagnostic 8-10 mm endoscope). A TTS dilator was passed through the scope. Dilation with a 15-16.5-18 mm balloon dilator was performed to 18 mm in the upper third of the esophagus. Impression: - Esophageal mucosal changes secondary to eosinophilic esophagitis. - Dilation performed in the upper third of the esophagus. - A single segmental biliary stricture was found in the lower third of the main bile duct. The stricture was benign appearing. - The entire main bile duct was dilated, with a stone causing an obstruction. - The entire main bile duct was moderately dilated. - The patient has had a cholecystectomy. - Choledocholithiasis was found. Complete removal was accomplished by biliary sphincterotomy and balloon extraction. - A pancreatic sphincterotomy was performed. - The ventral pancreatic duct was swept and debris was found. - A biliary sphincterotomy was performed. - The biliary tree was swept. - One temporary stent was placed into the ventral pancreatic duct. - One temporary stent was placed into the common bile duct. Procedure Code(s): --- Professional --- 66729, Endoscopic retrograde cholangiopancreatography (ERCP); with placement of endoscopic stent into biliary or pancreatic duct, including pre- and post-dilation and guide wire passage, when performed, including sphincterotomy, when performed, each stent [id number], 59, Endoscopic retrograde cholangiopancreatography (ERCP); with placement of endoscopic stent into biliary or pancreatic duct, including pre- and post-dilation and guide wire passage, when performed, including sphincterotomy, when performed, each stent [id number], Endoscopic retrograde cholangiopancreatography (ERCP); with removal of calculi/debris from biliary/pancreatic duct(s) 54497, Esophagogastroduodenoscopy, flexible, transoral; with transendoscopic balloon dilation of esophagus (less than 30 mm diameter) 16120, 26, Combined endoscopic catheterization of the biliary and pancreatic ductal systems, radiological supervision and interpretation CPT copyright 2021 [employer]. All rights reserved. The codes documented in this report are preliminary and upon homicide investigator review may be revised to meet current compliance requirements. Cheng Narvaez DO 11/04/2023 9:49:40 AM This report has been signed electronically. Number of Addenda: 0 Note Initiated On: 11/04/2023 7:35 AM
--- NOTE | 2023-11-04 09:51 | OP.CCLET_ITS ---
11/04/2023 Caden Almazan MD [address] [id number] Re : ERCP procedure for Jeri Gordon Dear Dr. Almazan This procedure was performed on Saturday, November 04, 2023. My impressions and recommendations are as follows: Impressions : - Esophageal mucosal changes secondary to eosinophilic esophagitis. - Dilation performed in the upper third of the esophagus. - A single segmental biliary stricture was found in the lower third of the main bile duct. The stricture was benign appearing. - The entire main bile duct was dilated, with a stone causing an obstruction. - The entire main bile duct was moderately dilated. - The patient has had a cholecystectomy. - Choledocholithiasis was found. Complete removal was accomplished by biliary sphincterotomy and balloon extraction. - A pancreatic sphincterotomy was performed. - The ventral pancreatic duct was swept and debris was found. - A biliary sphincterotomy was performed. - The biliary tree was swept. - One temporary stent was placed into the ventral pancreatic duct. - One temporary stent was placed into the common bile duct. Recommendations : My findings are described in the full procedure note, which is enclosed. If I can be of further assistance, please feel free to contact me at . Sincerely, Cheng Narvaez, 11/04/2023 9:49:40 AM This report has been signed electronically.
--- NOTE | 2023-11-04 10:18 | PCM.POST.ANE ---
Anesthesia: Postop Eval I Current Vital Signs Temperature: 97 F Pulse Rate: 83 Blood Pressure: 133/85 Respiratory Rate: 16 Pulse Ox: 93 Oxygen Delivery Method: Room Air Assessment Airway patent: Yes Spontaneous unlabored respirations: Yes Mental status: Awake and Calm nausea: No Vomiting: No Anesthesia Complication: No Fluid Hydration Crystalloid volume administer (ml): 600 Total IV fluid infused: 600 Progress Note Anesthesia document: Postop Eval 1 completed: Yes
[2023-11-04] MEDS: Venlafaxine XR 150 MG Capsule PO (10:59)
[2023-11-04] MEDS: oxyCODONE 5 MG Tablet PO ×2 (11:41→15:43)
[2023-11-04] MEDS: Acetaminophen 325 MG Tablet 650 MG PO (14:10)
--- NOTE | 2023-11-04 15:19 | PCM.DC.SUM ---
Providers Date of Admission: 11/02/23 Primary Care Physician: Dr. Caden Almazan MD Consultations 11/02/23 15:00 Consult: Gastroenterology Routine Consulting Provider: [facility] Reason for Consult: choledocholithiasis EMERGENT Consult: No MD Notified: Yes Date Notified: 11/02/23 Time Notified: 15:00 Method of Notification: Text Reason For Visit: ACUTE CHOLECYSTITIS Diagnosis Discharge Diagnosis (1) Cholelithiasis and acute cholecystitis without obstruction: Status: Acute Code(s): K80.00 - Calculus of gallbladder with acute cholecystitis without obstruction (2) History of gallstones: Status: Acute Code(s): Z87.19 - Personal history of other diseases of the digestive system (3) Abdominal pain: Status: Acute Code(s): R10.9 - Unspecified abdominal pain (4) DE LA PAZ (nonalcoholic steatohepatitis): Status: Acute Code(s): K75.81 - Nonalcoholic steatohepatitis (DE LA PAZ) Medications at Discharge Home Medications venlafaxine 150 mg capsule,extended release 24 hr 150 mg PO DAILY #30 caps 05/13/16 dextroamphetamine-amphetamine 20 mg tablet (Adderall) 20 mg PO BID 06/29/17 aripiprazole 5 mg tablet 5 mg PO QHS anxiety and depression 03/23/23 diphenhydramine HCl 25 mg capsule (Benadryl) 75 mg PO QHS 09/15/23 ondansetron 4 mg disintegrating tablet 4 mg PO Q6H PRN nausea and vomiting #30 tabs 09/19/23 pantoprazole 40 mg tablet,delayed release 40 mg PO DAILY 30 days #30 tabs 09/19/23 multivitamin 1 tab PO DAILY 10/12/23 vitamin E (dl, acetate) 450 mg (1,000 unit) capsule 450 mg PO DAILY 10/12/23 oxycodone 5 mg capsule 5 mg PO Q6H PRN pain 3 days #14 caps 11/02/23 Hospital Course Operations cholecystecomy (11/02/2023) and ERCP (11/04/2023) Procedures None Summary of Care Provided Hospital Course: Patient is 43-year-old female was admitted via the ER after presenting with acute onset abdominal pain and diagnosed with cholecystitis on 11/01/2023. Given this diagnosis, laparoscopic cholecystectomy was recommended. Patient was receptive of this recommendation and underwent laparoscopic cholecystectomy with intraoperative cholangiography on 11/02/2023. Intraoperatively patient was confirmed to have not only acute cholecystitis but also choledocholithiasis with her intraoperative cholangiogram. With this finding, GI was consulted and plans were made to proceed with ERCP the following day. The procedure was attempted on 11/03/2023, however, it had to be aborted on the account of an esophageal rent that was made inadvertently with passage of the ERCP scope to a stenotic esophagus. This rent was repaired and patient was returned to the [facility] floor for ongoing monitoring. The procedure was reattempted successfully on 11/04/2023 and patient was again returned to the [facility] floor with a liquid diet. Overall she described tolerance of the diet as well as successful ingestion of her scheduled medications, but describes some soreness with certain medications. Upon this report, I recommended use of lozenges to see if this improved her discomfort and also recommended delaying her discharge until she felt more comfortable with her diet. Both patient and her mother expressed agreement but following an uneventful next meal patient was granted formal discharge to home. Outpatient follow-up and wound care instructions had been discussed in detail prior to discharge. Physical Exam Const alert, oriented x3, no apparent distress and well nourished Resp normal respiratory effort GI GI Narrative: Operative dressings are intact and are clean and dry. Once these are removed Steri-Strips remain intact and wound edges remain well-approximated without drainage. Patient's abdomen is soft and minimally tender to palpation (reported most pronounced in the supraumbilical position) Weight / BMI Weight Weight: 218 lb 13.341 oz Body Mass Index (BMI) 34.2 ABG / Lab / Microbiology Data 11/03/23 04:50 11/03/23 04:50 Radiography Diagnostic Testing: Radiology Impression Endo Retro Cholangiopancreatogram 11/04/23 07:00 IMPRESSION: 8 fluoroscopic images for ERCP. Refer to the procedure note for complete details. Electronically Signed: Chandrakant Osuna DO at 12:26 EDT , D/C Instructions Discharge Diet: Light diet - advance as tolerated May shower in (days): 1 Call your doctor if your incision/area has: Continuous Slow Oozing, Sudden Increased Bleeding, Increased Pain/ Swelling, Increased Redness, Foul Smelling Discharge and Swelling at the incision site Call your doctor if you observe: Fever of 101 or Higher Cleanse incision/area with: Soap & Water Additional Dressing/Incision Instructions: Steri-Strips will fall off in 7 to 10 days, if they do not fall off okay to remove after 10 days. Please Follow Up With: Jacqueline Jama MD When: Call the office for a follow-up appointment 2 weeks; after 5 PM and on the weekends call [phone] with any concerns. Meaningful Use Info Meaningful Use Meaningful Use Diagnoses (Choose all that apply): None applicable Ischemic Stroke Statin Dosing Therapy Reference: STATIN DOSE THERAPY REFERENCE: * Patients > 75 years receive moderate or high dose statin therapy. * Patients 75 years or YOUNGER should receive HIGH intensity statin dose unless contraindicated. You will be required to document reason for non-treatment if statin daily dose does not meet guidelines. HIGH DOSE STATIN THERAPY DAILY Atorvastatin > than or = to 40 mg Rosuvastatin > than or = to 20 mg Amlodipine + Atorvastatin > than or = to 2.5/40 mg Ezetimibe + Simvastatin 10/80 mg Simvastatin 80mg Discharge Plan Admission Admit Date/Time: 11/02/23 17:59 Primary Reason for Your Visit: Cholecystitis with choledocholithiasis Attending Provider: Jacqueline Jama Primary Care Provider: Caden Almazan Discharge Orders/Prescriptions Prescriptions: New oxycodone 5 mg capsule 5 mg PO Q6H PRN (Reason: pain) 3 Days Qty: 14 0RF Continued dextroamphetamine-amphetamine [Adderall] 20 mg tablet 20 mg PO BID vitamin E (dl, acetate) 450 mg (1,000 unit) capsule 450 mg PO DAILY multivitamin Tablet 1 tab PO DAILY venlafaxine 150 MG capsule 150 mg PO DAILY Qty: 30 3RF aripiprazole 5 mg tablet 5 mg PO QHS Patient Comments: TAKE 1 TABLET BY MOUTH EVERY DAY diphenhydramine HCl [Benadryl] 25 mg capsule 75 mg PO QHS pantoprazole 40 mg Tablet,Delayed Release (Dr/Ec) 40 mg PO DAILY 30 Days Qty: 30 0RF ondansetron 4 mg tablet,disintegrating 4 mg PO Q6H PRN (Reason: nausea and vomiting) Qty: 30 0RF Referrals / Follow Up: Caden Almazan MD [Primary Care Provider] - Disposition Disposition (needs filled in before D/C Order can be placed): Home, Self Care
[2023-11-04] MEDS: BENZOCAINE/MENTHOL 1 LOZENGE MUCOUS MEM (15:31)
== END 2023-11-04 17:50 | disposition home or self-care (01) | DRG 263 ==
LOC: ED 15:31 → MS3 21:08
PROVIDERS: Internal Medicine Gastroenterology; Admitting Provider Physician Assistant; Emergency Provider Emergency Medicine; PCP Family Medicine; Referring Provider Emergency Medicine; Visit Provider Surgery
PROC: 0FT44ZZ Resection of Gallbladder, Percutaneous Endoscopic Approach (ICD-10-PCS; CPT 47610; principal; 2023-11-02 12:40)
PROC: 0W3P8ZZ Control Bleeding in Gastrointestinal Tract, Via Natural or Artificial Opening Endoscopic (ICD-10-PCS; CPT 43260; principal; 2023-11-03 12:40)
PROC: 0FCD8ZZ Extirpation of Matter from Pancreatic Duct, Via Natural or Artificial Opening Endoscopic (ICD-10-PCS; CPT 43260; principal; 2023-11-04 08:00)
DX: K80.63 Calculus of gallbladder and bile duct with acute cholecystitis with obstruction (principal); F32.A Depression, unspecified; K75.81 Nonalcoholic steatohepatitis (NASH); F41.9 Anxiety disorder, unspecified; K20.0 Eosinophilic esophagitis; Z79.899 Other long term (current) drug therapy; Z87.891 Personal history of nicotine dependence
CPT/HCPCS: 36415; 74177; 74300; 74330; 76000; 80048; 80053; 80076; 83690; 84703; 85025; 88304; 88305; 88312; 93005; 94668; 99283; J7030; J7050; J7120; Q9967; A4216; J1610; J2405

== ENCOUNTER 2023-11-05 17:25 | Emergency (ER) | payer MEDICAID, SELFPAY ==
[2023-11-05 17:26] VITALS: BP 133/96; PULSE 89; RESP 16; TEMP 36.6; O2SAT 98; BMI 35.0
--- NOTE | 2023-11-05 18:28 | EX.ED.DYSGE1 ---
HPI History of Present Illness Chief Complaint: Abd Pain Informant: patient and parent Narrative Narrative: 43-year-old female presenting to the emergency room with right upper quadrant pain. Patient states that she had her gallbladder removed on and underwent ERCP yesterday was discharged home. She notes pain in the right upper quadrant that is worse with breathing. She denies any fevers. She is having flatus but no bowel movement yet. She states she is on liquid diet. She states that she talked with on-call surgery was advised to come to emergency. Patient states that hurts when she takes a deep breath then. Otherwise she is not feeling any dyspnea or have any significant cough. [facility] Medical History Gastric reflux Wears glasses Diabetes Rheumatoid arthritis Fatty liver Back pain Difficulty swallowing Former smoker Shortness of breath on exertion Obesity Unstable lie Gestational diabetes mellitus (GDM) Distortion of contour of breast Depression with anxiety Abnormal ultrasound of breast Abnormal mammogram Home Medications ?Medication ?Instructions ?Recorded ?Last Taken ?Type venlafaxine 150 mg 150 mg PO DAILY #30 caps 05/13/16 11/01/23 Rx capsule,extended release 24 hr dextroamphetamine-amphetamine 20 20 mg PO BID 06/29/17 10/30/23 History mg tablet (Adderall) aripiprazole 5 mg tablet 5 mg PO QHS anxiety and depression 03/23/23 10/31/23 History diphenhydramine HCl 25 mg capsule 75 mg PO QHS 09/15/23 10/31/23 History (Benadryl) ondansetron 4 mg disintegrating 4 mg PO Q6H PRN nausea and 09/19/23 11/01/23 11:30 Rx tablet vomiting #30 tabs pantoprazole 40 mg tablet,delayed 40 mg PO DAILY 30 days #30 tabs 09/19/23 10/31/23 Rx release multivitamin 1 tab PO DAILY 10/12/23 10/31/23 History vitamin E (dl, acetate) 450 mg 450 mg PO DAILY 10/12/23 10/31/23 History (1,000 unit) capsule oxycodone 5 mg capsule 5 mg PO Q6H PRN pain 3 days #14 11/02/23 Unknown Rx caps Allergy/AdvReac Type Severity Reaction Status Date / Time bupropion (From Wellbutrin) Allergy Mild Hives Verified 11/05/23 17:26 hydrocodone Allergy Mild Other Verified 11/05/23 17:26 promethazine (From Phenergan) Allergy Mild Other Verified 11/05/23 17:26 Sulfa (Sulfonamide Allergy Other Verified 11/05/23 17:26 Antibiotics) Opioids - Morphine Analogues AdvReac Unknown I don't Verified 11/05/23 17:[address] it makes me feel, I'd rather have Dilau Family History Grandfather Arthritis Diabetes Hypertension Skin cancer Grandmother Arthritis Aunt Colon cancer Mother HLD (hyperlipidemia) Cholecystitis with cholelithiasis Father Diabetes Cholecystitis with cholelithiasis Surgical History Delivery by section history ORIF right fifth metatarsal Social History household members: family and children Smoking Status: Former smoker how long ago did patient quit smoking: Quit 5 yrs prior, smoked 1 pk/week since 17 until quit. alcohol intake: current alcohol intake frequency: a few times a month substance use type: does not use ROS ROS ED Constitutional Constitutional ED: Denies chills, fever(s) or weight loss Eyes Eyes: Denies change in vision or diplopia ENT ENT ED: Denies ear pain, rhinorrhea or sore throat Cardiovascular Cardiovascular: Denies chest pain, orthopnea, palpitations or racing heartbeat Respiratory/Chest Respiratory/Chest: Denies cough, dyspnea, dyspnea on exertion or orthopnea Gastrointestinal Gastrointestinal: Reports abdominal pain and constipation; Denies diarrhea, nausea or vomiting Genitourinary Genitourinary ED: Denies dysuria, hematuria or urinary frequency Musculoskeletal Musculoskeletal: Denies arthralgias or myalgias Integumentary Denies abscess or rash Neurologic Neurologic: Denies headache(s) or weakness Psychiatric Psychiatric: Denies anxiety, depression, suicidal ideation or suicidal thoughts Endocrine Endocrinology: Denies polydipsia, polyphagia or polyuria Allergic/Immunologic Allergic/Immunologic ED: Denies mouth swelling, tongue swelling or urticaria EXAM Physical Exam Const Vital Signs: 11/05/23 17:26 11/05/23 18:30 11/05/23 19:00 Temperature 97.8 F 98 F 98 F Temperature Source Temporal Oral Oral Pulse Rate 89 72 75 Respiratory Rate 16 16 16 Blood Pressure 133/96 H 136/83 H 128/77 H Blood Pressure Mean 108 100 94 Pulse Ox 98 96 94 Oxygen Delivery Method Room Air Room Air Room Air 11/05/23 20:36 Temperature 97.8 F Temperature Source Pulse Rate 102 H Respiratory Rate 18 Blood Pressure 135/102 H Blood Pressure Mean 113 Pulse Ox 97 Oxygen Delivery Method Positive well nourished and well developed General Appearance ED: well developed HEENT Reports normocephalic, head/scalp atraumatic and moist mucous membranes Eyes PERRL and EOMs intact bilaterally Neck no lymphadenopathy, supple and no JVD Resp normal respiratory effort and clear to auscultation bilaterally Cardio regular rate, regular rhythm and no murmurs GI GI Narrative: Mild tenderness to palpation in the right upper quadrant. The laparoscopic surgical sites appear to be healing well. There is no evidence of secondary infection. I hear normal bowel sounds. The abdomen does not appear distended Inspection: Negative for abdominal distention Auscultation: normoactive bowel sounds Palpation: soft and tender RUQ; Negative for guarding or rebound tenderness present Back/Spine no CVA tenderness and normal ROM Extremity normal to inspection General Extremety ED: Negative for edema General Extremity: Negative for edema Neuro oriented x3 and CN's II-XII intact bilaterally Sensorium / Orientation: alert Motor Exam: strength 5/5 throughout Psych mental status grossly normal Mood & Affect: Negative for depressed or tearful Skin no rashes or lesions noted and no wounds MDM MDM MDM Narrative Medical decision making narrative: Differential diagnosis includes but not limited to pancreatitis choledocholithiasis biliary leak acute hepatitis postoperative infection White count 7.4 hemoglobin 13.9 platelet count of 309. Her liver enzymes are normalizing. ALT 284 AST 55 alk phos 137 normal bilirubin lipase slightly elevated 86. CT of the abdomen pelvis with IV contrast was obtained. This shows a stent in the bile duct. I do not see an obvious bile leak or abscess formation. I do not think the patient clinically has pulmonary embolism or pneumonia. I think the patient is experiencing some postoperative pain and would encourage continued postoperative care. Case was discussed with Dr. Parrish who is in agreement with the plan. History & Record Review Discussion w/independent historian: Patient Additional record(s) reviewed:: Prior inpatient record, Prior ED visit and Prior labs Lab Data Attestation: I reviewed the patient's lab results. Labs: Laboratory Results - last 24 hr 11/05/23 18:40 WBC 7.4 RBC 4.60 Hgb 13.9 Hct 41.8 MCV 90.9 MCH 30.2 MCHC 33.3 RDW Std Deviation 40.6 RDW Coeff of Amy 12.5 Plt Count 306 MPV 9.4 Immature Gran % (Auto) 0.300 Neut % (Auto) 54.2 Lymph % (Auto) 36.8 Dare % (Auto) 6.9 Eos % (Auto) 1.3 Baso % (Auto) 0.5 Absolute Neuts (auto) 4.0 Absolute Lymphs (auto) 2.73 Nucleated RBC % 0 Sodium 139 Potassium 3.0 L Chloride 102 Carbon Dioxide 29.0 Anion Gap 8 BUN 7 Creatinine 0.76 Estim Creat Clear Calc 118.13 Est GFR (MDRD) Af Amer 106 Est GFR (MDRD) Non-Af 88 BUN/Creatinine Ratio 9.2 L Glucose 106 Calcium 9.6 Total Bilirubin 0.40 Direct Bilirubin 0.19 AST 55 H ALT 284 H Alkaline Phosphatase 137 H Total Protein 7.2 Albumin 3.8 Globulin 3.4 Lipase 86 H Radiography Diagnostic Testing: Clinical Impression(s) from Imaging Studies Abdomen/Pelvis CT 11/05/23 19:28 IMPRESSION: Fatty liver. Left ovarian cystic nodule. Electronically Signed: Azar Cox DO at 19:51 EDT Reading Location ID and State: [address] [place] [address] Tel [phone], Service support , Management Discussion w/another healthcare provider: [facility] Laboratory Technician (Dr. Parrish) Discharge Plan Triage Chief Complaint: Abd Pain ED Provider: Teddy Shultz Dx/Rx/DC Orders Clinical Impression: Postoperative abdominal pain, Status post endoscopic retrograde cholangiopancreatography, Status post cholecystectomy Instructions: After Gallbladder Surgery Prescriptions: No Action dextroamphetamine-amphetamine [Adderall] 20 mg tablet 20 mg PO BID vitamin E (dl, acetate) 450 mg (1,000 unit) capsule 450 mg PO DAILY multivitamin Tablet 1 tab PO DAILY venlafaxine 150 MG capsule 150 mg PO DAILY Qty: 30 3RF aripiprazole 5 mg tablet 5 mg PO QHS Patient Comments: TAKE 1 TABLET BY MOUTH EVERY DAY diphenhydramine HCl [Benadryl] 25 mg capsule 75 mg PO QHS pantoprazole 40 mg Tablet,Delayed Release (Dr/Ec) 40 mg PO DAILY 30 Days Qty: 30 0RF ondansetron 4 mg tablet,disintegrating 4 mg PO Q6H PRN (Reason: nausea and vomiting) Qty: 30 0RF oxycodone 5 mg capsule 5 mg PO Q6H PRN (Reason: pain) 3 Days Qty: 14 0RF Primary Care Provider: Caden Almazan Referrals: Caden Almazan MD [Primary Care Provider] - Activity Restrictions/Additional Instructions: Please follow-up with your doctors as scheduled. Please continue to follow postoperative care plan Print Language: Uruguayan Disposition Disposition: Home, Self Care Discharge Date/Time: 11/05/23 20:37
[2023-11-05 18:30] VITALS: BP 136/83; PULSE 72; RESP 16; TEMP 36.6; O2SAT 96
[2023-11-05 18:51] LABS: Absolute Lymphocyte Count 2.73 X10^3/uL (0.83-4.51); Basophil# 0.04 X10^3/uL; Basophil% 0.5 % (0-1); Eosinophils% 1.3 % (0-5); Hematocrit 41.8 % (37-47); Hemoglobin 13.9 g/dL (12.0-15.0); Lymphocyte # 2.73 X10^3/ul (0.83-4.51); Lymphocyte % 36.8 % (19-41); Mean Corp Hgb Conc 33.3 g/dL (32-36); Mean Corpuscular Hgb 30.2 pg (27.0-32.0); Mean Corpuscular Volume 90.9 fL (81-99); Mean Platelet Vol. 9.4 fl (6.2-12.0); Monocyte# 0.51 X10^3/uL; Monocyte% 6.9 % (0-10); NRBC Flagged by Analyzer 0 % (0-5); Neutrophil # 4.01 X10^3/uL (2.7-7.7); Neutrophil % 54.2 % (47-70); Platelet Count 306 K/mm3 (150-450); RBC Distribution Width CV 12.5 % (11.6-14.6); RBC Distribution Width SD 40.6 fl (35.1-43.9); White Blood Count 7.4 K/mm3 (4.4-11.0)
[2023-11-05 19:00] VITALS: BP 128/77; PULSE 75; RESP 16; TEMP 36.6; O2SAT 94
[2023-11-05 19:15] LABS: AST(SGOT) 55 U/L (15-37); Alanine Aminotransfer ALT/SGPT 284 U/L (13-56); Albumin, Serum 3.8 g/dL (3.2-5.0); Alkaline Phosphatase 137 U/L (45-117); Anion Gap 8 (5-15); BUN 7 mg/dL (7-18); BUN/Creat Ratio 9.2 RATIO (10-20); Bilirubin, Direct 0.19 mg/dL (0.00-0.30); Calcium,Total 9.6 mg/dL (8.5-10.1); Chloride 102 mmol/L (98-107); Creatinine, Serum 0.76 mg/dL (0.55-1.02); EST Glomerular Filtration Rate 88 mL/min (>60); Est Glom Filt Rate - Afr Amer 106 mL/min (>60); Estimated Creatinine Clearance 118.13 ml/min; Globulin 3.4 g/dL (2.2-4.2); Glucose 106 mg/dL (74-106); Lipase 86 U/L (13-75); Protein, Total 7.2 g/dL (6.4-8.2); Sodium Level 139 mmol/L (136-145)
--- NOTE | 2023-11-05 19:28 | CT_ITS ---
STUDY: CT ABDOMEN AND PELVIS WITH CONTRAST REASON FOR EXAM: Female, 43 years old. RUQ Pain - S/P Cholecystectomy (POD 4) ERCP (POD 1 RADIATION DOSAGE (If Supplied By Facility): CTDIvol = ( 17.50 ) mGy, DLP = ( 1297.04 ) mGycm TECHNIQUE: Transaxial images were obtained from the dome of the diaphragm to the symphysis pubis without oral contrast. IV 100mL Isovue-[id number] was administered. Sagittal and coronal images were reconstructed. Individualized dose optimization techniques were used for this CT. COMPARISON: None. FINDINGS: The visualized lung bases are unremarkable. The visualized portions of the heart are within normal limits. Fatty liver. Status post cholecystectomy. A biliary stent is in place. No significant dilatation of the extrahepatic biliary system. Normal spleen. There is a stent in the head of the pancreas. Normal bilateral adrenal glands. Normal right kidney. Normal left kidney. Normal visualized stomach. Normal small intestine. Normal colon. The appendix is not visualized. Normal abdominal aorta. Normal inferior vena cava. Normal retroperitoneum. Normal urinary bladder. 2.5 cm left ovarian cystic lesion. Fibroid uterus. Endometrial thickening/fluid. Normal abdominal wall. Normal osseous structures. CT/Abdomen/Pelvis W IV Cont ONLY IMPRESSION: Fatty liver. Left ovarian cystic nodule. Electronically Signed: Azar Cox DO at 19:51 EDT ,
[2023-11-05 20:36] VITALS: BP 135/102; PULSE 102; RESP 18; TEMP 36.6; O2SAT 97
== END 2023-11-05 20:37 | disposition home or self-care (01) ==
PROVIDERS: Emergency Provider Emergency Medicine; PCP Family Medicine; Visit Provider Emergency Medicine
DX: G89.18 Other acute postprocedural pain (principal); E11.9 Type 2 diabetes mellitus without complications; R10.11 Right upper quadrant pain; Z87.891 Personal history of nicotine dependence
CPT/HCPCS: 74177; 80048; 80076; 83690; 85025; 99283; Q9967; A4216

== ENCOUNTER → 2023-11-10 | Outpatient (CLI) | payer MEDICAID, SELFPAY ==
[2023-11-10 11:07] LABS: ALB/GLOB Ratio 1.1 RATIO (0.9-2.4); AST(SGOT) 38 U/L (15-37); Alanine Aminotransfer ALT/SGPT 103 U/L (13-56); Albumin, Serum 3.7 g/dL (3.2-5.0); Alkaline Phosphatase 122 U/L (45-117); Anion Gap 7 (5-15); BUN 11 mg/dL (7-18); BUN/Creat Ratio 17.3 RATIO (10-20); Chloride 107 mmol/L (98-107); Creatinine, Serum 0.64 mg/dL (0.55-1.02); EST Glomerular Filtration Rate 108 mL/min (>60); Est Glom Filt Rate - Afr Amer 131 mL/min (>60); Globulin 3.4 g/dL (2.2-4.2); Glucose 113 mg/dL (74-106); Lipase 79 U/L (13-75); Protein, Total 7.1 g/dL (6.4-8.2); Sodium Level 138 mmol/L (136-145)
== END | disposition home or self-care (01) ==
LOC: MFPLAB 09:06
PROVIDERS: PCP Family Medicine; Visit Provider Family Medicine
DX: R74.8 Abnormal levels of other serum enzymes (principal)
CPT/HCPCS: 36415; 80053; 83690

== ENCOUNTER 2024-01-03 10:39 | Day surgery (SDC) | payer MEDICAID, SELFPAY ==
[2024-01-03] VITALS (8 sets, daily range): BP systolic 106–136; BP diastolic 79–97; PULSE 85–105; RESP 16–18; TEMP 36.1–36.4; O2SAT 93–98; BMI 36.0
--- NOTE | 2024-01-03 10:49 | HP.PCM_ITS ---
History and Physical Date of Admission: 01/03/24 43-year-old female presents status post laparoscopic cholecystectomy and ERCP. Patient is doing well tolerating diet having bowel function. Patient did have pain in the right upper quadrant after discharge on 11/04 did go to the ER CT abdomen pelvis did not show anything acute causing the pain. Patient states since then her pain has been much better. Patient did have some tenderness with swallowing due to the clip on the distal esophagus at the area of stenosis. Objective Details: Abdomen: Soft, nondistended, nontender, incisions healing well clean dry and intact no peritoneal signs Coding Level of Care Code Global Post Op Diagnoses S/P laparoscopic cholecystectomy Z90.49 Status post endoscopic retrograde cholangiopancreatography Z98.890 [facility] Medical History (Updated 11/13/23 @ 00:01 by [facility]) Gastric reflux Wears glasses Diabetes Rheumatoid arthritis Fatty liver Back pain Difficulty swallowing Former smoker Shortness of breath on exertion Obesity Unstable lie Gestational diabetes mellitus (GDM) Distortion of contour of breast Depression with anxiety Abnormal ultrasound of breast Abnormal mammogram Surgical History (Updated 11/17/23 @ 13:[address] Jacqueline Jama MD) S/P laparoscopic cholecystectomy Delivery by section history ORIF right fifth metatarsal Family History Grandfather Arthritis Diabetes Hypertension Skin cancerGrandmother ArthritisAunt Colon cancerMother HLD (hyperlipidemia) Cholecystitis with cholelithiasisFather Diabetes Cholecystitis with cholelithiasis Social History household members: family and children Smoking Status: Former smoker how long ago did patient quit smoking: Quit 5 yrs prior, smoked 1 pk/week since 17 until quit. alcohol intake: current alcohol intake frequency: a few times a month substance use type: does not use Assessment and Plan (No Qualifiers) Assessment and Plan (1) S/P laparoscopic cholecystectomy: Status: Acute (2) Status post endoscopic retrograde cholangiopancreatography: Status: Inactive Plan Patient is doing well tolerating diet and having bowel function. Patient's incisions healing well. Patient will undergo stent removal via ERCP. She was explained alternatives, risk, benefits include understanding bleeding, infection, sepsis, perforation, need for emergent urgent . She have an ASA of 3.
--- NOTE | 2024-01-03 11:20 | PRE.ANES_ITS ---
ASA Classification* ASA Classification ASA Classification: 2 (SEE WRITTEN PRE ANESTHESIA RECORD FOR FULL ASSESSMENT) Assessment & Plan Anesthesia* Anesthesia Assessment Anesthesia Assessment: Discussed sedation and/or anesthesia options, risks, benefits, and alternatives with patient/parents/legal guardian/POA. Questions invited. The patient/parents/legal guardian/POA seems to understand and agrees to proceed with anesthesia plan. Reviewed the physical assessment, medical history, allergy history and patient home medications list prior to surgery/procedure/anesthetic and documented any changes. Performed airway and anesthesia risk assessments. Anesthesia Type Anesthesia Type: General (SEE WRITTEN PRE ANESTHESIA RECORD FOR FULL ASSESSMENT) Anesthesia Focused Assessment* Temperature: 97.5 F Pulse Rate: 105 Blood Pressure: 136/97 Respiratory Rate: 16 Pulse Ox: 98 Airway Assessment Mouth opens: >3 cm Mallampati Score: III Focused Labs Anesthesia Preop lab: CBC WBC 7.4 K/mm3 (4.4-11.0) 11/05/23 18:40 RBC 4.60 M/mm3 (4.2-5.4) 11/05/23 18:40 Hgb 13.9 g/dL (12.0-15.0) 11/05/23 18:40 Hct 41.8 % (37-47) 11/05/23 18:40 Plt Count 306 K/mm3 (150-450) 11/05/23 18:40 CHEMISTRY Potassium 4.0 mmol/L (3.5-5.1) 11/10/23 09:06 Sodium 138 mmol/L (136-145) 11/10/23 09:06 BUN 11 mg/dL (7-18) 11/10/23 09:06 Creatinine 0.64 mg/dL (0.55-1.02) 11/10/23 09:06 Glucose 113 mg/dL (74-106) H 11/10/23 09:06 POC Glucose 84 mg/dL (74-106) 03/25/23 05:24 TSH 1.55 uIU/mL (0.358-3.74) 10/01/15 11:29 COAG PT 13.1 SECONDS (11.7-14.9) 09/15/23 10:51 HCG, Quant 1263 mIU/mL (<9 non-preg) H 09/11/15 11:38 Pre-Assessment Diagnosis/Proposed Procedure Planned Operative Procedure(s): ERCP Anesthesia History Anesthesia History - geological sample tester: Anesthesia History - geological sample tester Hx Hospitalization Yes: 09/2023 GALLBLADDER 01/01/24 14:44 ATTACK Any Problems With Anesthesia No 01/01/24 14:44 Cholinesterase deficiency No 01/01/24 14:44 You/Your Family Experience No 01/01/24 14:44 fever (hyperthermia) with Relationship Recent Exposure to Contagious No 01/03/24 10:54 Disease Does patient have nerve No 01/01/24 14:44 stimulator Patient instructed to have device shut off --Does patient have Pacemaker No 01/03/24 10:54 or ICD? When Was Last Pacemaker Check QUESTION #4 FULL TEXT: You/Your Family Experience fever (hyperthermia) with Anesthesia Last Oral Intake Last Oral intake: Last Oral Intake NPO since 09:00 01/03/24 10:54 Meds taken in AM with sips of water? Meds patient instructed to SEE MAR 01/03/24 10:54 take am of surgery PONV PONV - geological sample tester: PONV - geological sample tester Female Yes 01/01/24 14:44 HX of Motion Sickness Yes 01/01/24 14:44 HX of N/V After Surgery No 01/01/24 14:44 Non-Smoker Yes 01/01/24 14:44 Duration of Surgery greater Yes 01/01/24 14:44 than 60 minutes Number of Risk Factors 4 01/01/24 14:44 PONV Score Severe Risk 01/01/24 14:44 Height & Weight Height & Weight: Anesthesia: Height & Weight Height 5 ft 7 in 01/03/24 10:54 Weight: 104.326 kg 01/03/24 10:54 Body Mass Index (BMI) 36.0 01/03/24 10:54 Respiratory Assessment Respiratory Assessment - geological sample tester: Respiratory Tract Infection Hx - geological sample tester Hx Respiratory Tract Infection No 01/01/24 14:44 STOP Sleep Apnea STOP Sleep Apnea - geological sample tester: STOP Sleep Apnea - geological sample tester Hx Hypertension No 01/01/24 14:44 Hx Sleep Apnea No 01/01/24 14:44 CPAP BIPAP Do you snore loudly (louder No 01/01/24 14:44 than talking or can be heard Do you often feel tired/ No 01/01/24 14:44 fatigued/ sleepy during daytime? Has anyone observed you stop No 01/01/24 14:44 breathing during sleep? STOP Results Negative 01/01/24 14:44 QUESTION #5 FULL TEXT : Do you snore loudly (louder than talking or can be heard through closed doors)? Tobacco Use History Tobacco Use History - geological sample tester: Tobacco Use History - geological sample tester Tobacco Use Smoking Status Former smoker 01/01/24 14:44 Hx Tobacco Use No 01/01/24 14:44 Years Smoking Packs Smoked per Day Smoking Cessation Date was Yes - quit smoking within 15 01/01/24 14:44 within the last 15 years years Hx Smoking Cessation Date 03/06/21 01/01/24 14:44 Hx Smoking Cessation Counseling Hematologic Medial History Hematologic Hx - geological sample tester: Hematologic Medical Hx - arc and gas welder Hx of Blood Transfusion No 01/01/24 14:44 Hx of Transfusion in last 3 No 01/01/24 14:44 Months Date of Last Transfusion (if within last 3 months) Ever experience any problems No 01/01/24 14:44 with transfusion(s)? Specify any problems Hx of Preganancy in last 3 No 01/01/24 14:44 Months Nurse Filling Out Transfusion DSCHRIBER 01/01/24 14:44 & Questions: Date: 01/01/24 01/01/24 14:44 Time: 14:45 01/01/24 14:44 Patient unable to answer at this time (ie. confused, unrespo /Reproduction History /Reproductive History - geological sample tester: /Reproductive Hx- geological sample tester Hx Now Gestational Age (in weeks): EDC: Hx Hx Para Hx Section SAB No 01/01/24 14:44 PFSH Medical History History of biliary stent insertion Gastric reflux Wears glasses Diabetes Rheumatoid arthritis Fatty liver Back pain Difficulty swallowing Former smoker Shortness of breath on exertion Obesity Unstable lie Gestational diabetes mellitus (GDM) Distortion of contour of breast Depression with anxiety Abnormal ultrasound of breast Abnormal mammogram Home Medications ?Medication ?Instructions ?Recorded ?Last Taken ?Type venlafaxine 150 mg 150 mg PO DAILY #30 caps 05/13/16 11/01/23 Rx capsule,extended release 24 hr dextroamphetamine-amphetamine 20 20 mg PO BID 06/29/17 10/30/23 History mg tablet (Adderall) aripiprazole 5 mg tablet 5 mg PO QHS anxiety and depression 03/23/23 01/03/24 06:00 History diphenhydramine HCl 25 mg capsule 75 mg PO QHS 09/15/23 10/31/23 History (Benadryl) pantoprazole 40 mg tablet,delayed 40 mg PO DAILY 30 days #30 tabs 09/19/23 12/18/23 Rx release multivitamin 1 tab PO DAILY 10/12/23 10/31/23 History vitamin E (dl, acetate) 450 mg 450 mg PO DAILY 10/12/23 10/31/23 History (1,000 unit) capsule Allergy/AdvReac Type Severity Reaction Status Date / Time bupropion (From Wellbutrin) Allergy Mild Hives Verified 01/03/24 10:53 hydrocodone Allergy Mild Other Verified 01/03/24 10:53 promethazine (From Phenergan) Allergy Mild Other Verified 01/03/24 10:53 Sulfa (Sulfonamide Allergy Other Verified 01/03/24 10:53 Antibiotics) Opioids - Morphine Analogues AdvReac Unknown I don't Verified 01/03/24 10:[address] it makes me feel, I'd rather have Dilau Family History Grandfather Arthritis Diabetes Hypertension Skin cancer Grandmother Arthritis Aunt Colon cancer Mother HLD (hyperlipidemia) Cholecystitis with cholelithiasis Father Diabetes Cholecystitis with cholelithiasis Surgical History History of esophagogastroduodenoscopy (EGD) History of ERCP S/P laparoscopic cholecystectomy Delivery by section history ORIF right fifth metatarsal Social History household members: family and children Smoking Status: Former smoker how long ago did patient quit smoking: Quit 5 yrs prior, smoked 1 pk/week since 17 until quit. alcohol intake: current alcohol intake frequency: a few times a month substance use type: does not use Review of Systems (Anesthesia) ROS Narrative System reviewed and no additional complaints, except as documented.
--- NOTE | 2024-01-03 11:30 | FLU_PTH ---
PATIENT: COSMO MAYERS LOC: EN U#:[id number] AGE/SX: 43/F ROOM: RE01/03/[address]: Dr. Cheng Narvaez DO : 1980 BED: DIS: 01/03/2024 SPEC #: [id number] RECD: 01/03/24 12:42 STATUS: JALEN JOURDAN #: [id number] MIKEY: 01/03/24 11:[address]: Cheng Narvaez DEPT: CYTOLOGY RECD BY: Consuelo Cote ENTERED: 01/03/24 13:50 SP TYPE: Fluid OTHR DR: Dr. Caden Almazan MD Tissues: Biliary tract, NOS Procedures: Special Stain Group II Surgery Specimen Level IV Cytospin Fluid HEADER OPERATION: ERCP with stent pull PRE-OP DIAGNOSIS: Status post laparoscopic cholecystectomy, status post endoscopic retrograde cholangiopancreatography TISSUE SUBMITTED: Biliary stent fluid for cytology DIAGNOSIS CYTOLOGY Biliary stent fluid for cytology (cytospin and cellblock): Negative for malignant cells. See comment. 01/04/2024 COMMENT A few fragments of benign glandular epithelium are noted. Clinical correlation and appropriate follow up are necessary. CYTOLOGY STUDY Slides are reviewed. CYTOLOGY GROSS Received is 1 blue stent measuring 10cm in length and contains 0.3 ml of yellow mucoid material labeled with the patient's name and and designated per the requisition as Biliary stent. Submitted for cytology preparation including cell block. Mr 01/03/2024 TC:5 CPT: 60327,48352
--- NOTE | 2024-01-03 12:26 | RAD_ITS ---
EXAM: FL FLUOROSCOPY < 1 HOUR CLINICAL INDICATION: PAIN TECHNIQUE: Fluoroscopic images performed in multiple projections. Fluoroscopic guidance was provided by a physician. Fluoroscopic time is 19 seconds and total dose is 32.39 mGy. COMPARISON: No relevant prior studies available. FINDINGS AND RAD/ERCP Biliary/Pancreas IMPRESSION: 9 spot images are submitted for documentation. Refer to procedural note for complete details. Electronically Signed: Chandrkaant Osuna DO at 22:40 EDT ,
--- NOTE | 2024-01-03 12:58 | OP.CCLET_ITS ---
01/03/2024 Caden Almazan MD [address] [place] [address] Re : ERCP procedure for Jeri Cameron Dear Dr. Almazan This procedure was performed on Wednesday, January 03, 2024. My impressions and recommendations are as follows: Impressions : - The entire biliary tree was dilated, with a stone causing an obstruction. - The patient has had a cholecystectomy. - Choledocholithiasis was found. Complete removal was accomplished by biliary sphincterotomy and balloon extraction. - A pancreatic sphincterotomy was performed. - The ventral pancreatic duct was swept and nothing was found. - One stent was removed from the biliary tree. - A biliary sphincterotomy was performed. - The biliary tree was swept. Recommendations : Return for pancreatic stent removal in 4 to 6 weeks My findings are described in the full procedure note, which is enclosed. If I can be of further assistance, please feel free to contact me at . Sincerely, Cheng Narveaz, 01/03/2024 12:57:19 PM This report has been signed electronically.
--- NOTE | 2024-01-03 12:58 | OP.ERCP_ITS ---
Patient Name: Jeri Gordon Procedure Date: 01/03/2024 12:01 PM Date of : 1980 Age: 43 Procedure: ERCP Indications: Bile duct stone(s), Biliary stent removal Providers: Cheng Narvaez DO Medicines: Monitored Anesthesia Care Patient Profile: This is a 43 year old female. Refer to note in patient chart for documentation of history and physical. Patient has symptoms of acute epigastric abdominal pain. She is status post laparoscopic cholecystectomy within the past three months. Complications: No immediate complications. Procedure: Pre-Anesthesia Assessment: - Prior to the procedure, a History and Physical was performed, and patient medications and allergies were reviewed. The patient is competent. The risks and benefits of the procedure and the sedation options and risks were discussed with the patient. All questions were answered and informed consent was obtained. Patient identification and proposed procedure were verified by the physician in the pre-procedure area. Mental Status Examination: alert and oriented. Airway Examination: normal oropharyngeal airway and neck mobility. Respiratory Examination: clear to auscultation. CV Examination: normal. Prophylactic Antibiotics: The patient does not require prophylactic antibiotics. Prior Anticoagulants: The patient has taken no anticoagulant or antiplatelet agents. ASA Grade Assessment: II - A patient with mild systemic disease. After reviewing the risks and benefits, the patient was deemed in satisfactory condition to undergo the procedure. The anesthesia plan was to use monitored anesthesia care (MAC). Immediately prior to administration of medications, the patient was re-assessed for adequacy to receive sedatives. The heart rate, respiratory rate, oxygen saturations, blood pressure, adequacy of pulmonary ventilation, and response to care were monitored throughout the procedure. The physical status of the patient was re-assessed after the procedure. After obtaining informed consent, the scope was passed under direct vision. Throughout the procedure, the patient's blood pressure, pulse, and oxygen saturations were monitored continuously. The Duodenoscope was introduced through the mouth, and advanced to the duodenum and used to inject contrast into the bile duct and ventral pancreatic duct. The ERCP was accomplished without difficulty. The patient tolerated the procedure well. Scope In: 12:26:31 PM Scope Out: 12:37:54 PM Total Procedure Duration Time 0 hours 11 minutes 23 seconds Findings: A biliary stent was visible on the core shaper sides film. The esophagus was successfully intubated under direct vision. The scope was advanced to a normal major papilla in the descending duodenum without detailed examination of the pharynx, larynx and associated structures, and upper GI tract. The upper GI tract was grossly normal. The ventral pancreatic duct was deeply cannulated with the short-nosed traction sphincterotome. Contrast was injected. I personally interpreted the pancreatic duct images. There was brisk flow of contrast through the ducts. Image quality was suboptimal. Contrast extended to the pancreatic duct. Opacification of the entire pancreatic ductal system was successful. The maximum diameter of the ducts was 2 mm. The ventral pancreatic duct in the head of the pancreas, pancreatic duct in the genu of the pancreas and pancreatic duct in the body of the pancreas were normal. A long 0.025 inch Jagwire was passed into the ventral pancreatic duct. A 2 mm ventral pancreatic sphincterotomy was made with a traction (standard) sphincterotome using ERBE electrocautery. There was no post-sphincterotomy bleeding. To remove the object(s) the ventral pancreatic duct was swept with a 6 mm balloon starting at the pancreatic duct in the body of the pancreas. Nothing was found. One stent was removed from the biliary tree using a snare and sent for cytology. The stent was found to be patent via the water column test. A long 0.025 inch Jagwire was passed into the biliary tree. The short-nosed traction sphincterotome was passed over the guidewire and the bile duct was then deeply cannulated. Contrast was injected. Opacification of the entire opacified area and entire biliary tree was successful. The maximum diameter of the ducts was 10 mm. The lower third of the main bile duct contained two stones, the largest of which was 6 mm in diameter. The entire biliary tree except for the cystic duct and gallbladder and entire biliary tree were diffusely dilated, with a stone causing an obstruction. The largest diameter was 10 mm. A cholecystectomy had been performed. A 5 mm biliary sphincterotomy was made with a braided traction (standard) sphincterotome using ERBE electrocautery. There was no post-sphincterotomy bleeding. The biliary tree was swept with a 12 mm balloon starting at the bifurcation. Sludge was swept from the duct. All stones were removed. Impression: - The entire biliary tree was dilated, with a stone causing an obstruction. - The patient has had a cholecystectomy. - Choledocholithiasis was found. Complete removal was accomplished by biliary sphincterotomy and balloon extraction. - A pancreatic sphincterotomy was performed. - The ventral pancreatic duct was swept and nothing was found. - One stent was removed from the biliary tree. - A biliary sphincterotomy was performed. - The biliary tree was swept. Recommendation: Return for pancreatic stent removal in 4 to 6 weeks Procedure Code(s): --- Professional --- 67052, Endoscopic retrograde cholangiopancreatography (ERCP); with removal of foreign body(s) or stent(s) from biliary/pancreatic duct(s) 67019, Endoscopic retrograde cholangiopancreatography (ERCP); with removal of calculi/debris from biliary/pancreatic duct(s) 09833, Endoscopic retrograde cholangiopancreatography (ERCP); with sphincterotomy/papillotomy 61318, Endoscopic retrograde cholangiopancreatography (ERCP); with sphincterotomy/papillotomy 79240, 26, Endoscopic catheterization of the pancreatic ductal system, radiological supervision and interpretation CPT copyright 2021 [employer]. All rights reserved. The codes documented in this report are preliminary and upon director global market research review may be revised to meet current compliance requirements. Cheng Narvaez DO 01/03/2024 12:57:19 PM This report has been signed electronically. Number of Addenda: 0 Note Initiated On: 01/03/2024 12:01 PM
--- NOTE | 2024-01-03 12:58 | PCM.POST.ANE ---
Anesthesia: Postop Eval I Current Vital Signs Temperature: 97 F Pulse Rate: 97 Blood Pressure: 106/87 Respiratory Rate: 16 Pulse Ox: 97 Oxygen Delivery Method: Room Air Assessment Airway patent: Yes Spontaneous unlabored respirations: Yes Mental status: Awake and Calm nausea: No Vomiting: No Anesthesia Complication: No Fluid Hydration Crystalloid volume administer (ml): 60 Total IV fluid infused: 60 Progress Note Anesthesia document: Postop Eval 1 completed: Yes
--- NOTE | 2024-01-03 13:03 | PCM.POSTANE2 ---
Anesthesia Postop Eval I Sum Postop Eval Completion status Anesthesia document: Postop Eval 1 completed: Yes Anesthesia Postop Eval I Summary Anesthesia Postop Eval I Summary: Anesthesia Postop Eval I: Assessment Summary Airway patent Yes 01/03/24 12:59 [email or web address] Spontaneous unlabored Yes 01/03/24 12:59 [email or web address] respirations Mental status Awake,Calm 01/03/24 12:59 [email or web address] nausea No 01/03/24 12:59 [email or web address] Vomiting No 01/03/24 12:59 [email or web address] Anesthesia Postop Eval I: Fluid Summary Crystalloid volume administer 60 01/03/24 12:59 [email or web address] (ml) Colloids volume administered ( ml) Blood Product volume administered (ml) Total IV fluid infused 60 01/03/24 12:59 [email or web address] Anesthesia Postop Eval I: Summary Notes Anesthesia Complication No 01/03/24 12:59 [email or web address] Anesthesia Complication Comment: Post-operative progress note Anesthesia: Postop Eval II Evaluation Mental status: Awake Pain Level: 0 nausea: No Vomiting: No
== END 2024-01-03 13:36 | disposition home or self-care (01) ==
LOC: EN 10:40 → AC 10:41
PROVIDERS: PCP Family Medicine; Referring Provider Family Medicine; Visit Provider Internal Medicine Gastroenterology
PROC: (CPT 43260; principal; 2024-01-03 11:10)
DX: K80.21 Calculus of gallbladder without cholecystitis with obstruction (principal); M06.9 Rheumatoid arthritis, unspecified; K80.50 Calculus of bile duct without cholangitis or cholecystitis without obstruction; E66.9 Obesity, unspecified; K21.9 Gastro-esophageal reflux disease without esophagitis; K75.81 Nonalcoholic steatohepatitis (NASH); F41.8 Other specified anxiety disorders; Z88.2 Allergy status to sulfonamides; Z90.49 Acquired absence of other specified parts of digestive tract; Z68.36 Body mass index [BMI] 36.0-36.9, adult; Z79.899 Other long term (current) drug therapy; Z87.891 Personal history of nicotine dependence
CPT/HCPCS: 43264; 43275; 43262 ×2; 74330; 76000; 88108; 88305; 88313; A4216; J2405

== ENCOUNTER 2024-10-10 09:41 | Emergency (ER) | payer SELFPAY ==
[2024-10-10 09:41] VITALS: BP 139/96; PULSE 98; RESP 14; TEMP 36.1; O2SAT 98; BMI 38.1
--- NOTE | 2024-10-10 10:07 | EDS_ITS ---
HPI HPI - Female History of Present Illness Chief Complaint: Vag Bleeding Informant: patient Bleeding Issue: Positive for Vaginal bleeding and Passing clots Onset: Weeks (6) Context: Gradual Onset Timing: Continuous Current Severity: Heavy Current pads/hr: 2 Maximum Severity: Heavy Maximum pads/hr: 2 Associated Symptoms Associated Symptoms: Negative for Dysuria or Frequency Control: BTL Narrative Narrative: Patient presents with vaginal bleeding that has been constant for the past 6 weeks. Patient states that she has been passing some clots as well. Patient states she is using a heavy overnight pad as well as a superabsorbent tampon every hour. Patient states her bleeding is worse when she is up and active. Patient states nothing makes it better. Patient denies any fevers or chills. Patient denies any dysuria or frequency. Patient admits to a history of uterine fibroid. [facility] Medical History History of biliary stent insertion Gastric reflux Wears glasses Diabetes Rheumatoid arthritis Fatty liver Back pain Difficulty swallowing Former smoker Shortness of breath on exertion Obesity Unstable lie Gestational diabetes mellitus (GDM) Distortion of contour of breast Depression with anxiety Abnormal ultrasound of breast Abnormal mammogram Home Medications ?Medication ?Instructions ?Recorded ?Last Taken ?Type venlafaxine 150 mg 150 mg PO DAILY #30 caps 12/2011/01/23 Rx capsule,extended release 24 hr dextroamphetamine-amphetamine 20 20 mg PO BID 06/29/17 10/30/23 History mg tablet (Adderall) aripiprazole 5 mg tablet 5 mg PO QHS anxiety and depr ession 03/23/23 01/03/24 06:00 History multivitamin 1 tab PO DAILY 10/12/2310/05 History biotin 1 tab PO DAILY 10/10/24 Unkn own History Allergy/AdvReac Type Severity Reaction Status Date / Time bupropion (From Wellbutrin) Allergy Mild Hives Verified 10/10/24 09:42 hydrocodone Allergy Mild Other Verified 10/10/24 09:42 promethazine (From Phenergan) Allergy Mild Other Verified 10/10/24 09:42 Sulfa (Sulfonamide Allergy Other Verified 10/10/24 09:42 Antibiotics) Opioids - Morphine Analogues AdvReac Unknown I don't Verified 10/10/24 09:[address] it makes me feel, I'd rather have Dil[place] Family History Grandfather Arthritis Diabetes Hypertension Skin cancer Grandmother Arthritis Aunt Colon cancer Mother HLD (hyperlipidemia) Cholecystitis with cholelithiasis Father Diabetes Cholecystitis with cholelithiasis Surgical History History of esophagogastroduodenoscopy (EGD) History of ERCP S/P laparoscopic cholecystectomy Delivery by section history ORIF right fifth metatarsal Social History household members: family and children Smoking Status: Former smoker how long ago did patient quit smoking: Quit 5 yrs prior, smoked 1 pk/week since 17 until quit. alcohol intake: current alcohol intake frequency: a few times a month substance use type: does not use ROS ROS ED Constitutional Constitutional ED: Denies chills or fever(s) Eyes Eyes: Denies blurry vision or change in vision ENT ENT ED: Denies rhinorrhea or sore throat Cardiovascular Cardiovascular: Denies chest pain or palpitations Respiratory/Chest Respiratory/Chest: Reports dyspnea; Denies cough Gastrointestinal Gastrointestinal: Denies nausea or vomiting Genitourinary Genitourinary ED: Denies dysuria or hematuria Musculoskeletal Musculoskeletal: Denies back pain or neck pain Integumentary Denies abscess or rash Neurologic Neurologic: Denies headache(s) or weakness Allergic/Immunologic Allergic/Immunologic ED: Denies mouth swelling or urticaria EXAM Physical Exam Const Vital Signs: 10/10/24 09:41 10/10/24 11:41 10/10/24 12:29 Temperature 97 F L Temperature Source Temporal Pulse Rate 98 77 78 Respiratory Rate 14 18 14 Blood Pressure 139/96 H 128/86 H 114/85 H Blood Pressure Mean 110 100 94 Pulse Ox 98 98 99 Oxygen Delivery Method Room Air Room Air Positive well nourished and well developed Constitutional Narrative: BMI is 38.2. General Appearance ED: well developed and NAD HEENT Reports moist mucous membranes Neck supple and no JVD Resp normal respiratory effort and clear to auscultation bilaterally Cardio regular rate and regular rhythm GI soft to palpation, non-tender and non-distended Neuro oriented x3, CN's II-XII intact bilaterally and no sensory deficits noted Sensorium / Orientation: alert Motor Exam: strength 5/5 throughout Psych mental status grossly normal MDM MDM MDM Narrative Medical decision making narrative: Differential diagnosis includes uterine fibroid, menorrhagia, dysfunctional uterine bleeding, uterine cancer, ectopic , urinary tract infection, anemia, and dehydration. CBC will be obtained to assess for leukocytosis and anemia. Basic metabolic profile will be obtained to assess for electrolyte abnormality renal function. Serum hCG will be obtained to assess for . Pelvic ultrasound will be obtained to assess for uterine fibroid, uterine cancer, and dysfunctional uterine bleeding. History & Record Review Additional record(s) reviewed:: Prior outpatient record and Prior labs Lab Data Attestation: I reviewed the patient's lab results. Lab results narrative: CBC was reviewed. Hemoglobin is stable at 12.3 and hematocrit is 37.2. Basic metabolic profile was reviewed. Glucose was slightly elevated at 148. The remainder is within normal limits. Serum hCG was reviewed and was negative. PT with INR and PTT were reviewed and were within normal limits. Urinalysis was reviewed. Occult blood was 250 with greater than 100 red blood cells noted. There is no evidence of urinary tract infection. Labs: Laboratory Results - last 24 hr 10/10/24 10/10/24 10/10/24 09:58 11:08 11:15 WBC 7.7 RBC 4.15 L Hgb 12.3 Hct 37.2 MCV 89.6 MCH 29.6 MCHC 33.1 RDW Std Deviation 43.7 RDW Coeff of Amy 13.2 Plt Count 323 MPV 9.8 Immature Gran % (Auto) 0.400 Neut % (Auto) 52.0 Lymph % (Auto) 34.9 [place] % (Auto) 7.8 Eos % (Auto) 4.2 Baso % (Auto) 0.7 Absolute Neuts (auto) 4.0 Absolute Lymphs (auto) 2.67 Nucleated RBC % 0 PT 13.4 INR 1.0 APTT 24.5 Sodium 138 Potassium 4.2 Chloride 104 Carbon Dioxide 25.0 Anion Gap 10 BUN 12 Creatinine 0.72 Estim Creat Clear Calc 129.08 Est GFR (MDRD) Non-Af 106 BUN/Creatinine Ratio 15.9 Glucose 148 H Calcium 9.3 Serum , Qual NEGATIVE Urine Color Red Urine Clarity Sl. Cloudy Urine pH 7.0 Ur Specific [place] 1.010 Urine Protein 100 H Urine Glucose (UA) Normal Urine Ketones Negative Urine Occult Blood 250 H Urine Nitrite Negative Urine Bilirubin Negative Urine Urobilinogen Normal Ur Leukocyte Esterase 100 H Urine RBC > 100 SEEN Urine WBC 0 SEEN Ur Squamous Epith Cells 0-5 SEEN Urine Bacteria 0 SEEN Urine Mucus 0 SEEN Radiography Diagnostic Testing: Clinical Impression(s) from Imaging Studies Transvaginal US 10/10/24 10:23 IMPRESSION: The endometrium is thickened measuring 21.6 mm. 5.1 cm 4 cm 3.3 cm right ovarian cyst. 3.5 cm 3.7 cm 3 cm uterine fibroid. Reading Location: [id number] Pelvic ultrasound was obtained. The endometrium is thickened at 21.6 mm. There is a 3.5 x 3.7 x 3 cm uterine fibroid. There is a right ovarian cyst. This was interpreted by the radiologist and was also independently reviewed by myself. Management Discussion w/another healthcare provider: Health Promotion Manager (Dr. Knapp from [facility]) Treatment and Re-Evaluation Narrative: Patient was given IV fluids. Patient was advised of her findings. Case was discussed with Dr. Knapp from [facility]. She had no further recommendations. She instructed the patient to follow-up in their office in the next few days. The patient was instructed to return if worse in any way. Patient understood and was agreeable with the plan. All questions were answered. Discharge Plan Triage Chief Complaint: Vag Bleeding ED Provider: Durga Chang Dx/Rx/DC Orders Clinical Impression: Dysfunctional uterine bleeding, Uterine fibroid Instructions: ED Dysfunctional Uterine Bleeding Prescriptions: No Action dextroamphetamine-amphetamine [Adderall] 20 mg tablet 20 mg PO BID multivitamin Tablet 1 tab PO DAILY venlafaxine 150 MG capsule 150 mg PO DAILY Qty: 30 3RF aripiprazole 5 mg tablet 5 mg PO QHS Patient Comments: TAKE 1 TABLET BY MOUTH EVERY DAY biotin 1 tab PO DAILY Patient Comments: chewable gummy Primary Care Provider: Caden Almazan Referrals: Althea Marinelli MD [Med Staff - Active Staff] - 5-7 Days Caden Almazan MD [Primary Care Provider] - Print Language: Greek Disposition Disposition: Home, Self Care
--- NOTE | 2024-10-10 10:23 | US_ITS ---
PROCEDURE: TRANSVAGINAL NON- 10/10/2024 REASON FOR EXAM: ABNORMAL VAGINAL BLEEDING TECHNIQUE: TRANSVAGINAL NON- COMPARISON: None FINDINGS: Measurements: Uterus: 13 cm x 7.6 cm x 6.4 cm with a volume of 330.75 mL. There is evidence of a 3.5 cm 3.7 cm x 3 cm uterine fibroid. Heterogeneous echotexture of the myometrium suggestive of fibroid change. Endometrial Thickness: 21.6 mm. Heterogeneous. Endometrial thickening. Right Ovary: 6.7 cm x 4.3 cm x 3.2 cm with a volume of 48.14 mL. Left Ovary: Not visualized. Uterus: 3.5 cm 3.7 cm 3 cm uterine fibroid. Endometrium: 21.6 mm. The endometrium is thickened. Follow-up recommended. Right ovary: 5.1 cm 4 cm 3.3 cm right ovarian cyst. Left ovary: Not visualized. Other: No large pelvic mass identified. US/Transvaginal Non- IMPRESSION: The endometrium is thickened measuring 21.6 mm. 5.1 cm 4 cm 3.3 cm right ovarian cyst. 3.5 cm 3.7 cm 3 cm uterine fibroid. Reading Location: [facility]
[2024-10-10] MEDS: 0.9% Normal Saline (1000mL) 1,000 ML 1000 ML IV (10:31)
[2024-10-10 10:32] LABS: Hematocrit 37.2 % (37-47); Hemoglobin 12.3 g/dL (12.0-15.0); Immature Granulocytes Count 0.030 X10^3/uL (0.0-0.0); Mean Corp Hgb Conc 33.1 g/dL (32-36); Mean Corpuscular Volume 89.6 fL (81-99); Mean Platelet Vol. 9.8 fl (6.2-12.0); NRBC Flagged by Analyzer 0 % (0-5); Platelet Count 323 K/mm3 (150-450); RBC Distribution Width CV 13.2 % (11.6-14.6); RBC Distribution Width SD 43.7 fl (35.1-43.9); Red Blood Count 4.15 M/mm3 (4.2-5.4); White Blood Count 7.7 K/mm3 (4.4-11.0)
[2024-10-10 10:58] LABS: Anion Gap 10 (5-15); BUN 12 mg/dL (4-19); BUN/Creat Ratio 15.9 RATIO (10-20); Calcium,Total 9.3 mg/dL (7.6-11.0); Carbon Dioxide 25.0 mmol/L (21.0-32.0); Chloride 104 mmol/L (98-108); Estimated Creatinine Clearance 129.08 ml/min (50-250); Glucose 148 mg/dL (70-99); Potassium 4.2 mmol/L (3.3-5.1)
[2024-10-10 11:19] LABS: Mucous, Urine 0 SEEN /hpf (<or=2+)
[2024-10-10 11:20] LABS: Color, Urine Red (Yellow); Glucose, Dipstick Normal (Normal); Ketone-Dipstick Negative (Negative); Leukocyte Esterase-Dipstick 100 /ul (Negative); Nitrite-Dipstick Negative (Negative); Occult Blood-Urine 250 /ul (Negative); Protein-Dipstick 100 mg/dl (Negative); Specific Gravity, Urine 1.010 (1.002-1.030); Urine Bilirubin Dipstick Negative (Negative)
[2024-10-10 11:22] LABS: Partial Thromboplast Time 24.5 Seconds (24.1-36.2); Prothrombin Time (Protime)PT. 13.4 SECONDS (11.7-14.9)
[2024-10-10 11:34] LABS: Internal QC Validated? YES +Cl - CLEAR BKGD; Pregnancy, Serum, hCG Quali. NEGATIVE Negative; Record Kit Lot#, Serum Preg. 962302
[2024-10-10 11:37] LABS: Red Blood Cells-Urine > 100 SEEN /hpf (0-5); Squamous Epithelial Cells - UA 0-5 SEEN /hpf (5-10)
[2024-10-10 11:41] VITALS: BP 128/86; PULSE 77; RESP 18; O2SAT 98
[2024-10-10 12:29] VITALS: BP 114/85; PULSE 78; RESP 14; O2SAT 99
--- NOTE | 2024-10-10 12:39 | ED.RN ---
ULTRASOUND CALLED FOR OUTSTANDING RESULTS. RESPONSE THEY ARE READING IT NOW. PROVIDER NOTIFIED
[2024-10-10 13:44] VITALS: O2SAT 96
[2024-10-10 13:45] VITALS: BP 121/81; PULSE 70; RESP 14; O2SAT 96
[2024-10-10 14:35] VITALS: BP 120/60; PULSE 60; RESP 14; TEMP 37.1; O2SAT 100
== END 2024-10-10 14:35 | disposition home or self-care (01) ==
PROVIDERS: Emergency Provider Emergency Medicine; PCP Family Medicine; Visit Provider Emergency Medicine
DX: N93.8 Other specified abnormal uterine and vaginal bleeding (principal); E11.9 Type 2 diabetes mellitus without complications; D25.9 Leiomyoma of uterus, unspecified; Z87.891 Personal history of nicotine dependence; R06.00 Dyspnea, unspecified
CPT/HCPCS: 76830; 80048; 81001; 84703; 85025; 85610; 85730; 96360; 96361; 99283; A4216